=== PATIENT | female | born 1975 | race Two or more races ===

== ENCOUNTER → 2020-07-16 10:04 | Outpatient (BNVA) | payer OTHER, SELFPAY | PROVIDERS: PCP Internal Medicine Sports Medicine; Visit Provider Physician Assistant | DX: E66.01 Morbid (severe) obesity due to excess calories (principal); Z68.41 Body mass index [BMI] 40.0-44.9, adult; Z87.891 Personal history of nicotine dependence; Z88.8 Allergy status to other drugs, medicaments and biological substances; Z91.012 Allergy to eggs; Z79.899 Other long term (current) drug therapy | CPT/HCPCS: 99212 ==

== ENCOUNTER → 2020-08-06 10:18 | Outpatient (BNVA) | payer OTHER, SELFPAY | PROVIDERS: Visit Provider Physician Assistant | DX: E66.01 Morbid (severe) obesity due to excess calories (principal); Z68.41 Body mass index [BMI] 40.0-44.9, adult | CPT/HCPCS: 99212 ==

== ENCOUNTER → 2020-08-29 08:40 | Outpatient (BNVA) | payer OTHER, SELFPAY | PROVIDERS: PCP Internal Medicine Sports Medicine; Visit Provider Physician Assistant | DX: E66.01 Morbid (severe) obesity due to excess calories (principal); Z68.41 Body mass index [BMI] 40.0-44.9, adult | CPT/HCPCS: Q3014 ==

== ENCOUNTER → 2020-11-11 14:10 | Outpatient (BNVA) | payer OTHER, SELFPAY | PROVIDERS: PCP Internal Medicine Sports Medicine; Visit Provider Surgery | DX: E66.01 Morbid (severe) obesity due to excess calories (principal); Z68.41 Body mass index [BMI] 40.0-44.9, adult | CPT/HCPCS: 99212 ==

== ENCOUNTER → 2020-11-25 10:10 | Outpatient (BNVA) | payer OTHER, SELFPAY | PROVIDERS: PCP Internal Medicine Sports Medicine; Visit Provider Surgery | DX: Z01.818 Encounter for other preprocedural examination (principal); E66.01 Morbid (severe) obesity due to excess calories; R06.02 Shortness of breath; Z68.41 Body mass index [BMI] 40.0-44.9, adult | CPT/HCPCS: 99212 ==

== ENCOUNTER 2020-11-26 06:40 | Inpatient (IN) | payer OTHER, SELFPAY ==
[2020-11-24 16:23] VITALS: BMI 40.0
--- NOTE | 2020-11-25 11:38 | MHC.SHP ---
Pre-Procedural Eval Section B Chief Complaint: Morbid Severe Obesity Allergies: Allergies Allergy/AdvReac Type Severity Reaction Status Date / Time prednisone [PREDNISONE] Allergy Severe DIFFICULTY Verified 11/25/20 10:51 BREATHING, anaphylaxis eggs Allergy Intermediate Hives Uncoded 11/24/20 16:12 Plan I have reviewed the history and physical and performed a pertinent physical examination on my patient. No changes have occurred unless specified.
--- NOTE | 2020-11-25 12:18 | ECG_ITS ---
Test Reason : R06.02 SOB Blood Pressure : / mmHG Vent. Rate : 104 BPM Atrial Rate : 104 BPM P-R Int : 164 ms QRS Dur : 096 ms QT Int : 350 ms P-R-T Axes : 040 007 037 degrees QTc Int : 460 ms Sinus tachycardia Otherwise normal ECG When compared with ECG of 12-MAY-2020 10:31, No significant change was found Referred By: Peg Schmitz Electronically Signed By:AIMEE ORDONEZ MD
--- NOTE | 2020-11-25 12:41 | HO.ANESPROP2 ---
Documented by User: Charlene Taylor 11/25/20 12:45 HPI - Anesthesia Eval Consult details Narrative: 45yo F for Gastrectomy Sleeve PMFSH Active Problems Active Problems: All Active Problems (Updated 11/25/20 @ 09:45 by Amada Neff) Preoperative examination (Acute) Shortness of breath (Acute) Body mass index (BMI) of 40.1 to 44.9 in adult (Acute) Morbid obesity (Acute) Past Medical History Medical History Anxiety Arthritis Asthma Body mass index (BMI) of 40.1 to 44.9 in adult Constipation Depression HIV (human immunodeficiency virus infection) HTN (hypertension) Insomnia Low back pain Morbid obesity Sciatica Seasonal allergies Sleep apnea Vertigo Family History Family History Mother Hyperlipidemia Hypertension Arthritis Sciatica Diabetes Father No problems noted. Brother Hypertension Surgical History Surgical History History of appendectomy History of elbow surgery Social History Social History Are you a primary laboratory animal caretaker to a significant other at home: No Do you presently have visiting nurse or other home services: Yes ([employer] IN[employer] 5 hours on weekends) Alcohol intake: never Smoking Status: Former smoker Smoking Quit Date: 1994 Use of substances other than those prescribed or required for medical reasons: No Have you been hit, kicked, punched, or otherwise hurt by someone within the past year? If so, by whom?: No Advance Directives: No Advance Directives Information Provided: No Advance Directives on File: No Recently lost weight without trying: No Meds Allergies Allergy/AdvReac Type Severity Reaction Status Date / Time prednisone [PREDNISONE] Allergy Severe DIFFICULTY Verified 11/25/20 11:53 BREATHING, anaphylaxis eggs Allergy Intermediate Hives Uncoded 11/25/20 11:53 Home Medications Medication Instructions Recorded Confirmed Last Taken Type abacavir 600 mg-dolutegravir 50 1 tab PO DAILY 07/16/20 11/25/20 Unknown History mg-lamivudine 300 mg tablet bupropion HCl 300 mg 24 hr tablet, 300 mg PO DAILY 07/16/20 11/25/20 Unknown History extended release cetirizine 10 mg tablet 10 mg PO DAILY 07/16/20 11/25/20 Unknown History chlorthalidone 25 mg tablet 25 mg PO DAILY 07/16/20 11/25/20 Unknown History cholecalciferol (vitamin D3) 25 25 mcg PO DAILY 07/16/20 11/25/20 Unknown History mcg (1,000 unit) tablet doxepin 10 mg capsule 10 mg PO BEDTIME 07/16/20 11/25/20 Unknown History escitalopram oxalate 20 mg tablet 20 mg PO DAILY 07/16/20 11/25/20 Unknown History flunisolide 25 mcg (0.025 %) nasal INTRANASAL 07/16/20 11/25/20 Unknown History spray fluticasone propionate 220 2 puff INHALATION BID 07/16/20 11/25/20 Unknown History mcg/actuation HFA aerosol inhaler hydroxyzine HCl 25 mg tablet 25 mg PO BID 07/16/20 11/25/20 Unknown History ipratropium 0.5 mg-albuterol 3 mg 3 ml INHALATION Q4-6H PRN 07/16/20 11/25/20 Unknown History (2.5 mg base)/3 mL nebulization soln lisinopril 20 mg tablet 20 mg PO DAILY 07/16/20 11/25/20 Unknown History montelukast 10 mg tablet 10 mg PO DAILY 07/16/20 11/25/20 Unknown History tacrolimus 0.1 % topical ointment 1 applic TOPICAL BID 07/16/20 11/25/20 Unknown History valacyclovir 1 gram tablet 1,000 mg PO DAILY PRN 07/16/20 11/25/20 Unknown History albuterol sulfate 90 mcg/actuation 2 puff INHALATION Q4-6H PRN g 11/11/20 11/25/20 Unknown History aerosol inhaler meclizine 25 mg tablet 25 mg PO DAILY PRN tab 11/11/20 11/25/20 Unknown History sennosides 8.6 mg tablet 17.2 mg PO DAILY PRN 11/11/20 11/25/20 Unknown History cyproheptadine 4 mg PO TID 11/24/20 11/26/20 Unknown History epinephrine IM 11/24/20 11/25/20 Unknown History ketotifen fumarate 1 drp OPHTHALMIC (EYE) BID PRN 11/24/20 11/25/20 Unknown History levocetirizine [Xyzal] 5 mg PO QPM 11/24/20 11/25/20 Unknown History gabapentin 300 mg capsule 300 mg PO TID 11/25/20 11/26/20 Unknown History Exam Exam Date and Time: November 25, 2020 1241 Height,Weight and Vital Signs: Height 5 ft 6 in Weight 112.491 kg Narrative Narrative: EKG 11/25/2020 Vent. Rate : 104 BPM Atrial Rate : 104 BPM P-R Int : 164 ms QRS Dur : 096 ms QT Int : 350 ms P-R-T Axes : 040 007 037 degrees QTc Int : 460 ms Sinus tachycardia Otherwise normal ECG When compared with ECG of 12-MAY-2020 10:31, No significant change was found Assessment and Plan Assessment Anesthesia Assessment: Chart Reviewed Documented by User: Yaneth Bacon 11/26/20 08:44 PMFSH Past Medical History Medical History Anxiety Arthritis Asthma Body mass index (BMI) of 40.1 to 44.9 in adult Constipation Depression HIV (human immunodeficiency virus infection) HTN (hypertension) Insomnia Low back pain Morbid obesity Sciatica Seasonal allergies Sleep apnea Vertigo Family History Family History Mother Hyperlipidemia Hypertension Arthritis Sciatica Diabetes Father No problems noted. 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 If so, by whom?: No Advance Directives: No Advance Directives Information Provided: No Advance Directives on File: No Recently lost weight without trying: No Meds Allergies Allergy/AdvReac Type Severity Reaction Status Date / Time prednisone [PREDNISONE] Allergy Severe DIFFICULTY Verified 11/25/20 11:53 BREATHING, anaphylaxis eggs Allergy Intermediate Hives Uncoded 11/25/20 11:53 Home Medications Medication Instructions Recorded Confirmed Last Taken Type abacavir 600 mg-dolutegravir 50 1 tab PO DAILY 07/16/20 11/25/20 Unknown History mg-lamivudine 300 mg tablet bupropion HCl 300 mg 24 hr tablet, 300 mg PO DAILY 07/16/20 11/25/20 Unknown History extended release cetirizine 10 mg tablet 10 mg PO DAILY 07/16/20 11/25/20 Unknown History chlorthalidone 25 mg tablet 25 mg PO DAILY 07/16/20 11/25/20 Unknown History cholecalciferol (vitamin D3) 25 25 mcg PO DAILY 07/16/20 11/25/20 Unknown History mcg (1,000 unit) tablet doxepin 10 mg capsule 10 mg PO BEDTIME 07/16/20 11/25/20 Unknown History escitalopram oxalate 20 mg tablet 20 mg PO DAILY 07/16/20 11/25/20 Unknown History flunisolide 25 mcg (0.025 %) nasal INTRANASAL 07/16/20 11/25/20 Unknown History spray fluticasone propionate 220 2 puff INHALATION BID 07/16/20 11/25/20 Unknown History mcg/actuation HFA aerosol inhaler hydroxyzine HCl 25 mg tablet 25 mg PO BID 07/16/20 11/25/20 Unknown History ipratropium 0.5 mg-albuterol 3 mg 3 ml INHALATION Q4-6H PRN 07/16/20 11/25/20 Unknown History (2.5 mg base)/3 mL nebulization soln lisinopril 20 mg tablet 20 mg PO DAILY 07/16/20 11/25/20 Unknown History montelukast 10 mg tablet 10 mg PO DAILY 07/16/20 11/25/20 Unknown History tacrolimus 0.1 % topical ointment 1 applic TOPICAL BID 07/16/20 11/25/20 Unknown History valacyclovir 1 gram tablet 1,000 mg PO DAILY PRN 07/16/20 11/25/20 Unknown History albuterol sulfate 90 mcg/actuation 2 puff INHALATION Q4-6H PRN g 11/11/20 11/25/20 Unknown History aerosol inhaler meclizine 25 mg tablet 25 mg PO DAILY PRN tab 11/11/20 11/25/20 Unknown History sennosides 8.6 mg tablet 17.2 mg PO DAILY PRN 11/11/20 11/25/20 Unknown History cyproheptadine 4 mg PO TID 11/24/20 11/26/20 Unknown History epinephrine IM 11/24/20 11/25/20 Unknown History ketotifen fumarate 1 drp OPHTHALMIC (EYE) BID PRN 11/24/20 11/25/20 Unknown History levocetirizine [Xyzal] 5 mg PO QPM 11/24/20 11/25/20 Unknown History gabapentin 300 mg capsule 300 mg PO TID 11/25/20 11/26/20 Unknown History Exam Height,Weight and Vital Signs: Vital Signs Temp Pulse Resp BP Pulse Ox 11/26/20 07:20 98.3 F 102 H 16 115/71 96 Pertinent Lab Results Pertinent Lab Results: Laboratory Results WBC 14.2 X10*3/uL (4.8-10.8) H 11/25/20 12:32 RBC 4.91 X10*6/uL (4.20-5.50) 11/25/20 12:32 Hgb 15.2 g/dl (12.0-16.0) 11/25/20 12:32 Hct 45.9 % (37-47) 11/25/20 12:32 MCV 93.5 fL (80-98) 11/25/20 12:32 MCH 31.0 pg (27.0-33.0) 11/25/20 12:32 MCHC 33.1 g/dl (31.0-35.0) 11/25/20 12:32 RDW 12.9 % (11.0-16.0) 11/25/20 12:32 Plt Count 431 X10*3/uL (160-400) H 11/25/20 12:32 MPV 10.0 fL (9.4-12.3) 11/25/20 12:32 Immature Gran % (Auto) 0.6 % (0.0-0.4) H 11/25/20 12:32 Neut % (Auto) 69.0 % (45-73) 11/25/20 12:32 Lymph % (Auto) 20.7 % (20-40) 11/25/20 12:32 Clay % (Auto) 8.7 % (2-11) 11/25/20 12:32 Eos % (Auto) 0.6 % (0-4) 11/25/20 12:32 Baso % (Auto) 0.4 % (0-2) 11/25/20 12:32 Lymph # (Auto) 2.9 X10*3/uL (1.2-4.9) 11/25/20 12:32 Clay # (Auto) 1.2 X10*3/uL (0.1-1.2) 11/25/20 12:32 Eos # (Auto) 0.1 X10*3/uL (0.0-0.4) 11/25/20 12:32 Baso # (Auto) 0.1 X10*3/uL (0.0-0.2) 11/25/20 12:32 Abs Immat Gran (auto) 0.09 X10*3/uL (0.00-0.03) H 11/25/20 12:32 Absolute Neuts (auto) 9.8 X10*3/uL (2.0-8.3) H 11/25/20 12:32 Absolute Nucleated RBC 0.000 X10*3/uL (0.0-0.012) 11/25/20 12:32 Nucleated RBC % (auto) 0.0 /100WBC (0.0-0.2) 11/25/20 12:32 PT 11.6 SEC (10.8-13.0) 11/25/20 12:32 INR 1.0 (0.9-1.1) 11/25/20 12:32 APTT 30.9 SEC (24.1-38.0) 11/25/20 12:32 Sodium 139 mmol/L (135-145) 11/25/20 12:32 Potassium 3.9 mmol/L (3.3-5.1) 11/25/20 12:32 Chloride 99 mmol/L (96-108) 11/25/20 12:32 Carbon Dioxide 28 mmol/L (22-29) 11/25/20 12:32 Anion Gap 16 (12-20) 11/25/20 12:32 BUN 14 mg/dL (9-16) 11/25/20 12:32 Creatinine 0.82 mg/dL (0.5-1.4) 11/25/20 12:32 Estim Creat Clear Calc 111.4 11/25/20 12:32 Estimated GFR > 60 11/25/20 12:32 Random Glucose 99 mg/dL (60-115) 11/25/20 12:32 Calcium 9.9 mg/dL (8.4-10.2) 11/25/20 12:32 Albumin 4.4 g/dL (3.5-5.0) 11/25/20 12:32 Urine Color YELLOW 11/25/20 Unknown Urine Appearance HAZY 11/25/20 Unknown Urine pH 6.5 (5.0-8.0) 11/25/20 Unknown Ur Specific [place] 1.010 (1.005-1.025) 11/25/20 Unknown Urine Protein 2+ MG/DL (NEG-TRACE) H 11/25/20 Unknown Urine Glucose (UA) NEG MG/DL (NEG) 11/25/20 Unknown Urine Ketones NEG MG/DL (NEG) 11/25/20 Unknown Urine Blood 1+ (NEG) H 11/25/20 Unknown Urine Nitrite NEG (NEG) 11/25/20 Unknown Ur Leukocyte Esterase NEG (NEG) 11/25/20 Unknown Urine RBC 5-9 /HPF (0) H 11/25/20 Unknown Urine WBC 1-4 /HPF (0-4) 11/25/20 Unknown Ur Squamous Epith Cells 2+ /LPF 11/25/20 Unknown Urine Bacteria 1+ /LPF 11/25/20 Unknown Urine Mucus 1+ /LPF 11/25/20 Unknown Urine Test NEGATIVE (NEGATIVE) 11/25/20 Unknown COVID-19 (KRISTIN) Negative (Negative) 11/26/20 06:51 COVID-19 Clin Com See Note 11/26/20 06:51 Blood Type O Positive 11/25/20 12:34 Antibody Screen NEGATIVE 11/25/20 12:34 Airway Mallampati Class: II TM Dist: >3cm Neck ROM: Full Loose/Missing/Broken Teeth: Yes (Missing 1) Heart: RRR Lungs: CTAB Assessment and Plan Assessment Anesthesia Assessment: Anesthesia Plan Discussed and Chart Reviewed Final Anesthetic Review NPO: Yes ASA Class: III Final Preanesthetic Review: No Changes in Pt Med Stat, Meds/Allgs Chart Reviewed, Consent Obtained/Reviewed and Anes Risks/Benef Reviewed Patient Risk: Intermediate Procedure Risk: Intermediate Assessment/Block/Sedation in SS: Assess/Block/Sedation-SS Anesthetic Plan Anesthetic Plan: GA Disposition: Standard PACU
[2020-11-25 13:25] LABS: MANUAL DIFF FLAG NO
[2020-11-25 13:33] LABS: Basophils Absolute Auto 0.1 X10*3/uL (0.0-0.2); Basophils Percent Auto 0.4 % (0-2); Eosinophils Absolute Auto 0.1 X10*3/uL (0.0-0.4); Eosinophils Percent Auto 0.6 % (0-4); Hematocrit 45.9 % (37-47); Hemoglobin 15.2 g/dl (12.0-16.0); Imm Gran Abs Auto 0.09 X10*3/uL (0.00-0.03); Imm Gran Pct Auto 0.6 % (0.0-0.4); Lymphocytes Absolute Auto 2.9 X10*3/uL (1.2-4.9); Lymphocytes Percent Auto 20.7 % (20-40); Mean Corpuscular HGB Conc 33.1 g/dl (31.0-35.0); Mean Corpuscular Volume 93.5 fL (80-98); Monocytes Absolute Auto 1.2 X10*3/uL (0.1-1.2); Monocytes Percent Auto 8.7 % (2-11); Neutrophils Absolute Auto 9.8 X10*3/uL (2.0-8.3); Platelet Count 431 X10*3/uL (160-400); Red Blood Count 4.91 X10*6/uL (4.20-5.50); Red Cell Distribution Width 12.9 % (11.0-16.0); White Blood Count 14.2 X10*3/uL (4.8-10.8)
[2020-11-25 13:43] LABS: Prothrombin Time 11.6 SEC (10.8-13.0)
[2020-11-25 13:45] LABS: Partial Thromboplastin Time 30.9 SEC (24.1-38.0)
[2020-11-25 14:00] LABS: Albumin Level 4.4 g/dL (3.5-5.0); Anion Gap 16 (12-20); Blood Urea Nitrogen 14 mg/dL (9-16); Calcium 9.9 mg/dL (8.4-10.2); Carbon Dioxide 28 mmol/L (22-29); Chloride 99 mmol/L (96-108); Creatinine Clr Calc Pharmacy 111.4; Estimated Glomerular Filt Rate > 60; Glucose Random 99 mg/dL (60-115); Potassium 3.9 mmol/L (3.3-5.1); Sodium 139 mmol/L (135-145)
[2020-11-25 14:02] LABS: Glucose Urine UA NEG (NEG); Leukocyte Esterase Urine NEG (NEG); Nitrite Urine NEG (NEG); PH 6.5 (5.0-8.0); Urine Blood 1+ (NEG); Urine Ketones NEG (NEG); Urine Protein 2+ MG/DL (NEG-TRACE)
[2020-11-25 14:05] LABS: Appearance Urine HAZY; Color Urine YELLOW
[2020-11-25 14:06] LABS: UPreg QC Valid YES; Urine Pregnancy NEGATIVE (NEGATIVE)
[2020-11-25 14:23] LABS: Bacteria Urine 1+ /LPF; Mucus Urine 1+ /LPF; Squamous Epithelial Cell Urine 2+ /LPF
[2020-11-26] VITALS (14 sets, daily range): BP systolic 107–159; BP diastolic 65–93; PULSE 87–113; RESP 16–20; TEMP 35.9–37; O2SAT 90–98; BMI 40.0
[2020-11-26] MEDS: Lactated Ringers 1,000 ML 100 ML IVCONT (07:23)
[2020-11-26 07:36] LABS: COVID-19 Test Negative (Negative)
--- NOTE | 2020-11-26 11:52 | PM.OP ---
Brief Operative Note Date of Service: 11/26/20 Pre-op diagnosis: Morbid obesity, BMI 40.2 Post-op diagnosis: other (Same and hiatal hernia) Procedure: Laparoscopic sleeve gastrectomy, hiatal hernia repair, Lay block, and intraoperative endoscopy Implants: covidien katia and clips Surgeon: Peg Schmitz MD Anesthesia: GETA Doping Supervisor: Migdalia Pittman Estimated blood loss (mL): 10 Pathology: other (Partial gastrectomy) Condition: stable Disposition: PACU
--- NOTE | 2020-11-26 11:53 | P.OP_ITS ---
Operative Note Operative Note Date of Service: 11/26/20 Narrative: Patient was brought into the operating room and placed on the operating room table in the supine position. General anesthesia was induced. Normal DVT prophylaxis was instituted and the patient received 2 grams of cefotetan preoperatively. The abdomen was then prepped and draped in the normal sterile fashion. A safety time-out was performed. A mixture of 1% lidocaine with epinephrine and ??% Marcaine plain was used to a nesthetize the planned incision site in the left upper quadrant. A #11 scalpel was used to make a 5 mm left upper quadrant transverse incision through which a veress needle was placed. Three pops were heard going through the fascia. A saline drop test was used to confirm that the veress needle was intraabdominal. An optiview technique was then used to place a 5mm port in the left upper quadrant. A 5 mm 30 degree laproscope was then placed through this port and the abdominal cavity was surveyed and was normal. The patient was placed in reverse Trendelenburg positioning. A benny liver retractor was then placed in the subxyphoid position and it was used to hold up the left lobe of the liver to the abdominal wall. This was secured to the bed using the liver retractor watts. A TREVOR block was then performed for pain control on the right side of the abdomen. A 5 mm port was placed in the right upper quadrant near the falciform ligament. A 12 mm port was then placed in the mid epigastrium. One additional 5 mm port was placed in the left upper quadrant just to the left of the placement of the first port. I then performed a TREVOR block on the left side of the abdomen. I then removed the epigastric fat pad; there was a small anterior hiatal hernia noted. I reapproximated the left and right crura with a total of 2 stitches of 2-0 ethibond and a laparoscopic knot pusher. There was no residual hiatal hernia. I then opened up the angle of His. We then gained entry into the lesser sac about 4-5 cm from the pylorus. I had anesthesia place a 34 [place] orogastric tube into the distal antrum to use as a sizing tool for gastric pouch size. I divided the short gastric vessels up to the angle of His. We then started the creation of the gastric pouch by firing a 60 mm purple load endostapler up the stomach about 4-5 cm from the pylorus. We completed the creation of the gastric pouch using a total of 4 firings of a 60 mm and 1 firing of a 45 mm purple load stapler. We had anesthesia remove the orogastric tube, then we clamped across the distal antrum using a fired 60 mm endostapler. We flattened the patient and then instilled normal saline surrounding the newly created staple line. I then performed an on-table endoscopy. I passed the gastroscopy into the posterior oropharynx and down the esophagus evaluating the esophageal mucosa which was normal. There was no evidence of hiatal hernia. I passed the gastroscope into the gastric pouch and insufflated the gastric pouch. There was healthy pink mucosa and no evidence of active bleeding. There was no evidence of leak on laparosc opy. I desufflated the gastric pouch and removed the endoscope. I removed the endostapler from the abdomen and suctioned the fluid from the left upper quadrant. I then removed the partial gastrectomy specimen through the epigastric 12 mm port site. I reapproximated the 12 mm port using a 0 maxon suture with a laparoscopic suture passer. I instilled local anesthetic into the fascial closure site and tied the suture down at a pressure of 8-10 mm of Hg. There was no residual fascial defect. We removed the liver retractor and the left upper quadrant 5 mm ports under direct visualization. There was no evidence of any active bleeding. I desufflated the abdomen through the last remaining port and removed the laparoscope and 5 mm port. We reapproximated all incisions with a 4-0 monocryl subcuticular stitch. We cleaned and dried the abdominal skin and applied dermabond skin glue. All count were correct at the end of the case. The patient was awake and in stable condition prior to extubation and transfer to the recovery room.
--- NOTE | 2020-11-26 11:58 | PM.DS ---
DS: Providers Provider Date of Service: 11/27/20 Date of admission: 11/26/20 06:40 Primary care physician: Venkatesh Abel MD DS: Medications Discharge Medications Home Medications: Home Medications Medication Instructions Recorded Confirmed abacavir 600 mg-dolutegravir 50 1 tab PO DAILY 07/16/20 11/25/20 mg-lamivudine 300 mg tablet bupropion HCl 300 mg 24 hr tablet, 300 mg PO DAILY 07/16/20 11/25/20 extended release cetirizine 10 mg tablet 10 mg PO DAILY 07/16/20 11/25/20 chlorthalidone 25 mg tablet 25 mg PO DAILY 07/16/20 11/25/20 cholecalciferol (vitamin D3) 25 25 mcg PO DAILY 07/16/20 11/25/20 mcg (1,000 unit) tablet doxepin 10 mg capsule 10 mg PO BEDTIME 07/16/20 11/25/20 escitalopram oxalate 20 mg tablet 20 mg PO DAILY 07/16/20 11/25/20 flunisolide 25 mcg (0.025 %) nasal INTRANASAL 07/16/20 11/25/20 spray fluticasone propionate 220 2 puff INHALATION BID 07/16/20 11/25/20 mcg/actuation HFA aerosol inhaler hydroxyzine HCl 25 mg tablet 25 mg PO BID 07/16/20 11/25/20 ipratropium 0.5 mg-albuterol 3 mg 3 ml INHALATION Q4-6H PRN 07/16/20 11/25/20 (2.5 mg base)/3 mL nebulization soln lisinopril 20 mg tablet 20 mg PO DAILY 07/16/20 11/25/20 montelukast 10 mg tablet 10 mg PO DAILY 07/16/20 11/25/20 tacrolimus 0.1 % topical ointment 1 applic TOPICAL BID 07/16/20 11/25/20 valacyclovir 1 gram tablet 1,000 mg PO DAILY PRN 07/16/20 11/25/20 albuterol sulfate 90 mcg/actuation 2 puff INHALATION Q4-6H PRN g 11/11/20 11/25/20 aerosol inhaler meclizine 25 mg tablet 25 mg PO DAILY PRN tab 11/11/20 11/25/20 sennosides 8.6 mg tablet 17.2 mg PO DAILY PRN 11/11/20 11/25/20 cyproheptadine 4 mg PO TID 11/24/20 11/26/20 epinephrine IM 11/24/20 11/25/20 ketotifen fumarate 1 drp OPHTHALMIC (EYE) BID PRN 11/24/20 11/25/20 levocetirizine [Xyzal] 5 mg PO QPM 11/24/20 11/25/20 gabapentin 300 mg capsule 300 mg PO TID 11/25/20 11/26/20 Previous Rx's Medication Instructions Recorded acetaminophen 500 mg tablet 1,000 mg PO Q6H PRN #30 tab 11/25/20 docusate sodium 100 mg capsule 100 mg PO BID #30 cap 11/25/20 famotidine 20 mg tablet 20 mg PO DAILY #30 tab 11/25/20 ondansetron HCl 4 mg tablet 4 mg PO Q6H PRN #30 tab 11/25/20 simethicone 80 mg chewable tablet 80 mg PO TID-QID PRN #30 tab 11/25/20 DS: Summary Time Spent with Patient Time attestation: Total time spent providing and/or coordinating discharge services: 15 minutes DATE OF SERVICE: November 26, 2020 ADMITTING DIAGNOSES: morbid obesity and hiatal hernia DISCHARGE DIAGNOSES: same, see procedure PROCEDURE PERFORMED: laparoscopic sleeve gastrectomy and hiatal hernia repair DISCHARGE MEDICATIONS: 1. Simethicone 80mg q4h prn gas 2. Ondansetron 4mg po tid prn nausea 3. Famotidine 20mg po bid 4. Docusate sodium 100mg po bid DISCHARGE INSTRUCTIONS: The patient should continue on the stage III bariatric diet, which includes 3 protein shakes of at least 20- 30g of protein on a daily basis. The patient was encouraged to avoid drinking liquids with her protein shakes. She should wait 30-45 minutes in between her meals and drinking water. She should drink at least 40-60 ounces of water on a daily basis. She should ambulate while at home to avoid any blood clots in her lower extremities. She should call with any questions or concerns such as increase in abdominal pain, persistent nausea, vomiting, redness and drainage from her incisions, fever, chills, shortness of breast, or chest pain beyond what is normal for her. The patient should avoid all heavy lifting greater than 5 pounds for the next 4 weeks. The patient is already scheduled to follow up with me in 2 weeks' time, but should call the office with any questions prior to that follow up appointment. The patient should not advance her diet until she is seen in the office for the 2 week appointment. HOSPITAL COURSE: The patient was admitted after undergoing laparoscopic sleeve gastrectomy. She was started on stage II diet and was tolerating well without nausea or vomiting. Her pain was controlled on IV Dilaudid. All labs were within normal limits. On post-operative day #2 she was feeling better, nausea and epigastric pain improved and she was tolerating stage III bariatric diet well. She was discharged home. DISCHARGE DISPOSITION: Home. Discharge coordination time: Less than 30 minutes Physical Exam Vital Signs: Vital Signs: Last Vital Signs Temp 98.3 F 11/26/20 07:20 Pulse 102 H 11/26/20 07:20 Resp 16 11/26/20 07:20 BP 115/71 11/26/20 07:20 Pulse Ox 96 11/26/20 07:20 Body Mass Index 40.0 DS: Data Data Completed and Pending Pending studies at discharge: Pending at discharge 11/26/20 11:22 Surgical [PTH] Routine Labs on day of discharge: Laboratory Results - last 24 hr 11/25/20 11/25/20 11/25/20 12:32 12:32 12:32 WBC 14.2 H RBC 4.91 Hgb 15.2 Hct 45.9 MCV 93.5 MCH 31.0 MCHC 33.1 RDW 12.9 Plt Count 431 H MPV 10.0 Immature Gran % (Auto) 0.6 H Neut % (Auto) 69.0 Lymph % (Auto) 20.7 Lyon % (Auto) 8.7 Eos % (Auto) 0.6 Baso % (Auto) 0.4 Lymph # (Auto) 2.9 Lyon # (Auto) 1.2 Eos # (Auto) 0.1 Baso # (Auto) 0.1 Abs Immat Gran (auto) 0.09 H Absolute Neuts (auto) 9.8 H Absolute Nucleated RBC 0.000 Nucleated RBC % (auto) 0.0 PT 11.6 INR 1.0 APTT 30.9 Sodium 139 Potassium 3.9 Chloride 99 Carbon Dioxide 28 Anion Gap 16 BUN 14 Creatinine 0.82 Estim Creat Clear Calc 111.4 Estimated GFR > 60 Random Glucose 99 Calcium 9.9 Albumin 4.4 Urine Color Urine Appearance Urine pH Ur Specific [place] Urine Protein Urine Glucose (UA) Urine Ketones Urine Blood Urine Nitrite Ur Leukocyte Esterase Urine RBC Urine WBC Ur Squamous Epith Cells Urine Bacteria Urine Mucus Urine Test COVID-19 (KRISTIN) [email or web address] Blood Type Antibody Screen 11/25/20 11/25/20 11/25/20 12:34 Unknown Unknown WBC RBC Hgb Hct MCV MCH MCHC RDW Plt Count MPV Immature Gran % (Auto) Neut % (Auto) Lymph % (Auto) Lyon % (Auto) Eos % (Auto) Baso % (Auto) Lymph # (Auto) Lyon # (Auto) Eos # (Auto) Baso # (Auto) Abs Immat Gran (auto) Absolute Neuts (auto) Absolute Nucleated RBC Nucleated RBC % (auto) PT INR APTT Sodium Potassium Chloride Carbon Dioxide Anion Gap BUN Creatinine Estim Creat Clear Calc Estimated GFR Random Glucose Calcium Albumin Urine Color YELLOW Urine Appearance HAZY Urine pH 6.5 Ur Specific [place] 1.010 Urine Protein 2+ H Urine Glucose (UA) NEG Urine Ketones NEG Urine Blood 1+ H Urine Nitrite NEG Ur Leukocyte Esterase NEG Urine RBC 5-9 H Urine WBC 1-4 Ur Squamous Epith Cells 2+ Urine Bacteria 1+ Urine Mucus 1+ Urine Test NEGATIVE COVID-19 (KRISTIN) COVID-[employer] Blood Type O Positive Antibody Screen NEGATIVE 11/26/20 06:51 WBC RBC Hgb Hct MCV MCH MCHC RDW Plt Count MPV Immature Gran % (Auto) Neut % (Auto) Lymph % (Auto) Lyon % (Auto) Eos % (Auto) Baso % (Auto) Lymph # (Auto) Lyon # (Auto) Eos # (Auto) Baso # (Auto) Abs Immat Gran (auto) Absolute Neuts (auto) Absolute Nucleated RBC Nucleated RBC % (auto) PT INR APTT Sodium Potassium Chloride Carbon Dioxide Anion Gap BUN Creatinine Estim Creat Clear Calc Estimated GFR Random Glucose Calcium Albumin Urine Color Urine Appearance Urine pH Ur Specific [place] Urine Protein Urine Glucose (UA) Urine Ketones Urine Blood Urine Nitrite Ur Leukocyte Esterase Urine RBC Urine WBC Ur Squamous Epith Cells Urine Bacteria Urine Mucus Urine Test COVID-19 (KRISTIN) Negative [email or web address] See Note Blood Type Antibody Screen Discharge Plan Discharge Anticipated Discharge Date/Time: 11/27/20 11:53 Patient Disposition: Home, Self-Care Referrals: [facility] [Other] Venkatesh Abel MD [Primary Care Provider] - Discharge Medications: Continued acetaminophen [Tylenol Extra Strength] 500 mg tablet 1,000 mg PO Q6H PRN (Reason: pain) Qty: 30 RF: 1 famotidine [Pepcid AC] 20 mg tablet 20 mg PO DAILY Qty: 30 RF: 1 simethicone [Gas Relief (simethicone)] 80 mg tablet,chewable 80 mg PO TID-QID PRN (Reason: abdominal distention) Qty: 30 RF: 1 ondansetron HCl [Zofran] 4 mg tablet 4 mg PO Q6H PRN (Reason: nausea and vomiting) Qty: 30 RF: 1 docusate sodium [Colace] 100 mg capsule 100 mg PO BID Qty: 30 RF: 1 ketotifen fumarate 0.025 % (0.035 %) Drops 1 drp OPHTHALMIC (EYE) BID PRN (Reason: Eye Irritation) RF: 0 levocetirizine [Xyzal] 5 mg Tablet 5 mg PO QPM RF: 0 cyproheptadine 4 mg tablet 4 mg PO TID RF: 0 epinephrine 0.3 mg/0.3 mL auto-injector IM RF: 0 szwpevat-jawtdryefjgg-mxbrgbe 600-50-300 mg tablet 1 tab PO DAILY RF: 0 cholecalciferol (vitamin D3) 25 mcg (1,000 unit) tablet 25 mcg PO DAILY RF: 0 bupropion HCl 300 mg tablet extended release 24 hr 300 mg PO DAILY RF: 0 escitalopram oxalate 20 mg tablet 20 mg PO DAILY RF: 0 fluticasone propionate 220 mcg/actuation HFA aerosol inhaler 2 puff inhalation BID RF: 0 montelukast 10 mg tablet 10 mg PO DAILY RF: 0 flunisolide 25 mcg (0.025 %) spray,non-aerosol intranasal RF: 0 tacrolimus 0.1 % ointment 1 applic topical BID RF: 0 doxepin 10 mg capsule 10 mg PO BEDTIME RF: 0 chlorthalidone 25 mg tablet 25 mg PO DAILY RF: 0 lisinopril 20 mg tablet 20 mg PO DAILY RF: 0 cetirizine 10 mg tablet 10 mg PO DAILY RF: 0 ipratropium-albuterol 0.5 mg-3 mg(2.5 mg base)/3 mL solution for nebulization 3 ml inhalation Q4-6H PRN (Reason: Shortness Of Breath Or Wheezing) RF: 0 hydroxyzine HCl 25 mg tablet 25 mg PO BID RF: 0 valacyclovir 1 gram tablet 1,000 mg PO DAILY PRN (Reason: Cold Sores) RF: 0 albuterol sulfate 90 mcg/actuation HFA aerosol inhaler 2 puff inhalation Q4-6H PRN (Reason: shortness of breath or wheezing) RF: 0 meclizine 25 mg tablet 25 mg PO DAILY PRN (Reason: dizziness) RF: 0 sennosides 8.6 mg tablet 17.2 mg PO DAILY PRN (Reason: Constipation) RF: 0 gabapentin 300 mg capsule 300 mg PO TID RF: 0 Discharge Orders: Discharge Order (Routine); Ordered 11/27/20 Ordered By: Peg Schmitz Diet: other Activity on Discharge: No heavy lifting Stand Alone Forms: Patient Portal Discharge page Activity Restrictions/Additional Instructions: No tub baths, sex or returning to work until discussed at first post op appointment. No exercise, alcohol, tobacco or illegal drug use. Continue to use incentive spirometer hourly while awake. Walk in home for 5- 10 minutes every 2 hours during the first week. Continue phase 3 diet until first post op appointment. Follow all instructions in the bariatric handbook and call with any questions.Discharge Instructions 1. Please call your doctor or come back to the emergency room should any new symptoms arise. 2. You will receive a courtesy call from [facility] 24-48 hours after discharge. 3. Activity: abstain from alcohol, practice limited stair climbing, no bending, no driving, no exercise, no illicit substances, no lifting, no sex, no tub bath, no work. 4. Diet: continue stage 3 protein shakes until your [address] Schmitz. 5. Dressing Change/Wound Care: Your incision is covered by surgical glue. If the area is tender, you may apply an ice pack for short intervals (no more than 20 minutes on, followed by at least 20 minutes off). Do not apply heat. Do not use creams, lotions, or topical antibiotics unless instructed to do so by your surgeon. These can cause infection or allergic reaction. 6. Call your doctor if: - Your temperature exceeds 101.5 F - You experience excessive pain or swelling - You have an unexpected reaction to medication - You have excessive bleeding - You experience continued vomiting/nausea - Your incision begins to separate - Your incision shows signs of infection such as increased redness, swelling, excessive pain, heat, or drainage (light blood or clear fluid is normal) 7. General instructions: No lifting greater than 5 lbs for the next 4 weeks[address] driving within 24 hours of taking narcotic pain medications. If you do not move your bowels in the next 2 days, please take milk of magnesia over the counter. Please follow the post op diet and do not advance your diet until you are seen in the office in about 2 weeks. Please walk around your home every hour or two to prevent blood clots from forming in your legs. You do not need to wake from sleeping to walk. Please sleep in a bed or couch to prevent kinking at the hips and knees. Please take your incentive spirometer (your lung freight separator) home with you and use it for the next few days to prevent pneumonias. You may shower, no hot tubs, baths or swimming pools. Please call the office with any questions or concerns such as increasing abdominal pain, fever, chills, shortness of breath, chest pain, leg pain or swelling, or redness or drainage from your incisions. Please stay on stage 3 diet which includes sugar free clear liquids such as ice pops and jello and broth and crystal light. Avoid all carbonation. Please drink 3 protein shakes with at least 25-30 grams of protein daily or 3 of the Celebrate 4:1 shakes which can be purchased in our office. The Celebrate shakes have all of the bariatric vitamins you need if you consume these shakes. If you are drinking other protein shakes, you will need to purchase the Celebrate multivitamins and calcium that we provide in the office (they will provide all the vitamins you need). Please make sure you are consuming at least 40-60 ounces of water in addition to your 3 protein shakes daily. Do not hesitate to contact the office with any questions at . Care Plan Goals: weight loss Health Concerns: morbid obesity Plan of Treatment: see discharge instructions
[2020-11-26] MEDS: Famotidine/PF 20 MG/2 ML VIAL IVPUSH ×2 (12:58→21:19)
[2020-11-26] MEDS: Lactated Ringers 1,000 ML 125 ML IVCONT ×2 (14:31→22:38)
[2020-11-26] MEDS: Gabapentin 300 MG CAPSULE PO ×2 (15:57→20:05)
[2020-11-26] MEDS: Doxepin HCl 10 MG CAPSULE PO (20:05)
[2020-11-26] MEDS: hydrOXYzine HCL 25 MG TABLET PO (20:05)
[2020-11-26] MEDS: ondansetron HCL 4 MG/2 ML VIAL IVPUSH (21:19)
[2020-11-26] MEDS: 0.9 % Sodium Chloride Flush 3 ML SYRINGE IVFLUSH (21:20)
[2020-11-26] MEDS: cefoTEtan disodium 2 GM in 0.9 % Sodium Chloride 50 ML IV (22:36)
[2020-11-27 03:38] VITALS: BP 115/75; PULSE 79; RESP 20; TEMP 36.5; O2SAT 98
[2020-11-27] MEDS: HYDROmorphone HCl 0.5 MG/0.5 ML SYRINGE 0.25 MG IVPUSH (03:46)
[2020-11-27 04:56] LABS: MANUAL DIFF FLAG NO
[2020-11-27 05:13] LABS: Basophils Percent Auto 0.1 % (0-2); Eosinophils Percent Auto 0.2 % (0-4); Hematocrit 39.6 % (37-47); Hemoglobin 13.3 g/dl (12.0-16.0); Imm Gran Abs Auto 0.06 X10*3/uL (0.00-0.03); Imm Gran Pct Auto 0.5 % (0.0-0.4); Lymphocytes Absolute Auto 2.5 X10*3/uL (1.2-4.9); Lymphocytes Percent Auto 20.4 % (20-40); Mean Corpuscular HGB Conc 33.6 g/dl (31.0-35.0); Mean Corpuscular Hemoglobin 31.7 pg (27.0-33.0); Mean Corpuscular Volume 94.5 fL (80-98); Mean Platelet Volume 9.7 fL (9.4-12.3); Monocytes Absolute Auto 1.3 X10*3/uL (0.1-1.2); Monocytes Percent Auto 10.3 % (2-11); Neutrophils Absolute Auto 8.6 X10*3/uL (2.0-8.3); Neutrophils Percent Auto 68.5 % (45-73); Platelet Count 370 X10*3/uL (160-400); Red Blood Count 4.19 X10*6/uL (4.20-5.50); White Blood Count 12.5 X10*3/uL (4.8-10.8)
[2020-11-27 05:46] LABS: Anion Gap 11 (12-20); Blood Urea Nitrogen 9 mg/dL (9-16); Calcium 8.7 mg/dL (8.4-10.2); Carbon Dioxide 33 mmol/L (22-29); Chloride 100 mmol/L (96-108); Creatinine Clr Calc Pharmacy 108.6; Estimated Glomerular Filt Rate > 60; Glucose Random 107 mg/dL (60-115); Potassium 3.9 mmol/L (3.3-5.1); Sodium 140 mmol/L (135-145)
[2020-11-27] MEDS: ondansetron HCL 4 MG/2 ML VIAL IVPUSH (05:51)
[2020-11-27] MEDS: Lactated Ringers 1,000 ML 125 ML IVCONT (05:52)
[2020-11-27 07:28] VITALS: BP 147/79; PULSE 77; RESP 17; TEMP 36.4; O2SAT 97
--- NOTE | 2020-11-27 07:31 | PM.PNGS ---
Subjective Subjective Date of Service: 11/27/20 <Migdalia Pittman PA-C - Last Filed: 11/27/20 10:09> 11/27/20 <Peg Schmitz MD - Last Filed: 11/27/20 09:14> Interval history: Pt is POD #1, s/p LSG and HH repair. She is doing very well this am. No further pain, no nausea. Ambulating and voiding well. Tolerating phase 2 bariatric diet. No concerns. Using ICS > 2000 mls. <Migdalia Pittman PA-C - Last Filed: 11/27/20 10:09> Pod #1 s/p lap sleeve gastrectomy and hiatal hernia repair. Doing well. Tolerating stage 3 diet, ambulating in hallway. Pain well controlled. Denies nausea or vomiting. Vitals and labs reviewed and are within limit for post op day 1. On exam, patient is well appearing, abdomen is soft, nd, mild appropriate incisional tenderness. Incisions c/d/I with dermabond in place. Plan: d/c home today. Follow up with me in 2 weeks. <Peg Schmitz MD - Last Filed: 11/27/20 09:14> Physical Exam Vital Signs: Vital Signs: Last Vital Signs Temp 97.7 F 11/27/20 03:38 Pulse 79 11/27/20 03:38 Resp 20 11/27/20 03:38 BP 115/75 11/27/20 03:38 Pulse Ox 98 11/27/20 03:38 Body Mass Index 40.0 <Migdalia Pittman PA-C - Last Filed: 11/27/20 10:09> Const: General: cooperative, healthy appearing, comfortable and awake <Migdalia Pittman PA-C - Last Filed: 11/27/20 10:09> GI: Inspection: No abdominal wall ecchymosis, No distended and Yes incision (all clean, dry and intact) <Migdalia Pittman PA-C - Last Filed: 11/27/20 10:09> Palpation (GI): Soft to palpation, nontender, no guarding, not rigid, no hernias and no masses <Migdalia Pittman PA-C - Last Filed: 11/27/20 10:09> Extrem: General: No no pedal edema and No calf tenderness <Migdalia Pittman PA-C - Last Filed: 11/27/20 10:09> Progress Note: A&P Assessment and plan (1) History of repair of hiatal hernia: Problem details: POD #1, doing well. See LSG instructions <Migdalia Pittman PA-C - Last Filed: 11/27/20 10:09> Status: Acute <Migdalia Pittman PA-C - Last Filed: 11/27/20 10:09> (2) S/P laparoscopic sleeve gastrectomy: Problem details: POd # 1 doing very well. Will advance to phase 3 diet now and expect d/c home later this am. Labs reviewed all wnl. <Migdalia Pittman PA-C - Last Filed: 11/27/20 10:09> Status: Acute <Migdalia Pittman PA-C - Last Filed: 11/27/20 10:09> (3) Body mass index (BMI) of 40.1 to 44.9 in adult: Status: Acute <Migdalia Pittman PA-C - Last Filed: 11/27/20 10:09> (4) Morbid obesity: Status: Acute <Migdalia Pittman PA-C - Last Filed: 11/27/20 10:09> Fall Risk Details Current Medications: Current Medications Generic Name Dose Route Start Last Admin Trade Name Freq PRN Reason Stop Dose Admin Albuterol Sulfate 2 puff 11/26/20 13:51 Albuterol Sulfate 90 Mcg 8 Gm Inhaler INHALE Q4H PRN shortness of breath or wheezing Albuterol/Ipratropium 3 ml 11/26/20 13:51 Albuterol/Iprat 2.5/0.5mg 3 Ml Ampul.Neb INHALE Q4H PRN Shortness Of Breath Or Wheezing Doxepin HCl 10 mg 11/26/20 21:00 11/26/20 20:05 Doxepin Hcl 10 Mg Capsule PO 10 mg BEDTIME MAIKOL Administration Famotidine 20 mg 11/26/20 12:48 11/26/20 21:19 Famotidine/Pf 20 Mg/2 Ml Vial IVPUSH 20 mg BID MAIKOL Administration Gabapentin 300 mg 11/26/20 15:00 11/26/20 20:05 Gabapentin 300 Mg Capsule PO 300 mg TID MAIKOL Administration Hydromorphone HCl 0.25 mg 11/26/20 13:51 11/27/20 03:46 Hydromorphone Hcl 0.5 Mg/0.5 Ml Syringe IVPUSH 0.25 mg Q4H PRN Administration Pain, Moderate (Pain Scale 4-6 Hydroxyzine HCl 25 mg 11/26/20 13:51 11/26/20 20:05 Hydroxyzine Hcl 25 Mg Tablet PO 25 mg BID PRN Administration Itching Lactated Ringer's 1,000 mls @ 125 mls/hr 11/26/20 13:51 11/27/20 05:52 Lr IVCONT 125 mls/hr .Q8H MAIKOL Administration Acetaminophen 1,000 mg in 100 mls @ 16.7 mls/hr 11/26/20 16:00 11/27/20 03:46 Ofirmev IV 16.7 mls/hr .Q6H MAIKOL Administration Lisinopril 20 mg 11/27/20 09:00 Lisinopril 20 Mg Tablet PO DAILY [facility] Protocol Meclizine HCl 25 mg 11/26/20 13:51 Meclizine Hcl 25 Mg Tablet PO DAILY PRN dizziness Metoclopramide HCl 10 mg 11/26/20 13:51 Metoclopramide Hcl 10 Mg/2 Ml Vial IVPUSH Q6H PRN Nausea Montelukast Sodium 10 mg 11/27/20 09:00 Montelukast Sodium 10 Mg Tablet PO DAILY MAIKOL Ondansetron HCl 4 mg 11/26/20 13:51 11/27/20 05:51 Ondansetron Hcl 4 Mg/2 Ml Vial IVPUSH 4 mg Q8H MAIKOL Administration Sodium Chloride 3 ml 11/26/20 16:00 11/26/20 21:20 0.9 % Sodium Chloride Flush 3 Ml Syringe IVFLUSH 3 ml QSHIFT MAIKOL Administration <Migdalia Pittman PA-C - Last Filed: 11/27/20 10:09> Time Spent With Patient Time: Total time spent is greater than 50% in coordination of care (as documented) at patient's floor/unit and/or counseling patient: <Migdalia Pittman PA-C - Last Filed: 11/27/20 10:09> Time with patient: less than 15 minutes <Peg Schmitz MD - Last Filed: 11/27/20 09:14>
[2020-11-27] MEDS: Famotidine/PF 20 MG/2 ML VIAL IVPUSH (07:42)
[2020-11-27] MEDS: Gabapentin 300 MG CAPSULE PO (08:38)
--- NOTE | 2020-11-27 09:18 | MHC.CM.PN ---
Addendum entered by Heidi Brooks 11/27/20 09:41: AFTER FURTHER DISCUSSION, PT DECLINES TO COMPLETE A HCP TODAY. INFORMATION AND A BLANK DOCUMENT WERE PROVIDED IN THE EVENT SHE WOULD LIKE TO COMPLETE AFTER DC. 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 PT REPORTS SHE IS ACTIVE WITH [facility] (CONTACT IS [facility] [employer] [phone]). PT REPORTS SHE FEELS SHE NEEDS MORE CAMP DISHW[employer]ER SERVICES AND WAS ENCOURAGED TO BRING THIS UP DURING HER POST DC ASSESSMENT WITH [facility]. PT ALSO REPORTS SHE NEEDS A DIFFERENT CPAP MASK WHICH SHE WILL ALSO DISCUSS WITH HER [facility] CM. PT DOES NOT HAVE A HCP. SHE IS INTERESTED IN COMPLETING ONE TODAY BUT DOES NOT WANT HER FAMILY TO KNOW ABOUT HER HIV STATUS. CM INFORMED HER THE HCP WOULD NOT BE INVOKED UNLESS SHE WAS INCOMPETENT TO MAKE DECISIONS. PT WILL COMPLETE A HCP TODAY NAMING HER SISTER, BRANDON POPE ([phone]) HER AGENT. IMM DELIVERED PT WILL DC HOME TODAY WITH [facility]UMPTION OF [facility] FOR WEEKLY MEDICATION MANAGEMENT. PTS SISTER WILL PICK HER UP LATE THIS AFTERNOON.
--- NOTE | 2020-11-27 11:27 | MHC.CM.PN ---
Pt will DC home with resumption of her [facility] services. Pts sister will provide transportation after work this afternoon.
--- NOTE | 2020-11-27 14:27 | HO.POSTANES ---
Post Anesthesia Evaluation Post Anesthesia Evaluation Vital Signs: Vital Signs Temp Pulse Resp BP Pulse Ox 11/27/20 07:28 97.5 F 77 17 147/79 H 97 11/27/20 03:38 97.7 F 79 20 115/75 98 Anesthesia: General Endotracheal-GETA Mental Status: Awake Pain Control: Satisfactory Nausea/Vomiting: None Hydration: Adequate Anesthesia-Related Issues: No Anes. Related Issues
== END 2020-11-27 11:35 | disposition home or self-care (01) | DRG 621 ==
LOC: HO.SSSA 11:58 → HO.S3 12:48
PROVIDERS: Physician Assistant; Admitting Provider Surgery; PCP Internal Medicine Sports Medicine; Visit Provider Surgery
PROC: 0DB64Z3 Excision of Stomach, Percutaneous Endoscopic Approach, Vertical (ICD-10-PCS; CPT 43845; principal; 2020-11-26 09:00)
DX: E66.01 Morbid (severe) obesity due to excess calories (principal); K44.9 Diaphragmatic hernia without obstruction or gangrene; Z68.41 Body mass index [BMI] 40.0-44.9, adult; Z20.822 Contact with and (suspected) exposure to COVID-19; Z21 Asymptomatic human immunodeficiency virus [HIV] infection status; Z79.52 Long term (current) use of systemic steroids; Z79.899 Other long term (current) drug therapy
CPT/HCPCS: 36415; 80048; 81001; 81003; 81025; 82040; 85025; 85610; 85730; 86850; 86900; 87635; 88307; 88342; 93005; 99212; C1776; J0131; J1100; J1170; J2250; J2370; J2405; J3010

== ENCOUNTER → 2020-12-03 09:38 | Outpatient (BNVA) | payer OTHER, SELFPAY | PROVIDERS: PCP Internal Medicine Sports Medicine; Visit Provider Physician Assistant ==

== ENCOUNTER → 2020-12-11 14:16 | Outpatient (BNVA) | payer OTHER, SELFPAY | PROVIDERS: PCP Internal Medicine Sports Medicine; Visit Provider Surgery | DX: Z98.890 Other specified postprocedural states (principal); Z87.19 Personal history of other diseases of the digestive system; Z98.84 Bariatric surgery status | CPT/HCPCS: 99212 ==

== ENCOUNTER → 2021-01-29 08:13 | Outpatient (BNVA) | payer OTHER, SELFPAY | PROVIDERS: PCP Internal Medicine Sports Medicine; Visit Provider Dietitian, Registered | DX: E66.01 Morbid (severe) obesity due to excess calories (principal); Z68.35 Body mass index [BMI] 35.0-35.9, adult | CPT/HCPCS: 97803 ==

== ENCOUNTER → 2021-02-05 12:30 | Outpatient (BNVA) | payer OTHER, SELFPAY | PROVIDERS: PCP Internal Medicine Sports Medicine; Referring Provider Internal Medicine Sports Medicine; Visit Provider Physician Assistant | DX: E66.9 Obesity, unspecified (principal); Z98.84 Bariatric surgery status | CPT/HCPCS: 99212 ==

== ENCOUNTER → 2021-02-20 08:20 | Outpatient (BNVA) | payer OTHER, SELFPAY | PROVIDERS: PCP Internal Medicine Sports Medicine; Visit Provider Physician Assistant | DX: E66.9 Obesity, unspecified (principal); Z98.84 Bariatric surgery status; Z98.890 Other specified postprocedural states; Z87.19 Personal history of other diseases of the digestive system | CPT/HCPCS: 99212; Q3014 ==

== ENCOUNTER 2021-03-24 15:06 | Outpatient (REF) | payer OTHER, SELFPAY ==
[2021-03-24 16:32] LABS: MANUAL DIFF FLAG NO
[2021-03-24 16:45] LABS: Basophils Absolute Auto 0.1 X10*3/uL (0.0-0.2); Basophils Percent Auto 0.5 % (0-2); Eosinophils Absolute Auto 0.1 X10*3/uL (0.0-0.4); Eosinophils Percent Auto 1.1 % (0-4); Hematocrit 42.2 % (37-47); Hemoglobin 14.3 g/dl (12.0-16.0); Imm Gran Abs Auto 0.04 X10*3/uL (0.00-0.03); Imm Gran Pct Auto 0.4 % (0.0-0.4); Lymphocytes Absolute Auto 3.1 X10*3/uL (1.2-4.9); Lymphocytes Percent Auto 28.5 % (20-40); Mean Corpuscular HGB Conc 33.9 g/dl (31.0-35.0); Mean Corpuscular Hemoglobin 32.7 pg (27.0-33.0); Mean Corpuscular Volume 96.6 fL (80-98); Monocytes Absolute Auto 0.8 X10*3/uL (0.1-1.2); Monocytes Percent Auto 7.5 % (2-11); Neutrophils Absolute Auto 6.8 X10*3/uL (2.0-8.3); Platelet Count 380 X10*3/uL (160-400); Red Blood Count 4.37 X10*6/uL (4.20-5.50); Red Cell Distribution Width 12.5 % (11.0-16.0); White Blood Count 10.9 X10*3/uL (4.8-10.8)
[2021-03-24 16:48] LABS: Estimated Average Glucose 94 mg/dL; Hemoglobin A1c % 4.9 %
[2021-03-24 17:02] LABS: Alanine Aminotransferase 32 U/L (0-31); Albumin Level 4.1 g/dL (3.5-5.0); Alkaline Phosphatase 78 U/L (39-117); Anion Gap 14 (12-20); Aspartate Amino Transferase 23 U/L (5-31); Bilirubin Total 0.3 mg/dL (0.0-1.0); Blood Urea Nitrogen 9 mg/dL (9-16); C Reactive Protein 0.42 mg/dL (< or = 0.50); Calcium 9.7 mg/dL (8.4-10.2); Carbon Dioxide 29 mmol/L (22-29); Chloride 103 mmol/L (96-108); Cholesterol 200 mg/dL; Estimated Glomerular Filt Rate > 60; Glucose Fasting 75 mg/dL (60-99); HDL Cholesterol 39 mg/dL; Iron 73 mcg/dL (30-160); LDL Cholesterol Calculated 132 mg/dl; Percent Iron Saturation 31 % (15-50); Potassium 4.1 mmol/L (3.3-5.1); Sodium 142 mmol/L (135-145); Total Iron Binding Capacity 236 mcg/dL (228-428); Total Protein 7.9 g/dL (6.5-8.0); Triglycerides 149 mg/dL; Unsaturated Iron Binding 163 ug/dL
[2021-03-24 17:25] LABS: Ferritin 121 ng/mL (10-250); TSH reflex Free T4 0.57 uIU/mL (0.32-4.0); Vitamin D 25-OH Total 38.3 ng/mL (>30)
[2021-03-24 17:43] LABS: Folate > 20.0 ng/mL (> or = 4.0); Vitamin B12 551 pg/mL (200-900)
[2021-03-25 11:17] LABS: Insulin Level Total 25.3 uIU/mL
[2021-03-25 13:51] LABS: Calcium (PTHI) 9.5 mg/dL (8.6-10.2); PTHI 54 pg/mL (14-64)
[2021-03-27 15:47] LABS: Zinc 66 mcg/dL (60-130)
[2021-03-30 11:31] LABS: Vitamin B1 <6 nmol/L (8-30)
[2021-03-30 19:01] LABS: Vitamin A 62 mcg/dL (38-98)
== END 2021-03-24 15:07 | disposition home or self-care (01) ==
LOC: HO.LAB 15:06
PROVIDERS: PCP Internal Medicine Sports Medicine; Visit Provider Physician Assistant
DX: E66.01 Morbid (severe) obesity due to excess calories (principal); Z68.39 Body mass index [BMI] 39.0-39.9, adult; Z98.84 Bariatric surgery status; Z98.890 Other specified postprocedural states; Z87.19 Personal history of other diseases of the digestive system
CPT/HCPCS: 36415; 80053; 80061; 82306; 82607; 82728; 82746; 83036; 83525; 83540; 83970; 84425; 84443; 84590; 84630; 85025; 86140; 99212

== ENCOUNTER → 2021-05-19 14:55 | Outpatient (BNVA) | payer OTHER, SELFPAY | PROVIDERS: PCP Internal Medicine Sports Medicine; Referring Provider Internal Medicine Sports Medicine; Visit Provider Surgery | DX: E66.9 Obesity, unspecified (principal); K91.2 Postsurgical malabsorption, not elsewhere classified; Z90.3 Acquired absence of stomach [part of]; Z68.35 Body mass index [BMI] 35.0-35.9, adult; Z98.84 Bariatric surgery status | CPT/HCPCS: 99212 ==

== ENCOUNTER → 2021-06-16 08:10 | Outpatient (BNVA) | payer OTHER, SELFPAY | PROVIDERS: PCP Internal Medicine Sports Medicine; Visit Provider Dietitian, Registered ==

== ENCOUNTER → 2021-06-30 08:02 | Outpatient (BNVA) | payer OTHER, SELFPAY | PROVIDERS: PCP Internal Medicine Sports Medicine; Visit Provider Dietitian, Registered | DX: E66.01 Morbid (severe) obesity due to excess calories (principal); Z68.35 Body mass index [BMI] 35.0-35.9, adult | CPT/HCPCS: 97803 ==

== ENCOUNTER 2021-07-23 15:59 | Outpatient (REF) | payer OTHER, SELFPAY ==
[2021-07-23 16:51] LABS: MANUAL DIFF FLAG NO
[2021-07-23 17:04] LABS: Basophils Percent Auto 0.3 % (0-2); Eosinophils Absolute Auto 0.1 X10*3/uL (0.0-0.4); Hematocrit 42.3 % (37.0-47.0); Hemoglobin 14.8 g/dl (12.0-16.0); Imm Gran Abs Auto 0.07 X10*3/uL (0.00-0.03); Imm Gran Pct Auto 0.6 % (0.0-0.4); Lymphocytes Absolute Auto 3.8 X10*3/uL (1.2-4.9); Lymphocytes Percent Auto 29.9 % (20-40); Mean Corpuscular Hemoglobin 32.4 pg (27.0-33.0); Mean Corpuscular Volume 92.6 fL (80.0-98.0); Mean Platelet Volume 9.6 fL (9.4-12.3); Monocytes Absolute Auto 1.3 X10*3/uL (0.1-1.2); Neutrophils Absolute Auto 7.3 x10*3/uL (2.0-8.3); Neutrophils Percent Auto 58.2 % (45-73); Platelet Count 419 X10*3/uL (160-400); Red Blood Count 4.57 X10*6/uL (4.20-5.50); Red Cell Distribution Width 11.8 % (11.0-16.0); White Blood Count 12.6 X10*3/uL (4.8-10.8)
[2021-07-23 17:18] LABS: Estimated Average Glucose 100 mg/dL; Hemoglobin A1c % 5.1 %
[2021-07-23 17:27] LABS: Appearance Urine CLEAR; Color Urine YELLOW; Glucose Urine UA NEG (NEG); Leukocyte Esterase Urine NEG (NEG); Nitrite Urine NEG (NEG); Specific Gravity - Urine 1.025 (1.005-1.025); UACC Culture Trigger NO; Urine Blood 1+ (NEG); Urine Ketones 5 MG/DL (NEG); Urine Protein NEG (NEG-TRACE)
[2021-07-23 17:28] LABS: Alanine Aminotransferase 31 U/L (0-31); Albumin Level 4.1 g/dL (3.5-5.0); Alkaline Phosphatase 88 U/L (39-117); Anion Gap 13 (12-20); Aspartate Amino Transferase 23 U/L (5-31); Bilirubin Total 0.2 mg/dL (0.0-1.0); Blood Urea Nitrogen 10 mg/dL (9-16); C Reactive Protein 0.15 mg/dL (< or = 0.50); Calcium 9.6 mg/dL (8.4-10.2); Carbon Dioxide 27 mmol/L (22-29); Chloride 102 mmol/L (96-108); Cholesterol 212 mg/dL; Estimated Glomerular Filt Rate > 60; Glucose Fasting 65 mg/dL (60-99); HDL Cholesterol 38 mg/dL; Iron 69 mcg/dL (30-160); LDL Cholesterol Calculated 130 mg/dl; Percent Iron Saturation 24 % (15-50); Potassium 3.5 mmol/L (3.3-5.1); Sodium 138 mmol/L (135-145); Total Iron Binding Capacity 282 mcg/dL (228-428); Triglycerides 222 mg/dL; Unsaturated Iron Binding 213 ug/dL
[2021-07-23 17:42] LABS: Bacteria Urine TRACE /LPF; Mucus Urine TRACE /LPF; RBC Urine 0-2 /HPF (0); Squamous Epithelial Cell Urine 1+ /LPF; WBC Urine 0-2 /HPF (0-4)
[2021-07-23 17:49] LABS: Thyroid Stimulating Hormone 0.79 uIU/mL (0.32-4.0); Vitamin D 25-OH Total 33.3 ng/mL (>30)
[2021-07-23 17:52] LABS: Vitamin B12 354 pg/mL (200-900)
[2021-07-27 06:22] LABS: Vitamin B1 10 nmol/L (8-30)
[2021-07-28 02:22] LABS: Zinc 60 mcg/dL (60-130)
[2021-07-28 14:27] LABS: Vitamin A 74 mcg/dL (38-98)
== END 2021-07-23 16:00 | disposition home or self-care (01) ==
LOC: HO.LAB 15:59
PROVIDERS: Absent Provider Surgery; PCP Internal Medicine Sports Medicine; Visit Provider Physician Assistant Surgical
DX: Z01.818 Encounter for other preprocedural examination (principal); E66.9 Obesity, unspecified; E51.9 Thiamine deficiency, unspecified; K91.2 Postsurgical malabsorption, not elsewhere classified; Z68.35 Body mass index [BMI] 35.0-35.9, adult; Z71.3 Dietary counseling and surveillance; Z79.899 Other long term (current) drug therapy; Z90.3 Acquired absence of stomach [part of]
CPT/HCPCS: 36415; 80053; 80061; 81001; 81003; 82306; 82607; 83036; 83540; 84425; 84443; 84590; 84630; 85025; 86140; 99212

== ENCOUNTER → 2021-10-13 09:30 | Outpatient (BNVA) | payer OTHER, SELFPAY | PROVIDERS: PCP Internal Medicine Sports Medicine; Visit Provider Physician Assistant Surgical | DX: E66.9 Obesity, unspecified (principal); Z68.38 Body mass index [BMI] 38.0-38.9, adult; Z98.84 Bariatric surgery status | CPT/HCPCS: Q3014 ==

== ENCOUNTER 2021-10-15 01:08 | Inpatient (IN) | payer OTHER, SELFPAY ==
[2021-10-15] VITALS (14 sets, daily range): BP systolic 83–113; BP diastolic 31–61; PULSE 73–89; RESP 15–20; TEMP 36.9–37.4; O2SAT 94–100; BMI 38.6
--- NOTE | ~2021-10-15 | US_ITS ---
EXAMINATION: US PELVIS CLINICAL INFORMATION: Concern for ovarian torsion COMPARISON: CT abdomen/pelvis from earlier today TECHNIQUE: Ultrasound of the pelvis is performed using both transabdominal and transvaginal transducers along with Doppler. Transvaginal imaging is performed due to inadequate visualization transabdominally. FINDINGS: Uterus: The uterus is anteverted and measures 6.3 x 3.6 x 3.6 cm. The double wall endometrial thickness is 0.5 mm. The uterus is smooth in contour and has normal myometrial echogenicity. No visible fibroid. Adnexa: Both ovaries are visualized and have a normal appearance. Cystic structure measuring up to 1.8 cm in the left ovary may represent a dominant follicle. There is normal color flow to the adnexa. There is no pelvic ascites or fluid collection. Right ovary measures 3.2 x 1.4 x 2.0 cm. Left ovary measures 3.1 x 2.2 x 1.2 cm. US/US pelvic ovarian doppler IMPRESSION: No abnormality demonstrated. No findings to suggest ovarian torsion.
--- NOTE | ~2021-10-15 | US_ITS ---
EXAMINATION: US PELVIS CLINICAL INFORMATION: Concern for ovarian torsion COMPARISON: CT abdomen/pelvis from earlier today TECHNIQUE: Ultrasound of the pelvis is performed using both transabdominal and transvaginal transducers along with Doppler. Transvaginal imaging is performed due to inadequate visualization transabdominally. FINDINGS: Uterus: The uterus is anteverted and measures 6.3 x 3.6 x 3.6 cm. The double wall endometrial thickness is 0.5 mm. The uterus is smooth in contour and has normal myometrial echogenicity. No visible fibroid. Adnexa: Both ovaries are visualized and have a normal appearance. Cystic structure measuring up to 1.8 cm in the left ovary may represent a dominant follicle. There is normal color flow to the adnexa. There is no pelvic ascites or fluid collection. Right ovary measures 3.2 x 1.4 x 2.0 cm. Left ovary measures 3.1 x 2.2 x 1.2 cm. US/US pelvic and transvaginal IMPRESSION: No abnormality demonstrated. No findings to suggest ovarian torsion.
--- NOTE | ~2021-10-15 | CT_ITS ---
EXAMINATION: CT ABDOMEN AND PELVIS WITH CONTRAST CLINICAL INFORMATION: Right lower quadrant pain, syncope COMPARISON: None TECHNIQUE: Multidetector volumetric images were obtained from the superior aspect of the liver through the pubic symphysis following administration 85 mL of Omnipaque 350 intravenous contrast. Sagittal and coronal reformatted images were obtained on the technologist's workstation. Oral contrast: No This CT examination was performed using dose optimization techniques as appropriate, variously including the following: *Automated exposure control *Adjustment of mA and/or kV according to patient size (this includes techniques or standardized protocols for targeted exams where dose is matched to indication/reason for exam; i.e. extremities or head) *Use of iterative reconstruction technique DLP: 865 mGy-cm FINDINGS: LUNG BASES: The visualized lung bases are unremarkable. LIVER, GALLBLADDER, AND BILIARY TREE: The dome of the liver is not fully included in the [id number]. The liver is normal in size, shape, and attenuation. No focal hepatic lesion or biliary ductal dilatation is present. The gallbladder is unremarkable with no evidence of radiopaque gallstones, gallbladder wall thickening, or obvious pericholecystic inflammatory changes. PANCREAS: Unremarkable. SPLEEN: Unremarkable. ADRENAL GLANDS: There is a 2.6 cm left adrenal nodule measuring 34 Hounsfield units, nonspecific. Right adrenal gland appears unremarkable. KIDNEYS AND URETERS: Bilateral nephrograms are symmetric. No hydronephrosis or obstructing calculus identified. BLADDER: Unremarkable. GASTROINTESTINAL TRACT: Suture line is present along the stomach. No evidence of bowel obstruction. No significant bowel wall thickening is seen. The appendix is not discretely identified. No free fluid or free air is seen. ABDOMINAL WALL: No significant hernia is appreciated. LYMPH NODES: Normal. VASCULAR: There is mild scattered atherosclerotic calcification. PELVIC VISCERA: Mild fat stranding is noted adjacent to the right adnexa. Right ovary is mildly increased in prominence as compared to the left. OSSEOUS STRUCTURES: Degenerative changes are noted in the spine. CT/CT abdomen pelvis w con IMPRESSION: 1. Mild asymmetric prominence of the right ovary, with mild adjacent stranding which could be secondary to nonspecific acute ovarian pathology given the reported right lower quadrant pain. This would be better assessed with pelvic ultrasound. 2. Appendix is not discretely identified. 3. Left adrenal nodule measuring 2.6 cm, statistically suggestive of an adenoma in the absence of clinical risk factors. Further evaluation with nonemergent adrenal protocol CT is advised. Fleischner guidelines were followed.
--- NOTE | ~2021-10-15 | CT_ITS ---
EXAMINATION: CT HEAD WITHOUT CONTRAST CLINICAL INFORMATION: Syncope COMPARISON: None TECHNIQUE: Contiguous axial imaging was performed from the skull base to vertex without intravenous administration of contrast. This CT examination was performed using dose optimization techniques as appropriate, variously including the following: *Automated exposure control *Adjustment of mA and/or kV according to patient size (this includes techniques or standardized protocols for targeted exams where dose is matched to indication/reason for exam; i.e. extremities or head) *Use of iterative reconstruction technique DLP: 686 mGy-cm FINDINGS: There is no evidence of acute intracranial hemorrhage or territorial infarction. No abnormal mass effect or midline shift is seen. [place] to white matter differentiation is well preserved. No extra-axial fluid collections are identified. The ventricles are normal in size. There is no abnormal attenuation within the brain parenchyma. The osseous structures and soft tissues are normal. Mucous retention cysts in the bilateral maxillary sinuses. The mastoid air cells are well-aerated. CT/CT head/brain wo con IMPRESSION: No acute intracranial pathology.
--- NOTE | ~2021-10-15 | NM_ITS ---
BILIARY TRACT IMAGING STUDY CLINICAL INDICATION: Right-sided abdominal pain, positive Wan's. PROCEDURE: Scintillation camera images were obtained over the abdomen for an observation of 60 minutes following the intravenous administration of 5 millicuries technetium 99m Mebrofenin. COMPARISON: No previous biliary scan is available for comparison. The diagnostic CT scan of the abdomen and pelvis, dated 10/15/2021, the same date as this biliary scan, is available for comparison.. FINDINGS: There is good concentration of activity in the liver by 5 minutes post injection. Biliary activity is well visualized by 12 minutes, and there is good visualization of small bowel activity by 18 minutes. The gallbladder is well visualized by 30 minutes. NM/NM hepatobiliary wo pharm IMPRESSION: Normal biliary scan. Visualization of the gallbladder is evidence of a patent cystic duct and strong evidence against the diagnosis of acute cholecystitis. The common bile duct is patent. Liver function appears normal.
--- NOTE | 2021-10-15 01:17 | ECG_ITS ---
Test Reason : ABD PAIN Blood Pressure : / mmHG Vent. Rate : 088 BPM Atrial Rate : 088 BPM P-R Int : 154 ms QRS Dur : 086 ms QT Int : 390 ms P-R-T Axes : 000 -07 010 degrees QTc Int : 471 ms Normal sinus rhythm Minimal voltage criteria for LVH, may be normal variant ( R in aVL ) Borderline ECG When compared with ECG of 25-NOV-2020 11:28, No significant change was found Referred By: Mily Todd Electronically Signed By:LAINA EPSTEIN
[2021-10-15 01:24] LABS: Glucose, Whole Blood 103 mg/dL (60-115)
[2021-10-15 01:26] LABS: MANUAL DIFF FLAG NO
[2021-10-15 01:28] LABS: Basophils Absolute Auto 0.1 X10*3/uL (0.0-0.2); Basophils Percent Auto 0.3 % (0-2); Eosinophils Percent Auto 0.2 % (0-4); Hematocrit 40.9 % (37.0-47.0); Hemoglobin 13.8 g/dl (12.0-16.0); Imm Gran Abs Auto 0.09 X10*3/uL (0.00-0.03); Imm Gran Pct Auto 0.5 % (0.0-0.4); Lymphocytes Absolute Auto 2.1 X10*3/uL (1.2-4.9); Lymphocytes Percent Auto 11.2 % (20-40); Mean Corpuscular HGB Conc 33.7 g/dl (31.0-35.0); Mean Corpuscular Hemoglobin 32.4 pg (27.0-33.0); Mean Platelet Volume 9.8 fL (9.4-12.3); Monocytes Absolute Auto 1.1 X10*3/uL (0.1-1.2); Monocytes Percent Auto 5.9 % (2-11); Neutrophils Absolute Auto 15.5 x10*3/uL (2.0-8.3); Neutrophils Percent Auto 81.9 % (45-73); Platelet Count 340 X10*3/uL (160-400); Red Blood Count 4.26 X10*6/uL (4.20-5.50); Red Cell Distribution Width 12.1 % (11.0-16.0)
--- NOTE | 2021-10-15 01:28 | ED_ITS ---
HPI - Abdominal Pain General Chief Complaint: Abdominal Pain Stated Complaint: dizziness Time Seen by Provider: 10/15/21 01:16 Source: patient Mode of arrival: EMS History of Present Illness HPI narrative: 46-year-old female with multiple medical comorbidities and bariatric surgery she presents with 2 days of right lower quadrant discomfort associated with nausea without vomiting, she continues to pass flatus, and states that she had been having diarrhea ?because of the medication? that she was given for constipation. In addition, patient denies any fevers or chills and denies any urinary pain/burning/frequency. Patient states that she has had her appendix out. Patient states that she got up to get out of bed and felt severe pain in the right lower quadrant and that she ?passed out? and then woke up. Related Data Home Medications Medication Instructions Recorded Confirmed abacavir 600 mg-dolutegravir 50 1 tab PO DAILY 10/15/21 10/15/21 mg-lamivudine 300 mg tablet (Triumeq) bupropion HCl 150 mg 24 hr tablet, 1 tab PO BEDTIME 10/15/21 10/15/21 extended release chlorthalidone 25 mg tablet 1 tab PO DAILY 10/15/21 10/15/21 clonidine HCl 0.3 mg tablet 1 tab PO BEDTIME 10/15/21 10/15/21 docusate sodium 100 mg capsule 1 cap PO BID 10/15/21 10/15/21 escitalopram oxalate 10 mg tablet 1 tab PO DAILY 10/15/21 10/15/21 famotidine 20 mg tablet 1 tab PO DAILY 10/15/21 10/15/21 gabapentin 300 mg capsule 1 cap PO TID 10/15/21 10/15/21 hydroxyzine HCl 25 mg tablet 1 tab PO TID 10/15/21 10/15/21 levocetirizine 5 mg tablet 1 tab PO BEDTIME 10/15/21 10/15/21 linaclotide 145 mcg capsule 1 cap PO DAILY 10/15/21 10/15/21 (Linzess) lisinopril 20 mg tablet 1 tab PO DAILY 10/15/21 10/15/21 melatonin 10 mg tablet 1 tab PO BEDTIME 10/15/21 10/15/21 montelukast 10 mg tablet 1 tab PO DAILY 10/15/21 10/15/21 sennosides 8.6 mg tablet (senna) 2 tab PO DAILY 10/15/21 10/15/21 Allergies Allergy/AdvReac Type Severity Reaction Status Date / Time prednisone Allergy Severe DIFFICULTY Verified 10/15/21 01:12 [PREDNISONE] BREATHING, anaphylaxis eggs Allergy Intermediate Hives Uncoded 10/15/21 01:21 Review of Systems Review of Systems Pertinent positives and negatives as stated in the HPI 10 point review of sys tems is otherwise negative. Physical Exam Verdana 4l Vital Signs: Verdana 4d Verdana 4d Vital Signs: Verdana 4d Verdana 4Bd Last Vital Signs Verdana 4d Pmp Certified Project Manager New 4d Pmp Certified Project Manager New 4d Temp 99.3 F 10/15/21 03:44 Pmp Certified Project Manager New 4d Pulse 85 10/15/21 04:58 Pmp Certified Project Manager New 4d Resp 15 10/15/21 04:58 BP 83/46 L 10/15/21 04:58 Pulse Ox 97 10/15/21 04:58 BMI result Body Mass Index 38.6 VITAL SIGNS: Reviewed. GENERAL: Well developed, well nourished, in no acute distress. HEAD: Normocephalic/atraumatic and no tenderness on palpation EYES: PERRLA, EOMI OROPHARYNX: no oral lesions noted, posterior pharynx clear NECK: Supple, no adenopathy LUNGS: Normal breath sounds. No adventitious sounds or accessory muscle use. SpO2<100> CARDIOVASCULAR: Regular rate and rhythm without noted murmurs, no JVD or lower extremity edema. ABDOMEN: Soft, patient has tenderness in right lower quadrant without rebound, non-distended with bowel sounds MUSCULOSKELETAL: No tenderness, deformities, or effusions noted on gross inspection. EXTREMITIES: No cyanosis, clubbing or edema. SKIN: Inspection of the skin reveals no rashes NEUROLOGIC: Alert and oriented x 4. Strength and sensation to light touch were grossly intact x 4. Course Course Course Narrative: 46-year-old female with history and clinical presentation concerning for possible perforation, diverticulitis, colitis, SBO in patient's initial hyp otension with abdominal pain was treated with IV fluid bolus as she was afebrile and awaiting lab work. On review of investigations patient was provided with antibiotics and at that time patient had received both IV fluid boluses at ideal body weight given that her BMI is 38.6. On review of all investigations to include imaging there is no evidence to suggest SBO, clinical exam inconsistent with ischemic bowel, UA is without findings and CT scan although suggests questionable findings for the right ovary on follow-up ultrasound there is no evidence of torsion. Urine is negative. Patient continues to have discomfort on the right side and was provided with pain relief. She will be admitted for ongoing symptoms with serial abdominal exams. Blood pressure continues to be somewhat low and on review of patient's medication. Patient is otherwise asymptomatic for dizziness, chest pain, shortness of breath and she is mentating well. Additional IV fluids were ordered and this case was discussed with the inpatient hospitalist who accepts admission. MDM - Abdominal Pain Lab Data Result diagrams: 10/15/21 01:22 10/15/21 01:22 Labs: Lab Results 10/15/21 10/15/21 10/15/21 Range/Units 01:14 01:22 01:22 WBC 19.0 H (4.8-10.8) X10*3/uL RBC 4.26 (4.20-5.50) X10*6/uL Hgb 13.8 (12.0-16.0) g/dl Hct 40.9 (37.0-47.0) % MCV 96.0 (80.0-98.0) fL MCH 32.4 (27.0-33.0) pg MCHC 33.7 (31.0-35.0) g/dl RDW 12.1 (11.0-16.0) % Plt Count 340 (160-400) X10*3/uL MPV 9.8 (9.4-12.3) fL Immature Gran % (Auto) 0.5 H (0.0-0.4) % Neut % (Auto) 81.9 H (45-73) % Lymph % (Auto) 11.2 L (20-40) % [place] % (Auto) 5.9 (2-11) % Eos % (Auto) 0.2 (0-4) % Baso % (Auto) 0.3 (0-2) % Lymph # (Auto) 2.1 (1.2-4.9) X10*3/uL [place] # (Auto) 1.1 (0.1-1.2) X10*3/uL Eos # (Auto) 0.0 (0.0-0.4) X10*3/uL Baso # (Auto) 0.1 (0.0-0.2) X10*3/uL Abs Immat Gran (auto) 0.09 H (0.00-0.03) X10*3/uL Absolute Neuts (auto) 15.5 H (2.0-8.3) x10*3/uL Absolute Nucleated RBC 0.000 (0.0-0.012) X10*3/uL Nucleated RBC % (auto) 0.0 (0.0-0.2) /100WBC Sodium 136 (135-145) mmol/L Potassium 3.6 (3.3-5.1) mmol/L Chloride 99 (96-108) mmol/L Carbon Dioxide 28 (22-29) mmol/L Anion Gap 13 (12-20) BUN 12 (9-16) mg/dL Creatinine 1.11 (0.5-1.4) mg/dL Estim Creat Clear Calc 77.0 Estimated GFR 53 POC Glucose 103 (60-115) mg/dL Random Glucose 117 H (60-115) mg/dL Lactic Acid (0.5-2.0) mmol/L Lactic Acid F/U @ 2Hr (0.5-2.0) mmol/L Calcium 9.6 (8.4-10.2) mg/dL Total Bilirubin 0.8 (0.0-1.0) mg/dL AST 16 (5-31) U/L ALT 25 (0-31) U/L Alkaline Phosphatase 78 (39-117) U/L Total Protein 7.2 (6.5-8.0) g/dL Albumin 3.7 (3.5-5.0) g/dL Beta HCG, Quant < 2 mIU/mL Urine Color Urine Appearance Urine pH (5.0-8.0) Ur Specific [place] (1.005-1.025) Urine Protein (NEG-TRACE) MG/DL Urine Glucose (UA) (NEG) MG/DL Urine Ketones (NEG) MG/DL Urine Blood (NEG) Urine Nitrite (NEG) Ur Leukocyte Esterase (NEG) Urine RBC (0) /HPF Urine WBC (0-4) /HPF Ur Squamous Epith Cells /LPF Urine Bacteria /LPF Urine Mucus /LPF COVID-19 (KRISTIN) (Negative) COVID-19 Clin Com 0210/15/21 10/15/21 Range/Units 01:22 01:29 03:22 WBC (4.8-10.8) X10*3/uL RBC (4.20-5.50) X10*6/uL Hgb (12.0-16.0) g/dl Hct (37.0-47.0) % MCV (80.0-98.0) fL MCH (27.0-33.0) pg MCHC (31.0-35.0) g/dl RDW (11.0-16.0) % Plt Count (160-400) X10*3/uL MPV (9.4-12.3) fL Immature Gran % (Auto) (0.0-0.4) % Neut % (Auto) (45-73) % Lymph % (Auto) (20-40) % [place] % (Auto) (2-11) % Eos % (Auto) (0-4) % Baso % (Auto) (0-2) % Lymph # (Auto) (1.2-4.9) X10*3/uL [place] # (Auto) (0.1-1.2) X10*3/uL Eos # (Auto) (0.0-0.4) X10*3/uL Baso # (Auto) (0.0-0.2) X10*3/uL Abs Immat Gran (auto) (0.00-0.03) X10*3/uL Absolute Neuts (auto) (2.0-8.3) x10*3/uL Absolute Nucleated RBC (0.0-0.012) X10*3/uL Nucleated RBC % (auto) (0.0-0.2) /100WBC Sodium (135-145) mmol/L Potassium (3.3-5.1) mmol/L Chloride (96-108) mmol/L Carbon Dioxide (22-29) mmol/L Anion Gap (12-20) BUN (9-16) mg/dL Creatinine (0.5-1.4) mg/dL Estim Creat Clear Calc Estimated GFR POC Glucose (60-115) mg/dL Random Glucose (60-115) mg/dL Lactic Acid 3.4 H* (0.5-2.0) mmol/L Lactic Acid F/U @ 2Hr (0.5-2.0) mmol/L Calcium (8.4-10.2) mg/dL Total Bilirubin (0.0-1.0) mg/dL AST (5-31) U/L ALT (0-31) U/L Alkaline Phosphatase (39-117) U/L Total Protein (6.5-8.0) g/dL Albumin (3.5-5.0) g/dL Beta HCG, Quant mIU/mL Urine Color YELLOW Urine Appearance HAZY Urine pH 6.0 (5.0-8.0) Ur Specific [place] <= 1.005 (1.005-1.025) Urine Protein 1+ H (NEG-TRACE) MG/DL Urine Glucose (UA) NEG (NEG) MG/DL Urine Ketones NEG (NEG) MG/DL Urine Blood TRACE (NEG) Urine Nitrite NEG (NEG) Ur Leukocyte Esterase NEG (NEG) Urine RBC 0-2 (0) /HPF Urine WBC 0 (0-4) /HPF Ur Squamous Epith Cells 2+ /LPF Urine Bacteria TRACE /LPF Urine Mucus 1+ /LPF COVID-19 (KRISTIN) Negative (Negative) COVID-19 Clin Com See Note 10/15/21 Range/Units 03:44 WBC (4.8-10.8) X10*3/uL RBC (4.20-5.50) X10*6/uL Hgb (12.0-16.0) g/dl Hct (37.0-47.0) % MCV (80.0-98.0) fL MCH (27.0-33.0) pg MCHC (31.0-35.0) g/dl RDW (11.0-16.0) % Plt Count (160-400) X10*3/uL MPV (9.4-12.3) fL Immature Gran % (Auto) (0.0-0.4) % Neut % (Auto) (45-73) % Lymph % (Auto) (20-40) % [place] % (Auto) (2-11) % Eos % (Auto) (0-4) % Baso % (Auto) (0-2) % Lymph # (Auto) (1.2-4.9) X10*3/uL [place] # (Auto) (0.1-1.2) X10*3/uL Eos # (Auto) (0.0-0.4) X10*3/uL Baso # (Auto) (0.0-0.2) X10*3/uL Abs Immat Gran (auto) (0.00-0.03) X10*3/uL Absolute Neuts (auto) (2.0-8.3) x10*3/uL Absolute Nucleated RBC (0.0-0.012) X10*3/uL Nucleated RBC % (auto) (0.0-0.2) /100WBC Sodium (135-145) mmol/L Potassium (3.3-5.1) mmol/L Chloride (96-108) mmol/L Carbon Dioxide (22-29) mmol/L Anion Gap (12-20) BUN (9-16) mg/dL Creatinine (0.5-1.4) mg/dL Estim Creat Clear Calc Estimated GFR POC Glucose (60-115) mg/dL Random Glucose (60-115) mg/dL Lactic Acid (0.5-2.0) mmol/L Lactic Acid F/U @ 2Hr 2.6 H* (0.5-2.0) mmol/L Calcium (8.4-10.2) mg/dL Total Bilirubin (0.0-1.0) mg/dL AST (5-31) U/L ALT (0-31) U/L Alkaline Phosphatase (39-117) U/L Total Protein (6.5-8.0) g/dL Albumin (3.5-5.0) g/dL Beta HCG, Quant mIU/mL Urine Color Urine Appearance Urine pH (5.0-8.0) Ur Specific [place] (1.005-1.025) Urine Protein (NEG-TRACE) MG/DL Urine Glucose (UA) (NEG) MG/DL Urine Ketones (NEG) MG/DL Urine Blood (NEG) Urine Nitrite (NEG) Ur Leukocyte Esterase (NEG) Urine RBC (0) /HPF Urine WBC (0-4) /HPF Ur Squamous Epith Cells /LPF Urine Bacteria /LPF Urine Mucus /LPF COVID-19 (KRISTIN) (Negative) COVID-19 Clin Com ECG Data Attestation: I personally reviewed and interpreted this ECG as follows: Prior ECG tracings: available for review (11/25/2020) Interpretation: NSR, HR-88, no STEMI [place]/QRS/QTC are within normal limits. Discharge Plan Discharge Clinical Impression: Sepsis, Intractable abdominal pain Prescriptions: No Action sennosides [senna] 8.6 mg tablet 2 tab PO DAILY 0RF lisinopril 20 mg tablet 1 tab PO DAILY 0RF clonidine HCl 0.3 mg tablet 1 tab PO BEDTIME 0RF chlorthalidone 25 mg tablet 1 tab PO DAILY 0RF famotidine 20 mg tablet 1 tab PO DAILY 0RF docusate sodium 100 mg capsule 1 cap PO BID 0RF gabapentin 300 mg capsule 1 cap PO TID 0RF montelukast 10 mg tablet 1 tab PO DAILY 0RF hydroxyzine HCl 25 mg tablet 1 tab PO TID 0RF escitalopram oxalate 10 mg tablet 1 tab PO DAILY 0RF bupropion HCl 150 mg tablet extended release 24 hr 1 tab PO BEDTIME 0RF levocetirizine 5 mg tablet 1 tab PO BEDTIME 0RF melatonin 10 mg tablet 1 tab PO BEDTIME 0RF Linzess 145 mcg capsule 1 cap PO DAILY 0RF Triumeq 600-50-300 mg tablet 1 tab PO DAILY 0RF PMFSH Past Medical History Source: nursing notes reviewed Medical History Anxiety Arthritis Asthma BMI 39.0-39.9,adult Body mass index (BMI) of 40.1 to 44.9 in adult Constipation Depression HIV (human immunodeficiency virus infection) HTN (hypertension) Insomnia Low back pain Morbid obesity Preoperative examination Sciatica Seasonal allergies Shortness of breath Sleep apnea Vertigo Vitamin B1 deficiency Surgical History History of appendectomy History of elbow surgery History of sleeve gastrectomy Family History Family History Mother Hyperlipidemia Hypertension Arthritis Sciatica Diabetes Father No problems noted. 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
[2021-10-15] MEDS: 0.9 % Sodium Chloride 2,000 ML 999 ML IV (01:35)
[2021-10-15] MEDS: Piperacillin Sodium/Tazobactam 3.375 GM in 0.9 % Sodium Chloride 50 ML IV (01:42)
[2021-10-15 01:45] LABS: Alanine Aminotransferase 25 U/L (0-31); Albumin Level 3.7 g/dL (3.5-5.0); Alkaline Phosphatase 78 U/L (39-117); Anion Gap 13 (12-20); Aspartate Amino Transferase 16 U/L (5-31); Bilirubin Total 0.8 mg/dL (0.0-1.0); Blood Urea Nitrogen 12 mg/dL (9-16); Calcium 9.6 mg/dL (8.4-10.2); Carbon Dioxide 28 mmol/L (22-29); Chloride 99 mmol/L (96-108); Estimated Glomerular Filt Rate 53; Glucose Random 117 mg/dL (60-115); Lactic Acid 3.4 mmol/L (0.5-2.0); Potassium 3.6 mmol/L (3.3-5.1); Sodium 136 mmol/L (135-145); Total Protein 7.2 g/dL (6.5-8.0)
[2021-10-15 01:51] LABS: COVID-19 Test Negative (Negative); IDNOW Serial# 9DD0AD1C
[2021-10-15 01:51] LABS: HCG Quantitative < 2 mIU/mL
[2021-10-15] MEDS: iohexoL 350 MG/ML 100 ML INFUS..BTL 85 ML IV (02:05)
[2021-10-15] MEDS: HYDROmorphone HCl 0.5 MG/0.5 ML SYRINGE 0.25 MG IVPUSH (03:14)
[2021-10-15 03:25] LABS: Reflex Lactate? Lactic Acid Added
[2021-10-15 03:27] LABS: Appearance Urine HAZY; Color Urine YELLOW; Glucose Urine UA NEG (NEG); Leukocyte Esterase Urine NEG (NEG); Nitrite Urine NEG (NEG); Specific Gravity - Urine <= 1.005 (1.005-1.025); UACC Culture Trigger NO; Urine Blood TRACE (NEG); Urine Ketones NEG (NEG); Urine Protein 1+ MG/DL (NEG-TRACE)
[2021-10-15 03:35] LABS: Bacteria Urine TRACE /LPF; Mucus Urine 1+ /LPF; RBC Urine 0-2 /HPF (0); Squamous Epithelial Cell Urine 2+ /LPF; WBC Urine 0 /HPF (0-4)
[2021-10-15 04:01] LABS: ~Lactic Acid-LAB USE ONLY 2.6 mmol/L (0.5-2.0)
--- NOTE | 2021-10-15 05:02 | P.HPHOSP_ITS ---
History of Present Illness Date of Service: 10/15/21 Chief Complaint: Abd pain 46-year-old female with a past medical history of anxiety, depression, HIV, hypertension, history of gastric surgery, remote history of appendectomy; presented to the hospital today with a chief complaint of right-sided abdominal pain. Patient reports that over the past 2 days she has been having right-sided abdominal pain, nonradiating, no change with bowel movements, sharp in nature. Also reports he had subjective chills at home. Denies any cough or sputum production. Denies any shortness of breath. Denies any chest pain palpitations lightheadedness or dizziness. mentions she had nausea and vomiting, denies any blood in the vomitus. Had an episode of loose stool. Reports that this morning when she woke up she felt severe pain; later when she was sitting in the chair she had an episode of severe pain in the right side of the abdomen, followed by she felt dizzy and fainted. The next thing she remembers was waking up with urine accident. Denies any postictal confusion. Reports that she has been complaint with her home medications including HIV meds and clonidine. [facility] [place] Medical History Anxiety Arthritis Asthma BMI 39.0-39.9,adult Body mass index (BMI) of 40.1 to 44.9 in adult Constipation Depression HIV (human immunodeficiency virus infection) HTN (hypertension) Insomnia Low back pain Morbid obesity Preoperative examination Sciatica Seasonal allergies Shortness of breath Sleep apnea Vertigo Vitamin B1 deficiency Family History Mother Hyperlipidemia Hypertension Arthritis Sciatica Diabetes Father No problems noted. 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) Alcohol intake: never Patient Tobacco Use Status: Former Tobacco user Advance Directives: No Advance Directives Information Provided: No Meds Allergies Allergy/AdvReac Type Severity Reaction Status Date / Time prednisone Allergy Severe DIFFICULTY Verified 10/15/21 01:12 [PREDNISONE] BREATHING, anaphylaxis eggs Allergy Intermediate Hives Uncoded 10/15/21 01:21 Active Medications: Current Medications Acetaminophen (Acetaminophen 325 Mg Tablet) 650 mg PO Q6H PRN PRN Reason: Pain, Mild (Pain Scale 1-3) Bupropion HCl (Bupropion Hcl Xl 150 Mg Tab.Er.24h) 150 mg PO BEDTIME MAIKOL Clonidine HCl (Clonidine Hcl 0.1 Mg Tablet) 0.3 mg PO BEDTIME MAIKOL; Protocol Docusate Sodium (Docusate Sodium 100 Mg Capsule) 100 mg PO BID [facility] Enoxaparin Sodium (Enoxaparin Sodium 40 Mg/0.4 Ml Syringe) 40 mg SUBCUT Q24H [facility] Escitalopram Oxalate (Escitalopram Oxalate 10 Mg Tablet) 10 mg PO DAILY [facility] Famotidine (Famotidine 20 Mg Tablet) 20 mg PO DAILY [facility] Gabapentin (Gabapentin 300 Mg Capsule) 300 mg PO TID [facility] Hydromorphone HCl (Hydromorphone Hcl 1 Mg/Ml Syringe) 0.5 mg IVPUSH Q4H PRN; Protocol PRN Reason: Pain, Severe (Pain Scale 7-10) Hydroxyzine HCl (Hydroxyzine Hcl 25 Mg Tablet) 25 mg PO TID [facility] Dextrose/Sodium Chloride (D51/2ns) 1,000 mls @ 100 mls/hr IVCONT .Q10H [facility] Lisinopril (Lisinopril 20 Mg Tablet) 20 mg PO DAILY [facility]; Protocol Melatonin (Melatonin 3 Mg Tablet) 6 mg PO BEDTIME PRN PRN Reason: Insomnia Non-Formulary Medication (Mqukimhu-Bizusweyngdl-Upoexbb [Triumeq]) 1 tab PO DAILY [facility] Senna (Sennosides 8.6 Mg Tablet) 17.2 mg PO BEDTIME PRN PRN Reason: Constipation Sodium Chloride (0.9 % Sodium Chloride Flush 3 Ml Syringe) 3 ml IVFLUSH QSHIFT [facility] Home Medications Medication Instructions Recorded Confirmed Last Taken Type abacavir 600 1 tab PO DAILY 10/15/21 10/15/21 Unknown History mg-dolutegravir 50 mg-lamivudine 300 mg tablet (Triumeq) bupropion HCl 150 1 tab PO BEDTIME 10/15/21 10/15/21 Unknown History mg 24 hr tablet, extended release chlorthalidone 25 1 tab PO DAILY 10/15/21 10/15/21 Unknown History mg tablet clonidine HCl 0.3 1 tab PO BEDTIME 10/15/21 10/15/21 Unknown History mg tablet docusate sodium 1 cap PO BID 10/15/21 10/15/21 Unknown History 100 mg capsule escitalopram 1 tab PO DAILY 10/15/21 10/15/21 Unknown History oxalate 10 mg tablet famotidine 20 mg 1 tab PO DAILY 10/15/21 10/15/21 Unknown History tablet gabapentin 300 mg 1 cap PO TID 10/15/21 10/15/21 Unknown History capsule hydroxyzine HCl 1 tab PO TID 10/15/21 10/15/21 Unknown History 25 mg tablet levocetirizine 5 1 tab PO BEDTIME 10/15/21 10/15/21 Unknown History mg tablet linaclotide 145 1 cap PO DAILY 10/15/21 10/15/21 Unknown History mcg capsule (Linzess) lisinopril 20 mg 1 tab PO DAILY 10/15/21 10/15/21 Unknown History tablet melatonin 10 mg 1 tab PO BEDTIME 10/15/21 10/15/21 Unknown History tablet montelukast 10 mg 1 tab PO DAILY 10/15/21 10/15/21 Unknown History tablet sennosides 8.6 mg 2 tab PO DAILY 10/15/21 10/15/21 Unknown History tablet (senna) Physical Exam Verdana 4l Vital Signs and Narrative: Verdana 4d Verdana 4d Vital Signs: Verdana 4d Verdana 4Bd Last Vital Signs Verdana 4d [employer] 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 Pulmonary: Vesicular breath sounds, fair air entry CVS: Normal S1-S2 Abdomen: BS+, Soft, tender on the right side of the abdomen more so on the right upper quadrant, positive Wan sign. Extremities: Warm well perfused Neuro: Alert and awake. Grossly nonfocal Results Labs CBC and Chem 7: 10/15/21 01:22 10/15/21 01:22 Labs: Laboratory Results - last 24 hr 10/15/21 10/15/21 10/15/21 01:14 01:22 01:22 MCV 96.0 MCH 32.4 MCHC 33.7 RDW 12.1 Plt Count 340 MPV 9.8 Immature Gran % (Auto) 0.5 H Neut % (Auto) 81.9 H Lymph % (Auto) 11.2 L [place] % (Auto) 5.9 Eos % (Auto) 0.2 Baso % (Auto) 0.3 Lymph # (Auto) 2.1 [place] # (Auto) 1.1 Eos # (Auto) 0.0 Baso # (Auto) 0.1 Abs Immat Gran (auto) 0.09 H Absolute Neuts (auto) 15.5 H Absolute Nucleated RBC 0.000 Nucleated RBC % (auto) 0.0 Anion Gap 13 Estim Creat Clear Calc 77.0 Estimated GFR 53 POC Glucose 103 Random Glucose 117 H Lactic Acid Lactic Acid F/U @ 2Hr Calcium 9.6 Total Bilirubin 0.8 AST 16 ALT 25 Alkaline Phosphatase 78 Total Protein 7.2 Albumin 3.7 Beta HCG, Quant < 2 Urine Color Urine Appearance Urine pH Ur Specific [place] Urine Protein Urine Glucose (UA) Urine Ketones Urine Blood Urine Nitrite Ur Leukocyte Esterase Urine RBC Urine WBC Ur Squamous Epith Cells Urine Bacteria Urine Mucus COVID-19 (KRISTIN) COVID-19 Clin Com 10/15/21 10/15/21 10/15/21 01:22 01:29 03:22 MCV MCH MCHC RDW Plt Count MPV Immature Gran % (Auto) Neut % (Auto) Lymph % (Auto) [place] % (Auto) Eos % (Auto) Baso % (Auto) Lymph # (Auto) [place] # (Auto) Eos # (Auto) Baso # (Auto) Abs Immat Gran (auto) Absolute Neuts (auto) Absolute Nucleated RBC Nucleated RBC % (auto) Anion Gap Estim Creat Clear Calc Estimated GFR POC Glucose Random Glucose Lactic Acid 3.4 H* Lactic Acid F/U @ 2Hr Calcium Total Bilirubin AST ALT Alkaline Phosphatase Total Protein Albumin Beta HCG, Quant Urine Color YELLOW Urine Appearance HAZY Urine pH 6.0 Ur Specific [place] <= 1.005 Urine Protein 1+ H Urine Glucose (UA) NEG Urine Ketones NEG Urine Blood TRACE Urine Nitrite NEG Ur Leukocyte Esterase NEG Urine RBC 0-2 Urine WBC 0 Ur Squamous Epith Cells 2+ Urine Bacteria TRACE Urine Mucus 1+ COVID-19 (KRISTIN) Negative COVID-19 Clin Com See Note 10/15/21 03:44 MCV MCH MCHC RDW Plt Count MPV Immature Gran % (Auto) Neut % (Auto) Lymph % (Auto) [place] % (Auto) Eos % (Auto) Baso % (Auto) Lymph # (Auto) [place] # (Auto) Eos # (Auto) Baso # (Auto) Abs Immat Gran (auto) Absolute Neuts (auto) Absolute Nucleated RBC Nucleated RBC % (auto) Anion Gap Estim Creat Clear Calc Estimated GFR POC Glucose Random Glucose Lactic Acid Lactic Acid F/U @ 2Hr 2.6 H* Calcium Total Bilirubin AST ALT Alkaline Phosphatase Total Protein Albumin Beta HCG, Quant Urine Color Urine Appearance Urine pH Ur Specific [place] Urine Protein Urine Glucose (UA) Urine Ketones Urine Blood Urine Nitrite Ur Leukocyte Esterase Urine RBC Urine WBC Ur Squamous Epith Cells Urine Bacteria Urine Mucus COVID-19 (KRISTIN) COVID-19 Clin Com Imaging Radiologist's Impressions: Impressions Abdomen/Pelvis CT 10/15/21 02:10 IMPRESSION: 1. Mild asymmetric prominence of the right ovary, with mild adjacent stranding which could be secondary to nonspecific acute ovarian pathology given the reported right lower quadrant pain. This would be better assessed with pelvic ultrasound. 2. Appendix is not discretely identified. 3. Left adrenal nodule measuring 2.6 cm, statistically suggestive of an adenoma in the absence of clinical risk factors. Further evaluation with nonemergent adrenal protocol CT is advised. Fleischner guidelines were followed. Head CT 10/15/21 02:10 IMPRESSION: No acute intracranial pathology. Doppler Study Ultrasound 10/15/21 04:10 IMPRESSION: No abnormality demonstrated. No findings to suggest ovarian torsion. Pelvic/Transvag US 10/15/21 04:10 IMPRESSION: No abnormality demonstrated. No findings to suggest ovarian torsion. Assessment and Plan (1) Intractable abdominal pain: Status: Acute (2) Sepsis: Status: Acute Plan 46-year-old female with a past medical history of anxiety, depression, HIV, hypertension, history of gastric surgery, remote history of appendectomy; presented to the hospital today with a chief complaint of right-sided abdominal pain/ syncope Admitted for the following Syncope: Likely vasovagal Versus hypotension . EKG nonischemic. Troponin pending. Exam nonfocal. CT head negative. Fall precautions. Monitor on telemetry. Orthostatic vitals. Echocardiogram. Sepsis/Abd pain: Question GI source. Noted to have leukocytosis, lactic acidosis and episode of hypotension. Blood pressure is slightly improved with IV fluids. Hold home antihypertensives. CT abdomen showed no acute intra-abdominal pathology except for right ovarian prominence -ruled out ovarian torsion on the transvaginal ultrasound. Continue ceftriaxone and Flagyl empirically. Follow-up cultures Given positive Wan signs and right upper quadrant abdominal tenderness in on examination will obtain HIDA scan to rule out acute cholecystitis. if HIDA is positive will defer to the day hospitalist to touch base with General surgery. Id consult Lactic acidosis: Patient on IV fluids. Follow-up repeat levels. Hypotension: Likely in the setting of sepsis. Patient on IV fluid hydration. Blood pressure improving. patient denies any lightheadedness or dizziness. Peripheral pulses are palpable. Extremities are warm and good capillary refill. Monitor vitals closely hold home lisinopril, clonidine, Chlorthalidone Adrenal adenoma: Noted to have left-sided 2.6 cm nodule on the adrenals. Will obtain random cortisol level. Nonemergent adrenal protocol CT recommended. History of HIV: Continue home Triumeq; patient reports her viral load is undetectable and CD4 counts have been good. History of anxiety /depression: Continue home hydroxyzine, appropriate on. DVT prophylaxis: Lovenox Code status: Full code Quality Stroke Does the patient have a stroke diagnosis?: No VTE Prior VTE?: No VTE Risk Level:: Medical - moderate - high VTE Device Contraindication: Treatment Not Indicated VTE Drug Contraindication: N/A - Med Ordered
[2021-10-15] MEDS: Ketorolac Tromethamine 30 MG/ML VIAL 15 MG IVPUSH (05:08)
[2021-10-15] MEDS: 0.9 % Sodium Chloride 1,000 ML 999 ML IV (05:10)
[2021-10-15] MEDS: ondansetron HCL 4 MG/2 ML VIAL IVPUSH (05:18)
--- NOTE | 2021-10-15 05:19 | PC.NURSE ---
dr hylton at bedside for eval pt reports KIM and nausea, medicated wih zofran per v/o. pt's bp 85/40 hr 82, md aware.
[2021-10-15] MEDS: Dextrose 5 % and 0.9 % NaCl 1,000 ML 100 ML IVCONT (05:26)
[2021-10-15 05:30] LABS: Troponin-I High Sensitivity 30.4 ng/L (<3.5-17.0)
--- NOTE | 2021-10-15 05:32 | PC.NURSE ---
per warner, pt to receive d5ns, not d5 half normal. pt medicated per orders, requesting provider to cancel d5 half normal
--- NOTE | 2021-10-15 05:45 | PC.NURSE ---
Report given to Marina DUFFY in Overflow.
[2021-10-15 05:48] LABS: Reflex Lactate? 2 Y
[2021-10-15 06:08] LABS: MANUAL DIFF FLAG NO
[2021-10-15 06:11] LABS: Basophils Percent Auto 0.1 % (0-2); Hematocrit 35.3 % (37.0-47.0); Hemoglobin 11.9 g/dl (12.0-16.0); Imm Gran Abs Auto 0.12 X10*3/uL (0.00-0.03); Imm Gran Pct Auto 0.6 % (0.0-0.4); Lymphocytes Absolute Auto 1.1 X10*3/uL (1.2-4.9); Lymphocytes Percent Auto 5.5 % (20-40); Mean Corpuscular HGB Conc 33.7 g/dl (31.0-35.0); Mean Corpuscular Hemoglobin 32.3 pg (27.0-33.0); Mean Corpuscular Volume 95.9 fL (80.0-98.0); Mean Platelet Volume 9.5 fL (9.4-12.3); Monocytes Absolute Auto 1.1 X10*3/uL (0.1-1.2); Monocytes Percent Auto 5.8 % (2-11); Neutrophils Absolute Auto 16.9 x10*3/uL (2.0-8.3); Platelet Count 265 X10*3/uL (160-400); Red Blood Count 3.68 X10*6/uL (4.20-5.50); Red Cell Distribution Width 12.2 % (11.0-16.0); White Blood Count 19.2 X10*3/uL (4.8-10.8)
[2021-10-15 06:32] LABS: ~Lactic Acid-LAB USE ONLY 2.5 mmol/L (0.5-2.0)
[2021-10-15 06:41] LABS: Anion Gap 12 (12-20); Blood Urea Nitrogen 13 mg/dL (9-16); Calcium 8.3 mg/dL (8.4-10.2); Carbon Dioxide 25 mmol/L (22-29); Chloride 105 mmol/L (96-108); Estimated Glomerular Filt Rate > 60; Glucose Random 113 mg/dL (60-115); Potassium 3.6 mmol/L (3.3-5.1); Sodium 138 mmol/L (135-145)
[2021-10-15] MEDS: metroNIDAZOLE/NS 500 MG/100 ML PIGGYBACK 100 MG IV ×3 (06:47→21:10)
[2021-10-15] MEDS: Enoxaparin Sodium 40 MG/0.4 ML SYRINGE SUBCUT (06:47)
[2021-10-15 07:31] LABS: Cortisol Random 24.9 ug/dL
[2021-10-15] MEDS: 0.9 % Sodium Chloride 1,000 ML 150 ML IVCONT ×3 (07:51→22:30)
--- NOTE | 2021-10-15 08:20 | PC.NURSE ---
Pt received from shampoo person: Pt AOX4 and c/o RUQ pain. Pt abd round, soft and tender to RUQ. PRN pain medication ordered and admin. Heart sounds normal and lungs diminished. Pending HIDA scan around 12pm. Pt to remain NPO. MD Nelson made aware, and communication order received to hold all medications until after scan.
[2021-10-15] MEDS: HYDROmorphone HCl 1 MG/ML SYRINGE 0.5 MG IVPUSH ×3 (08:32→21:07)
--- NOTE | 2021-10-15 09:30 | CA_ITS ---
Transthoracic Echocardiogram Patient (Last, First, Middle): Jhoana De La Garza N Gender: Female Date of : 1975 Age: 46 Procedure Date: 10/15/2021 Procedure Type: Transthoracic Echocardiogram Location: ER Height: 165.1 cm Weight: 105.24 kg BSA: 2.11 m2 Heart Rate: bpm BP: 83 / 46 mmHg Print Shop Manager: BRYON Referring MD: Kian Nieves MD Symptoms: syncope Study Quality: Fair ECG Rhythm: Sinus Conclusions: - The left ventricular systolic function is low normal. The calculated ejection fraction is 52% by biplane method. - There is low normal right ventricular systolic function. - No obvious valvular pathology seen on this study. Findings Left Ventricle Normal left ventricular cavity size. There is normal left ventricular wall thickness. The left ventricular systolic function is low normal. The calculated ejection fraction is 52% by biplane method. There is no evidence of regional wall motion abnormalities. Diastolic function is normal for age. Right Ventricle Normal right ventricular cavity size. There is low normal right ventricular systolic function. Atria Both atria are normal in size. Aortic Valve There is a normal trileaflet aortic valve. There is no aortic valve stenosis. There is no aortic valve regurgitation. Mitral Valve The mitral valve appears normal. There is trace mitral valve regurgitation. There is no mitral valve stenosis. Pulmonic Valve The pulmonic valve was not well visualized. Tricuspid Valve Normal tricuspid valve structure. There is no tricuspid valve regurgitation. The pulmonary artery systolic pressure is normal. Great Vessels The aortic annulus, sinuses of valsalva, and asc aorta are normal in size. Venous The inferior vena cava is normal in size and collapses greater than 50% with inspiration. Pericardium/Pleural There is no evidence of pericardial effusion. Prior Study Comparison No prior study available for comparison. Recommendations, Care & Conclusions No obvious valvular pathology seen on this study. Measurements 2D Linear Measurements IVSd: 0.92 0.6-0.9/0.6-1.0 cm LVIDd: 4.90 3.9-5.3/4.2-5.9 cm LVIDd Index: 2.32 2.4-3.2/2.2-3.1 cm/m2 LVIDs: 3.51 2.0-3.6 cm LVPWd: 0.97 0.7-1.1 cm Ao Root: 3.30 2.1-3.5 cm LA Diam: 3.90 2.7-3.8/3.0-4.0 cm LAIDs Index: 1.85 1.5-2.3 cm/m2 LV Mass: 203.65 67-162/88-224 g LV Mass Index: 96.51 43-95/49-115 g/m2 LVOT Diam: 2.20 3.0+(-)1.3 cm 2D Systolic Function EF 4C: 50.70 >55% EF 2C: 57.00 >55% EF BiP: 52.30 >55% Mitral Valve MV Pk E: 0.85 MV PK A: 0.64 MV Decel Time: 197.00 E/A: 1.30 E'Lateral: 14.00 E'Medial: 10.20 E/E' Med: 8.30 E/E' Lat: 6.10 PHT: 58.00 MVA PHT: 3.79 Decel [place]: 4.30 Aortic Valve AoV Pk Denis: 1.46 AoV Mn Denis: 1.07 AoV VTI: 0.32 AoV Pk Grad: 9.00 Aov Mn Grad: 5.00 OLAYINKA Cont.VTI: 2.50 LVOT LVOT Pk Denis: 0.98 LVOT Mn Denis: 0.75 LVOT VTI: 0.21 LVOT Pk Grad: 4.00 LVOT Mn Grad: 2.00 LVOT Diam: 2.20 LVOT Area: 3.80 Diastolic Function MV Pk E: 0.85 MV Pk A: 0.64 E/A: 1.30 E'Medial: 10.20 E/E' Med: 8.30 E' Laterial: 14.00 E/E' Lat: 6.10 Right Ventricle TAPSE (mm): 15.00 TVS' Denis: 13.00 Tricuspid Valve TR Pk Denis: 2.05 TR Pk Grad: 17.00 RA Press: 3.00 RVSP: 20.00 Great Vessels Aorta Ao Root-2D: 3.30 2.0-3.7 cm Ao Asc: 3.20 2.1-3.4 cm Ao Arch: 3.40 Updated in Other Vendor System with Status of Final Juan Matson MD electronically signed on 10/15/2021 11:34:07 AM with status of Final
[2021-10-15] MEDS: cefTRIAXone sodium 1 GM in 0.9 % Sodium Chloride 50 ML IV (09:36)
--- NOTE | 2021-10-15 09:40 | PHA.MEDREC ---
Pharmacy Consult ? Medication Reconciliation Pharmacy has reviewed the medication reconciliation completed by Ruma. Patient use [facility] at home. Patient's nurse is Belkys [phone]. Medication list fax. Med list was updated. Dr. Nelson was informed of the discrepancies. Kathrin Avery,, PharmD
--- NOTE | 2021-10-15 09:50 | MHC.CM.PN ---
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 SHE REPORTS SHE HAS A CPAP AT HOME HOWEVER IS NOT USING IT SHE NEEDS A NEW MASK AND IS WAITING FOR [facility] TO PROVIDE IT. PT CONFIRMS HER PCP IS ANUP TOSCANO PT DOES NOT HAVE A HCP, SHE REPORTS SHE WOULD NAME HER SISTER HER AGENT HOWEVER SHE IS CONCERNED THAT SHE WOULD LEARN OF HER HIV POSITIVE STATUS. AFTER SOME DISCUSSION, PT ASKS THAT CM ASSIST HER IN COMPLETING ONE HOWEVER, SHE DOES NOT WANT TO PUT IT ON FILE. SHE REPORTS SHE WILL KEEP IT AT HOME WITH HER OTHER IMPORTANT DOCUMENTS SO THAT FAMILY WILL HAVE IT IF NEEDED. CM ENCOURAGED HER TO ENSURE IT WAS SOMEWHERE THEY WOULD FIND IT. OBSERVATION NOTICE WAS DELIVERED. A COPY WAS GIVEN TO PT AND ANOTHER SENT TO [facility] CURRENT DC PLAN IS HOME WITH RESUMPTION OF SERVICES SISTER TO TRANSPORT
--- NOTE | 2021-10-15 11:38 | PM.EVENT ---
Event Note Date of Service: 10/15/21 Event Note: admitted this a.m. due to right upper quadrant abdominal pain with radiation towards right lower abdomen associated with nausea vomiting feeling cold, T-max 99.3 degrees in the emergency room, patient denied any urinary symptoms of urgency frequency, status post appendectomy workup in the ER showed normal urinalysis, CT abdomen and pelvis concerning for mild asymmetric prominence of right ovary with mild adjacent stranding could be secondary to nonspecific acute ovarian pathology/ lung bases unremarkable/ normal gallbladder and liver CT head unremarkable transvaginal/pelvic ultrasound unremarkable WBC 16397/ normal LFTs no diarrhea on examination patient awake alert in no distress lungs clear to auscultation abdomen soft tenderness right upper quadrant, no rebound no rigidity bowel sounds audible extremities no edema assessment and plan leukocytosis/ hypotension no source of infection found, therefore no sepsis will follow CBC/ blood cultures, clinical course start full liquid diet and gradually advance as tolerated hypotension likely due to multiple home medications including chlorthalidone, clonidine and hydroxyzine on IV antibiotic ceftriaxone and Flagyl day 1 if blood cultures negative DC antibiotics lactic acidosis likely due to dehydration /hypotension improving with IV hydration History of HIV:? Continue home Triumeq; patient reports her viral load is undetectable and CD4 counts have been good. History of anxiety /depression:? Continue home hydroxyzine prn, Left adrenal nodule measuring 2.6 cm, statistically suggestive of an adenoma in the absence of clinical risk factors. Further evaluation with nonemergent adrenal protocol CT is advised recommend outpatient PCP follow-up. DVT prophylaxis:? Lovenox Code status:? Full code
--- NOTE | 2021-10-15 13:33 | PC.NURSE ---
Pt to HIDA scan at this time
--- NOTE | 2021-10-15 14:59 | PC.NURSE ---
Pt back from HIDA scan now
[2021-10-15] MEDS: Docusate Sodium 100 MG CAPSULE PO ×2 (15:25→21:05)
[2021-10-15] MEDS: Dolutegravir Sodium 50 MG TABLET PO (15:25)
[2021-10-15] MEDS: Sennosides 8.6 MG TABLET 17.2 MG PO (15:26)
[2021-10-15] MEDS: lamiVUDine 150 MG TABLET 300 MG PO (15:26)
[2021-10-15] MEDS: Escitalopram Oxalate 10 MG TABLET PO (15:26)
[2021-10-15] MEDS: Famotidine 20 MG TABLET PO (15:26)
--- NOTE | 2021-10-15 15:27 | PC.NURSE ---
Pt given scheduled medications noted with water, as pt completed HIDA scan. Pt made aware that pt's new diet is clear liquid.
[2021-10-15] MEDS: Acetaminophen 325 MG TABLET 650 MG PO (16:16)
[2021-10-15] MEDS: Fluticasone Propionate 250 MCG BLST.W.DEV 2 PUFF INHALE (20:11)
[2021-10-15] MEDS: Montelukast Sodium 10 MG TABLET PO (21:05)
[2021-10-15] MEDS: buPROPion HCl XL 150 MG TAB.ER.24H PO (21:05)
[2021-10-15] MEDS: Gabapentin 300 MG CAPSULE PO (21:05)
[2021-10-16] VITALS (12 sets, daily range): BP systolic 117–141; BP diastolic 65–88; PULSE 78–104; RESP 16–18; TEMP 36.4–37; O2SAT 95–100; BMI 41.3
--- NOTE | 2021-10-16 00:17 | PC.NURSE ---
This nurse took over patient's care at 1900. Patient is alert and oriented x3, patient reports 10/10 right upper quadrant pain, abdomen soft, tender; medicated with prn dilaudid per emar. Denies any nausea/vomiting at this time, tolerating full liquid diet, using bedside commode. vss, call walton within reach.
--- NOTE | 2021-10-16 00:22 | PC.NURSE ---
Report given to med surge nurse
[2021-10-16] MEDS: Acetaminophen 325 MG TABLET 650 MG PO ×2 (01:25→16:22)
[2021-10-16] MEDS: HYDROmorphone HCl 1 MG/ML SYRINGE 0.5 MG IVPUSH ×2 (02:52→10:04)
[2021-10-16] MEDS: metroNIDAZOLE/NS 500 MG/100 ML PIGGYBACK 100 MG IV (05:33)
[2021-10-16] MEDS: 0.9 % Sodium Chloride 1,000 ML 150 ML IVCONT (05:36)
[2021-10-16] MEDS: Enoxaparin Sodium 40 MG/0.4 ML SYRINGE SUBCUT (05:39)
[2021-10-16 05:44] LABS: MANUAL DIFF FLAG NO
[2021-10-16 05:49] LABS: Basophils Percent Auto 0.2 % (0-2); Eosinophils Absolute Auto 0.1 X10*3/uL (0.0-0.4); Eosinophils Percent Auto 0.5 % (0-4); Hematocrit 38.5 % (37.0-47.0); Hemoglobin 12.6 g/dl (12.0-16.0); Imm Gran Abs Auto 0.06 X10*3/uL (0.00-0.03); Imm Gran Pct Auto 0.5 % (0.0-0.4); Lymphocytes Percent Auto 15.8 % (20-40); Mean Corpuscular HGB Conc 32.7 g/dl (31.0-35.0); Mean Corpuscular Hemoglobin 31.7 pg (27.0-33.0); Mean Corpuscular Volume 96.7 fL (80.0-98.0); Mean Platelet Volume 9.9 fL (9.4-12.3); Monocytes Percent Auto 7.7 % (2-11); Neutrophils Absolute Auto 9.7 x10*3/uL (2.0-8.3); Neutrophils Percent Auto 75.3 % (45-73); Platelet Count 253 X10*3/uL (160-400); Red Blood Count 3.98 X10*6/uL (4.20-5.50); Red Cell Distribution Width 12.2 % (11.0-16.0); White Blood Count 12.9 X10*3/uL (4.8-10.8)
[2021-10-16 06:22] LABS: Anion Gap 12 (12-20); Blood Urea Nitrogen 7 mg/dL (9-16); Calcium 9.2 mg/dL (8.4-10.2); Carbon Dioxide 26 mmol/L (22-29); Chloride 106 mmol/L (96-108); Creatinine Clr Calc Pharmacy 123.4; Estimated Glomerular Filt Rate > 60; Glucose Random 93 mg/dL (60-115); Potassium 3.3 mmol/L (3.3-5.1); Sodium 141 mmol/L (135-145)
[2021-10-16] MEDS: cefTRIAXone sodium 1 GM in 0.9 % Sodium Chloride 50 ML IV (06:48)
[2021-10-16] MEDS: lamiVUDine 150 MG TABLET 300 MG PO (09:46)
[2021-10-16] MEDS: Gabapentin 300 MG CAPSULE PO ×2 (09:47→20:42)
[2021-10-16] MEDS: Sennosides 8.6 MG TABLET 17.2 MG PO (09:47)
[2021-10-16] MEDS: Dolutegravir Sodium 50 MG TABLET PO (09:47)
[2021-10-16] MEDS: Famotidine 20 MG TABLET PO (09:47)
[2021-10-16] MEDS: Lidocaine 4 % Patch ADH..PATCH 1 PATCH TRANSDERMA (09:48)
[2021-10-16] MEDS: Escitalopram Oxalate 10 MG TABLET PO (09:48)
[2021-10-16] MEDS: Docusate Sodium 100 MG CAPSULE PO ×2 (09:48→20:42)
--- NOTE | 2021-10-16 11:23 | MHC.CLN ---
NUTRITION PATIENT ON FULL LIQUID DIET DUE TO ABDOMINAL PAIN. HAD GASTRIC SLEEVE SURGERY 11/26/20. INTERVIEWED PATIENT ABOUT DIETARY NEEDS. TAKES PROTEIN SHAKE SOMETIMES AT HOME. PREFERS SOFT FOOD. WHEN DIET ADVANCES RECOMMEND NDD3 CONSISTENCY. ADDING ENSURE TID TO PROVIDE 1050 KCAL, 60 GRAMS PROTEIN. CURRENT APPEARS POOR.
[2021-10-16] MEDS: Fluticasone Propionate Nasal 16 GM SPRAY 2 SPRAY NOSTRIL-B (11:48)
--- NOTE | 2021-10-16 13:50 | P.PNIM_ITS ---
Subjective Subjective Date of Service: 10/16/21 Interval History: complaining of persistent diffuse abdominal pain, worse with coughing, and movement, denies nausea, vomiting, tolerating full liquid diet no fevers, no chills. no acute issues overnight blood pressure has improved Review of Systems Review of Systems: Yes all other systems are reviewed and are negative Physical Exam Verdana 4l Vital Signs: Verdana 4d Verdana 4d Vital Signs: Verdana 4d Verdana 4Bd Last Vital Signs Verdana 4d Insulation Cutter And Former New 4d Insulation Cutter And Former New 4d Temp 98.4 F 10/16/21 11:54 Insulation Cutter And Former New 4d Pulse 92 10/16/21 11:54 Insulation Cutter And Former New 4d Resp 18 10/16/21 11:54 BP 133/88 10/16/21 11:54 Pulse Ox 98 10/16/21 11:54 BMI result Body Mass Index 41.3 Const: Other: General awake alert, no acute distress. Neck supple no JVD. CVS regular rate rhythm, Respiratory lungs clear to auscultation, no respiratory distress Gastrointestinal abdomen soft, diffuse tenderness with superficial palpation, no Wan sign, bowel sounds audible, no guarding , no rigidity. Extremities no edema. Neuro nonfocal ,moving all 4 extremity speech clear. Skin no rash psych appropriate affect Objective Data Active Medications Abacavir Sulfate (Abacavir Sulfate 300 Mg Tablet) 600 mg PO DAILY [facility] Last Admin: 10/16/21 09:45 Dose: 600 mg Documented by: PIA Acetaminophen (Acetaminophen 325 Mg Tablet) 650 mg PO Q6H PRN PRN Reason: Pain, Mild (Pain Scale 1-3) Last Admin: 10/16/21 01:25 Dose: 650 mg Documented by: FAVIAN Albuterol Sulfate (Albuterol Sulfate (0.083%) 2.5 Mg/3 Ml Vial.Neb) 2.5 mg INHALE Q6H PRN PRN Reason: sob Bupropion HCl (Bupropion Hcl Xl 150 Mg Tab.Er.24h) 150 mg PO BEDTIME [facility] Last Admin: 10/15/21 21:05 Dose: 150 mg Documented by: HALEY Docusate Sodium (Docusate Sodium 100 Mg Capsule) 100 mg PO BID [facility] Last Admin: 10/16/21 09:48 Dose: 100 mg Documented by: PIA Dolutegravir Sodium (Dolutegravir Sodium 50 Mg Tablet) 50 mg PO DAILY [facility] Last Admin: 10/16/21 09:47 Dose: 50 mg Documented by: PIA Enoxaparin Sodium (Enoxaparin Sodium 40 Mg/0.4 Ml Syringe) 40 mg SUBCUT Q24H [facility] Last Admin: 10/16/21 05:39 Dose: 40 mg Documented by: FAVIAN Escitalopram Oxalate (Escitalopram Oxalate 10 Mg Tablet) 10 mg PO DAILY [facility] Last Admin: 10/16/21 09:48 Dose: 10 mg Documented by: PIA Famotidine (Famotidine 20 Mg Tablet) 20 mg PO DAILY [facility] Last Admin: 10/16/21 09:47 Dose: 20 mg Documented by: PIA Fluticasone Propionate (Fluticasone Propionate Nasal 16 Gm [place]) 2 spray NOSTRIL-B DAILY [facility] Last Admin: 10/16/21 11:48 Dose: 2 spray Documented by: PIA Fluticasone Propionate (Fluticasone Propionate 250 Mcg Blst.W.Dev) 2 puff INHALE RBID [facility] Last Admin: 10/16/21 07:58 Dose: Not Given Documented by: ROLANDO Non-Admin Reason: Med Not Available Gabapentin (Gabapentin 300 Mg Capsule) 300 mg PO BID [facility] Last Admin: 10/16/21 09:47 Dose: 300 mg Documented by: PIA Hydromorphone HCl (Hydromorphone Hcl 1 Mg/Ml Syringe) 0.5 mg IVPUSH Q4H PRN; Protocol PRN Reason: Pain, Severe (Pain Scale 7-10) Last Admin: 10/16/21 10:04 Dose: 0.5 mg Documented by: PIA Hydroxyzine HCl (Hydroxyzine Hcl 25 Mg Tablet) 25 mg PO TID PRN PRN Reason: anxiety Lamivudine (Lamivudine 150 Mg Tablet) 300 mg PO DAILY [facility] Last Admin: 10/16/21 09:46 Dose: 300 mg Documented by: PIA Melatonin (Melatonin 3 Mg Tablet) 6 mg PO BEDTIME PRN PRN Reason: Insomnia Montelukast Sodium (Montelukast Sodium 10 Mg Tablet) 10 mg PO BEDTIME [facility] Last Admin: 10/15/21 21:05 Dose: 10 mg Documented by: HAELY Senna (Sennosides 8.6 Mg Tablet) 17.2 mg PO DAILY [facility] Last Admin: 10/16/21 09:47 Dose: 17.2 mg Documented by: PIA Simethicone (Simethicone 80 Mg Tab.Chew) 80 mg PO Q4H PRN PRN Reason: gas Sodium Chloride (0.9 % Sodium Chloride Flush 3 Ml Syringe) 3 ml IVFLUSH QSHIFT [facility] Last Admin: 10/16/21 07:59 Dose: Not Given Documented by: PIA Non-Admin Reason: IV Running Labs CBC & Chem 7: 10/16/21 05:37 10/16/21 05:37 Labs: Laboratory Results - last 24 hr 10/16/21 10/16/21 05:37 05:37 MCV 96.7 MCH 31.7 MCHC 32.7 RDW 12.2 Plt Count 253 MPV 9.9 Immature Gran % (Auto) 0.5 H Neut % (Auto) 75.3 H Lymph % (Auto) 15.8 L [place] % (Auto) 7.7 Eos % (Auto) 0.5 Baso % (Auto) 0.2 Lymph # (Auto) 2.0 [place] # (Auto) 1.0 Eos # (Auto) 0.1 Baso # (Auto) 0.0 Abs Immat Gran (auto) 0.06 H Absolute Neuts (auto) 9.7 H Absolute Nucleated RBC 0.000 Nucleated RBC % (auto) 0.0 Anion Gap 12 Estim Creat Clear Calc 123.4 Estimated GFR > 60 Random Glucose 93 Calcium 9.2 D Microbiology Microbiology Results: Microbiology 10/15/21 01:29 Blood Culture - Preliminary Blood - Venous No growth after 24 hours. 10/15/21 01:29 Blood Culture - Preliminary Blood - Venous No growth after 24 hours. Assessment and Plan (1) Intractable abdominal pain: Status: Acute (2) S/P laparoscopic sleeve gastrectomy: Status: Acute (3) Morbid obesity: Status: Acute Plan 46-year-old female with a past medical history of anxiety, depression, HIV, hypertension, history of gastric surgery, remote history of? appendectomy; presented to the hospital today with a chief complaint of right-sided abdominal pain/ syncope Syncope:??Likely vasovagal?Versus hypotension CT head negative, no arrhythmia noted on tele monitor, EKG nonischemic.? Troponin 30.4, Echocardiogram showed low normal EF no wall motion abnormality. blood pressure improved after holding clonidine and hydroxyzine no recurrent episodes patient feeling significantly better no lightheadedness or dizziness abdominal pain with leukocytosis no source of infection found, therefore no sepsis leukocytosis improved was likely reactive/ blood cultures negative tolerating full liquid diet will advance to regular will DC IV fluids, abdominal pain most likely musculoskeletal recommend to take Tylenol hot pack and apply Lidoderm patch ? ?lactic acidosis likely due to dehydration /hypotension improved will DC IV fluid ?History of HIV:? Continue home Triumeq; patient reports her viral load is undetectable and CD4 counts have been good. ?History of anxiety /depression:? Continue home hydroxyzine prn, ?Left adrenal nodule measuring 2.6 cm, statistically suggestive of an adenoma in the absence of clinical risk factors. Further evaluation with nonemergent adrenal protocol CT is advised recommend outpatient PCP follow-up. DVT prophylaxis:? Lovenox Code status:? Full code disposition patient feels weak to be discharged home today/ will advance diet and encourage ambulation if able to tolerate regular diet will discharge home next 24 hrs. Quality Stroke Does the patient have a stroke diagnosis?: No VTE Prior VTE?: No VTE Risk Level:: Medical - moderate - high VTE Device Contraindication: Treatment Not Indicated VTE Drug Contraindication: N/A - Med Ordered
--- NOTE | 2021-10-16 15:08 | MHC.CM.PN ---
PATIENT IS ACTIVE WITH [facility] AT HOME THEY ARE AWARE THAT SHE MAY DC TOMORROW WITH RESUMPTION OF 3X/WEEK MEDICATION MANAGEMENT AGENCY ASKS THAT WE FAX THE DC PAPERWORK TO [phone] ATT: [facility]HER
[2021-10-16] MEDS: Potassium Chloride ER 20 MEQ TAB.ER.PRT PO (16:20)
[2021-10-16] MEDS: hydrOXYzine HCL 25 MG TABLET PO (16:24)
[2021-10-16] MEDS: 0.9 % Sodium Chloride Flush 3 ML SYRINGE IVFLUSH ×2 (16:26→23:57)
[2021-10-16] MEDS: Melatonin 3 MG TABLET 6 MG PO (20:41)
[2021-10-16] MEDS: buPROPion HCl XL 150 MG TAB.ER.24H PO (20:42)
[2021-10-16] MEDS: Montelukast Sodium 10 MG TABLET PO (20:42)
[2021-10-16] MEDS: Fluticasone Propionate 250 MCG BLST.W.DEV 2 PUFF INHALE (20:54)
--- NOTE | 2021-10-16 22:02 | P.CNID_ITS ---
History of Present Illness Data of Consult Service Date: 10/15/21 Requesting physician: Dariusz Nelson Primary Care Provider: Venkatesh Abel MD [facility] Reason for consult: abdominal pain She presents with 7/10 RLQ pain and fatigue She has symptoms for two days.,worse last day She has HIV controlled with Triumeq She has had gastric bypass. Review of Systems Review of Systems: Yes all other systems are reviewed and are negative PMFSH Past Medical History Medical History (Updated 01/06/22 @ 12:39 by LASHAWN Salvador) Allergic reaction caused by a drug Anxiety Arthritis Asthma BMI 39.0-39.9,adult Body mass index (BMI) of 40.1 to 44.9 in adult Constipation Depression HIV (human immunodeficiency virus infection) HTN (hypertension) Insomnia Low back pain Morbid obesity Preoperative examination Sciatica Seasonal allergies Shortness of breath Sleep apnea Vertigo Vitamin B1 deficiency Family History Family History Mother Hyperlipidemia Hypertension Arthritis Sciatica Diabetes Father No problems noted. Brother Hypertension Family history: reviewed and not pertinent Surgical History Surgical History History of appendectomy History of elbow surgery History of sleeve gastrectomy S/P laparoscopic sleeve gastrectomy Social History Social History Household Members: None Housing: Apartment Are you a primary sub acute care nurse to a significant other at home: No Do you presently have visiting nurse or other home services: Yes (HELP WITH HOUSEWORK ONCE A WEEK) Alcohol intake: never Patient Tobacco Use Status: Former Tobacco user Tobacco use type: Cigarette e-Cigarette/Vaping Use: Never Used Second Hand Smoke Exposure: No service: No Current occupational status: unemployed Meds Allergies Allergy/AdvReac Type Severity Reaction Status Date / Time prednisone [PREDNISONE] Allergy Severe DIFFICULTY Verified 01/06/22 11:12 BREATHING, anaphylaxis eggs Allergy Intermediate Hives Uncoded 01/06/22 11:12 Active Medications: Current Medications Abacavir Sulfate (Abacavir Sulfate 300 Mg Tablet) 600 mg PO DAILY MAIKOL Last Admin: 10/16/21 09:45 Dose: 600 mg Documented by: Acetaminophen (Acetaminophen 325 Mg Tablet) 650 mg PO Q6H PRN PRN Reason: Pain, Mild (Pain Scale 1-3) Last Admin: 10/16/21 16:22 Dose: 650 mg Documented by: Albuterol Sulfate (Albuterol Sulfate (0.083%) 2.5 Mg/3 Ml Vial.Neb) 2.5 mg INHALE Q6H PRN PRN Reason: sob Bupropion HCl (Bupropion Hcl Xl 150 Mg Tab.Er.24h) 150 mg PO BEDTIME [facility] Last Admin: 10/16/21 20:42 Dose: 150 mg Documented by: Docusate Sodium (Docusate Sodium 100 Mg Capsule) 100 mg PO BID [facility] Last Admin: 10/16/21 20:42 Dose: 100 mg Documented by: Dolutegravir Sodium (Dolutegravir Sodium 50 Mg Tablet) 50 mg PO DAILY [facility] Last Admin: 10/16/21 09:47 Dose: 50 mg Documented by: Enoxaparin Sodium (Enoxaparin Sodium 40 Mg/0.4 Ml Syringe) 40 mg SUBCUT Q24H [facility] Last Admin: 10/16/21 05:39 Dose: 40 mg Documented by: Escitalopram Oxalate (Escitalopram Oxalate 10 Mg Tablet) 10 mg PO DAILY [facility] Last Admin: 10/16/21 09:48 Dose: 10 mg Documented by: Famotidine (Famotidine 20 Mg Tablet) 20 mg PO DAILY [facility] Last Admin: 10/16/21 09:47 Dose: 20 mg Documented by: Fluticasone Propionate (Fluticasone Propionate Nasal 16 Gm [place]) 2 spray NOSTRIL-B DAILY [facility] Last Admin: 10/16/21 11:48 Dose: 2 spray Documented by: Fluticasone Propionate (Fluticasone Propionate 250 Mcg Blst.W.Dev) 2 puff INHALE RBID [facility] Last Admin: 10/16/21 20:54 Dose: 2 puff Documented by: Gabapentin (Gabapentin 300 Mg Capsule) 300 mg PO BID [facility] Last Admin: 10/16/21 20:42 Dose: 300 mg Documented by: Hydroxyzine HCl (Hydroxyzine Hcl 25 Mg Tablet) 25 mg PO TID PRN PRN Reason: anxiety Last Admin: 10/16/21 16:24 Dose: 25 mg Documented by: Lamivudine (Lamivudine 150 Mg Tablet) 300 mg PO DAILY [facility] Last Admin: 10/16/21 09:46 Dose: 300 mg Documented by: Melatonin (Melatonin 3 Mg Tablet) 6 mg PO BEDTIME PRN PRN Reason: Insomnia Last Admin: 10/16/21 20:41 Dose: 6 mg Documented by: Montelukast Sodium (Montelukast Sodium 10 Mg Tablet) 10 mg PO BEDTIME [facility] Last Admin: 10/16/21 20:42 Dose: 10 mg Documented by: Senna (Sennosides 8.6 Mg Tablet) 17.2 mg PO DAILY [facility] Last Admin: 10/16/21 09:47 Dose: 17.2 mg Documented by: Simethicone (Simethicone 80 Mg Tab.Chew) 80 mg PO Q4H PRN PRN Reason: gas Sodium Chloride (0.9 % Sodium Chloride Flush 3 Ml Syringe) 3 ml IVFLUSH QSHIFT [facility] Last Admin: 10/16/21 16:26 Dose: 3 ml Documented by: Home Medications Medication Instructions Recorded Confirmed Last Taken Type abacavir 600 mg-dolutegravir 50 1 tab PO DAILY 10/15/21 10/15/21 Unknown History mg-lamivudine 300 mg tablet (Triumeq) albuterol sulfate 2.5 mg INHALATION Q6H PRN 10/15/21 10/15/21 Unknown History azelastine 205.5 mcg (0.15 %) 1 spray INTRANASAL DAILY 10/15/21 10/15/21 Unknown History nasal spray bupropion HCl 150 mg 24 hr tablet, 1 tab PO BEDTIME 10/15/21 10/15/21 Unknown History extended release calcium carbonate 500 mg-vitamin 1 tab PO DAILY 10/15/21 10/15/21 Unknown History D3 3.125 mcg (125 unit) tablet cromolyn 4 % eye drops 1 drp OPHTHALMIC-LEFT QID PRN 10/15/21 10/15/21 Unknown History cyproheptadine 4 mg tablet 4 mg PO Q8H PRN 10/15/21 10/15/21 Unknown History docusate sodium 100 mg capsule 1 cap PO BID 10/15/21 10/15/21 Unknown History escitalopram oxalate 10 mg tablet 1 tab PO DAILY 10/15/21 10/15/21 Unknown History famotidine 20 mg tablet 1 tab PO DAILY 10/15/21 10/15/21 Unknown History fluticasone propionate 220 2 puff INHALATION BID 10/15/21 10/15/21 Unknown History mcg/actuation HFA aerosol inhaler (Flovent HFA) fluticasone propionate 50 2 spray INTRANASAL DAILY 10/15/21 10/15/21 Unknown History mcg/actuation nasal spray,suspension gabapentin 300 mg capsule 1 cap PO BID 10/15/21 10/15/21 Unknown History hydroxyzine HCl 25 mg tablet 1 tab PO TID PRN 10/15/21 10/15/21 Unknown History ketotifen fumarate 0.025 % (0.035 1 drp OPHTHALMIC (EYE) BID PRN 10/15/21 0 10/15/21 Unknown History %) eye drops levocetirizine 5 mg tablet 1 tab PO BEDTIME 10/15/21 10/15/21 Unknown History linaclotide 145 mcg capsule 1 cap PO DAILY 10/15/21 10/15/21 Unknown History (Linzess) meclizine 25 mg tablet 25 mg PO TID PRN 10/15/21 10/15/21 Unknown History melatonin 10 mg tablet 1 tab PO BEDTIME 10/15/21 10/15/21 Unknown History montelukast 10 mg tablet 1 tab PO DAILY 10/15/21 10/15/21 Unknown History multivitamin 1 tab PO DAILY 10/15/21 10/15/21 Unknown History polyethylene glycol 3350 17 gram 17 g PO DAILY PRN 10/15/21 10/15/21 Unknown History oral powder packet sennosides 8.6 mg tablet (senna) 2 tab PO DAILY 10/15/21 10/15/21 Unknown Hi story simethicone 80 mg chewable tablet 80 mg PO Q4H PRN 10/15/21 10/15/21 Unknown History Physical Exam Vital Signs: Vital Signs: Last Vital Signs Temp 97.5 F 10/16/21 19:30 Pulse 78 10/16/21 20:55 Resp 16 10/16/21 20:55 BP 133/70 10/16/21 19:30 Pulse Ox 96 10/16/21 19:30 BMI result Body Mass Index 41.3 Const: General: cooperative Eyes: General: appearance normal, both eyes and all related structures Resp: Effort & Inspection: normal respiratory effort Cardio: Rhythm: regular rhythm GI: Other: RLQ discomfort Extrem: General: Yes normal to inspection Results Labs CBC & Chem 7: 10/16/21 05:37 10/16/21 05:37 Labs: Short CBC 10/16/21 Range/Units 05:37 WBC 12.9 H (4.8-10.8) X10*3/uL Hgb 12.6 (12.0-16.0) g/dl Hct 38.5 (37.0-47.0) % Plt Count 253 (160-400) X10*3/uL BMP 10/16/21 05:37 Sodium 141 Potassium 3.3 Chloride 106 Carbon Dioxide 26 BUN 7 L Creatinine 0.72 Calcium 9.2 D Microbiology Microbiology Results: Microbiology 10/15/21 01:29 Blood - Venous Blood Culture - Preliminary No growth after 24 hours. 10/15/21 01:29 Blood - Venous Blood Culture - Preliminary No growth after 24 hours. Assessment and Plan (1) Intractable abdominal pain: Status: Resolved Abdominal pain is improved CT scan unremarkable. She has possible gastroenteritis Plan Can hold antibiotics and observe
[2021-10-17 04:00] VITALS: BP 140/80; PULSE 75; RESP 19; TEMP 36.3; O2SAT 99
[2021-10-17] MEDS: Acetaminophen 325 MG TABLET 650 MG PO (04:11)
[2021-10-17] MEDS: Enoxaparin Sodium 40 MG/0.4 ML SYRINGE SUBCUT (05:09)
[2021-10-17] MEDS: Docusate Sodium 100 MG CAPSULE PO (07:23)
[2021-10-17] MEDS: Dolutegravir Sodium 50 MG TABLET PO (07:23)
[2021-10-17] MEDS: lamiVUDine 150 MG TABLET 300 MG PO (07:24)
[2021-10-17] MEDS: Gabapentin 300 MG CAPSULE PO (07:24)
[2021-10-17] MEDS: Famotidine 20 MG TABLET PO (07:24)
[2021-10-17] MEDS: Sennosides 8.6 MG TABLET 17.2 MG PO (07:25)
[2021-10-17] MEDS: Escitalopram Oxalate 10 MG TABLET PO (07:25)
[2021-10-17] MEDS: 0.9 % Sodium Chloride Flush 3 ML SYRINGE IVFLUSH (07:25)
[2021-10-17] MEDS: Fluticasone Propionate Nasal 16 GM SPRAY 2 SPRAY NOSTRIL-B (07:29)
[2021-10-17 07:48] VITALS: BP 125/64; PULSE 62; RESP 18; TEMP 36.1; O2SAT 98
[2021-10-17 08:00] VITALS: BP 126/68; PULSE 71
[2021-10-17] MEDS: Fluticasone Propionate 250 MCG BLST.W.DEV 2 PUFF INHALE (08:44)
[2021-10-17 08:45] VITALS: PULSE 62; RESP 18; O2SAT 98
[2021-10-17 09:39] VITALS: BP 127/67; PULSE 85
--- NOTE | 2021-10-17 10:36 | MHC.CM.PN ---
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 SISTER TO TRANSPORT IMM 2/3 IN CHART RN AWARE OF PLAN.
--- NOTE | 2021-10-17 16:29 | PM.DS ---
DS: Providers Provider Date of Service: 10/17/21 Date of admission: 10/15/21 04:58 Primary care physician: Venkatesh Abel MD Consults: 10/15/21 05:02 Consult to Infectious Diseases Routine Consulting Provider: Fanta Sol Reason for consultation: sepsis; unclear source DS: Diagnosis Discharge Diagnosis (1) Intractable abdominal pain: Status: Resolved DS: Summary Hospital Course Hospital Course: Chief Complaint: Abd pain ? 46-year-old female with a past medical history of anxiety, depression, HIV, hypertension, history of gastric surgery, remote history of? appendectomy; presented to the hospital today with a chief complaint of right-sided abdominal pain.? Patient reports that over the past 2 days she has been having right-sided abdominal pain, nonradiating, no change with bowel movements, sharp in nature. Also reports he had subjective chills at home.? Denies any cough or sputum production.? Denies any shortness of breath.? Denies any chest pain palpitations lightheadedness or dizziness.? ?mentions she had nausea and vomiting, denies any blood in the vomitus.? Had an episode of loose stool. Reports that this morning when she woke up she felt severe pain; later when she was sitting in the chair she had an episode of severe pain in the right side of the abdomen, followed by she felt dizzy and fainted.? The next thing she remembers was waking up with urine accident.? Denies any postictal confusion. Reports that she has been complaint with her home medications including ? HIV meds and clonidine. hospital course 46-year-old female with a past medical history of anxiety, depression, HIV, hypertension, history of gastric surgery, remote history of? appendectomy; presented to the hospital today with a chief complaint of right-sided abdominal pain/ syncope. ?Syncope:??Likely vasovagal? and related to hypotension,?CT head negative, no arrhythmia noted on tele monitor, EKG nonischemic.? Troponin 30.4, Echocardiogram showed low normal EF no wall motion abnormality. ?blood pressure improved after holding clonidine and hydroxyzine, patient had no recurrent episodes of lightheadedness and dizziness therefore being discharged home and recommended to hold blood pressure medication. lactic acidosis was likely due to dehydration and hypotension improved with IV fluid there was no evidence of sepsis. patient also noted to have leukocytosis and had abdominal pain ,?no source of infection found,?leukocytosis improved was likely reactive/ blood cultures negative, CT abdomen showed no acute abnormality, showed left adrenal nodule, and showed prominence of right ovary with mild adjust sent stranding, underwent trans vaginal ultrasound and HIDA scan both studies were benign, patient tolerating regular diet abdominal pain likely muscular skeletal treated with Tylenol and Lidoderm patch ?History of HIV Recommend to continue home medication ?History of anxiety /depression: no acute decompensation recommend to continue home medications. ?Left adrenal nodule measuring 2.6 cm, statistically suggestive of an adenoma in the absence of clinical risk factors. Further evaluation with nonemergent adrenal protocol CT is advised recommend outpatient PCP follow-up. Time Spent with Patient Time attestation: Total time spent providing and/or coordinating discharge services: Discharge coordination time: Greater than 30 minutes Quality: Stroke Does the patient have a stroke diagnosis?: No Physical Exam Vital Signs: Vital Signs: Last Vital Signs Temp 96.9 F 10/17/21 07:48 Pulse 85 10/17/21 09:39 Resp 18 10/17/21 08:45 BP 127/67 10/17/21 09:39 Pulse Ox 98 10/17/21 07:48 BMI result Body Mass Index 41.3 Const: Other: General? awake alert, no acute distress.? Neck supple no JVD. CVS? regular rate rhythm, Respiratory lungs clear to auscultation, no respiratory distress Gastrointestinal abdomen soft, no Wan sign, bowel sounds audible, no guarding , no rigidity. Extremities no edema. Neuro nonfocal ,moving all 4 extremity speech clear. Skin no rash psych appropriate affect DS: Data Data Completed and Pending Completed studies during hospitalization [Text1]: Procedures Excision of Stomach, Percutaneous Endoscopic Approach, Vertical (11/26/20) Repair Diaphragm, Percutaneous Endoscopic Approach (11/26/20) Discharge Plan Discharge Patient Disposition: Home Health Service Discharge Diagnosis: syncope due to hypotension/ vasovagal abdominal pain leukocytosis lactic acidosis Referrals: [facility] [Outside] - 1 Week Venkatesh Abel MD [Primary Care Provider] - 1 Week Discharge Medications: New clonidine HCl 0.1 mg tablet 0.1 mg PO BEDTIME Qty: 30 0RF Continued sennosides [senna] 8.6 mg tablet 2 tab PO DAILY 0RF famotidine 20 mg tablet 1 tab PO DAILY 0RF docusate sodium 100 mg capsule 1 cap PO BID 0RF gabapentin 300 mg capsule 1 cap PO BID 0RF montelukast 10 mg tablet 1 tab PO DAILY 0RF hydroxyzine HCl 25 mg tablet 1 tab PO TID PRN (Reason: Anxiety) 0RF escitalopram oxalate 10 mg tablet 1 tab PO DAILY 0RF bupropion HCl 150 mg tablet extended release 24 hr 1 tab PO BEDTIME 0RF levocetirizine 5 mg tablet 1 tab PO BEDTIME 0RF melatonin 10 mg tablet 1 tab PO BEDTIME 0RF Linzess 145 mcg capsule 1 cap PO DAILY 0RF Triumeq 600-50-300 mg tablet 1 tab PO DAILY 0RF multivitamin Tablet 1 tab PO DAILY 0RF albuterol sulfate 2.5 mg /3 mL (0.083 %) Solution For Nebulization 2.5 mg INHALATION Q6H PRN (Reason: sob) 0RF polyethylene glycol 3350 17 gram Powder In Packet 17 g PO DAILY PRN (Reason: Constipation) 0RF ketotifen fumarate 0.025 % (0.035 %) Drops 1 drp OPHTHALMIC (EYE) BID PRN (Reason: itchy eyes) 0RF Rx Instructions: administer at least 8 hours apart cromolyn 4 % Drops 1 drp OPHTHALMIC-LEFT QID PRN (Reason: itchy eyes) 0RF cyproheptadine 4 mg Tablet 4 mg PO Q8H PRN (Reason: Allergy Symptoms) 0RF meclizine 25 mg Tablet 25 mg PO TID PRN (Reason: Vertigo) 0RF Flovent HFA 220 mcg/actuation HFA aerosol inhaler 2 puff inhalation BID 0RF fluticasone propionate 50 mcg/actuation [place],Suspension 2 spray INTRANASAL DAILY 0RF Rx Instructions: administer into each nostril simethicone 80 mg Tablet,Chewable 80 mg PO Q4H PRN (Reason: gas) 0RF calcium carbonate-vitamin D3 500 mg-3.125 mcg (125 unit) Tablet 1 tab PO DAILY 0RF azelastine 205.5 mcg (0.15 %) [place],Non-Aerosol 1 spray INTRANASAL DAILY 0RF Rx Instructions: administer into each nostril Discontinued lisinopril 20 mg tablet 1 tab PO DAILY 0RF clonidine HCl 0.3 mg tablet 1 tab PO BEDTIME 0RF chlorthalidone 25 mg tablet 1 tab PO DAILY 0RF Discharge Orders: Discharge Order (Routine); Ordered 10/17/21 Ordered By: Dariusz Nelson Diet: advance to usual diet Activity on Discharge: As tolerated Stand Alone Forms: Patient Portal Discharge page Care Plan Goals: syncope due to hypotension is stop using lisinopril chlorthalidone and dose of clonidine reduced to 0.1 mg at bedtime, abdominal pain all workup negative likely musculoskeletal pain take Tylenol hot pack ambulate as tolerated, leukocytosis likely reactive improved, no infection found Health Concerns: polypharmacy please review and minimize medications Plan of Treatment: follow-up with PCP in 1 week Assessment: per discharge summary Discharge Date/Time: 10/17/21 14:09
== END 2021-10-17 14:09 | disposition home health service (06) | DRG 312 ==
LOC: HO.ED 01:50 → HO.EDOVER 05:45 → HO.S3 23:14
PROVIDERS: Admitting Provider Hospitalist; Emergency Provider Student in an Organized Health Care Education/Training Program; PCP Internal Medicine Sports Medicine; Visit Provider Hospitalist
DX: I95.2 Hypotension due to drugs (principal); E87.2 Acidosis; Z68.41 Body mass index [BMI] 40.0-44.9, adult; F41.9 Anxiety disorder, unspecified; F32.A Depression, unspecified; E66.01 Morbid (severe) obesity due to excess calories; Z21 Asymptomatic human immunodeficiency virus [HIV] infection status; E86.0 Dehydration; R10.9 Unspecified abdominal pain; D72.829 Elevated white blood cell count, unspecified; D35.02 Benign neoplasm of left adrenal gland; Z20.822 Contact with and (suspected) exposure to COVID-19; Z98.84 Bariatric surgery status; Z87.891 Personal history of nicotine dependence; Z79.51 Long term (current) use of inhaled steroids; Z79.899 Other long term (current) drug therapy
CPT/HCPCS: 36415; 70450; 74177; 76830; 76856; 78226; 80048; 80053; 81001; 82533; 82947; 83605; 84484; 84702; 85025; 87040; 87635; 93005; 93306; 93975; 94640; 96361; 96374; 96375; 99285; A9537; J0696; J1170; J1650; J1885; J2405; J2543; Q9967

== ENCOUNTER → 2022-05-26 11:05 | Outpatient (BNVA) | payer OTHER, SELFPAY | PROVIDERS: PCP Internal Medicine Sports Medicine; Visit Provider Physician Assistant Surgical | DX: E66.9 Obesity, unspecified (principal); Z68.38 Body mass index [BMI] 38.0-38.9, adult; Z98.84 Bariatric surgery status | CPT/HCPCS: 99212 ==

== ENCOUNTER → 2022-07-05 13:35 | Outpatient (BNVA) | payer OTHER, SELFPAY | PROVIDERS: Visit Provider Physician Assistant Surgical | DX: E66.9 Obesity, unspecified (principal); R11.10 Vomiting, unspecified; Z68.39 Body mass index [BMI] 39.0-39.9, adult; Z90.3 Acquired absence of stomach [part of] | CPT/HCPCS: 99212 ==

== ENCOUNTER 2022-07-26 08:31 | Outpatient (REF) | payer OTHER, SELFPAY ==
--- NOTE | ~2022-07-26 | FL_ITS ---
EXAMINATION: XR FLUOROSCOPY UPPER GI WITH AIR CLINICAL INFORMATION: Status post gastric sleeve surgery. Complains of abdominal pain. COMPARISON: None. TECHNIQUE: Routine upper GI air-contrast study was performed in upright and lying position. FINDINGS: Following oral administration of thick barium and effervescent granules, there is normal propagation of bolus from the oral cavity through the pharynx and esophagus and into the stomach without any evidence of obstruction, narrowing or stricture. On placing patient supine and prone lying, a small caliber stomach is noted. There is distention of visualized stomach with gas and oral contrast without any intraluminal filling defect. The course, caliber and peristalsis of stomach, duodenal bulb and the sweep is normal. FLUOROSCOPY TIME: 1.6 minutes. DOSE AREA PRODUCT: 276.580 uGy-m2 (microgray-meter squared). FL/FL upper GI w air IMPRESSION: Previous gastric sleeve surgical changes with unremarkable upper GI air-contrast exam.
[2022-07-26 09:36] LABS: MANUAL DIFF FLAG NO
[2022-07-26 10:04] LABS: Basophils Percent Auto 0.4 % (0-2); Eosinophils Absolute Auto 0.1 X10*3/uL (0.0-0.4); Eosinophils Percent Auto 1.5 % (0-4); Hematocrit 43.5 % (37.0-47.0); Hemoglobin 14.5 g/dl (12.0-16.0); Imm Gran Abs Auto 0.04 X10*3/uL (0.00-0.03); Imm Gran Pct Auto 0.4 % (0.0-0.4); Lymphocytes Absolute Auto 3.1 X10*3/uL (1.2-4.9); Lymphocytes Percent Auto 32.4 % (20-40); Mean Corpuscular HGB Conc 33.3 g/dl (31.0-35.0); Mean Corpuscular Hemoglobin 30.6 pg (27.0-33.0); Mean Corpuscular Volume 91.8 fL (80.0-98.0); Mean Platelet Volume 9.5 fL (9.4-12.3); Monocytes Absolute Auto 0.8 X10*3/uL (0.1-1.2); Monocytes Percent Auto 8.8 % (2-11); Neutrophils Absolute Auto 5.4 x10*3/uL (2.0-8.3); Neutrophils Percent Auto 56.5 % (45-73); Platelet Count 386 X10*3/uL (160-400); Red Blood Count 4.74 X10*6/uL (4.20-5.50); Red Cell Distribution Width 12.3 % (11.0-16.0); White Blood Count 9.5 X10*3/uL (4.8-10.8)
[2022-07-26 10:09] LABS: Estimated Average Glucose 108 mg/dL; Hemoglobin A1c % 5.4 %
[2022-07-26 11:03] LABS: Chloride 104 mmol/L (96-108); Ferritin 22 ng/mL (10-250); Insulin 47 uU/mL (2-29); Potassium 4.5 mmol/L (3.3-5.1); Sodium 141 mmol/L (135-145); TSH reflex Free T4 1.85 uIU/mL (0.32-4.0); Vitamin D 25-OH Total 27.3 ng/mL (>30)
[2022-07-26 11:10] LABS: Folate 15.5 ng/mL (> or = 4.0); Vitamin B12 298 pg/mL (200-900)
[2022-07-26 11:24] LABS: Alanine Aminotransferase 27 U/L (0-31); Albumin Level 4.2 g/dL (3.5-5.0); Alkaline Phosphatase 99 U/L (39-117); Anion Gap 18 (12-20); Aspartate Amino Transferase 20 U/L (5-31); Bilirubin Total 0.4 mg/dL (0.0-1.0); Blood Urea Nitrogen 9 mg/dL (9-16); C Reactive Protein 0.23 mg/dL (< or = 0.50); Calcium 9.5 mg/dL (8.4-10.2); Carbon Dioxide 25 mmol/L (22-29); Cholesterol 231 mg/dL; Estimated Glomerular Filt Rate > 60; Glucose Random 92 mg/dL (60-115); HDL Cholesterol 49 mg/dL; Iron 110 mcg/dL (30-160); LDL Cholesterol Calculated 142 mg/dl; Percent Iron Saturation 34 % (15-50); Total Iron Binding Capacity 326 mcg/dL (228-428); Total Protein 8.3 g/dL (6.5-8.0); Triglycerides 200 mg/dL; Unsaturated Iron Binding 216 ug/dL
[2022-07-27 12:16] LABS: Calcium (PTHI) 9.7 mg/dL (8.6-10.2); PTHI 104 pg/mL (16-77)
[2022-07-29 06:37] LABS: Zinc 96 mcg/dL (60-130)
[2022-07-29 19:36] LABS: Vitamin A 73 mcg/dL (38-98)
[2022-07-30 13:36] LABS: Vitamin B1 9 nmol/L (8-30)
== END 2022-07-26 08:32 | disposition home or self-care (01) ==
LOC: HO.XRAY 08:31
PROVIDERS: Visit Provider Physician Assistant Surgical
DX: R11.10 Vomiting, unspecified (principal); E66.9 Obesity, unspecified; K91.2 Postsurgical malabsorption, not elsewhere classified; Z90.3 Acquired absence of stomach [part of]
CPT/HCPCS: 36415; 74246; 80053; 80061; 82306; 82607; 82728; 82746; 83036; 83525; 83540; 83970; 84425; 84443; 84590; 84630; 85025; 86140

== ENCOUNTER → 2022-08-31 14:32 | Outpatient (BNVA) | payer OTHER, SELFPAY | PROVIDERS: Visit Provider Physician Assistant Surgical | DX: E66.9 Obesity, unspecified (principal); Z68.39 Body mass index [BMI] 39.0-39.9, adult; Z98.84 Bariatric surgery status | CPT/HCPCS: 99212 ==

== ENCOUNTER 2022-09-14 23:26 | Emergency (ER) | payer OTHER, SELFPAY ==
[2022-09-14 23:31] VITALS: BP 121/86; BP 146/90; PULSE 100; PULSE 122; RESP 18; TEMP 36.5; O2SAT 98; O2SAT 99; BMI 39.6
[2022-09-14 23:37] VITALS: O2SAT 99
--- NOTE | 2022-09-15 00:25 | ED_ITS ---
HPI - Syncope General Chief Complaint: Syncope Stated Complaint: syncopal episode,KIM Time Seen by Provider: 09/14/22 23:57 Source: patient Mode of arrival: ambulatory Limitations: no limitations History of Present Illness HPI narrative: Patient no significant cardiac history does have history of palpitation the past today patient started feeling palpitation went to open the microwave felt dizzy and passed out found herself on the floor in a narrow space no history of seizures at this time patient denies any complaints heart rate in 100 no chest pain felt slight short of breath no vomiting abdominal pain patient had similar episode in the past without significant palpitation likely vasovagal episode Related Data Home Medications Medication Instructions Recorded Confirmed abacavir 600 mg-dolutegravir 50 1 tab PO DAILY 10/15/21 08/31/22 mg-lamivudine 300 mg tablet (Triumeq) albuterol sulfate 2.5 mg/3 mL 2.5 mg inhalation Q6H PRN sob 10/15/21 08/31/22 (0.083 %) solution for nebulization azelastine 205.5 mcg (0.15 %) 1 spray intranasal DAILY 10/15/21 08/31/22 nasal spray bupropion HCl 150 mg 24 hr tablet, 1 tab PO BEDTIME 10/15/21 08/31/22 extended release calcium carbonate 500 mg-vitamin 1 tab PO DAILY 10/15/21 08/31/22 D3 3.125 mcg (125 unit) tablet cromolyn 4 % eye drops 1 drp ophthalmic-Left QID PRN 10/15/21 08/31/22 itchy eyes cyproheptadine 4 mg tablet 4 mg PO Q8H PRN Allergy Symptoms 10/15/21 08/31/22 docusate sodium 100 mg capsule 1 cap PO BID 10/15/21 08/31/22 fluticasone propionate 220 2 puff inhalation BID 10/15/21 08/31/22 mcg/actuation HFA aerosol inhaler (Flovent HFA) fluticasone propionate 50 2 spray intranasal DAILY 10/15/21 08/31/22 mcg/actuation nasal spray,suspension gabapentin 300 mg capsule 1 cap PO BID 10/15/21 08/31/22 ketotifen fumarate 0.025 % (0.035 1 drp ophthalmic (eye) BID PRN 02/03/22 12/20/22 %) eye drops itchy eyes levocetirizine 5 mg tablet 1 tab PO BEDTIME 10/15/21 08/31/22 linaclotide 145 mcg capsule 1 cap PO DAILY 10/15/21 08/31/22 (Linzess) meclizine 25 mg tablet 25 mg PO TID PRN Vertigo 10/15/21 08/31/22 melatonin 10 mg tablet 1 tab PO BEDTIME 10/15/21 08/31/22 montelukast 10 mg tablet 1 tab PO DAILY 10/15/21 08/31/22 multivitamin 1 tab PO DAILY 10/15/21 08/31/22 sennosides 8.6 mg tablet (senna) 2 tab PO DAILY 10/15/21 08/31/22 simethicone 80 mg chewable tablet 80 mg PO Q4H PRN gas 10/15/21 08/31/22 duloxetine 60 mg capsule,delayed 60 mg PO QAM 07/05/22 08/31/22 release escitalopram oxalate 20 mg tablet 20 mg PO DAILY 07/05/22 08/31/22 hydroxyzine HCl 50 mg tablet 50 mg PO BEDTIME 07/05/22 08/31/22 quetiapine 100 mg tablet 100 mg PO BEDTIME 07/05/22 08/31/22 Previous Rx's Medication Instructions Recorded clonidine HCl 0.1 mg tablet 0.1 mg PO BEDTIME #30 tabs 10/17/21 betamethasone dipropionate 0.05 % 1 appl topical BID PRN skin 01/06/22 topical cream irritation #45 grams cholecalciferol (vitamin D3) 25 25 mcg PO DAILY #90 caps 08/09/22 mcg (1,000 unit) capsule pantoprazole 40 mg tablet,delayed 40 mg PO DAILY #90 tabs 08/31/22 release Allergies Allergy/AdvReac Type Severity Reaction Status Date / Time prednisone [PREDNISONE] Allergy Severe DIFFICULTY Verified 08/31/22 14:54 BREATHING, anaphylaxis eggs Allergy Intermediate Hives Uncoded 05/26/22 11:14 Review of Systems Review of Systems: Yes all other systems are reviewed and are negative [facility] Past Medical History Medical History Allergic reaction caused by a drug Anxiety Arthritis Asthma BMI 39.0-39.9,adult Body mass index (BMI) of 40.1 to 44.9 in adult Constipation Depression HIV (human immunodeficiency virus infection) HTN (hypertension) Insomnia Low back pain Morbid obesity Preoperative examination Sciatica Seasonal allergies Shortness of breath Sleep apnea Vertigo Vitamin B1 deficiency Surgical History History of appendectomy History of elbow surgery History of sleeve gastrectomy S/P laparoscopic sleeve gastrectomy Family History Family History Mother Hyperlipidemia Hypertension Arthritis Sciatica Diabetes Father No problems noted. Brother Hypertension Social History Social History Household Members: None Housing: Apartment Are you a primary health care analyst to a significant other at home: No Do you presently have visiting nurse or other home services: Yes (HELP WITH HOUSEWORK ONCE A WEEK) Alcohol intake: never Patient Tobacco Use Status: Former Tobacco user Tobacco use type: Cigarette Smoked in Last 30 Days: No e-Cigarette/Vaping Use: Never Used Second Hand Smoke Exposure: No Use of substances other than those prescribed or required for medical reasons: No Advance Directives: No Advance Directives Information Provided: No Patient : No service: No Current occupational status: unemployed Physical Exam Vital Signs: Vital Signs: Last Vital Signs Temp 97.1 F 09/15/22 01:36 Pulse 88 09/15/22 01:36 Resp 16 09/15/22 01:36 BP 121/86 09/15/22 01:36 Pulse Ox 97 09/15/22 01:36 O2 Del Method 09/15/22 01:36 BMI result Body Mass Index 39.6 Appearance: Alert. Oriented X3. No acute distress. Eyes: PERRLA, No Nystagmus ENT: Pharynx normal. Oral Mucosa moist Neck: Normal inspection. Neck supple. CVS: Normal heart rate and rhythm. Pulses normal. Respiratory: No respiratory distress. Equal air entry bilateral, no wheezing/rales/rhonchi Abdomen: Soft and nontender. Bowel sounds are present, no mass palpable, no CVA tenderness Skin: Skin warm and dry. Normal skin color. Normal skin turgor. Extremities: No lower extremity edema. No calf tenderness Neuro: Oriented X 3. No motor deficit. No sensory deficit.No cerebellar signs , cranial nerves II-XII intact Medical Decision Making Medical Decision Making [facility] Narrative: Patient with sudden onset of palpitation with syncope episode likely had svt /vasovagal episode during stay in the ER patient shelter monitor showed normal sinus rhythm labs were normal discharge patient home advised to follow up with PCP/production tool engineer for further management including Holter monitoring Differential Diagnosis SVT/atrial fibrillation/atrial flutter/PVCs Lab Data [facility] Lab Attestation statement: I reviewed the patient's lab results. Result Diagrams: 09/15/22 01:07 09/15/22 01:07 Labs: Lab Results 09/15/22 09/15/22 09/15/22 Range/Units 01:07 01:07 01:07 WBC 9.2 (4.8-10.8) X10*3/uL RBC 4.46 (4.20-5.50) X10*6/uL Hgb 13.3 (12.0-16.0) g/dl Hct 40.6 (37.0-47.0) % MCV 91.0 (80.0-98.0) fL MCH 29.8 (27.0-33.0) pg MCHC 32.8 (31.0-35.0) g/dl RDW 12.3 (11.0-16.0) % Plt Count 345 (160-400) X10*3/uL MPV 9.8 (9.4-12.3) fL Immature Gran % (Auto) 0.4 (0.0-0.4) % Neut % (Auto) 65.0 (45-73) % Lymph % (Auto) 22.9 (20-40) % [place] % (Auto) 10.1 (2-11) % Eos % (Auto) 1.2 (0-4) % Baso % (Auto) 0.4 (0-2) % Lymph # (Auto) 2.1 (1.2-4.9) X10*3/uL [place] # (Auto) 0.9 (0.1-1.2) X10*3/uL Eos # (Auto) 0.1 (0.0-0.4) X10*3/uL Baso # (Auto) 0.0 (0.0-0.2) X10*3/uL Abs Immat Gran (auto) 0.04 H (0.00-0.03) X10*3/uL Absolute Neuts (auto) 6.0 (2.0-8.3) x10*3/uL Absolute Nucleated RBC 0.000 (0.0-0.012) X10*3/uL Nucleated RBC % (auto) 0.0 (0.0-0.2) /100WBC D-Dimer High Sensitivty < 150 NG/ML Sodium 139 (135-145) mmol/L Potassium 4.0 (3.3-5.1) mmol/L Chloride 107 (96-108) mmol/L Carbon Dioxide 23 (22-29) mmol/L Anion Gap 13 (12-20) BUN 14 (9-16) mg/dL Creatinine 0.79 (0.5-1.4) mg/dL Estim Creat Clear Calc 108.6 Estimated GFR > 60 Random Glucose 130 H (60-115) mg/dL Calcium 9.2 (8.4-10.2) mg/dL Total Bilirubin 0.2 (0.0-1.0) mg/dL AST 19 (5-31) U/L ALT 31 (0-31) U/L Alkaline Phosphatase 105 (39-117) U/L Troponin I High Sens (<3.5-17.0) ng/L Total Protein 7.7 (6.5-8.0) g/dL Albumin 4.1 (3.5-5.0) g/dL Beta HCG, Quant < 2 mIU/mL COVID-19 (KRISTIN) (Negative) COVID-19 Clin Com 09/15/22 09/15/22 Range/Units 01:07 01:07 WBC (4.8-10.8) X10*3/uL RBC (4.20-5.50) X10*6/uL Hgb (12.0-16.0) g/dl Hct (37.0-47.0) % MCV (80.0-98.0) fL MCH (27.0-33.0) pg MCHC (31.0-35.0) g/dl RDW (11.0-16.0) % Plt Count (160-400) X10*3/uL MPV (9.4-12.3) fL Immature Gran % (Auto) (0.0-0.4) % Neut % (Auto) (45-73) % Lymph % (Auto) (20-40) % [place] % (Auto) (2-11) % Eos % (Auto) (0-4) % Baso % (Auto) (0-2) % Lymph # (Auto) (1.2-4.9) X10*3/uL [place] # (Auto) (0.1-1.2) X10*3/uL Eos # (Auto) (0.0-0.4) X10*3/uL Baso # (Auto) (0.0-0.2) X10*3/uL Abs Immat Gran (auto) (0.00-0.03) X10*3/uL Absolute Neuts (auto) (2.0-8.3) x10*3/uL Absolute Nucleated RBC (0.0-0.012) X10*3/uL Nucleated RBC % (auto) (0.0-0.2) /100WBC D-Dimer High Sensitivty NG/ML Sodium (135-145) mmol/L Potassium (3.3-5.1) mmol/L Chloride (96-108) mmol/L Carbon Dioxide (22-29) mmol/L Anion Gap (12-20) BUN (9-16) mg/dL Creatinine (0.5-1.4) mg/dL Estim Creat Clear Calc Estimated GFR Random Glucose (60-115) mg/dL Calcium (8.4-10.2) mg/dL Total Bilirubin (0.0-1.0) mg/dL AST (5-31) U/L ALT (0-31) U/L Alkaline Phosphatase (39-117) U/L Troponin I High Sens 32.2 H (<3.5-17.0) ng/L Total Protein (6.5-8.0) g/dL Albumin (3.5-5.0) g/dL Beta HCG, Quant mIU/mL COVID-19 (KRISTIN) Negative (Negative) COVID-19 Clin Com See Note Independent Interpretation I performed an independent interpretation of an: EKG Interpretation: Normal sinus rhythm heart rate 82 beats per minute QTcinterval for 497 milliseconds which is prolonged but no change from the previous EKG Discharge Plan Discharge Clinical Impression: Vasovagal syncope, Heart palpitations Patient Disposition: Home, Self-Care Instructions: Heart Palpitations (ED), Syncope (ED) Additional Instructions: Drink plenty of fluids Follow-up with PCP/production tool engineer for further evaluation including Holter monitoring Your passing out episode is likely from vasovagal episode. Care as advised Prescriptions: No Action cholecalciferol (vitamin D3) 25 mcg (1,000 unit) capsule 25 mcg PO DAILY Qty: 90 3RF sennosides [senna] 8.6 mg tablet 2 tab PO DAILY docusate sodium 100 mg capsule 1 cap PO BID gabapentin 300 mg capsule 1 cap PO BID montelukast 10 mg tablet 1 tab PO DAILY bupropion HCl 150 mg tablet extended release 24 hr 1 tab PO BEDTIME levocetirizine 5 mg tablet 1 tab PO BEDTIME melatonin 10 mg tablet 1 tab PO BEDTIME Linzess 145 mcg capsule 1 cap PO DAILY Triumeq 600-50-300 mg tablet 1 tab PO DAILY multivitamin Tablet 1 tab PO DAILY albuterol sulfate 2.5 mg /3 mL (0.083 %) Solution For Nebulization 2.5 mg INHALATION Q6H PRN (Reason: sob) ketotifen fumarate 0.025 % (0.035 %) Drops 1 drp OPHTHALMIC (EYE) BID PRN (Reason: itchy eyes) Rx Instructions: administer at least 8 hours apart cromolyn 4 % Drops 1 drp OPHTHALMIC-LEFT QID PRN (Reason: itchy eyes) cyproheptadine 4 mg Tablet 4 mg PO Q8H PRN (Reason: Allergy Symptoms) meclizine 25 mg Tablet 25 mg PO TID PRN (Reason: Vertigo) Flovent HFA 220 mcg/actuation HFA aerosol inhaler 2 puff inhalation BID fluticasone propionate 50 mcg/actuation [place],Suspension 2 spray INTRANASAL DAILY Rx Instructions: administer into each nostril simethicone 80 mg Tablet,Chewable 80 mg PO Q4H PRN (Reason: gas) calcium carbonate-vitamin D3 500 mg-3.125 mcg (125 unit) Tablet 1 tab PO DAILY azelastine 205.5 mcg (0.15 %) [place],Non-Aerosol 1 spray INTRANASAL DAILY Rx Instructions: administer into each nostril clonidine HCl 0.1 mg tablet 0.1 mg PO BEDTIME Qty: 30 0RF betamethasone dipropionate 0.05 % cream 1 appl topical BID PRN (Reason: skin irritation) Qty: 45 2RF Rx Instructions: [place], try on a small area of your skin first to see if you develop an allergic reaction. If not, apply to rash. escitalopram oxalate 20 mg tablet 20 mg PO DAILY duloxetine 60 mg capsule,delayed release(DR/EC) 60 mg PO QAM quetiapine 100 mg tablet 100 mg PO BEDTIME hydroxyzine HCl 50 mg tablet 50 mg PO BEDTIME pantoprazole 40 mg tablet,delayed release (DR/EC) 40 mg PO DAILY Qty: 90 3RF
--- NOTE | 2022-09-15 00:30 | ECG_ITS ---
Test Reason : DYSPENEA Blood Pressure : / mmHG Vent. Rate : 082 BPM Atrial Rate : 082 BPM P-R Int : 178 ms QRS Dur : 088 ms QT Int : 426 ms P-R-T Axes : 036 -06 018 degrees QTc Int : 497 ms Normal sinus rhythm Moderate voltage criteria for LVH, may be normal variant ( R in aVL , [place] product ) Prolonged QT Abnormal ECG When compared with ECG of 15-OCT-2021 01:21, No significant change was found Referred By: Zach Mc Electronically Signed By:ALINA EPSTEIN
[2022-09-15 01:14] LABS: MANUAL DIFF FLAG NO
[2022-09-15 01:15] LABS: Basophils Percent Auto 0.4 % (0-2); Eosinophils Absolute Auto 0.1 X10*3/uL (0.0-0.4); Eosinophils Percent Auto 1.2 % (0-4); Hematocrit 40.6 % (37.0-47.0); Hemoglobin 13.3 g/dl (12.0-16.0); Imm Gran Abs Auto 0.04 X10*3/uL (0.00-0.03); Imm Gran Pct Auto 0.4 % (0.0-0.4); Lymphocytes Absolute Auto 2.1 X10*3/uL (1.2-4.9); Lymphocytes Percent Auto 22.9 % (20-40); Mean Corpuscular HGB Conc 32.8 g/dl (31.0-35.0); Mean Corpuscular Hemoglobin 29.8 pg (27.0-33.0); Mean Platelet Volume 9.8 fL (9.4-12.3); Monocytes Absolute Auto 0.9 X10*3/uL (0.1-1.2); Monocytes Percent Auto 10.1 % (2-11); Platelet Count 345 X10*3/uL (160-400); Red Blood Count 4.46 X10*6/uL (4.20-5.50); Red Cell Distribution Width 12.3 % (11.0-16.0); White Blood Count 9.2 X10*3/uL (4.8-10.8)
[2022-09-15 01:33] LABS: COVID-19 Test Negative (Negative); D Dimer High Sensitivity < 150 NG/ML; IDNOW Serial# 16C4AD1C
[2022-09-15 01:36] VITALS: BP 121/86; PULSE 88; RESP 16; TEMP 36.2; O2SAT 97
[2022-09-15 01:38] LABS: Alanine Aminotransferase 31 U/L (0-31); Albumin Level 4.1 g/dL (3.5-5.0); Alkaline Phosphatase 105 U/L (39-117); Anion Gap 13 (12-20); Aspartate Amino Transferase 19 U/L (5-31); Bilirubin Total 0.2 mg/dL (0.0-1.0); Blood Urea Nitrogen 14 mg/dL (9-16); Calcium 9.2 mg/dL (8.4-10.2); Carbon Dioxide 23 mmol/L (22-29); Chloride 107 mmol/L (96-108); Creatinine Clr Calc Pharmacy 108.6; Estimated Glomerular Filt Rate > 60; Glucose Random 130 mg/dL (60-115); Sodium 139 mmol/L (135-145); Total Protein 7.7 g/dL (6.5-8.0)
[2022-09-15 01:41] LABS: HCG Quantitative < 2 mIU/mL; Troponin-I High Sensitivity 32.2 ng/L (<3.5-17.0)
[2022-09-15 02:46] VITALS: BP 139/87; PULSE 88; RESP 18; TEMP 36.3; O2SAT 97
--- NOTE | 2022-09-15 02:57 | PC.NURSE ---
pt has received tylenol in the past with no complications, dr juarez aware and verbal order given.
[2022-09-15] MEDS: Acetaminophen 325 MG TABLET 650 MG PO (03:02)
--- NOTE | 2022-09-15 03:03 | PC.NURSE ---
Patient is alert and oriented x3. Tylenol given for headache with positive effect. Patient does not have signs of resp distress. Skin moist and dry. Stable gate.
== END 2022-09-15 03:10 | disposition home or self-care (01) ==
PROVIDERS: Emergency Provider Internal Medicine
DX: R55 Syncope and collapse (principal); R00.2 Palpitations; R51.9 Headache, unspecified; Z20.822 Contact with and (suspected) exposure to COVID-19; B20 Human immunodeficiency virus [HIV] disease; I10 Essential (primary) hypertension; E66.9 Obesity, unspecified; Z68.39 Body mass index [BMI] 39.0-39.9, adult; Z71.3 Dietary counseling and surveillance; Z87.891 Personal history of nicotine dependence; Z79.899 Other long term (current) drug therapy
CPT/HCPCS: 80053; 84484; 84702; 85025; 85379; 87635; 93005; 99284; 99285

== ENCOUNTER → 2022-11-29 10:18 | Outpatient (BNVA) | payer OTHER, SELFPAY | PROVIDERS: Visit Provider Physician Assistant Surgical | DX: E66.9 Obesity, unspecified (principal); Z90.3 Acquired absence of stomach [part of]; Z68.41 Body mass index [BMI] 40.0-44.9, adult | CPT/HCPCS: 99212 ==

== ENCOUNTER 2022-12-13 10:16 | Outpatient (REF) | payer OTHER, SELFPAY ==
[2022-12-13 10:48] LABS: MANUAL DIFF FLAG NO
[2022-12-13 11:54] LABS: Estimated Average Glucose 114 mg/dL; Hemoglobin A1c % 5.6 %
[2022-12-13 12:01] LABS: Basophils Percent Auto 0.4 % (0-2); Eosinophils Absolute Auto 0.2 X10*3/uL (0.0-0.4); Eosinophils Percent Auto 1.8 % (0-4); Hematocrit 44.1 % (37.0-47.0); Hemoglobin 14.5 g/dl (12.0-16.0); Imm Gran Abs Auto 0.04 X10*3/uL (0.00-0.03); Imm Gran Pct Auto 0.5 % (0.0-0.4); Lymphocytes Absolute Auto 2.3 X10*3/uL (1.2-4.9); Lymphocytes Percent Auto 27.3 % (20-40); Mean Corpuscular HGB Conc 32.9 g/dl (31.0-35.0); Mean Corpuscular Hemoglobin 30.5 pg (27.0-33.0); Mean Corpuscular Volume 92.6 fL (80.0-98.0); Monocytes Absolute Auto 0.8 X10*3/uL (0.1-1.2); Monocytes Percent Auto 8.9 % (2-11); Neutrophils Absolute Auto 5.3 x10*3/uL (2.0-8.3); Neutrophils Percent Auto 61.1 % (45-73); Platelet Count 375 X10*3/uL (160-400); Red Blood Count 4.76 X10*6/uL (4.20-5.50); Red Cell Distribution Width 12.6 % (11.0-16.0); White Blood Count 8.6 X10*3/uL (4.8-10.8)
[2022-12-13 12:14] LABS: Alanine Aminotransferase 31 U/L (0-31); Albumin Level 4.2 g/dL (3.5-5.0); Alkaline Phosphatase 101 U/L (39-117); Anion Gap 12 (12-20); Aspartate Amino Transferase 20 U/L (5-31); Bilirubin Total 0.4 mg/dL (0.0-1.0); Blood Urea Nitrogen 9 mg/dL (9-16); Calcium 9.6 mg/dL (8.4-10.2); Carbon Dioxide 30 mmol/L (22-29); Chloride 103 mmol/L (96-108); Cholesterol 226 mg/dL; Estimated Glomerular Filt Rate > 60; Glucose Random 89 mg/dL (60-115); HDL Cholesterol 46 mg/dL; Iron 75 mcg/dL (30-160); LDL Cholesterol Calculated 150 mg/dl; Percent Iron Saturation 27 % (15-50); Potassium 4.2 mmol/L (3.3-5.1); Sodium 141 mmol/L (135-145); Total Iron Binding Capacity 280 mcg/dL (228-428); Total Protein 7.7 g/dL (6.5-8.0); Triglycerides 154 mg/dL; Unsaturated Iron Binding 205 ug/dL
[2022-12-13 13:04] LABS: Ferritin 17 ng/mL (10-250); Folate 15.3 ng/mL (> or = 4.0); Vitamin B12 326 pg/mL (200-900); Vitamin D 25-OH Total 31.5 ng/mL (>30)
[2022-12-13 14:51] LABS: Insulin 33 uU/mL (2-29)
[2022-12-15 13:23] LABS: Calcium (PTHI) 9.8 mg/dL (8.6-10.2); PTHI 47 pg/mL (16-77)
[2022-12-16 06:13] LABS: Zinc 81 mcg/dL (60-130)
[2022-12-17 23:04] LABS: Vitamin A 91 mcg/dL (38-98)
[2022-12-21 16:54] LABS: Vitamin B1 8 nmol/L (8-30)
== END 2022-12-13 10:17 | disposition home or self-care (01) ==
LOC: HO.LAB 10:16
PROVIDERS: Visit Provider Physician Assistant Surgical
DX: K91.2 Postsurgical malabsorption, not elsewhere classified (principal); Z90.3 Acquired absence of stomach [part of]
CPT/HCPCS: 36415; 80053; 80061; 82306; 82607; 82728; 82746; 83036; 83525; 83540; 83970; 84425; 84443; 84590; 84630; 85025; 86140

== ENCOUNTER 2022-12-14 06:44 | Day surgery (SDC) | payer OTHER, SELFPAY ==
--- NOTE | 2022-12-10 17:29 | P.HPSUR_ITS ---
Pre-Procedural Eval Section A Date of Service: 12/10/22 The patient is an INPATIENT: No The History & Physical has been completed within 30 days and I have reviewed it.: Yes Section B Chief Complaint: Bariatric surgery status Relevant Family History (Specify if Yes): No Relevant Social History: None Present Medications: None Medical History: No relevant PMH History of Previous Operations: Relevant previous surgery/procedure and date(s) (laparoscopic sleeve gastrectomy) Allergies: Allergies Allergy/AdvReac Type Severity Reaction Status Date / Time prednisone [PREDNISONE] Allergy Severe DIFFICULTY Verified 11/29/22 10:38 BREATHING, anaphylaxis eggs Allergy Intermediate Hives Uncoded 05/26/22 11:14 Review of Systems Sugical H&P ROS: Negative: Constitution, Cardiovascular, Respiratory, Neurol ogical, Psychiatric, Hem-Onc, Allergic/Immunologic, Gastrointestinal, Genitourinary, Musculoskeletal, Integumentary, Endocrine and Eyes/Ears/Nose/Throat Exam Surgical H&P Exam: Normal: HEENT, Normal: Heart, Normal: Lungs, Normal: Extremities, Normal: Abdomen, Normal: Skin and Normal: Neurological Plan Diagnosis/Plan: Unchanged (Assess anatomy of sleeve gastrectomy) I have reviewed the history and physical and performed a pertinent physical examination on my patient. No changes have occurred unless specified. Time Spent With Patient Time: Total time managing care of this patient today ____ minutes.
[2022-12-13 11:42] LABS: COVID-19 Test Negative (Negative); IDNOW Serial# BCCEAD1C
[2022-12-14 06:49] VITALS: BMI 39.3
[2022-12-14 07:21] LABS: UPreg QC Valid YES; Urine Pregnancy NEGATIVE (NEGATIVE)
[2022-12-14 07:31] VITALS: BP 140/93; PULSE 88; RESP 16; TEMP 36.3; O2SAT 97
[2022-12-14] MEDS: Lactated Ringers 1,000 ML 80 ML IVCONT (07:34)
--- NOTE | 2022-12-14 08:01 | PM.OP ---
Brief Operative Note Date of Service: 12/14/22 Pre-op diagnosis: Inadequate weight loss, s/p sleeve gastrectomy Post-op diagnosis: same (Redundant proximal sleeve) Procedure: PROCEDURE DATE: 12/14/2022 PREOPERATIVE DIAGNOSIS: Inadequate weight loss, s/p sleeve gastrectomy POSTOPERATIVE DIAGNOSIS: ?Same as above. 1) mild to moderate proximal sleeve redundancy PROCEDURE: [id number] with biopsies Surgeon: ?Leroy Esteban M.D.. Ph.D. Paperback Machine Operator: None ? Anesthesia: IV sedation Estimated blood loss: ?Minimal FINDINGS AND PROCEDURE: ? OPERATIVE INDICATIONS: ?The patient is a 47 year old female known to me who underwent a laparoscopic sleeve gastrectomy by Dr. Schmitz. The patient had inadequate weight loss so far for which the patient is not satisfied. She wishes a revision. Based on this information I recommended an upper endoscopy to evaluate the patient's symptoms. Risks and complications of the surgery were discussed with the patient in advance particularly the possibility of perforation or bleeding that may require surgical intervention. The patient understood the risks and was in agreement with the plan. ? PROCEDURE: After informed consent was obtained by the patient, the patient was ?transferred to the Operating Room and was placed in the supine position.? After successful induction of IV sedation, a mouth block was inserted and the patient was placed in the left lateral decubitus position. An upper endoscopy was performed next, the oropharynx and esophagus appeared within the normal limits. There was no hiatal hernia. The z-line was smooth. Two biopsies were obtained from the distal esohagus 2-3 cm proximal to the GE junction and two additional biopsies from the GE junction. The sleeve was entered. There was mild to moderate fundal redundancy near the GE junction. The remaining sleeve had an even caliber and it was not significantly dilated. The resection was extended adequately into the antrum. There was no stricture or ulcer. Biopsies were obtained from the proximal sleeve as well as the distal antrum. No significant bleeding was noted from any of the biopsy sites. The scope was then advanced into the duodenum which appeared to be normal as well. At that point the duodenum ?and the sleeve were decompressed and the scope was withdrawn from the patient's mouth. The patient extubated and was transferred in stable condition to the Recovery Room for further care. I was present and performed all steps of the procedure. There were no residents to assist with this case. Leroy Esteban M.D., Ph.D. Surgeon: Roberto Esteban MD Anesthesia: MAC Was an Paperback Machine Operator used for this Procedure?: No Estimated blood loss (mL): 0 IV fluids (mL): 400 Urine output (mL): 0 (No Sims to record output) Pathology: other (1) antrum x1, 2) proximal sleeve/gastric fundus x1, 3) EGJ x2, 4) distal esophagus x2) Condition: stable Disposition: PACU
--- NOTE | 2022-12-14 08:02 | HO.ANESPROP2 ---
[facility] Active Problems Active Problems: All Active Problems (Updated 09/16/22 @ 00:01 by Jaziel Del Rosario) Hiatal hernia (Acute) History of repair of hiatal hernia (Acute) Obesity (Acute) BMI 35.0-35.9,adult (Acute) Intestinal malabsorption following gastrectomy (Acute) Status post sleeve gastrectomy (Acute) Vomiting (Acute) Allergic reaction caused by a drug (Acute) Vitamin B1 deficiency (Acute) BMI 39.0-39.9,adult (Acute) Body mass index (BMI) of 40.1 to 44.9 in adult (Acute) Past Medical History Medical History Allergic reaction caused by a drug Anxiety Arthritis Asthma BMI 39.0-39.9,adult Body mass index (BMI) of 40.1 to 44.9 in adult Constipation Depression HIV (human immunodeficiency virus infection) HTN (hypertension) Insomnia Low back pain Morbid obesity Preoperative examination Sciatica Seasonal allergies Shortness of breath Sleep apnea Vertigo Vitamin B1 deficiency Family History Family History Mother Hyperlipidemia Hypertension Arthritis Sciatica Diabetes Father No problems noted. Brother Hypertension Family history of problems with anesthesia: No Surgical History Surgical History History of appendectomy History of elbow surgery History of sleeve gastrectomy History of Problems with Anesthesia: No Social History Social History Household Members: None Housing: Apartment Are you a primary career center director to a significant other at home: No Do you presently have visiting nurse or other home services: Yes (HELP WITH HOUSEWORK ONCE A WEEK) Alcohol intake: never Patient Tobacco Use Status: Former Tobacco user Tobacco use type: Cigarette Smoked in Last 30 Days: No e-Cigarette/Vaping Use: Never Used Second Hand Smoke Exposure: No Use of substances other than those prescribed or required for medical reasons: No Are you DNR?: No Advance Directives: No Advance Directives Information Provided: Yes service: No Current occupational status: unemployed Meds Allergies Allergy/AdvReac Type Severity Reaction Status Date / Time prednisone [PREDNISONE] Allergy Severe DIFFICULTY Verified 12/14/22 06:54 BREATHING, anaphylaxis eggs Allergy Intermediate Hives Uncoded 12/14/22 06:54 Active Medications: Current Medications Lactated Ringer's (Lr) 1,000 mls @ 80 mls/hr IVCONT .[id number] [id number] Last Admin: 12/14/22 07:34 Dose: 80 mls/hr Home Medications Medication Instructions Recorded Confirmed Last Taken Type abacavir 600 mg-dolutegravir 50 1 tab PO DAILY 10/15/21 12/14/22 Unknown History mg-lamivudine 300 mg tablet (Triumeq) albuterol sulfate 2.5 mg/3 mL 2.5 mg inhalation Q6H PRN sob 10/15/21 12/14/22 Unknown History (0.083 %) solution for nebulization azelastine 205.5 mcg (0.15 %) 1 spray intranasal DAILY 10/15/21 12/14/22 Unknown History nasal spray bupropion HCl 150 mg 24 hr tablet, 1 tab PO BEDTIME 10/15/21 12/14/22 Unknown History extended release calcium carbonate 500 mg-vitamin 1 tab PO DAILY 10/15/21 12/14/22 Unknown History D3 3.125 mcg (125 unit) tablet cromolyn 4 % eye drops 1 drp ophthalmic-Left QID PRN 10/15/21 12/14/22 Unknown History itchy eyes cyproheptadine 4 mg tablet 4 mg PO Q8H PRN Allergy Symptoms 10/15/21 12/14/22 Unknown History docusate sodium 100 mg capsule 1 cap PO BID 10/15/21 12/14/22 Unknown History fluticasone propionate 220 2 puff inhalation BID 10/15/21 12/14/22 Unknown History mcg/actuation HFA aerosol inhaler (Flovent HFA) fluticasone propionate 50 2 spray intranasal DAILY 10/15/21 12/14/22 Unknown History mcg/actuation nasal spray,suspension ketotifen fumarate 0.025 % (0.035 1 drp ophthalmic (eye) BID PRN 10/15/21 12/14/22 Unknown History %) eye drops itchy eyes levocetirizine 5 mg tablet 1 tab PO BEDTIME 10/15/21 12/14/22 Unknown History linaclotide 145 mcg capsule 1 cap PO DAILY 10/15/21 12/14/22 Unknown History (Linzess) meclizine 25 mg tablet 25 mg PO TID PRN Vertigo 10/15/21 12/14/22 Unknown History melatonin 10 mg tablet 1 tab PO BEDTIME 10/15/21 12/14/22 Unknown History montelukast 10 mg tablet 1 tab PO DAILY 10/15/21 12/14/22 Unknown History multivitamin 1 tab PO DAILY 10/15/21 12/14/22 Unknown History duloxetine 60 mg capsule,delayed 60 mg PO QAM 07/05/22 12/14/22 Unknown History release escitalopram oxalate 20 mg tablet 20 mg PO DAILY 07/05/22 12/14/22 Unknown History hydroxyzine HCl 50 mg tablet 50 mg PO BEDTIME 07/05/22 12/14/22 Unknown History quetiapine 100 mg tablet 100 mg PO BEDTIME 07/05/22 12/14/22 Unknown History evening primrose oil 500 mg capsule 500 mg PO DAILY 11/29/22 12/14/22 Unknown History glucomannan 500 mg capsule 1,800 mg PO DAILY 11/29/22 12/14/22 Unknown History cyclobenzaprine 5 mg tablet 25 mg PO NEEDED PRN Agitation 12/14/22 12/14/22 Unknown History Exam Exam Date and Time: December 14, 2022 0802 Height,Weight and Vital Signs: Height 5 ft 5.5 in Weight 108.862 kg Last Vital Signs Temp 97.4 F 12/14/22 07:31 Pulse 88 12/14/22 07:31 Resp 16 12/14/22 07:31 BP 140/93 H 12/14/22 07:31 Pulse Ox 97 12/14/22 07:31 O2 Del Method Room Air 12/14/22 07:31 Pertinent Lab Results Pertinent Lab Results: Laboratory Tests 12/13/22 12/14/22 11:00 06:45 Urine Test NEGATIVE COVID-19 (KRISTIN) Negative COVID-19 Clin Com See Note Airway Mallampati Class: III (missing central top incisor) TM Dist: >3cm Neck ROM: Full Loose/Missing/Broken Teeth: Yes and Upper Heart: RRR Lungs: CTA Assessment and Plan Assessment Anesthesia Assessment: Anesthesia Plan Discussed and Chart Reviewed Final Anesthetic Review Family History of Problems with Anesthesia: No History of Problems with Anesthesia: No NPO: Yes ASA Class: III Final Preanesthetic Review: Meds/Allgs Chart Reviewed, Consent Obtained/Reviewed and Anes Risks/Benef Reviewed Patient Risk: Intermediate Procedure Risk: Intermediate Anesthetic Plan Anesthetic Plan: MAC: Disposition: Standard PACU
[2022-12-14 08:37] VITALS: BP 117/73; PULSE 89; RESP 18; TEMP 36.2; O2SAT 95
[2022-12-14 08:52] VITALS: BP 134/80; PULSE 86; RESP 18; TEMP 36.2; O2SAT 96
== END 2022-12-14 09:37 | disposition home or self-care (01) ==
PROVIDERS: Anesthesiology; Physician Assistant Surgical; Visit Provider Surgery
PROC: 0DJ08ZZ Inspection of Upper Intestinal Tract, Via Natural or Artificial Opening Endoscopic (ICD-10-PCS; CPT 43235; principal; 2022-12-14 08:20)
DX: K95.89 Other complications of other bariatric procedure (principal); K29.50 Unspecified chronic gastritis without bleeding; Z98.84 Bariatric surgery status; Z90.3 Acquired absence of stomach [part of]; E66.01 Morbid (severe) obesity due to excess calories; Z68.41 Body mass index [BMI] 40.0-44.9, adult; E51.9 Thiamine deficiency, unspecified; F41.1 Generalized anxiety disorder; I10 Essential (primary) hypertension; J45.909 Unspecified asthma, uncomplicated; G47.30 Sleep apnea, unspecified; Z79.899 Other long term (current) drug therapy; Z88.8 Allergy status to other drugs, medicaments and biological substances; Z20.822 Contact with and (suspected) exposure to COVID-19
CPT/HCPCS: 43239; 81025; 87635; 88305; 88342

== ENCOUNTER → 2022-12-17 10:32 | Outpatient (BNVA) | payer OTHER, SELFPAY | PROVIDERS: Visit Provider Physician Assistant Surgical | DX: E66.01 Morbid (severe) obesity due to excess calories (principal); Z90.3 Acquired absence of stomach [part of]; Z68.39 Body mass index [BMI] 39.0-39.9, adult | CPT/HCPCS: 99212 ==

== ENCOUNTER 2023-03-02 18:09 | Emergency (ER) | payer OTHER, SELFPAY ==
--- NOTE | ~2023-03-02 | CT_ITS ---
EXAMINATION: CT HEAD WITHOUT CONTRAST CLINICAL INFORMATION: Headache, hypertension. COMPARISON: CT head 10/15/2021. TECHNIQUE: Contiguous axial imaging was performed from the skull base to vertex without intravenous administration of contrast. This CT examination was performed using dose optimization techniques as appropriate, variously including the following: *Automated exposure control *Adjustment of mA and/or kV according to patient size (this includes techniques or standardized protocols for targeted exams where dose is matched to indication/reason for exam; i.e. extremities or head) *Use of iterative reconstruction technique DLP: 600 mGy-cm FINDINGS: There is no evidence of acute intracranial hemorrhage or edematous territorial infarction. A few foci of hypoattenuation in the periventricular and deep white matter are consistent with mild microangiopathy. [place]-white matter differentiation is preserved. Proportional prominence of the ventricles and sulcal spaces. No evidence for obstructive hydrocephalus. No abnormal mass effect or midline shift. No extra-axial fluid collections. No acute soft tissue or osseous abnormalities. Mucus retention cysts in the maxillary sinuses. No air-fluid levels. The mastoids and middle ear cavities are clear. CT/CT head/brain wo IV con IMPRESSION: No evidence of acute intracranial hemorrhage or edematous territorial infarction.
--- NOTE | ~2023-03-02 | XR_ITS ---
EXAMINATION: XR CHEST CLINICAL INFORMATION: Shortness of breath. COMPARISON: Chest radiograph 05/12/2020. TECHNIQUE: 2 views of the chest were obtained. FINDINGS: No significant abnormality is noted involving the heart, lungs, mediastinum, bony thorax or soft tissues. XR/XR chest 2V IMPRESSION: Unremarkable examination.
[2023-03-02 18:12] VITALS: BP 166/106; PULSE 108; RESP 18; TEMP 36.6; O2SAT 97; BMI 41.3
--- NOTE | 2023-03-02 18:15 | ECG_ITS ---
Test Reason : HYPERTENTION Blood Pressure : / mmHG Vent. Rate : 095 BPM Atrial Rate : 095 BPM P-R Int : 150 ms QRS Dur : 092 ms QT Int : 386 ms P-R-T Axes : -02 -10 015 degrees QTc Int : 485 ms Normal sinus rhythm Moderate voltage criteria for LVH, may be normal variant ( R in aVL , [place] product ) Prolonged QT Abnormal ECG When compared with ECG of 15-SEP-2022 00:48, No significant change was found Referred By: Generic ED Physician Electronically Signed By:ALINA EPSTEIN
[2023-03-02 18:32] LABS: MANUAL DIFF FLAG NO
[2023-03-02 18:35] LABS: Basophils Percent Auto 0.4 % (0-2); Eosinophils Absolute Auto 0.1 X10*3/uL (0.0-0.4); Eosinophils Percent Auto 0.8 % (0-4); Hematocrit 41.6 % (37.0-47.0); Hemoglobin 13.8 g/dl (12.0-16.0); Imm Gran Abs Auto 0.05 X10*3/uL (0.00-0.03); Imm Gran Pct Auto 0.4 % (0.0-0.4); Lymphocytes Absolute Auto 3.6 X10*3/uL (1.2-4.9); Lymphocytes Percent Auto 31.4 % (20-40); Mean Corpuscular HGB Conc 33.2 g/dl (31.0-35.0); Mean Corpuscular Hemoglobin 30.1 pg (27.0-33.0); Mean Corpuscular Volume 90.6 fL (80.0-98.0); Mean Platelet Volume 9.8 fL (9.4-12.3); Monocytes Absolute Auto 0.9 X10*3/uL (0.1-1.2); Monocytes Percent Auto 8.2 % (2-11); Neutrophils Absolute Auto 6.7 x10*3/uL (2.0-8.3); Neutrophils Percent Auto 58.8 % (45-73); Platelet Count 416 X10*3/uL (160-400); Red Blood Count 4.59 X10*6/uL (4.20-5.50); Red Cell Distribution Width 12.4 % (11.0-16.0); White Blood Count 11.4 X10*3/uL (4.8-10.8)
[2023-03-02 18:58] LABS: Alanine Aminotransferase 28 U/L (0-31); Alkaline Phosphatase 97 U/L (39-117); Anion Gap 15 (12-20); Aspartate Amino Transferase 23 U/L (5-31); Bilirubin Direct < 0.2 mg/dL (0.0-0.5); Bilirubin Total 0.2 mg/dL (0.0-1.0); Blood Urea Nitrogen 12 mg/dL (9-16); Calcium 9.5 mg/dL (8.4-10.2); Carbon Dioxide 24 mmol/L (22-29); Chloride 105 mmol/L (96-108); Creatinine Clr Calc Pharmacy 102.2; Estimated Glomerular Filt Rate > 60; Glucose Random 93 mg/dL (60-115); Lipase 33 U/L (8-78); Potassium 4.1 mmol/L (3.3-5.1); Sodium 140 mmol/L (135-145); Total Protein 8.2 g/dL (6.5-8.0)
[2023-03-02 19:04] LABS: B Type Natriuretic Peptide 34 pg/mL (<100)
[2023-03-02 19:53] LABS: Appearance Urine Clear; Color Urine Yellow; Glucose Urine UA Negative (Negative); Leukocyte Esterase Urine Trace (Negative); Nitrite Urine Negative (Negative); PH 7.5 (5.0-9.0); UMIC TRIGGER UACC YES; Urine Blood Moderate (2+) (Negative); Urine Ketones Negative (Negative); Urine Protein Trace mg/dL (Neg-Trace)
[2023-03-02 20:01] LABS: Bacteria Urine 1+ (None Seen); Hyaline Casts Urine 0-2 /LPF (0-2); WBC Urine 0-5 /HPF (0-5)
--- NOTE | 2023-03-02 20:15 | ED.GENADULT ---
HPI - General Adult General Chief complaint: General Medical Stated complaint: High BP for 2 days, headache, nausea, Chest Tight Time Seen by Provider: 03/02/23 19:59 Source: patient Mode of arrival: ambulatory Limitations: no limitations History of Present Illness HPI narrative: 47-year-old female came in for evaluation of hypertension and headache. Patient is with known history of hypertension, patient used to take lisinopril and clonidine for hypertension control which has been discontinued since her last admission in October due to syncope and hypotension. Patient is complaining of mild headache bilaterally, feeling nauseous and vomiting. Patient also been complaining mid chest pain with no radiation. no shortness of breath. Related Data Home Medications Medication Instructions Recorded Confirmed abacavir 600 mg-dolutegravir 50 1 tab PO DAILY 10/15/21 12/17/22 mg-lamivudine 300 mg tablet (Triumeq) albuterol sulfate 2.5 mg/3 mL 2.5 mg inhalation Q6H PRN sob 10/15/21 12/17/22 (0.083 %) solution for nebulization azelastine 205.5 mcg (0.15 %) 1 spray intranasal DAILY 10/15/21 12/17/22 nasal spray bupropion HCl 150 mg 24 hr tablet, 1 tab PO BEDTIME 10/15/21 12/17/22 extended release calcium carbonate 500 mg-vitamin 1 tab PO DAILY 10/15/21 12/17/22 D3 3.125 mcg (125 unit) tablet cromolyn 4 % eye drops 1 drp ophthalmic-Left QID PRN 10/15/21 12/17/22 itchy eyes cyproheptadine 4 mg tablet 4 mg PO Q8H PRN Allergy Symptoms 10/15/21 12/17/22 docusate sodium 100 mg capsule 1 cap PO BID 10/15/21 12/17/22 fluticasone propionate 220 2 puff inhalation BID 10/15/21 12/17/22 mcg/actuation HFA aerosol inhaler (Flovent HFA) fluticasone propionate 50 2 spray intranasal DAILY 10/15/21 12/17/22 mcg/actuation nasal spray,suspension ketotifen fumarate 0.025 % (0.035 1 drp ophthalmic (eye) BID PRN 10/15/21 12/17/22 %) eye drops itchy eyes levocetirizine 5 mg tablet 1 tab PO BEDTIME 10/15/21 12/17/22 linaclotide 145 mcg capsule 1 cap PO DAILY 10/15/21 12/17/22 (Linzess) meclizine 25 mg tablet 25 mg PO TID PRN Vertigo 10/15/21 12/17/22 melatonin 10 mg tablet 1 tab PO BEDTIME 10/15/21 12/17/22 montelukast 10 mg tablet 1 tab PO DAILY 10/15/21 12/17/22 multivitamin 1 tab PO DAILY 10/15/21 12/17/22 duloxetine 60 mg capsule,delayed 60 mg PO QAM 07/05/22 12/17/22 release escitalopram oxalate 20 mg tablet 20 mg PO DAILY 07/05/22 12/17/22 hydroxyzine HCl 50 mg tablet 50 mg PO BEDTIME 07/05/22 12/17/22 quetiapine 100 mg tablet 100 mg PO BEDTIME 07/05/22 12/17/22 evening primrose oil 500 mg capsule 500 mg PO DAILY 11/29/22 12/17/22 glucomannan 500 mg capsule 1,800 mg PO DAILY 11/29/22 12/17/22 cyclobenzaprine 5 mg tablet 25 mg PO NEEDED PRN Agitation 12/14/22 12/17/22 Previous Rx's Medication Instructions Recorded clonidine HCl 0.1 mg tablet 0.1 mg PO BEDTIME #30 tabs 10/17/21 betamethasone dipropionate 0.05 % 1 appl topical BID PRN skin 01/06/22 topical cream irritation #45 grams cholecalciferol (vitamin D3) 25 25 mcg PO DAILY #90 caps 08/09/22 mcg (1,000 unit) capsule pantoprazole 40 mg tablet,delayed 40 mg PO BID #60 tabs 12/08/22 release sucralfate 100 mg/mL oral 10 ml PO BID #414 mL 12/17/22 suspension lisinopril 20 mg tablet 20 mg PO DAILY #30 tabs 03/02/23 Allergies Allergy/AdvReac Type Severity Reaction Status Date / Time prednisone [PREDNISONE] Allergy Severe DIFFICULTY Verified 12/17/22 10:53 BREATHING, anaphylaxis eggs Allergy Intermediate Hives Uncoded 12/14/22 06:54 Review of Systems Review of Systems: All other systems are reviewed and are negative Constitutional: Reports as per HPI and Reports no additional constitutional complaints Eyes: Reports as per HPI and Reports no additional eye complaints Reports system reviewed and no additional complaints, except as documented Cardiovascular: Reports as per HPI and Reports no additional cardiovascular complaints Respiratory: Reports as per HPI and Reports no additional respiratory complaints Gastrointestinal: Reports as per HPI and Reports no additional gastrointestinal complaints Genitourinary: Reports no additional female genitourinary complaints Musculoskeletal: Reports no additional musculoskeletal complaints Skin/Breast: Reports system reviewed and no additional complaints, except as docu Psychiatric: Reports no additional psychiatric complaints Endocrine: Reports no additional endocrine complaints Hematologic/Lymphatic: Reports no additional hematologic/lymphatic complaints Allergic/Immunologic: Reports no additional allergic/immunologic complaints Reports system reviewed and no additional complaints, except as documented and Reports Abnormal speech present [facility] Past Medical History Medical History Allergic reaction caused by a drug Anxiety Arthritis Asthma BMI 39.0-39.9,adult Body mass index (BMI) of 40.1 to 44.9 in adult Constipation Depression HIV (human immunodeficiency virus infection) HTN (hypertension) Insomnia Low back pain Morbid obesity Preoperative examination Sciatica Seasonal allergies Shortness of breath Sleep apnea Vertigo Vitamin B1 deficiency Surgical History History of appendectomy History of elbow surgery History of sleeve gastrectomy Family History Family History Mother Hyperlipidemia Hypertension Arthritis Sciatica Diabetes Father No problems noted. Brother Hypertension Social History Social History Household Members: None Housing: Apartment Are you a primary resident care manager to a significant other at home: No Do you presently have visiting nurse or other home services: Yes (HELP WITH HOUSEWORK ONCE A WEEK) Alcohol intake: never Patient Tobacco Use Status: Former Tobacco user Tobacco use type: Cigarette Smoked in Last 30 Days: No e-Cigarette/Vaping Use: Never Used Second Hand Smoke Exposure: No Use of substances other than those prescribed or required for medical reasons: No Advance Directives: No Advance Directives Information Provided: Yes service: No Current occupational status: unemployed Physical Exam ED Vital Signs: Vital Signs - 24 hr 03/02/23 18:12 03/02/23 20:33 03/02/23 22:07 Temperature 97.8 F 97.8 F 98.1 F Pulse Rate 108 H 94 90 Respiratory Rate 18 18 20 Blood Pressure 166/106 H 148/103 H 151/92 H Pulse Oximetry 97 98 94 Oxygen Delivery Method Room Air Room Air Room Air 03/02/23 23:06 Temperature 98.6 F Pulse Rate 93 Respiratory Rate 12 Blood Pressure 134/93 H Pulse Oximetry 97 Oxygen Delivery Method Room Air BMI result Body Mass Index 41.3 vital signs have been reviewed as appeared to be correct. Blood pressure normal. Heart rate normal. Respiration rate normal. Temperature normal. Oxygen saturation normal. Appearance: Alert. Oriented X3. No acute distress. Head: Normal external exam. Normocephalic. Atraumatic. No [place] signs noted. No raccoon eyes noted Eyes: PERRLA. EOMI. Conjunctiva and sclera normal. Eyelids normal. ENT: TM's Normal. Pharynx normal. Uvula midline. Moist mucous membranes. No trismus noted. No drooling noted. No muffled voice noted. Neck: Normal inspection. Neck supple. FROM. No adenopathy. Thyroid Normal. No meningeal signs. No neck mass noted. CVS: Normal heart rate and rhythm. Heart sound normal. No murmurs noted. Pulses normal throughout. Respiratory: No respiratory distress. Painless inspiration. Breath sounds normal. No wheezes/rales/rhonchi noted. Chest nontender. No accessory muscle usage noted or decreased air movement noted. Abdomen: Soft and nontender. Bowel sounds normal in all 4 quadrants. No distention noted. No organomegaly noted. No visible injury noted. Back: No CVA tenderness. Full range of motion noted. Skin: Skin warm and dry. Normal skin color. Normal skin turgor. No rashes/lesions/lacerations noted. Extremities: No lower extremity edema. Extremities exhibit normal range of motion. Extremities nontender. Neuro: Oriented X 3. Cranial nerve exam: II-XII are grossly intact No motor deficit. No sensory deficit. Reflexes normal. Course Course Course Narrative: 47-year-old female with history of hypertension, blood pressure medication was discontinued 4 month ago. presented today with 2 days of headache, found to have high blood pressure home, patient used to take lisinopril / clonidine for blood pressure that was discontinued 4 months ago due to hypotension side effect. Patient had slightly elevation of troponin x2 with no delta changes, normal neuro exam and head CT. Patient feels better after was given 1 dose of lisinopril will prescribe lisinopril and follow-up with PCP. Medications Administered Discontinued Medications Generic Name Dose Route Start Last Admin Trade Name Abranq PRN Reason Stop Dose Admin Acetaminophen 650 mg 03/02/23 20:16 03/02/23 20:34 Acetaminophen 325 Mg Tablet PO 03/02/23 20:17 650 mg ONCE ONE Administration Lisinopril 20 mg 03/02/23 20:14 03/02/23 20:35 Lisinopril 20 Mg Tablet PO 03/02/23 20:15 20 mg ONCE ONE Administration Protocol Medical Decision Making Differential Diagnosis Differential Diagnoses: The differential diagnosis associated with the presentation includes ( Hypertensive urgency, hypertensive emergency, intracranial bleed, ACS, severe electrolyte abnormalities, severe anemia.) Admission/Observation Consideration of admission/observation: Escalation of care including admission/observation considered Lab Data MDM Lab Attestation statement: I reviewed the patient's lab results. 03/02/23 18:28 03/02/23 18:28 Labs: Lab Results 03/02/23 03/02/23 03/02/23 Range/Units 18:28 18:28 18:28 WBC 11.4 H (4.8-10.8) X10*3/uL RBC 4.59 (4.20-5.50) X10*6/uL Hgb 13.8 (12.0-16.0) g/dl Hct 41.6 (37.0-47.0) % MCV 90.6 (80.0-98.0) fL MCH 30.1 (27.0-33.0) pg MCHC 33.2 (31.0-35.0) g/dl RDW 12.4 (11.0-16.0) % Plt Count 416 H (160-400) X10*3/uL MPV 9.8 (9.4-12.3) fL Immature Gran % (Auto) 0.4 (0.0-0.4) % Neut % (Auto) 58.8 (45-73) % Lymph % (Auto) 31.4 (20-40) % [place] % (Auto) 8.2 (2-11) % Eos % (Auto) 0.8 (0-4) % Baso % (Auto) 0.4 (0-2) % Lymph # (Auto) 3.6 (1.2-4.9) X10*3/uL [place] # (Auto) 0.9 (0.1-1.2) X10*3/uL Eos # (Auto) 0.1 (0.0-0.4) X10*3/uL Baso # (Auto) 0.0 (0.0-0.2) X10*3/uL Abs Immat Gran (auto) 0.05 H (0.00-0.03) X10*3/uL Absolute Neuts (auto) 6.7 (2.0-8.3) x10*3/uL Absolute Nucleated RBC 0.000 (0.0-0.012) X10*3/uL Nucleated RBC % (auto) 0.0 (0.0-0.2) /100WBC Sodium 140 (135-145) mmol/L Potassium 4.1 (3.3-5.1) mmol/L Chloride 105 (96-108) mmol/L Carbon Dioxide 24 (22-29) mmol/L Anion Gap 15 (12-20) BUN 12 (9-16) mg/dL Creatinine 0.86 (0.5-1.4) mg/dL Estim Creat Clear Calc 102.2 Estimated GFR > 60 Random Glucose 93 (60-115) mg/dL Calcium 9.5 (8.4-10.2) mg/dL Total Bilirubin 0.2 (0.0-1.0) mg/dL Direct Bilirubin < 0.2 (0.0-0.5) mg/dL AST 23 (5-31) U/L ALT 28 (0-31) U/L Alkaline Phosphatase 97 (39-117) U/L Troponin I High Sens (<3.5-17.0) ng/L B-Natriuretic Peptide 34 (<100) pg/mL Total Protein 8.2 H (6.5-8.0) g/dL Albumin 4.0 (3.5-5.0) g/dL Lipase 33 (8-78) U/L Urine Color Urine Appearance Urine pH (5.0-9.0) Ur Specific [place] (1.005-1.025) Urine Protein (Neg-Trace) mg/dL Urine Glucose (UA) (Negative) mg/dL Urine Ketones (Negative) mg/dL Urine Blood (Negative) Urine Nitrite (Negative) Ur Leukocyte Esterase (Negative) Urine RBC (0-2) /HPF Urine WBC (0-5) /HPF Ur Squamous Epith Cells (0-2) /HPF Urine Bacteria (None Seen) Hyaline Casts (0-2) /LPF 03/02/23 03/02/23 03/03/23 Range/Units 19:41 22:06 00:11 WBC (4.8-10.8) X10*3/uL RBC (4.20-5.50) X10*6/uL Hgb (12.0-16.0) g/dl Hct (37.0-47.0) % MCV (80.0-98.0) fL MCH (27.0-33.0) pg MCHC (31.0-35.0) g/dl RDW (11.0-16.0) % Plt Count (160-400) X10*3/uL MPV (9.4-12.3) fL Immature Gran % (Auto) (0.0-0.4) % Neut % (Auto) (45-73) % Lymph % (Auto) (20-40) % [place] % (Auto) (2-11) % Eos % (Auto) (0-4) % Baso % (Auto) (0-2) % Lymph # (Auto) (1.2-4.9) X10*3/uL [place] # (Auto) (0.1-1.2) X10*3/uL Eos # (Auto) (0.0-0.4) X10*3/uL Baso # (Auto) (0.0-0.2) X10*3/uL Abs Immat Gran (auto) (0.00-0.03) X10*3/uL Absolute Neuts (auto) (2.0-8.3) x10*3/uL Absolute Nucleated RBC (0.0-0.012) X10*3/uL Nucleated RBC % (auto) (0.0-0.2) /100WBC Sodium (135-145) mmol/L Potassium (3.3-5.1) mmol/L Chloride (96-108) mmol/L Carbon Dioxide (22-29) mmol/L Anion Gap (12-20) BUN (9-16) mg/dL Creatinine (0.5-1.4) mg/dL Estim Creat Clear Calc Estimated GFR Random Glucose (60-115) mg/dL Calcium (8.4-10.2) mg/dL Total Bilirubin (0.0-1.0) mg/dL Direct Bilirubin (0.0-0.5) mg/dL AST (5-31) U/L ALT (0-31) U/L Alkaline Phosphatase (39-117) U/L Troponin I High Sens 37.2 H 33.0 H (<3.5-17.0) ng/L B-Natriuretic Peptide (<100) pg/mL Total Protein (6.5-8.0) g/dL Albumin (3.5-5.0) g/dL Lipase (8-78) U/L Urine Color Yellow Urine Appearance Clear Urine pH 7.5 (5.0-9.0) Ur Specific [place] 1.020 (1.005-1.025) Urine Protein Trace (Neg-Trace) mg/dL Urine Glucose (UA) Negative (Negative) mg/dL Urine Ketones Negative (Negative) mg/dL Urine Blood Moderate (2+) H (Negative) Urine Nitrite Negative (Negative) Ur Leukocyte Esterase Trace H (Negative) Urine RBC 3-5 H (0-2) /HPF Urine WBC 0-5 (0-5) /HPF Ur Squamous Epith Cells 3-5 (0-2) /HPF Urine Bacteria 1+ (None Seen) Hyaline Casts 0-2 (0-2) /LPF Independent Interpretation I performed an independent interpretation of an: Plain X-Ray ( Chest chest: No acute intrathoracic pathology.) and CT Scan ( Head: No acute intracranial pathology.) Discharge Plan Discharge Clinical Impression: Essential hypertension, Headache Patient Disposition: Home, Self-Care Instructions: Hypertension (ED) Prescriptions: New lisinopril 20 mg tablet 20 mg PO DAILY Qty: 30 0RF No Action cholecalciferol (vitamin D3) 25 mcg (1,000 unit) capsule 25 mcg PO DAILY Qty: 90 3RF pantoprazole 40 mg tablet,delayed release (DR/EC) 40 mg PO BID Qty: 60 5RF docusate sodium 100 mg capsule 1 cap PO BID montelukast 10 mg tablet 1 tab PO DAILY bupropion HCl 150 mg tablet extended release 24 hr 1 tab PO BEDTIME levocetirizine 5 mg tablet 1 tab PO BEDTIME melatonin 10 mg tablet 1 tab PO BEDTIME Linzess 145 mcg capsule 1 cap PO DAILY Triumeq 600-50-300 mg tablet 1 tab PO DAILY multivitamin Tablet 1 tab PO DAILY albuterol sulfate 2.5 mg /3 mL (0.083 %) Solution For Nebulization 2.5 mg INHALATION Q6H PRN (Reason: sob) ketotifen fumarate 0.025 % (0.035 %) Drops 1 drp OPHTHALMIC (EYE) BID PRN (Reason: itchy eyes) Rx Instructions: administer at least 8 hours apart cromolyn 4 % Drops 1 drp OPHTHALMIC-LEFT QID PRN (Reason: itchy eyes) cyproheptadine 4 mg Tablet 4 mg PO Q8H PRN (Reason: Allergy Symptoms) meclizine 25 mg Tablet 25 mg PO TID PRN (Reason: Vertigo) fluticasone propionate [Flovent HFA] 220 mcg/actuation HFA aerosol inhaler 2 puff inhalation BID fluticasone propionate 50 mcg/actuation [place],Suspension 2 spray INTRANASAL DAILY Rx Instructions: administer into each nostril calcium carbonate-vitamin D3 500 mg-3.125 mcg (125 unit) Tablet 1 tab PO DAILY azelastine 205.5 mcg (0.15 %) [place],Non-Aerosol 1 spray INTRANASAL DAILY Rx Instructions: administer into each nostril clonidine HCl 0.1 mg tablet 0.1 mg PO BEDTIME Qty: 30 0RF cyclobenzaprine 5 mg tablet 25 mg PO NEEDED PRN (Reason: Agitation) betamethasone dipropionate 0.05 % cream 1 appl topical BID PRN (Reason: skin irritation) Qty: 45 2RF Rx Instructions: [place], try on a small area of your skin first to see if you develop an allergic reaction. If not, apply to rash. escitalopram oxalate 20 mg tablet 20 mg PO DAILY duloxetine 60 mg capsule,delayed release(DR/EC) 60 mg PO QAM quetiapine 100 mg tablet 100 mg PO BEDTIME hydroxyzine HCl 50 mg tablet 50 mg PO BEDTIME glucomannan 500 mg capsule 1,800 mg PO DAILY evening primrose oil 500 mg capsule 500 mg PO DAILY Rx Instructions: give with meal/snack sucralfate 100 mg/mL suspension 10 ml PO BID Qty: 414 3RF Referrals: Baron Patrick MD [Primary Care Provider] -
[2023-03-02 20:33] VITALS: BP 148/103; PULSE 94; RESP 18; TEMP 36.6; O2SAT 98
[2023-03-02] MEDS: Acetaminophen 325 MG TABLET 650 MG PO (20:34)
[2023-03-02] MEDS: lisinopriL 20 MG TABLET PO (20:35)
[2023-03-02 22:07] VITALS: BP 151/92; PULSE 90; RESP 20; TEMP 36.7; O2SAT 94
[2023-03-02 22:37] LABS: Troponin-I High Sensitivity 37.2 ng/L (<3.5-17.0)
[2023-03-02 23:06] VITALS: BP 134/93; PULSE 93; RESP 12; TEMP 37; O2SAT 97
--- NOTE | 2023-03-02 23:10 | MHC.EDTECH ---
This tech assumed care of pt at 2300, vitals taken, patient is resting comfortable at this time. Call [facility] within reach
[2023-03-03 01:01] VITALS: BP 143/91; PULSE 86; RESP 11; TEMP 36.3; O2SAT 96
--- NOTE | 2023-03-03 01:08 | PC.NURSE ---
pt calm and cooperative. vss. pt reports decreased pain at time of discharge. pt provided with discharge packet. pt verbalized understanding of discharge plan
== END 2023-03-03 01:09 | disposition home or self-care (01) ==
PROVIDERS: Emergency Provider Emergency Medicine; PCP Internal Medicine
DX: I10 Essential (primary) hypertension (principal); R51.9 Headache, unspecified; R06.02 Shortness of breath; B20 Human immunodeficiency virus [HIV] disease; Z90.3 Acquired absence of stomach [part of]
CPT/HCPCS: 36415; 70450; 71046; 80048; 80076; 81001; 83690; 83880; 84484; 85025; 93005; 99284; 99285

== ENCOUNTER 2023-07-14 10:59 | Outpatient (AMB) | payer OTHER, SELFPAY ==
--- NOTE | 2023-07-14 11:26 | MHC.OFFVISWM ---
Intake VS Expanded 07/14/23 11:33 BP 162/95 H Blood Pressure Location Rt brachial Blood Pressure Position Sitting Pulse 92 Pulse Source Pulse Oximeter Temp 97.4 F Temperature Source Tympanic Pulse Oximetry 94 Oxygen Delivery Method Room Air Height 5 ft 5 in Weight 240 lb 12.8 oz BMI 40.1 Body Fat % 45.1 Body Fat Mass 132.0 Fat Free Mass 132.0 Visceral Fat Rating 13.0 Body Water % 39.2 Body Water Mass 94.4 Muscle Mass/Score 125.4 Basal Metabolic Rate/Score 1,855 Intake Visit Reasons: (OV) PO LSG 11/26/20 Allergies prednisone [PREDNISONE] Allergy (Severe, Verified 07/14/23 11:36) DIFFICULTY BREATHING, anaphylaxis eggs Allergy (Intermediate, Uncoded 07/14/23 11:36) Hives Medication List - Last Reconciled 07/14/23 by KEIRA Wing [id number] 600-50-300 mg (Triumeq) 1 tab PO DAILY albuterol sulfate 2.5 mg inhalation Q6H PRN azelastine 1 spray intranasal DAILY betamethasone dipropionate 0.05% 1 appl topical BID PRN bupropion HCl 1 tab PO BEDTIME calcium carbonate-vitamin D3 500 mg-3.125 mcg (125 unit) 1 tab PO DAILY cholecalciferol (vitamin D3) 25 mcg PO DAILY clonidine HCl 0.1 mg PO BEDTIME cromolyn 4% 1 drp ophthalmic-Left QID PRN cyclobenzaprine 25 mg PO NEEDED PRN cyproheptadine 4 mg PO Q8H PRN docusate sodium 1 cap PO BID duloxetine 60 mg PO QAM escitalopram oxalate 20 mg PO DAILY evening primrose oil 500 mg PO DAILY fluticasone propionate 50 mcg/actuation 2 sprays intranasal DAILY fluticasone propionate 220 mcg/actuation (Flovent HFA) 2 puffs inhalation BID glucomannan 1,800 mg PO DAILY hydroxyzine HCl 50 mg PO BEDTIME ketotifen fumarate 0.025%(0.035%) 1 drp ophthalmic (eye) BID PRN levocetirizine 1 tab PO BEDTIME linaclotide (Linzess) 1 cap PO DAILY lisinopril 20 mg PO DAILY meclizine 25 mg PO TID PRN melatonin 1 tab PO BEDTIME montelukast 1 tab PO DAILY multivitamin 1 tab PO DAILY pantoprazole 40 mg PO BID quetiapine 100 mg PO BEDTIME sucralfate 10 mL PO BID HPI HPI Comments History of Present Illness Details This?is a?48?yo female who is s/p LSG 11/26/2020. Presents for 2 year 8 month post op visit. Weight at last visit on 12/17/2022 was 243.8 pounds with a BMI of 39.9, weight today is 240.8 pounds, representing a 3 pound weight loss with a BMI today of 40.1.? 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 No stricture or ulcer. Sustained a fall about 3 weeks ago, having a lot of back pain. Present meal plan includes: Goal weight 219-220lbs to be a candidate for revision surgery. 10am-12pm Premier protein shake, premade or Pure protein shake, 1 scoop powder in 8oz 1% milk 2-4pm same shake 6pm dinner- 3oz protein, 3oz veg 9pm Stateless yogurt with berries sometimes skips meals, shakes vomiting is better when she follows plan, had some rice/meat yesterday and did vomit Exercise routine includes: none since back pain PFSH Medical History Allergic reaction caused by a drug Anxiety Arthritis Asthma BMI 39.0-39.9,adult Body mass index (BMI) of 40.1 to 44.9 in adult Constipation Depression HIV (human immunodeficiency virus infection) HTN (hypertension) Insomnia Low back pain Morbid obesity Preoperative examination Sciatica Seasonal allergies Shortness of breath Sleep apnea Vertigo Vitamin B1 deficiency Surgical History History of appendectomy History of elbow surgery History of sleeve gastrectomy Family History Mother Hyperlipidemia Hypertension Arthritis Sciatica Diabetes Father No problems noted. Brother Hypertension Social History Household Members: None Housing: Apartment Are you a primary continuum of care manager to a significant other at home: No Do you presently have visiting nurse or other home services: Yes (HELP WITH HOUSEWORK ONCE A WEEK) Alcohol intake: never Patient Tobacco Use Status: Former Tobacco user Tobacco use type: Cigarette e-Cigarette/Vaping Use: Never Used Second Hand Smoke Exposure: No service: No Current occupational status: unemployed Physical Exam Vital Signs: Last Vital Signs Temp 97.4 F 07/14/23 11:33 Pulse 92 07/14/23 11:33 BP 162/95 H 07/14/23 11:33 Pulse Ox 94 07/14/23 11:33 Oxygen Delivery Method Room Air 07/14/23 11:33 BMI result Body Mass Index 40.1 Assessment & Plan Assessment & Plan (1) Hiatal hernia: Code(s): K44.9 - Diaphragmatic hernia without obstruction or gangrene (2) Obesity: Code(s): E66.9 - Obesity, unspecified (3) Status post sleeve gastrectomy: Code(s): Z90.3 - Acquired absence of stomach [part of] (4) Vomiting: Code(s): R11.10 - Vomiting, unspecified Coding Level of Care Code Est Pt Level 4 (14231) Diagnoses Hiatal hernia K44.9 Obesity E66.9 Status post sleeve gastrectomy Z90.3 Vomiting R11.10
[2023-07-14 11:33] VITALS: BP 162/95; PULSE 92; TEMP 36.3; O2SAT 94; BMI 40.1
== END 2023-07-14 12:05 | disposition home or self-care (01) ==
PROVIDERS: PCP Internal Medicine; Visit Provider Physician Assistant Surgical
DX: K44.9 Diaphragmatic hernia without obstruction or gangrene (principal); E66.9 Obesity, unspecified; Z90.3 Acquired absence of stomach [part of]; R11.10 Vomiting, unspecified
CPT/HCPCS: 99214

== ENCOUNTER → 2023-07-14 10:59 | Outpatient (BNVA) | payer OTHER, SELFPAY | PROVIDERS: PCP Internal Medicine; Visit Provider Physician Assistant Surgical | DX: E66.9 Obesity, unspecified (principal); Z68.41 Body mass index [BMI] 40.0-44.9, adult; K44.9 Diaphragmatic hernia without obstruction or gangrene; R11.10 Vomiting, unspecified; Z98.84 Bariatric surgery status | CPT/HCPCS: 99212 ==

== ENCOUNTER → 2023-10-18 10:10 | Outpatient (BNVA) | payer OTHER, SELFPAY | PROVIDERS: PCP Internal Medicine; Visit Provider Physician Assistant Surgical ==

== ENCOUNTER 2024-01-12 11:16 | Outpatient (AMB) | payer OTHER, SELFPAY ==
--- NOTE | 2024-01-12 11:09 | A.OFFVIS_ITS ---
VS Expanded 01/12/24 11:11 Height 5 ft 5 in Weight 242 lb BMI 40.3 Intake Visit Reasons: (TV) PO LSG 11/26/20 Allergies prednisone [PREDNISONE] Allergy (Severe, Verified 07/14/23 11:36) DIFFICULTY BREATHING, anaphylaxis eggs Allergy (Intermediate, Uncoded 07/14/23 11:36) Hives Medication List - Last Reconciled 01/12/24 by KEIRA Wing [id number]-evbelnklrdap-[id number] 600-50-300 mg (Triumeq) 1 tab PO DAILY albuterol sulfate 2.5 mg inhalation Q6H PRN azelastine 1 spray intranasal DAILY betamethasone dipropionate 0.05% 1 appl topical BID PRN bupropion HCl XL 1 tab PO BEDTIME calcium carbonate-vitamin D3 500 mg-3.125 mcg (125 unit) 1 tab PO DAILY cholecalciferol (vitamin D3) 25 mcg PO DAILY clonidine HCl 0.1 mg PO BEDTIME cromolyn 4% 1 drp ophthalmic-Left QID PRN cyclobenzaprine 25 mg PO NEEDED PRN cyproheptadine 4 mg PO Q8H PRN docusate sodium 1 cap PO BID duloxetine 60 mg PO QAM escitalopram oxalate 20 mg PO DAILY evening primrose oil 500 mg PO DAILY fluticasone propionate 50 mcg/actuation 2 sprays intranasal DAILY fluticasone propionate 220 mcg/actuation (Flovent HFA) 2 puffs inhalation BID glucomannan 1,800 mg PO DAILY hydroxyzine HCl 50 mg PO BEDTIME ketotifen fumarate 0.025%(0.035%) 1 drp ophthalmic (eye) BID PRN levocetirizine 1 tab PO BEDTIME linaclotide (Linzess) 1 cap PO DAILY lisinopril 20 mg PO DAILY meclizine 25 mg PO TID PRN melatonin 1 tab PO BEDTIME metformin 500 mg PO DAILY montelukast 1 tab PO DAILY multivitamin 1 tab PO DAILY pantoprazole 40 mg PO BID quetiapine 100 mg PO BEDTIME sucralfate 10 mL PO BID HPI Comments Details: This?is a?48?yo female who is s/p LSG 11/26/2021. Weight at last visit on 10/18/2023 was 240.6 pounds with a BMI of 40, weight today is 242 pounds, representing a 1.4 pound weight gain with a BMI today of 40.3.? No complaints of nausea, emesis, abdominal pain or reflux, or constipation. Present meal plan includes: Goal weight 219-220lbs to be a candidate for revision surgery. 10am-12pm Premier protein shake, premade or Pure protein shake, 1 scoop powder in 8oz 1% milk 2-4pm same shake 5:30pm dinner- 3oz protein, 3oz veg 9pm Serbian yogurt with berries or oranges sometimes skips meals, shakes Exercise routine includes: none- sciatica, back pain wants to start walking PFSH Medical History Allergic reaction caused by a drug Anxiety Arthritis Asthma BMI 39.0-39.9,adult Body mass index (BMI) of 40.1 to 44.9 in adult Constipation Depression HIV (human immunodeficiency virus infection) HTN (hypertension) Insomnia Low back pain Morbid obesity Preoperative examination Sciatica Seasonal allergies Shortness of breath Sleep apnea Vertigo Vitamin B1 deficiency Surgical History History of appendectomy History of elbow surgery History of sleeve gastrectomy Family History Mother Hyperlipidemia Hypertension Arthritis Sciatica Diabetes Father No problems noted. Brother Hypertension Social History Household Members: None Housing: Apartment Are you a primary critical care unit manager to a significant other at home: No Do you presently have visiting nurse or other home services: Yes (HELP WITH HOUSEWORK ONCE A WEEK) Alcohol intake: never Patient Tobacco Use Status: Former Tobacco user Tobacco use type: Cigarette e-Cigarette/Vaping Use: Never Used Second Hand Smoke Exposure: No service: No Current occupational status: unemployed Telehealth Telehealth Telehealth Platform: Telephone Location of provider rendering services: practice address Location of patient: address on file Patient Identification confirmed using: Name, : Yes Telehealth method: voice only Patient verbally consented to treatment: Yes Patient verbally consented to billing insurance company: Yes Patient informed of any privacy concerns related to visit: Yes Minutes spent on Phone/Video with Pt.: 15 Assessment & Plan Assessment & Plan (1) Status post sleeve gastrectomy: Code(s): Z90.3 - Acquired absence of stomach [part of] Category: Surgical (2) Body mass index (BMI) of 40.1 to 44.9 in adult: Code(s): Z68.41 - Body mass index [BMI] 40.0-44.9, adult Category: Medical Plan Pt was visiting her mom in [place], was not consistent with meal plan, was also hospitalized for sciatica. We discussed the importance of adhering to meal plan strictly without deviation and not skipping any items. She is going to try some other shakes and let me know which brand. Also encouraged exercise/walking in whatever fashion does not cause pain. Labs ordered. RTC 3 months. Patient is morbidly obese and is not considered stable at this time. I spent a t otal of 30 minutes reviewing/updating records, examining the patient and counseling the patient on weight management as detailed above. Orders: Orders IRON PROFILE Today Z90.3 - Acquired absence of stomach [part of] Comprehensive Met. Panel Today Z90.3 - Acquired absence of stomach [part of] Vitamin B1 Today Z90.3 - Acquired absence of stomach [part of] Vitamin A Today Z90.3 - Acquired absence of stomach [part of] TSH reflex Free T4 Today Z90.3 - Acquired absence of stomach [part of] Vitamin D 25-OH Total Today Z90.3 - Acquired absence of stomach [part of] Insulin Today Z90.3 - Acquired absence of stomach [part of] Hemoglobin A1c Today Z90.3 - Acquired absence of stomach [part of] Complete Blood Count Auto Diff Today Z90.3 - Acquired absence of stomach [part of] Lipid Panel Today Z90.3 - Acquired absence of stomach [part of] Vitamin B12 and Folate Today Z90.3 - Acquired absence of stomach [part of] Zinc Today Z90.3 - Acquired absence of stomach [part of] C Reactive Protein Today Z90.3 - Acquired absence of stomach [part of] Ferritin Today Z90.3 - Acquired absence of stomach [part of]
[2024-01-12 11:11] VITALS: BMI 40.3
== END 2024-01-12 11:25 | disposition home or self-care (01) ==
LOC: HO.HBS 11:16
PROVIDERS: PCP Internal Medicine; Visit Provider Physician Assistant Surgical
DX: E66.01 Morbid (severe) obesity due to excess calories (principal); Z68.41 Body mass index [BMI] 40.0-44.9, adult; Z90.3 Acquired absence of stomach [part of]; Z98.84 Bariatric surgery status
CPT/HCPCS: 99442

== ENCOUNTER → 2024-01-12 11:16 | Outpatient (BNVA) | payer OTHER, SELFPAY | PROVIDERS: PCP Internal Medicine; Visit Provider Physician Assistant Surgical ==

== ENCOUNTER 2024-04-25 13:21 | Outpatient (AMB) | payer OTHER, SELFPAY ==
--- NOTE | 2024-04-25 13:38 | MHC.OFFVISWM ---
VS Expanded 04/25/24 13:44 BP 133/77 Blood Pressure Location Rt brachial Blood Pressure Position Sitting Pulse 70 Pulse Source Pulse Oximeter Temp 96.7 F L Temperature Source Temporal Artery Scan Pulse Oximetry 95 Oxygen Delivery Method Room Air Height 5 ft 5 in Weight 239 lb 6.4 oz BMI 39.8 Body Fat % 43.9 Body Fat Mass 105.0 Fat Free Mass 134.2 Visceral Fat Rating 13.0 Body Water % 40.0 Body Water Mass 95.6 Muscle Mass/Score 127.4 Basal Metabolic Rate/Score 1,876 Intake Visit Reasons: (OV) PO LSG 11/26/20 Allergies prednisone [PREDNISONE] Allergy (Severe, Verified 07/14/23 11:36) DIFFICULTY BREATHING, anaphylaxis eggs Allergy (Intermediate, Uncoded 07/14/23 11:36) Hives Medication List - Last Reconciled 04/25/24 by KEIRA Wing ohkzbrrv-ibjlonggzbnp-oithriv 600-50-300 mg (Triumeq) 1 tab PO DAILY albuterol sulfate 2.5 mg inhalation Q6H PRN azelastine 1 spray intranasal DAILY betamethasone dipropionate 0.05% 1 appl topical BID PRN bupropion HCl XL 1 tab PO BEDTIME calcium carbonate-vitamin D3 500 mg-3.125 mcg (125 unit) 1 tab PO DAILY cholecalciferol (vitamin D3) 25 mcg PO DAILY clonidine HCl 0.1 mg PO BEDTIME cromolyn 4% 1 drp ophthalmic-Left QID PRN cyclobenzaprine 25 mg PO NEEDED PRN cyproheptadine 4 mg PO Q8H PRN docusate sodium 1 cap PO BID duloxetine 60 mg PO QAM escitalopram oxalate 20 mg PO DAILY evening primrose oil 500 mg PO DAILY fluticasone propionate 50 mcg/actuation 2 sprays intranasal DAILY fluticasone propionate 220 mcg/actuation (Flovent HFA) 2 puffs inhalation BID glucomannan 1,800 mg PO DAILY hydroxyzine HCl 50 mg PO BEDTIME ketotifen fumarate 0.025%(0.035%) 1 drp ophthalmic (eye) BID PRN levocetirizine 1 tab PO BEDTIME linaclotide (Linzess) 1 cap PO DAILY lisinopril 20 mg PO DAILY meclizine 25 mg PO TID PRN melatonin 1 tab PO BEDTIME metformin 500 mg PO DAILY montelukast 1 tab PO DAILY multivitamin 1 tab PO DAILY pantoprazole 40 mg PO BID quetiapine 100 mg PO BEDTIME sucralfate 10 mL PO BID HPI Comments Details: This?is a?49?yo female who is s/p LSG 11/26/2020. Weight loss of 2.6lbs since last OV 3mo ago. Was in [place], not completely adherent to meal plan there. Did eat a lot of fruit there, but also fried foods. Present meal plan includes: Goal weight 219-220lbs to be a candidate for revision surgery 10am-12pm Premier protein shake, premade or Pure protein shake, 1 scoop powder in 8oz 1% milk 2-4pm same shake 5:30pm dinner- 3oz protein, 3oz veg 9pm [place] yogurt with berries or oranges sometimes skips meals, shakes does not take MVI Exercise routine includes: none- sciatica, back pain, got several injections in [place]; going for MRI this month with spine specialists wants to start walking- wants to get under desk treadmill [facility] Medical History Allergic reaction caused by a drug Anxiety Arthritis Asthma BMI 39.0-39.9,adult Body mass index (BMI) of 40.1 to 44.9 in adult Constipation Depression HIV (human immunodeficiency virus infection) HTN (hypertension) Insomnia Low back pain Morbid obesity Preoperative examination Sciatica Seasonal allergies Shortness of breath Sleep apnea Vertigo Vitamin B1 deficiency Surgical History History of appendectomy History of elbow surgery History of sleeve gastrectomy Family History Mother Hyperlipidemia Hypertension Arthritis Sciatica Diabetes Father No problems noted. Brother Hypertension Social History Household Members: None Housing: Apartment Are you a primary rn acute care to a significant other at home: No Do you presently have visiting nurse or other home services: Yes (HELP WITH HOUSEWORK ONCE A WEEK) Alcohol intake: never Patient Tobacco Use Status: Former Tobacco user Tobacco use type: Cigarette e-Cigarette/Vaping Use: Never Used Second Hand Smoke Exposure: No service: No Current occupational status: unemployed Assessment & Plan Assessment & Plan (1) Obesity: Code(s): E66.9 - Obesity, unspecified Category: Medical (2) Status post sleeve gastrectomy: Code(s): Z90.3 - Acquired absence of stomach [part of] Category: Surgical Plan Again discussed the importance of meal plan adherence especially with her difficulty with exercise. Pt reminded to get labs done. RTC 3 months. I spent a total of 30 minutes reviewing/updating records, examining the patient and counseling the patient on weight management as detailed above.
[2024-04-25 13:44] VITALS: BP 133/77; PULSE 70; TEMP 35.9; O2SAT 95; BMI 39.8
== END 2024-04-25 13:59 | disposition home or self-care (01) ==
PROVIDERS: PCP Internal Medicine; Visit Provider Physician Assistant Surgical
DX: E66.9 Obesity, unspecified (principal); Z90.3 Acquired absence of stomach [part of]
CPT/HCPCS: 99214

== ENCOUNTER → 2024-04-25 13:21 | Outpatient (BNVA) | payer OTHER, SELFPAY | PROVIDERS: PCP Internal Medicine; Visit Provider Physician Assistant Surgical | DX: E66.9 Obesity, unspecified (principal); Z68.39 Body mass index [BMI] 39.0-39.9, adult; Z90.3 Acquired absence of stomach [part of] | CPT/HCPCS: 99212 ==

== ENCOUNTER 2024-05-08 16:55 | Emergency (ER) | payer OTHER, SELFPAY ==
[2024-05-08 17:10] VITALS: BP 135/89; PULSE 103; RESP 18; TEMP 36.4; O2SAT 98; BMI 40.0
--- NOTE | 2024-05-08 17:13 | ED.GENADULT ---
HPI - General Adult General Chief complaint: General Medical Stated complaint: Headache Time Seen by Provider: 05/08/24 18:01 Source: patient, RN notes reviewed and old records reviewed Mode of arrival: ambulatory Limitations: no limitations History of Present Illness ED Provider: Lamin Moctezuma PA-C HPI narrative: 49 yo female presents to the ER for evaluation of a 6/10 frontal bandlike headache that started this morning. she states she was unable to get her meds today including her lisinopril because her usual visiting nurse is away and her replacement didnt come. she reports some nasal congestion as well. she had covid 2 weeks ago. her symptoms are overall improving. she denies chest pain, vision changes, SOB, abdominal pain, nausea or vomiting. no history of migraines. hx headaches when her BP is high. MD complaint: headache Onset (ago): hour(s) Location: head Radiation: non-radiation Severity: moderate Quality: aching Pain Consistency: constant Relieving factors: none Exacerbating factors: none Associated symptoms: denies other symptoms Treatments prior to arrival: none Related Data Home Medications ?Medication ?Instructions ?Recorded ?Confirmed abacavir 600 mg-dolutegravir 50 1 tab PO DAILY 10/15/21 04/25/24 mg-lamivudine 300 mg tablet (Triumeq) albuterol sulfate 2.5 mg/3 mL 2.5 mg inhalation Q6H PRN sob 10/15/21 04/25/24 (0.083 %) solution for nebulization azelastine 205.5 mcg (0.15 %) 1 spray intranasal DAILY 10/15/21 04/25/24 nasal spray bupropion HCl 150 mg 24 hr tablet, 1 tab PO BEDTIME 10/15/21 04/25/24 extended release calcium carbonate 500 mg-vitamin 1 tab PO DAILY 10/15/21 04/25/24 D3 3.125 mcg (125 unit) tablet cromolyn 4 % eye drops 1 drp ophthalmic-Left QID PRN 10/15/21 04/25/24 itchy eyes cyproheptadine 4 mg tablet 4 mg PO Q8H PRN Allergy Symptoms 10/15/21 04/25/24 docusate sodium 100 mg capsule 1 cap PO BID 10/15/21 04/25/24 fluticasone propionate 220 2 puff inhalation BID 10/15/21 04/25/24 mcg/actuation HFA aerosol inhaler (Flovent HFA) fluticasone propionate 50 2 spray intranasal DAILY 10/15/21 04/25/24 mcg/actuation nasal spray,suspension ketotifen fumarate 0.025 % (0.035 1 drp ophthalmic (eye) BID PRN 10/15/21 04/25/24 %) eye drops itchy eyes levocetirizine 5 mg tablet 1 tab PO BEDTIME 10/15/21 04/25/24 linaclotide 145 mcg capsule 1 cap PO DAILY 10/15/21 04/25/24 (Linzess) meclizine 25 mg tablet 25 mg PO TID PRN Vertigo 10/15/21 04/25/24 melatonin 10 mg tablet 1 tab PO BEDTIME 10/15/21 04/25/24 montelukast 10 mg tablet 1 tab PO DAILY 10/15/21 04/25/24 multivitamin 1 tab PO DAILY 10/15/21 04/25/24 duloxetine 60 mg capsule,delayed 60 mg PO QAM 07/05/22 04/25/24 release escitalopram oxalate 20 mg tablet 20 mg PO DAILY 07/05/22 04/25/24 hydroxyzine HCl 50 mg tablet 50 mg PO BEDTIME 07/05/22 04/25/24 quetiapine 100 mg tablet 100 mg PO BEDTIME 07/05/22 04/25/24 evening primrose oil 500 mg capsule 500 mg PO DAILY 11/29/22 04/25/24 glucomannan 500 mg capsule 1,800 mg PO DAILY 11/29/22 04/25/24 cyclobenzaprine 5 mg tablet 25 mg PO NEEDED PRN Agitation 12/14/22 04/25/24 metformin 500 mg tablet 500 mg PO DAILY 01/12/24 04/25/24 Previous Rx's ?Medication ?Instructions ?Recorded clonidine HCl 0.1 mg tablet 0.1 mg PO BEDTIME #30 tabs 10/17/21 betamethasone dipropionate 0.05 % 1 appl topical BID PRN skin 01/06/22 topical cream irritation #45 grams cholecalciferol (vitamin D3) 25 25 mcg PO DAILY #90 caps 08/09/22 mcg (1,000 unit) capsule lisinopril 20 mg tablet 20 mg PO DAILY #30 tabs 03/02/23 pantoprazole 40 mg tablet,delayed 40 mg PO BID #180 tabs 10/18/23 release sucralfate 100 mg/mL oral 10 ml PO BID #414 mL 10/18/23 suspension Allergies Allergy/AdvReac Type Severity Reaction Status Date / Time prednisone [PREDNISONE] Allergy Severe DIFFICULTY Verified 05/08/24 17:12 BREATHING, anaphylaxis eggs Allergy Intermediate Hives Uncoded 07/14/23 11:36 Review of Systems Review of Systems: Yes all other systems are reviewed and are negative [facility] Past Medical History Medical History Allergic reaction caused by a drug Anxiety Arthritis Asthma BMI 39.0-39.9,adult Body mass index (BMI) of 40.1 to 44.9 in adult Constipation Depression HIV (human immunodeficiency virus infection) HTN (hypertension) Insomnia Low back pain Morbid obesity Preoperative examination Sciatica Seasonal allergies Shortness of breath Sleep apnea Vertigo Vitamin B1 deficiency Surgical History History of appendectomy History of elbow surgery History of sleeve gastrectomy Family History Family History Mother Hyperlipidemia Hypertension Arthritis Sciatica Diabetes Father No problems noted. Brother Hypertension Social History Social History Household Members: None Housing: Apartment Are you a primary pharmacist critical care to a significant other at home: No Do you presently have visiting nurse or other home services: Yes (HELP WITH HOUSEWORK ONCE A WEEK) Alcohol intake: never Patient Tobacco Use Status: Former Tobacco user Tobacco use type: Cigarette e-Cigarette/Vaping Use: Never Used Second Hand Smoke Exposure: No Advance Directives: No Advance Directives Information Provided: No Do you have a plan to hurt others: No Plan service: No Current occupational status: unemployed Physical Exam ED Vital Signs: Vital Signs - 24 hr 05/08/24 17:10 05/08/24 18:59 Temperature 97.5 F 97.5 F Pulse Rate 103 H 103 H Respiratory Rate 18 18 Blood Pressure 135/89 135/89 Pulse Oximetry 98 98 Oxygen Delivery Method Room Air Room Air BMI result Body Mass Index 40.0 Appearance: Alert. Oriented X3. No acute distress. Head: normocephalic, atraumatic. Eyes: Pupils equal, round and reactive to light. ENT: Pharynx normal. No tonsillar swelling or exudate. Neck: Normal inspection. Neck supple. CVS: Normal heart rate and rhythm. Pulses normal. Respiratory: No respiratory distress. Breath sounds normal. Abdomen: Soft and nontender. +BS x4 Skin: Skin warm and dry. Normal skin color. Normal skin turgor. No rashes. Extremities: No lower extremity edema. No joint swelling. Neuro/psych: Oriented X 3. No motor deficit. No sensory deficit. CN II-XII intact. Normal speech and cognition. Course Course Course Narrative: This is an RME done by KEIRA Torres: Additional HPI, ROS, PE not included below will be deferred to primary provider. 49 year old female with concerns of headache that started today. She states she has not been taking her medications because her nurse did not come today. Appearance: Alert.? Oriented X3.? No acute cardiopulmonary distress distress.? Head: Normocephalic, atraumatic, no step-offs or deformities Neck: Normal inspection.? Neck supple.? CVS: Pulses normal.? Respiratory: No respiratory distress.? Abdomen: Soft and nontender.? Skin: ? Normal skin color. Extremities: 5/5 strength to bilateral upper and lower extremities Neuro: Oriented X 3.? No motor deficit.? No sensory deficit. Medications Administered Discontinued Medications Generic Name Dose Route Start Last Admin Trade Name Freq PRN Reason Stop Dose Admin Acetaminophen 975 mg 05/08/24 18:15 05/08/24 18:37 Acetaminophen 325 Mg Tablet PO 05/08/24 18:16 975 mg ONCE ONE Administration Lisinopril 20 mg 05/08/24 18:22 05/08/24 18:37 Lisinopril 20 Mg Tablet PO 05/08/24 18:23 20 mg ONCE ONE Administration Protocol Medical Decision Making Medical Decision Making MDM Narrative: 49 yo female presenting to the ER for a headache. neurologically intact and appears comfortable on examination. bp is controlled. she had CT head a year ago with similar presentation that was normal. tylenol given for headache and her lisinopril administered as well. she admits to anxiety about missing her BP meds which is likely contributing to her symptoms. at this time she is stable for d/c home with resumption of all meds tomorrow. pt agrees with plan. no need for imaging or further testing today Differential Diagnosis Differential Diagnoses: The differential diagnosis associated with the presentation includes general headache, hypertensive headache, viral syndrome, migraine, anxiety External Record Review External record reviewed: Outpatient record, Prior outpatient labs and Prior outpatient radiology Prescription Management I considered prescription management with: Pain Medication and Other (antihypertensive) Chronic Conditions Patient?s care impacted by: Hypertension Social Determinants Patient?s care significantly limited by Social Determinants of Health including: Other Social Determinant of Health (lack of access to her medications) Critical Care Time Critical Care Time Critical Care Time: No Discharge Plan Discharge Clinical Impression: Headache Qualifiers: Headache type: unspecified Headache chronicity pattern: unspecified pattern Intractability: not intractable Qualified Code(s): R51.9 - Headache, unspecified Patient Disposition: Home, Self-Care Instructions: General Headache (ED) Additional Instructions: Resume all of your home medications tomorrow as directed. Recommend Tylenol or ibuprofen as needed for headaches. Rest and drink plenty of fluids. Follow-up with your doctor as needed. If you develop new or worsening symptoms call 911 or come back to the ER for further evaluation. Prescriptions: No Action cholecalciferol (vitamin D3) 25 mcg (1,000 unit) capsule 25 mcg PO DAILY Qty: 90 3RF sucralfate 100 mg/mL suspension 10 ml PO BID Qty: 414 3RF docusate sodium 100 mg capsule 1 cap PO BID montelukast 10 mg tablet 1 tab PO DAILY bupropion HCl 150 mg tablet extended release 24 hr 1 tab PO BEDTIME levocetirizine 5 mg tablet 1 tab PO BEDTIME melatonin 10 mg tablet 1 tab PO BEDTIME Linzess 145 mcg capsule 1 cap PO DAILY Triumeq 600-50-300 mg tablet 1 tab PO DAILY multivitamin Tablet 1 tab PO DAILY albuterol sulfate 2.5 mg /3 mL (0.083 %) Solution For Nebulization 2.5 mg INHALATION Q6H PRN (Reason: sob) ketotifen fumarate 0.025 % (0.035 %) Drops 1 drp OPHTHALMIC (EYE) BID PRN (Reason: itchy eyes) Rx Instructions: administer at least 8 hours apart cromolyn 4 % Drops 1 drp OPHTHALMIC-LEFT QID PRN (Reason: itchy eyes) cyproheptadine 4 mg Tablet 4 mg PO Q8H PRN (Reason: Allergy Symptoms) meclizine 25 mg Tablet 25 mg PO TID PRN (Reason: Vertigo) fluticasone propionate [Flovent HFA] 220 mcg/actuation HFA aerosol inhaler 2 puff inhalation BID fluticasone propionate 50 mcg/actuation [place],Suspension 2 spray INTRANASAL DAILY Rx Instructions: administer into each nostril calcium carbonate-vitamin D3 500 mg-3.125 mcg (125 unit) Tablet 1 tab PO DAILY azelastine 205.5 mcg (0.15 %) [place],Non-Aerosol 1 spray INTRANASAL DAILY Rx Instructions: administer into each nostril clonidine HCl 0.1 mg tablet 0.1 mg PO BEDTIME Qty: 30 0RF lisinopril 20 mg tablet 20 mg PO DAILY Qty: 30 0RF cyclobenzaprine 5 mg tablet 25 mg PO NEEDED PRN (Reason: Agitation) betamethasone dipropionate 0.05 % cream 1 appl topical BID PRN (Reason: skin irritation) Qty: 45 2RF Rx Instructions: Alba, try on a small area of your skin first to see if you develop an allergic reaction. If not, apply to rash. escitalopram oxalate 20 mg tablet 20 mg PO DAILY duloxetine 60 mg capsule,delayed release(DR/EC) 60 mg PO QAM quetiapine 100 mg tablet 100 mg PO BEDTIME hydroxyzine HCl 50 mg tablet 50 mg PO BEDTIME glucomannan 500 mg capsule 1,800 mg PO DAILY evening primrose oil 500 mg capsule 500 mg PO DAILY Rx Instructions: give with meal/snack pantoprazole 40 mg tablet,delayed release (DR/EC) 40 mg PO BID Qty: 180 3RF metformin 500 mg tablet 500 mg PO DAILY Interventions: ED Discharge Assessment Last Done: 05/08/24 18:59 Discharge Date/Time: 05/08/24 18:59 Print Language: Georgian
[2024-05-08] MEDS: Acetaminophen 325 MG TABLET 975 MG PO (18:37)
[2024-05-08] MEDS: lisinopriL 20 MG TABLET PO (18:37)
[2024-05-08 18:59] VITALS: BP 135/89; PULSE 103; RESP 18; TEMP 36.4; O2SAT 98
== END 2024-05-08 18:59 | disposition home or self-care (01) ==
PROVIDERS: Emergency Provider Emergency Medicine; PCP Internal Medicine
DX: R51.9 Headache, unspecified (principal); Z79.899 Other long term (current) drug therapy
CPT/HCPCS: 99283

== ENCOUNTER 2024-07-15 12:13 | Emergency (ER) | payer OTHER, SELFPAY ==
--- NOTE | ~2024-07-15 | US_ITS ---
EXAMINATION: US TRIPLEX LOWER EXTREMITY, RIGHT CLINICAL INFORMATION: Calf pain COMPARISON: None available. TECHNIQUE: Color-flow triplex imaging with spectral analysis and compression Doppler were performed on the right lower extremity. FINDINGS: Respiratory variation, normal compression and augmented flow are noted throughout the right lower extremity. The visualized common femoral vein, superficial femoral vein, profunda femoral vein, popliteal vein and midcalf peroneal and posterior tibial venous segments show no evidence of deep venous thrombosis. There is no Castillo's cyst. US/US venous duplex LE RT IMPRESSION: No evidence of deep venous thrombosis involving the right lower extremity. Electronically signed by: John Sebastian MD 07/15/2024 01:54 PM EST
--- NOTE | ~2024-07-15 | XR_ITS ---
EXAMINATION: Right foot and lumbar spine. CLINICAL INDICATION: Toe pain. COMPARISON: None. TECHNIQUE: A views right foot and 3 views lumbar spine. FINDINGS: Right foot: Visualized bones and joints are normal. No bony erosive changes. Fracture, dislocation or soft tissue swelling. A moderate size calcaneal heel and a small retrocalcaneal spurs are seen. Ankle mortise and subtalar joints are normal. Lumbar spine: There is normal lumbar lordosis. The vertebral heights and alignment is normal. There is loss of all disc heights with moderate ventral spondylosis at L3-4, L4-5 and L5-S1 disc levels. No visible acute fracture, dislocation or subluxation seen. XR/XR lumbar spine 2-3V IMPRESSION: 1. Moderate size calcaneal heel and small retrocalcaneal spurs. No visible acute fracture or dislocation seen. 2. Degenerative disc changes L4-5 and L5-S1 disc levels with moderate ventral spondylosis L3-4, L4-5 and L5-S1 disc levels. No visible acute fracture, dislocation or subluxation seen. Electronically signed by: Phillip Mendez MD 07/15/2024 01:08 PM [facility]
--- NOTE | ~2024-07-15 | MR_ITS ---
EXAMINATION: MR LUMBAR SPINE WITHOUT AND WITH CONTRAST CLINICAL INFORMATION: Elevated ESR, evaluate for abscess COMPARISON: None available. TECHNIQUE: MRI of the lumbar spine was obtained using routine sequences with and without contrast. Intravenous contrast: Gadavist 10 mL mL FINDINGS: Alignment is maintained. Vertebral body heights are preserved. Bone marrow is unremarkable in signal aside from a Schmorl's node along the inferior endplate of L1.. The conus medullaris is normal in signal and terminates at the L1 level. Prevertebral and paraspinal soft tissues are unremarkable. SIGNIFICANT FINDINGS BY LEVEL: T12-L1: No disc bulge or herniation. No significant spinal canal or foraminal stenosis. L1-L2: Mild disc bulge. No significant spinal canal or foraminal stenosis. L2-L3: No disc bulge or herniation. No significant spinal canal or foraminal stenosis. L3-L4: Broad-based disc bulge resulting in mild spinal canal stenosis and mild bilateral foraminal stenosis. L4-L5: Broad-based disc bulge and ligamentum hypertrophy resulting in mild-moderate canal stenosis, moderate right foraminal stenosis and severe left foraminal stenosis. L5-S1: Broad-based disc bulge and mild right facet arthropathy resulting in severe bilateral foraminal stenosis. MR/MR lumbar spine wo/w con IMPRESSION: Unremarkable MRI of the lumbar spine. IMPRESSION: 1. No evidence of abscess or infection. 2. Multilevel degenerative disease of the lumbar spine, most prominent at L4-L5 and L5-S1 where there is severe left foraminal stenosis at L4-L5 and severe bilateral foraminal stenosis at L5-S1. Electronically signed by: Sabine Gandhi MD 07/15/2024 05:16 PM [facility] [place]
--- NOTE | ~2024-07-15 | XR_ITS ---
EXAMINATION: Right foot and lumbar spine. CLINICAL INDICATION: Toe pain. COMPARISON: None. TECHNIQUE: A views right foot and 3 views lumbar spine. FINDINGS: Right foot: Visualized bones and joints are normal. No bony erosive changes. Fracture, dislocation or soft tissue swelling. A moderate size calcaneal heel and a small retrocalcaneal spurs are seen. Ankle mortise and subtalar joints are normal. Lumbar spine: There is normal lumbar lordosis. The vertebral heights and alignment is normal. There is loss of all disc heights with moderate ventral spondylosis at L3-4, L4-5 and L5-S1 disc levels. No visible acute fracture, dislocation or subluxation seen. XR/XR foot RT min 3V IMPRESSION: 1. Moderate size calcaneal heel and small retrocalcaneal spurs. No visible acute fracture or dislocation seen. 2. Degenerative disc changes L4-5 and L5-S1 disc levels with moderate ventral spondylosis L3-4, L4-5 and L5-S1 disc levels. No visible acute fracture, dislocation or subluxation seen. Electronically signed by: Phillip Mendez MD 07/15/2024 01:08 PM [facility]
[2024-07-15 12:18] VITALS: BP 151/102; PULSE 111; RESP 18; TEMP 36.7; O2SAT 98; BMI 40.0
--- NOTE | 2024-07-15 12:18 | ED.GENADULT ---
HPI - General Adult General Chief complaint: Back Pain/Injury Stated complaint: back pain, toe pain Time Seen by Provider: 07/15/24 13:46 Source: patient Mode of arrival: ambulatory Limitations: no limitations History of Present Illness ED Provider: Meliton Monae HPI narrative: 49-year-old female history of HIV, lumbar radiculopathy, vitamin B1 deficiency presents to the ED for back pain radiating down right leg with right foot numbness for about 1 week. Patient states secondary complaint also 2nd toe pain without any trauma thinks she is having another gout exacerbation. Patient denies any fever, chills, or night sweats. Related Data Home Medications ?Medication ?Instructions ?Recorded ?Confirmed abacavir 600 mg-dolutegravir 50 1 tab PO DAILY 10/15/21 04/25/24 mg-lamivudine 300 mg tablet (Triumeq) albuterol sulfate 2.5 mg/3 mL 2.5 mg inhalation Q6H PRN sob 10/15/21 04/25/24 (0.083 %) solution for nebulization azelastine 205.5 mcg (0.15 %) 1 spray intranasal DAILY 10/15/21 04/25/24 nasal spray bupropion HCl 150 mg 24 hr tablet, 1 tab PO BEDTIME 10/15/21 04/25/24 extended release calcium carbonate 500 mg-vitamin 1 tab PO DAILY 10/15/21 04/25/24 D3 3.125 mcg (125 unit) tablet cromolyn 4 % eye drops 1 drp ophthalmic-Left QID PRN 10/15/21 04/25/24 itchy eyes cyproheptadine 4 mg tablet 4 mg PO Q8H PRN Allergy Symptoms 10/15/21 04/25/24 docusate sodium 100 mg capsule 1 cap PO BID 10/15/21 04/25/24 fluticasone propionate 220 2 puff inhalation BID 10/15/21 04/25/24 mcg/actuation HFA aerosol inhaler (Flovent HFA) fluticasone propionate 50 2 spray intranasal DAILY 10/15/21 04/25/24 mcg/actuation nasal spray,suspension ketotifen fumarate 0.025 % (0.035 1 drp ophthalmic (eye) BID PRN 10/15/21 04/25/24 %) eye drops itchy eyes levocetirizine 5 mg tablet 1 tab PO BEDTIME 10/15/21 04/25/24 linaclotide 145 mcg capsule 1 cap PO DAILY 10/15/21 04/25/24 (Linzess) meclizine 25 mg tablet 25 mg PO TID PRN Vertigo 10/15/21 04/25/24 melatonin 10 mg tablet 1 tab PO BEDTIME 10/15/21 04/25/24 montelukast 10 mg tablet 1 tab PO DAILY 10/15/21 04/25/24 multivitamin 1 tab PO DAILY 10/15/21 04/25/24 duloxetine 60 mg capsule,delayed 60 mg PO QAM 07/05/22 04/25/24 release escitalopram oxalate 20 mg tablet 20 mg PO DAILY 07/05/22 04/25/24 hydroxyzine HCl 50 mg tablet 50 mg PO BEDTIME 07/05/22 04/25/24 quetiapine 100 mg tablet 100 mg PO BEDTIME 07/05/22 04/25/24 evening primrose oil 500 mg capsule 500 mg PO DAILY 11/29/22 04/25/24 glucomannan 500 mg capsule 1,800 mg PO DAILY 11/29/22 04/25/24 cyclobenzaprine 5 mg tablet 25 mg PO NEEDED PRN Agitation 12/14/22 04/25/24 metformin 500 mg tablet 500 mg PO DAILY 01/12/24 04/25/24 Previous Rx's ?Medication ?Instructions ?Recorded clonidine HCl 0.1 mg tablet 0.1 mg PO BEDTIME #30 tabs 10/17/21 betamethasone dipropionate 0.05 % 1 appl topical BID PRN skin 01/06/22 topical cream irritation #45 grams cholecalciferol (vitamin D3) 25 25 mcg PO DAILY #90 caps 08/09/22 mcg (1,000 unit) capsule lisinopril 20 mg tablet 20 mg PO DAILY #30 tabs 03/02/23 pantoprazole 40 mg tablet,delayed 40 mg PO BID #180 tabs 10/18/23 release sucralfate 100 mg/mL oral 10 ml PO BID #414 mL 10/18/23 suspension cephalexin 500 mg capsule 500 mg PO QID 7 days #28 caps 07/15/24 dexamethasone 6 mg tablet 6 mg PO DAILY 5 days #5 tabs 07/15/24 ketorolac 10 mg tablet 10 mg PO Q6H PRN pain 5 days #20 07/15/24 tabs colchicine 0.6 mg capsule 0.6 mg PO BID 3 days #6 caps 07/16/24 Allergies Allergy/AdvReac Type Severity Reaction Status Date / Time prednisone [PREDNISONE] Allergy Severe DIFFICULTY Verified 07/15/24 12:21 BREATHING, anaphylaxis eggs Allergy Intermediate Hives Uncoded 07/14/23 11:36 Review of Systems Review of Systems: back pain radating down right leg with right foot nubmness. right big toe pain Yes all other systems are reviewed and are negative [facility] Past Medical History Medical History Allergic reaction caused by a drug Anxiety Arthritis Asthma BMI 39.0-39.9,adult Body mass index (BMI) of 40.1 to 44.9 in adult Constipation Depression HIV (human immunodeficiency virus infection) HTN (hypertension) Insomnia Low back pain Morbid obesity Preoperative examination Sciatica Seasonal allergies Shortness of breath Sleep apnea Vertigo Vitamin B1 deficiency Surgical History History of appendectomy History of elbow surgery History of sleeve gastrectomy Family History Family History Mother Hyperlipidemia Hypertension Arthritis Sciatica Diabetes Father No problems noted. Brother Hypertension Social History Social History Household Members: None Housing: Apartment Are you a primary rn intensive care unit to a significant other at home: No Do you presently have visiting nurse or other home services: Yes (HELP WITH HOUSEWORK ONCE A WEEK) Alcohol intake: never Patient Tobacco Use Status: Former Tobacco user Tobacco use type: Cigarette Smoked in Last 30 Days: Yes e-Cigarette/Vaping Use: Never Used Second Hand Smoke Exposure: No Use of substances other than those prescribed or required for medical reasons: No Advance Directives: No Advance Directives Information Provided: Yes Do you have a plan to hurt others: No Plan service: No Current occupational status: unemployed Physical Exam ED Vital Signs: Vital Signs - 24 hr 07/15/24 12:18 07/15/24 14:15 07/15/24 16:00 Temperature 98.1 F 98.1 F Pulse Rate 111 H 95 78 Respiratory Rate 18 16 19 Blood Pressure 151/102 H 133/94 H 164/83 H Pulse Oximetry 98 99 98 Oxygen Delivery Method Room Air Room Air 07/15/24 18:44 07/15/24 18:59 Temperature 98.6 F 98.6 F Pulse Rate 95 95 Respiratory Rate 16 16 Blood Pressure 119/69 119/69 Pulse Oximetry 97 97 Oxygen Delivery Method Room Air Room Air BMI result Body Mass Index 40.0 Const General: cooperative, healthy appearing, comfortable, no acute distress, well developed, alert and awake Orientation/consciousness: patient oriented x3 HENMT Head: Yes normal to inspection, Yes No palpable skull fracture present, Yes normocephalic and Yes atraumatic Throat: Yes posterior oropharynx normal, Yes tonsils normal and Yes uvula midline Eyes General: appearance normal, both eyes and all related structures Neck Neck: Yes normal visual inspection, Yes full ROM, Yes no lymphadenopathy, Yes no meningeal signs, Yes trachea midline, Yes supple, No anterior neck swelling and No tender Chest Chest palpation & inspection: normal inspection of the chest and normal palpation of entire chest wall Resp Effort & Inspection: normal respiratory effort and able to speak in complete sentences Auscultation: clear to auscultation bilaterally Cardio Jugular venous distension: no JVD Heart sounds: S1 normal heart sound present and S2 normal heart sound present GI Inspection: Yes normal to inspection Palpation (GI): Soft to palpation, not firm, nontender, no guarding and not rigid General: No no CVA tenderness Back/Spine/Pelvis Back: No no CVA tenderness and back tenderness (Positive for lumbar spine tenderness on palpation) Skin General skin exam: no rashes or lesions noted, elasticity normal and turgor normal Neuro General: patient oriented x3, gait normal, tone normal, moves all extremities, Normal light touch and pain sensation, no meningeal signs, no focal motor deficits, CN's II-XI intact bilaterally and normal sensation to monofilament Extrem General: Yes normal to inspection, Yes full ROM and Yes capillary refill normal Ankle/foot/toe images: 1. Mild redness with tenderness. Negative for bluish black discoloration. Negative for ulcers or pus discharge. Negative for deformity. Rest of extremity normal. Motor/ neuro/ vascular exam intact Psych Appearance: grossly normal, well kempt and not disheveled Course Course Course Narrative: This is an RME: Additional HPI, ROS, PE not included below will be deferred to primary provider. RME assessment and note performed by: Hermila Regalado PA-C This is a [id number], with a hx of HIV, HTN, and asthma, who presents to the ER with complaints of low back pain x 1 week. Pt states that the back pain radiates down into her right leg. Also reporting right second toe pain. She is also reporting some right calf pain. Plan: Labs, ultrasound, x-ray, further ER evaluation needed. Medications Administered Discontinued Medications Generic Name Dose Route Start Last Admin Trade Name Ritchie PRN Reason Stop Dose Admin Dexamethasone Sodium Phosphate 10 mg 07/15/24 17:45 07/15/24 17:51 Dexamethasone Sod Phosphate 10 Mg/Ml Vial IVPUSH 07/15/24 17:46 10 mg ONCE ONE Administration Gadobutrol 10 ml 07/15/24 16:35 07/15/24 16:36 Gadobutrol 10 Ml Vial IVPUSH 07/15/24 16:36 10 ml ONCE ONE Administration Ketorolac Tromethamine 30 mg 07/15/24 15:38 07/15/24 15:58 Ketorolac Tromethamine 30 Mg/Ml Vial IVPUSH 07/15/24 15:39 30 mg ONCE ONE Administration Lorazepam 2 mg 07/15/24 15:52 07/15/24 15:59 Lorazepam 2 Mg/Ml Vial IVPUSH 07/15/24 15:53 2 mg ONCE ONE Administration Medical Decision Making Medical Decision Making MDM Narrative: 49-year-old female presents to ED for back pain radiating down right foot with right foot numbness for past week. Patient denies any urinary/bowel incontinence. Secondary complaint right 2nd toe pain. Patient has history of gout. X-ray negative osteomyelitis, but does show significant calcaneal spur and arthritis. Lumbar spine x-ray shows significant lumbar radiculopathy. Ultrasound negative blood clot. Due to patient's past medical history of HIV and positive ESR was sent for MRI lumbar spine to rule out epidural abscess cauda equinus. Patient has normal gait. Mild exacerbation most likely gout instead of osteomyelitis. No elevated white blood cell count. CRP normal. 5:42pm: patient is MRI came back negative for epidural abscess or cauda equinus syndrome. Does show severe disc bulging with lumbar radiculopathy and foraminal stenosis. Pending UA. Patient showed me a list of medication she received in [place] for pain that helped with her pain Toradol and Decadron. Patient just can't take prednisone. Be given information to follow-up with spine surgeon of only . we will give gout medication 6:35pm: UA negative for UTI. Patient will be discharged with pain medication. not suspecting osteomyelitis of the spine or foot/toes. Differential Diagnosis Differential Diagnoses: The differential diagnosis associated with the presentation includes ( gout, kidney stone, UTI, epidural abscess, cauda equinus syndrome,) Admission/Observation Consideration of admission/observation: Escalation of care including admission/observation considered Lab Data MDM Lab Attestation statement: I reviewed the patient's lab results. 07/15/24 12:29 07/15/24 12:29 Labs: Lab Results 07/15/24 07/15/24 Range/Units 12:29 17:53 WBC 9.4 (4.8-10.8) X10*3/uL RBC 4.36 (4.20-5.50) X10*6/uL Hgb 13.3 (12.0-16.0) g/dl Hct 39.4 (37.0-47.0) % MCV 90.4 (80.0-98.0) fL MCH 30.5 (27.0-33.0) pg MCHC 33.8 (31.0-35.0) g/dl RDW 12.7 (11.0-16.0) % Plt Count 355 (160-400) X10*3/uL MPV 9.6 (9.4-12.3) fL Immature Gran % (Auto) 0.2 (0.0-0.4) % Neut % (Auto) 62.9 (45-73) % Lymph % (Auto) 28.7 (20-40) % [place] % (Auto) 6.8 (2-11) % Eos % (Auto) 1.1 (0-4) % Baso % (Auto) 0.3 (0-2) % Lymph # (Auto) 2.7 (1.2-4.9) X10*3/uL [place] # (Auto) 0.6 (0.1-1.2) X10*3/uL Eos # (Auto) 0.1 (0.0-0.4) X10*3/uL Baso # (Auto) 0.0 (0.0-0.2) X10*3/uL Abs Immat Gran (auto) 0.02 (0.00-0.03) X10*3/uL Absolute Neuts (auto) 5.9 (2.0-8.3) x10*3/uL Absolute Nucleated RBC 0.000 (0.0-0.012) X10*3/uL Nucleated RBC % (auto) 0.0 (0.0-0.2) /100WBC ESR 29 H (0-20) MM/HR Sodium 141 (135-145) mmol/L Potassium 3.5 (3.3-5.1) mmol/L Chloride 107 (96-108) mmol/L Carbon Dioxide 23 (22-29) mmol/L Anion Gap 15 (12-20) BUN 8 L (9-16) mg/dL Creatinine 0.94 (0.5-1.4) mg/dL Estim Creat Clear Calc 89.9 Estimated GFR > 60 Random Glucose 161 H (60-115) mg/dL Uric Acid 8.1 H (2.4-5.7) mg/dL Calcium 9.4 (8.4-10.2) mg/dL Total Bilirubin 0.4 (0.0-1.0) mg/dL Direct Bilirubin 0.1 (0.0-0.5) mg/dL AST 47 H (5-31) U/L ALT 53 H (0-31) U/L Alkaline Phosphatase 76 (39-117) U/L C-Reactive Protein 0.32 (< or = 0.50) mg/dL Total Protein 7.8 (6.5-8.0) g/dL Albumin 3.9 (3.5-5.0) g/dL Beta HCG, Quant < 2 mIU/mL Urine Color Yellow Urine Appearance Cloudy Urine pH 5.5 (5.0-9.0) Ur Specific [place] >= 1.030 H (1.005-1.025) Urine Protein 30 (1+) H (Neg-Trace) mg/dL Urine Glucose (UA) Negative (Negative) mg/dL Urine Ketones Trace (Negative) mg/dL Urine Blood Negative (Negative) Urine Nitrite Negative (Negative) Ur Leukocyte Esterase Negative (Negative) Urine RBC 0-2 (0-2) /HPF Urine WBC 0-5 (0-5) /HPF Ur Squamous Epith Cells 11-20 (0-2) /HPF Urine Bacteria 4+ (None Seen) Hyaline Casts 0-2 (0-2) /LPF Independent Interpretation I performed an independent interpretation of an: Ultrasound and CT Scan Interpretation: MRI Radiology Impression Discussion of test interpretation with radiology: I have reviewed the radiologist's reading. Independent Historian Clinical information obtained from an independent historian. History obtained from or confirmed by: Other (patient) External Record Review External record reviewed: Other (prior visits) Prescription Management I considered prescription management with: Pain Medication Discharge Plan Discharge Clinical Impression: Gout, Lumbar radiculopathy, Heel spur Patient Disposition: Home, Self-Care Instructions: Low Purine Diet (ED), Gout (ED), Lumbar Radiculopathy (ED) Additional Instructions: Recommend follow-up with spinal surgeon and primary care provider. Return to the ED for any lower extremity swelling, redness, red streaks, fever, chills, chest pain, shortness of breath, urinary/ bowel incontinence, severe back pain, fever, chills, chest pain, shortness of breath, coughing up blood, or any other concerning symptoms. Toe exacerbation most likely due to gout, but will discharge antibiotics For possible mild skin infection. IMPRESSION: 1. No evidence of abscess or infection. 2. Multilevel degenerative disease of the lumbar spine, most prominent at L4-L5 and L5-S1 where there is severe left foraminal stenosis at L4-L5 and severe bilateral foraminal stenosis at L5-S1. Electronically signed by: Sabine Gandhi MD 07/15/2024 05:16 PM EST RP US/US venous duplex LE RT IMPRESSION: No evidence of deep venous thrombosis involving the right lower extremity. Electronically signed by: John Sebastian MD 07/15/2024 01:54 PM EST RP XR/XR foot RT min 3V IMPRESSION: 1. Moderate size calcaneal heel and small retrocalcaneal spurs. No visible acute fracture or dislocation seen. 2. Degenerative disc changes L4-5 and L5-S1 disc levels with moderate ventral spondylosis L3-4, L4-5 and L5-S1 disc levels. No visible acute fracture, dislocation or subluxation seen. Electronically signed by: Phillip Mendez MD 07/15/2024 01:08 PM [facility] [place] Prescriptions: New ketorolac 10 mg tablet 10 mg PO Q6H PRN (Reason: pain) 5 Days Qty: 20 0RF Rx Instructions: Patient received 30 mg IM Toradol in the ED dexamethasone 6 mg tablet 6 mg PO DAILY 5 Days Qty: 5 0RF cephalexin 500 mg capsule 500 mg PO QID 7 Days Qty: 28 0RF colchicine 0.6 mg capsule 0.6 mg PO BID 3 Days Qty: 6 0RF No Action cholecalciferol (vitamin D3) 25 mcg (1,000 unit) capsule 25 mcg PO DAILY Qty: 90 3RF sucralfate 100 mg/mL suspension 10 ml PO BID Qty: 414 3RF docusate sodium 100 mg capsule 1 cap PO BID montelukast 10 mg tablet 1 tab PO DAILY bupropion HCl 150 mg tablet extended release 24 hr 1 tab PO BEDTIME levocetirizine 5 mg tablet 1 tab PO BEDTIME melatonin 10 mg tablet 1 tab PO BEDTIME Linzess 145 mcg capsule 1 cap PO DAILY Triumeq 600-50-300 mg tablet 1 tab PO DAILY multivitamin Tablet 1 tab PO DAILY albuterol sulfate 2.5 mg /3 mL (0.083 %) Solution For Nebulization 2.5 mg INHALATION Q6H PRN (Reason: sob) ketotifen fumarate 0.025 % (0.035 %) Drops 1 drp OPHTHALMIC (EYE) BID PRN (Reason: itchy eyes) Rx Instructions: administer at least 8 hours apart cromolyn 4 % Drops 1 drp OPHTHALMIC-LEFT QID PRN (Reason: itchy eyes) cyproheptadine 4 mg Tablet 4 mg PO Q8H PRN (Reason: Allergy Symptoms) meclizine 25 mg Tablet 25 mg PO TID PRN (Reason: Vertigo) fluticasone propionate [Flovent HFA] 220 mcg/actuation HFA aerosol inhaler 2 puff inhalation BID fluticasone propionate 50 mcg/actuation [place],Suspension 2 spray INTRANASAL DAILY Rx Instructions: administer into each nostril calcium carbonate-vitamin D3 500 mg-3.125 mcg (125 unit) Tablet 1 tab PO DAILY azelastine 205.5 mcg (0.15 %) [place],Non-Aerosol 1 spray INTRANASAL DAILY Rx Instructions: administer into each nostril clonidine HCl 0.1 mg tablet 0.1 mg PO BEDTIME Qty: 30 0RF lisinopril 20 mg tablet 20 mg PO DAILY Qty: 30 0RF cyclobenzaprine 5 mg tablet 25 mg PO NEEDED PRN (Reason: Agitation) betamethasone dipropionate 0.05 % cream 1 appl topical BID PRN (Reason: skin irritation) Qty: 45 2RF Rx Instructions: [place], try on a small area of your skin first to see if you develop an allergic reaction. If not, apply to rash. escitalopram oxalate 20 mg tablet 20 mg PO DAILY duloxetine 60 mg capsule,delayed release(DR/EC) 60 mg PO QAM quetiapine 100 mg tablet 100 mg PO BEDTIME hydroxyzine HCl 50 mg tablet 50 mg PO BEDTIME glucomannan 500 mg capsule 1,800 mg PO DAILY evening primrose oil 500 mg capsule 500 mg PO DAILY Rx Instructions: give with meal/snack pantoprazole 40 mg tablet,delayed release (DR/EC) 40 mg PO BID Qty: 180 3RF metformin 500 mg tablet 500 mg PO DAILY Referrals: Boo Levy MD, PhD [Physician] - ( severe lumbar radiculopathy.) Interventions: ED Discharge Assessment Last Done: 07/15/24 18:59 Discharge Date/Time: 07/15/24 18:59 Print Language: Algerian
[2024-07-15 12:33] LABS: MANUAL DIFF FLAG NO
[2024-07-15 12:35] LABS: Basophils Percent Auto 0.3 % (0-2); Eosinophils Absolute Auto 0.1 X10*3/uL (0.0-0.4); Eosinophils Percent Auto 1.1 % (0-4); Hematocrit 39.4 % (37.0-47.0); Hemoglobin 13.3 g/dl (12.0-16.0); Imm Gran Abs Auto 0.02 X10*3/uL (0.00-0.03); Imm Gran Pct Auto 0.2 % (0.0-0.4); Lymphocytes Absolute Auto 2.7 X10*3/uL (1.2-4.9); Lymphocytes Percent Auto 28.7 % (20-40); Mean Corpuscular HGB Conc 33.8 g/dl (31.0-35.0); Mean Corpuscular Hemoglobin 30.5 pg (27.0-33.0); Mean Corpuscular Volume 90.4 fL (80.0-98.0); Mean Platelet Volume 9.6 fL (9.4-12.3); Monocytes Absolute Auto 0.6 X10*3/uL (0.1-1.2); Monocytes Percent Auto 6.8 % (2-11); Neutrophils Absolute Auto 5.9 x10*3/uL (2.0-8.3); Neutrophils Percent Auto 62.9 % (45-73); Platelet Count 355 X10*3/uL (160-400); Red Blood Count 4.36 X10*6/uL (4.20-5.50); Red Cell Distribution Width 12.7 % (11.0-16.0); White Blood Count 9.4 X10*3/uL (4.8-10.8)
[2024-07-15 12:48] LABS: Alanine Aminotransferase 53 U/L (0-31); Albumin Level 3.9 g/dL (3.5-5.0); Alkaline Phosphatase 76 U/L (39-117); Anion Gap 15 (12-20); Aspartate Amino Transferase 47 U/L (5-31); Bilirubin Direct 0.1 mg/dL (0.0-0.5); Bilirubin Total 0.4 mg/dL (0.0-1.0); Blood Urea Nitrogen 8 mg/dL (9-16); C Reactive Protein 0.32 mg/dL (< or = 0.50); Calcium 9.4 mg/dL (8.4-10.2); Carbon Dioxide 23 mmol/L (22-29); Chloride 107 mmol/L (96-108); Creatinine Clr Calc Pharmacy 89.9; Estimated Glomerular Filt Rate > 60; Glucose Random 161 mg/dL (60-115); Potassium 3.5 mmol/L (3.3-5.1); Sodium 141 mmol/L (135-145); Total Protein 7.8 g/dL (6.5-8.0); Uric Acid 8.1 mg/dL (2.4-5.7)
[2024-07-15 13:21] LABS: Erythrocyte Sedimentation Rate 29 MM/HR (0-20)
[2024-07-15 14:15] VITALS: BP 133/94; PULSE 95; RESP 16; TEMP 36.7; O2SAT 99
[2024-07-15] MEDS: Ketorolac Tromethamine 30 MG/ML VIAL IVPUSH (15:58)
[2024-07-15] MEDS: LORazepam 2 MG/ML VIAL IVPUSH (15:59)
[2024-07-15 16:00] VITALS: BP 164/83; PULSE 78; RESP 19; O2SAT 98
[2024-07-15 16:12] LABS: HCG Quantitative < 2 mIU/mL
[2024-07-15] MEDS: gadobutroL 10 ML VIAL IVPUSH (16:36)
[2024-07-15] MEDS: dexAMETHasone sod phosphate 10 MG/ML VIAL IVPUSH (17:51)
[2024-07-15 18:00] LABS: Appearance Urine Cloudy; Color Urine Yellow; Glucose Urine UA Negative (Negative); Leukocyte Esterase Urine Negative (Negative); Nitrite Urine Negative (Negative); PH 5.5 (5.0-9.0); Specific Gravity - Urine >= 1.030 (1.005-1.025); UMIC TRIGGER UACC YES; Urine Blood Negative (Negative); Urine Ketones Trace mg/dL (Negative); Urine Protein 30 (1+) mg/dL (Neg-Trace)
[2024-07-15 18:27] LABS: Bacteria Urine 4+ (None Seen); Hyaline Casts Urine 0-2 /LPF (0-2); WBC Urine 0-5 /HPF (0-5)
[2024-07-15 18:44] VITALS: BP 119/69; PULSE 95; RESP 16; TEMP 37; O2SAT 97
[2024-07-15 18:49] LABS: RBC Urine 0-2 /HPF (0-2)
[2024-07-15 18:59] VITALS: BP 119/69; PULSE 95; RESP 16; TEMP 37; O2SAT 97
== END 2024-07-15 18:59 | disposition home or self-care (01) ==
PROVIDERS: Physician Assistant; Physician Assistant Medical; Emergency Provider Emergency Medicine Emergency Medical Services
DX: M54.50 Low back pain, unspecified (principal); M79.604 Pain in right leg; R20.0 Anesthesia of skin; R10.2 Pelvic and perineal pain; R60.0 Localized edema; Z79.899 Other long term (current) drug therapy
CPT/HCPCS: 36415; 72100; 72158; 73630; 80048; 80076; 81001; 84550; 84702; 85025; 85652; 86140; 93971; 96374; 96375; 99284; A9585; J1100; J1885; J2060

== ENCOUNTER 2024-08-14 13:04 | Emergency (ER) | payer OTHER, SELFPAY ==
--- NOTE | ~2024-08-14 | XR_ITS ---
EXAMINATION: Bilateral foot series CLINICAL INFORMATION: Pain infection COMPARISON: X-ray of the right foot 07/15/2024 TECHNIQUE: Views of the right foot and 3 views of the left foot FINDINGS: Right foot: There is a moderate-sized plantar calcaneal spur unchanged. The bones joints and soft tissues otherwise normal. Left foot: Small plantar calcaneal spur. The bones joints and soft tissues otherwise normal. XR/XR foot LT min 3V IMPRESSION: RIGHT FOOT: Calcaneal spur. LEFT FOOT: calcaneal spur. Electronically signed by: Mark Trejo MD 08/14/2024 03:17 PM [facility]
--- NOTE | ~2024-08-14 | XR_ITS ---
EXAMINATION: Bilateral foot series CLINICAL INFORMATION: Pain infection COMPARISON: X-ray of the right foot 07/15/2024 TECHNIQUE: Views of the right foot and 3 views of the left foot FINDINGS: Right foot: There is a moderate-sized plantar calcaneal spur unchanged. The bones joints and soft tissues otherwise normal. Left foot: Small plantar calcaneal spur. The bones joints and soft tissues otherwise normal. XR/XR foot RT min 3V IMPRESSION: RIGHT FOOT: Calcaneal spur. LEFT FOOT: calcaneal spur. Electronically signed by: Mark Trejo MD 08/14/2024 03:17 PM [facility]
[2024-08-14 13:48] VITALS: BP 152/108; PULSE 100; RESP 18; O2SAT 100; BMI 39.9
--- NOTE | 2024-08-14 14:32 | ED_ITS ---
HPI - Extremity Injury (Lower) General Chief Complaint: Extremity Injury, Lower Stated Complaint: PT STS GOUT ATTACK,MILLY FOOT SWELLING PER EMS Time Seen by Provider: 08/14/24 14:49 Source: patient Mode of arrival: ambulatory Limitations: no limitations History of Present Illness ED Provider: Nichole HPI Narrative: Patient is a 49-year-old female with history of obesity, status post gastrectomy presenting to the emergency department with complaint of bilateral foot pain and swelling for the past week. Reports pain is worst to right great toe with associated erythema. She denies fevers, chills, body aches. Denies recent injury or trauma. Symptoms not improving with Tylenol. Onset (ago): week(s) Injury: Right: toes (great toe) and Bilateral: foot Relieving factors: nothing Related Data Home Medications ?Medication ?Instructions ?Recorded ?Confirmed abacavir 600 mg-dolutegravir 50 1 tab PO DAILY 10/15/21 04/25/24 mg-lamivudine 300 mg tablet (Triumeq) albuterol sulfate 2.5 mg/3 mL 2.5 mg inhalation Q6H PRN sob 10/15/21 04/25/24 (0.083 %) solution for nebulization azelastine 205.5 mcg (0.15 %) 1 spray intranasal DAILY 10/15/21 04/25/24 nasal spray bupropion HCl 150 mg 24 hr tablet, 1 tab PO BEDTIME 10/15/21 04/25/24 extended release calcium 500 mg (as 1 tab PO DAILY 10/15/21 04/25/24 carbonate)-vitamin D3 3.125 mcg (125 unit) tablet cromolyn 4 % eye drops 1 drp ophthalmic-Left QID PRN 10/15/21 04/25/24 itchy eyes cyproheptadine 4 mg tablet 4 mg PO Q8H PRN Allergy Symptoms 10/15/21 04/25/24 docusate sodium 100 mg capsule 1 cap PO BID 10/15/21 04/25/24 fluticasone propionate 220 2 puff inhalation BID 10/15/21 04/25/24 mcg/actuation HFA aerosol inhaler (Flovent HFA) fluticasone propionate 50 2 spray intranasal DAILY 10/15/21 04/25/24 mcg/actuation nasal spray,suspension ketotifen fumarate 0.025 % (0.035 1 drp ophthalmic (eye) BID PRN 10/15/21 04/25/24 %) eye drops itchy eyes levocetirizine 5 mg tablet 1 tab PO BEDTIME 10/15/21 04/25/24 linaclotide 145 mcg capsule 1 cap PO DAILY 10/15/21 04/25/24 (Linzess) meclizine 25 mg tablet 25 mg PO TID PRN Vertigo 10/15/21 04/25/24 melatonin 10 mg tablet 1 tab PO BEDTIME 10/15/21 04/25/24 montelukast 10 mg tablet 1 tab PO DAILY 10/15/21 04/25/24 multivitamin 1 tab PO DAILY 10/15/21 04/25/24 duloxetine 60 mg capsule,delayed 60 mg PO QAM 07/05/22 04/25/24 release escitalopram oxalate 20 mg tablet 20 mg PO DAILY 07/05/22 04/25/24 hydroxyzine HCl 50 mg tablet 50 mg PO BEDTIME 07/05/22 04/25/24 quetiapine 100 mg tablet 100 mg PO BEDTIME 07/05/22 04/25/24 evening primrose oil 500 mg capsule 500 mg PO DAILY 11/29/22 04/25/24 glucomannan 500 mg capsule 1,800 mg PO DAILY 11/29/22 04/25/24 cyclobenzaprine 5 mg tablet 25 mg PO NEEDED PRN Agitation 12/14/22 04/25/24 metformin 500 mg tablet 500 mg PO DAILY 01/12/24 04/25/24 Previous Rx's ?Medication ?Instructions ?Recorded clonidine HCl 0.1 mg tablet 0.1 mg PO BEDTIME #30 tabs 10/17/21 betamethasone dipropionate 0.05 % 1 appl topical BID PRN skin 01/06/22 topical cream irritation #45 grams cholecalciferol (vitamin D3) 25 25 mcg PO DAILY #90 caps 08/09/22 mcg (1,000 unit) capsule lisinopril 20 mg tablet 20 mg PO DAILY #30 tabs 03/02/23 pantoprazole 40 mg tablet,delayed 40 mg PO BID #180 tabs 10/18/23 release sucralfate 100 mg/mL oral 10 ml PO BID #414 mL 10/18/23 suspension cephalexin 500 mg capsule 500 mg PO QID 7 days #28 caps 07/15/24 dexamethasone 6 mg tablet 6 mg PO DAILY 5 days #5 tabs 07/15/24 ketorolac 10 mg tablet 10 mg PO Q6H PRN pain 5 days #20 07/15/24 tabs colchicine 0.6 mg capsule 0.6 mg PO BID 3 days #6 caps 07/16/24 morphine 15 mg immediate release 15 mg PO Q8H PRN severe pain 08/14/24 tablet (scale score 7-10) #20 tabs Allergies Allergy/AdvReac Type Severity Reaction Status Date / Time prednisone [PREDNISONE] Allergy Severe DIFFICULTY Verified 08/14/24 13:50 BREATHING, anaphylaxis eggs Allergy Intermediate Hives Uncoded 07/14/23 11:36 Review of Systems 2 Review of Systems: As per HPI Yes all other systems are reviewed and are negative Constitutional: Constitutional: Reports as per HPI PMFSH Past Medical History Medical History Allergic reaction caused by a drug Anxiety Arthritis Asthma BMI 39.0-39.9,adult Body mass index (BMI) of 40.1 to 44.9 in adult Constipation Depression HIV (human immunodeficiency virus infection) HTN (hypertension) Insomnia Low back pain Morbid obesity Preoperative examination Sciatica Seasonal allergies Shortness of breath Sleep apnea Vertigo Vitamin B1 deficiency Surgical History History of appendectomy History of elbow surgery History of sleeve gastrectomy Family History Family History Mother Hyperlipidemia Hypertension Arthritis Sciatica Diabetes Father No problems noted. Brother Hypertension Social History Social History Household Members: None Housing: Apartment Are you a primary care transition manager to a significant other at home: No Do you presently have visiting nurse or other home services: Yes (HELP WITH HOUSEWORK ONCE A WEEK) Alcohol intake: never Patient Tobacco Use Status: Former Tobacco user Tobacco use type: Cigarette e-Cigarette/Vaping Use: Never Used Second Hand Smoke Exposure: No Advance Directives: No Advance Directives Information Provided: Yes service: No Current occupational status: unemployed Physical Exam 2 Vital Signs: Vital Signs: Last Vital Signs Temp 98.1 F 08/14/24 15:12 Pulse 88 12/03/24 15:12 Resp 20 08/14/24 15:12 BP 128/88 08/14/24 15:12 Pulse Ox 99 08/14/24 15:12 O2 Del Method Room Air 08/14/24 15:12 BMI result Body Mass Index 39.9 Vital signs have been reviewed and appear to be correct. Blood pressure normal. Heart rate normal. Respiratory rate normal. Temperature normal. Oxygen saturation normal. Const: General: cooperative, healthy appearing and no acute distress O rientation/consciousness: oriented to person, oriented to place, oriented to time and patient oriented x3 Limitations: no limitations HEENT: Head: Yes normocephalic and Yes atraumatic Ears: external ears normal General nose exam: Normal external nose present Face and sinus: Yes face symmetric Mouth: oropharynx normal and moist mucous membranes T hroat: Yes uvula midline Eyes: Pupils: Equal, round and reactive pupils present Neck: Neck: Yes normal visual inspection and Yes supple Resp: Effort & Inspection: normal respiratory effort and able to speak in complete sentences Auscultation: clear to auscultation bilaterally Cardio: Rate: regular rate Rhythm: regular rhythm Heart sounds: S1 normal heart sound present and S2 normal heart sound present GI: Palpation (GI): Soft to palpation and nontender Auscultation: n ormoactive bowel sounds : General: Yes no CVA tenderness Back/Spine/Pelvis: Back: no CVA tenderness Skin: General skin exam: elasticity normal and turgor normal Neuro: General: oriented to person, oriented to place, oriented to time, patient oriented x3, moves all extremities, no focal motor deficits and CN's II- XI intact bilaterally Cranial nerves: Yes Equal, round and reactive pupils present Cognition (Neuro): normal cognition Extrem: General: Yes full ROM and Yes no calf tenderness Right lower extremity: foot Details: normal capillary refill, tenderness Location: of the great toe Location: along the entire digit, toes with normal ROM, warmth Location: of the great toe (and erythema) Location: along the entire digit and vascular exam Details: dorsalis pedis pulse present, posterior tibial pulse present and normal capillary refill Left lower extremity: foot (mild swelling, no pitting edema) Details: normal capillary refill, tenderness Location: of the dorsal foot, toes with normal ROM and vascular exam Details: dorsalis pedis pulse present, posterior tibial pulse present and normal capillary refill; no unusual warmth and no ecchymosis Psych: Mental Status: mental status grossly normal Affect: normal affect Thought process: Normal thought process present Course Course Course Narrative: This is a rapid medical exam performed by Vianey Brooks PA-C. The patient is a 49-year-old female with a history of gout, morbid obesity, who presents with bilateral foot pain since last week. Patient able to flex and extend from both ankles, the right great toe is erythematous and exquisitely painful to touch, unremarkable exam of the left foot. We will be screening basic labs, inflammatory markers and uric acid. Obtaining x-rays. The patient is hemodynamically stable and able to return to the waiting room pending her full medical assessment. Medical Decision Making Medical Decision Making [facility] Narrative: Patient is a 49-year-old female with history of obesity, status post gastrectomy presenting to the emergency department with complaint of bilateral foot pain and swelling for the past week. On exam patient is awake, A+Ox3, VS WNL, afebrile, normal neurological exam without focal deficits, physical exam findings as above. Given reported symptoms and physical exam findings, initial differential includes gout, dependent edema, fracture. Unlikely cellulitis. Labs notable for elevated ESR, CRP, uric acid, mild hypokalemia. Replacement potassium ordered. X-rays notable for bilateral calcaneal spurs. My interpretation is in agreement with the radiologist's interpretation. Discussed treatment options with patient, as she cannot have prednisone due to allergy, NSAIDs or colchicine due to gastric sleeve. Case discussed with Dr. Malave who recommends pain control with PO morphine for home. Will medicate with IM toradol in the ED, discharge home on PO morphine. Instructed patient to follow up with PCP to start on allopurinol once flare has resolved. Return precautions discussed. Patient verbalized understanding of and agreement with plan. Differential Diagnosis Differential Diagnoses: The differential diagnosis associated with the presentation includes As per [facility] Lab Data [facility] Lab Attestation statement: I reviewed the patient's lab results. As per [facility] 08/14/24 14:41 08/14/24 14:41 Labs: Lab Results 08/14/24 Range/Units 14:41 WBC 11.4 H (4.8-10.8) X10*3/uL RBC 4.62 (4.20-5.50) X10*6/uL Hgb 13.8 (12.0-16.0) g/dl Hct 41.7 (37.0-47.0) % MCV 90.3 (80.0-98.0) fL MCH 29.9 (27.0-33.0) pg MCHC 33.1 (31.0-35.0) g/dl RDW 12.9 (11.0-16.0) % Plt Count 415 H (160-400) X10*3/uL MPV 9.6 (9.4-12.3) fL Immature Gran % (Auto) 0.4 (0.0-0.4) % Neut % (Auto) 66.0 (45-73) % Lymph % (Auto) 21.3 (20-40) % Dickens % (Auto) 10.9 (2-11) % Eos % (Auto) 1.0 (0-4) % Baso % (Auto) 0.4 (0-2) % Lymph # (Auto) 2.4 (1.2-4.9) X10*3/uL Dickens # (Auto) 1.2 (0.1-1.2) X10*3/uL Eos # (Auto) 0.1 (0.0-0.4) X10*3/uL Baso # (Auto) 0.0 (0.0-0.2) X10*3/uL Abs Immat Gran (auto) 0.04 H (0.00-0.03) X10*3/uL Absolute Neuts (auto) 7.5 (2.0-8.3) x10*3/uL Absolute Nucleated RBC 0.000 (0.0-0.012) X10*3/uL Nucleated RBC % (auto) 0.0 (0.0-0.2) /100WBC ESR 42 H (0-20) MM/HR Sodium 142 (135-145) mmol/L Potassium 3.2 L (3.3-5.1) mmol/L Chloride 104 (96-108) mmol/L Carbon Dioxide 30 H (22-29) mmol/L Anion Gap 11 L (12-20) BUN 6 L (9-16) mg/dL Creatinine 0.89 (0.5-1.4) mg/dL Estim Creat Clear Calc 94.9 Estimated GFR > 60 Random Glucose 128 H (60-115) mg/dL Uric Acid 8.0 H (2.4-5.7) mg/dL Calcium 9.3 (8.4-10.2) mg/dL Magnesium 2.1 (1.6-2.6) mg/dL Total Bilirubin 0.3 (0.0-1.0) mg/dL AST 34 H (5-31) U/L ALT 32 H (0-31) U/L Alkaline Phosphatase 83 (39-117) U/L C-Reactive Protein 1.24 H (< or = 0.50) mg/dL Total Protein 7.9 (6.5-8.0) g/dL Albumin 3.9 (3.5-5.0) g/dL Independent Interpretation I performed an independent interpretation of an: Plain X-Ray Interpretation: Bilateral calcaneal spurs. Radiology Impression Discussion of test interpretation with radiology: I have reviewed the radiologist's reading. Radiologist Impression: XR/XR foot LT min 3V IMPRESSION: RIGHT FOOT: Calcaneal spur. LEFT FOOT: calcaneal spur. External Record Review External record reviewed: Inpatient record, Office record and Outpatient record Prescription Management I considered prescription management with: Pain Medication Discharge Plan Discharge Clinical Impression: Gout involving toe of right foot, Acute hypokalemia Patient Disposition: Home, Self-Care Instructions: Morphine, Rapid Release (By mouth), Low Purine Diet (ED), Potassium Content of Foods List (ED), Gout (ED), Hypokalemia (ED) Additional Instructions: You were evaluated in the emergency department today for foot pain and swelling. You are being treated for gout with a pain medication called morphine. DO not take this medication with alcohol or other pain medication as it can increase drowsiness. Follow-up with your primary care provider this week. They may want to start you on a medication called allopurinol once this acute flare has resolved to prevent future flare-ups. Return to the emergency department if you develop increasing redness, swelling, fever, or any other concerning symptoms. Prescriptions: New morphine 15 mg tablet 15 mg PO Q8H PRN (Reason: severe pain (scale score 7-10)) Qty: 20 0RF Rx Instructions: Partial Fill upon patient request. No Action cholecalciferol (vitamin D3) 25 mcg (1,000 unit) capsule 25 mcg PO DAILY Qty: 90 3RF sucralfate 100 mg/mL suspension 10 ml PO BID Qty: 414 3RF docusate sodium 100 mg capsule 1 cap PO BID montelukast 10 mg tablet 1 tab PO DAILY bupropion HCl 150 mg tablet extended release 24 hr 1 tab PO BEDTIME levocetirizine 5 mg tablet 1 tab PO BEDTIME melatonin 10 mg tablet 1 tab PO BEDTIME Linzess 145 mcg capsule 1 cap PO DAILY Triumeq 600-50-300 mg tablet 1 tab PO DAILY multivitamin Tablet 1 tab PO DAILY albuterol sulfate 2.5 mg /3 mL (0.083 %) Solution For Nebulization 2.5 mg INHALATION Q6H PRN (Reason: sob) ketotifen fumarate 0.025 % (0.035 %) Drops 1 drp OPHTHALMIC (EYE) BID PRN (Reason: itchy eyes) Rx Instructions: administer at least 8 hours apart cromolyn 4 % Drops 1 drp OPHTHALMIC-LEFT QID PRN (Reason: itchy eyes) cyproheptadine 4 mg Tablet 4 mg PO Q8H PRN (Reason: Allergy Symptoms) meclizine 25 mg Tablet 25 mg PO TID PRN (Reason: Vertigo) fluticasone propionate [Flovent HFA] 220 mcg/actuation HFA aerosol inhaler 2 puff inhalation BID fluticasone propionate 50 mcg/actuation [place],Suspension 2 spray INTRANASAL DAILY Rx Instructions: administer into each nostril calcium carbonate-vitamin D3 500 mg-3.125 mcg (125 unit) Tablet 1 tab PO DAILY azelastine 205.5 mcg (0.15 %) [place],Non-Aerosol 1 spray INTRANASAL DAILY Rx Instructions: administer into each nostril clonidine HCl 0.1 mg tablet 0.1 mg PO BEDTIME Qty: 30 0RF lisinopril 20 mg tablet 20 mg PO DAILY Qty: 30 0RF ketorolac 10 mg tablet 10 mg PO Q6H PRN (Reason: pain) 5 Days Qty: 20 0RF Rx Instructions: Patient received 30 mg IM Toradol in the ED dexamethasone 6 mg tablet 6 mg PO DAILY 5 Days Qty: 5 0RF cephalexin 500 mg capsule 500 mg PO QID 7 Days Qty: 28 0RF colchicine 0.6 mg capsule 0.6 mg PO BID 3 Days Qty: 6 0RF cyclobenzaprine 5 mg tablet 25 mg PO NEEDED PRN (Reason: Agitation) betamethasone dipropionate 0.05 % cream 1 appl topical BID PRN (Reason: skin irritation) Qty: 45 2RF Rx Instructions: Alba, try on a small area of your skin first to see if you develop an allergic reaction. If not, apply to rash. escitalopram oxalate 20 mg tablet 20 mg PO DAILY duloxetine 60 mg capsule,delayed release(DR/EC) 60 mg PO QAM quetiapine 100 mg tablet 100 mg PO BEDTIME hydroxyzine HCl 50 mg tablet 50 mg PO BEDTIME glucomannan 500 mg capsule 1,800 mg PO DAILY evening primrose oil 500 mg capsule 500 mg PO DAILY Rx Instructions: give with meal/snack pantoprazole 40 mg tablet,delayed release (DR/EC) 40 mg PO BID Qty: 180 3RF metformin 500 mg tablet 500 mg PO DAILY Print Language: Malaysian
[2024-08-14 14:46] LABS: MANUAL DIFF FLAG NO
[2024-08-14 14:48] LABS: Basophils Percent Auto 0.4 % (0-2); Eosinophils Absolute Auto 0.1 X10*3/uL (0.0-0.4); Hematocrit 41.7 % (37.0-47.0); Hemoglobin 13.8 g/dl (12.0-16.0); Imm Gran Abs Auto 0.04 X10*3/uL (0.00-0.03); Imm Gran Pct Auto 0.4 % (0.0-0.4); Lymphocytes Absolute Auto 2.4 X10*3/uL (1.2-4.9); Lymphocytes Percent Auto 21.3 % (20-40); Mean Corpuscular HGB Conc 33.1 g/dl (31.0-35.0); Mean Corpuscular Hemoglobin 29.9 pg (27.0-33.0); Mean Corpuscular Volume 90.3 fL (80.0-98.0); Mean Platelet Volume 9.6 fL (9.4-12.3); Monocytes Absolute Auto 1.2 X10*3/uL (0.1-1.2); Monocytes Percent Auto 10.9 % (2-11); Neutrophils Absolute Auto 7.5 x10*3/uL (2.0-8.3); Platelet Count 415 X10*3/uL (160-400); Red Blood Count 4.62 X10*6/uL (4.20-5.50); Red Cell Distribution Width 12.9 % (11.0-16.0); White Blood Count 11.4 X10*3/uL (4.8-10.8)
[2024-08-14 15:12] VITALS: BP 128/88; PULSE 88; RESP 20; TEMP 36.7; O2SAT 99
[2024-08-14 15:12] LABS: Alanine Aminotransferase 32 U/L (0-31); Albumin Level 3.9 g/dL (3.5-5.0); Alkaline Phosphatase 83 U/L (39-117); Anion Gap 11 (12-20); Aspartate Amino Transferase 34 U/L (5-31); Bilirubin Total 0.3 mg/dL (0.0-1.0); Blood Urea Nitrogen 6 mg/dL (9-16); C Reactive Protein 1.24 mg/dL (< or = 0.50); Calcium 9.3 mg/dL (8.4-10.2); Carbon Dioxide 30 mmol/L (22-29); Chloride 104 mmol/L (96-108); Creatinine Clr Calc Pharmacy 94.9; Estimated Glomerular Filt Rate > 60; Glucose Random 128 mg/dL (60-115); Magnesium 2.1 mg/dL (1.6-2.6); Potassium 3.2 mmol/L (3.3-5.1); Sodium 142 mmol/L (135-145); Total Protein 7.9 g/dL (6.5-8.0)
[2024-08-14 15:26] LABS: Erythrocyte Sedimentation Rate 42 MM/HR (0-20)
[2024-08-14] MEDS: Ketorolac Tromethamine 30 MG/ML VIAL IM (16:58)
[2024-08-14] MEDS: Potassium Chloride Packet 20 MEQ PACKET PO (17:06)
--- NOTE | 2024-08-14 17:06 | PC.NURSE ---
medication administered per provider order. effectiveness pending. plan of care ongoing.
[2024-08-14 17:09] VITALS: BP 160/92; PULSE 94; RESP 16; TEMP 36.8; O2SAT 98
--- OUTSIDE RECORDS SUMMARY | 2024-08-21 15:02 | XMS_ITS | Continuity of Care Document ---
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 Her systemic reaction was to po prednisone only Immunizations Given and Recorded Vaccine Date Status Refusal Reason hepatitis B adult vaccine 1 07/15/23 Given hepatitis B adult vaccine 2 04/10/21 Given Meningococcal Conjugate Vaccine 3 07/15/23 Given Meningococcal Conjugate Vaccine 08/30/17 Given Meningococcal Conjugate Vaccine 4 12/02/16 Given pneumococcal 20-valent conjugate vaccine 5 07/15/23 Given tetanus/diphtheria/pertussis, acel(Tdap) 6 07/15/23 Given tetanus/diphtheria/pertussis, acel(Tdap) 12/02/16 Given influenza virus vaccine, inactivated 07/04/23 Brian rded influenza virus vaccine, inactivated 07/13/22 Brian rded influenza virus vaccine, inactivated 07/17/21 Brian rded influenza virus vaccine, inactivated 08/30/17 Give n influenza virus vaccine, inactivated 07/11/15 Give n influenza virus vaccine, inactivated 07/22/14 Give n influenza virus vaccine, inactivated 07/04/13 Give n influenza virus vaccine, inactivated 08/18/06 Give n [id number] bivalent booster vax 07/15/22 Recorded SARS-CoV-2 (COVID-19) mRNA-1273 vaccine 07/17/21 R ecorded SARS-CoV-2 (COVID-19) Ad26 vaccine 12/08/20 Record ed pneumococcal 13-valent vaccine 07/11/15 Given Fluzone (oldterm) 7 06/26/12 Given Fluzone (oldterm) 05/27/10 Given Influenza Vaccine (oldterm) 8 06/09/11 Given Hepatitis B Vaccine (old term) 08/29/09 Given Hepatitis B Vaccine (old term) 08/29/09 Given Influenza Inactive (IM) (oldterm) 9 05/28/09 Given Influenza Inactive (IM) (oldterm) 08/14/07 Given Pneumovax 23 (oldterm) 10 05/01/09 Given Tetanus-Diphth Toxoids, Adult (oldterm) 11 05/01/09 Given 1Result Comment: DOSE #2 UPPER SITE 2Result Comment: Heplisav-b first dose 3Result Comment: 5 YEAR BOOSTER DOSE LOWER SITE 4Result Comment: [12/02/2016] Dilutent [id number] 5Result Comment: UPPER SITE 6Result Comment: LOWER SITE 7Admin Note: recieved the flu shot [facility] 06/23/2012 8Admin Note: VIS GIVEN [id number] 9Admin Note: VIS given 2008-. 10Admin Note: VIS GIVEN 11Admin Note: vis given 07/30/08 Medications acetaminophen 650 mg oral tablet, extended release 60 each, 0 Refill(s), 0 Refills, 07/15/23 11:36:00 AM EDT, Partial fill upon patient request if the prescription is for a schedule II opioid drug. Start Date: 07/15/23 Status: Ordered Repeat number: 1 Aerochamber See Instructions, # 1 application, Maintenance, Use with MDI, 04/15/17 12:48:15 PM EDT, Compound Start Date: 04/15/17 Status: Ordered Quantity: 1.0 Unit: application Repeat number: 1 albuterol 0.083% inhalation solution 3 mL = 2.5 mg, Inhalation, Every 6 hours, PRN Wheezing/Shortness of Breath, dx asthma J45.909, # 25each, 11 Refills, Maintenance, 01/21/20 11:39:00 PM EDT, Solution, [facility], 170.18, cm, 07/03/19 12:11:00 EDT, Height Start Date: 01/21/20 Stop Date: 07/07/20 Status: Ordered Quantity: 25.0 Unit: each Repeat number: 12 albuterol-ipratropium 3 mg-0.5 mg/3 ml inhalation solution 3 mL, Inhalation, 4 times a day, PRN Wheezing/Shortness of Breath, # 180 mL, 11 Refills, Maintenance, 01/21/20 11:38:00 PM EDT, Solution, [facility], 3 mL Inhalation 4 times a day,PRN:Wheezing/Shortness of Breath, 170.18, cm, 07/03/19 12:11:00 EDT, Height Start Date: 01/21/20 Status: Ordered Quantity: 180.0 Unit: mL Repeat number: 12 buPROPion 300 mg/24 hours (XL) oral tablet, extended release 1 tablet = 300 mg, By Mouth, Daily, # 30 tablet, 11 Refills, Maintenance, 07/18/20 1:39:00 PM EST, ER Tablet, [facility], 170.18, cm, 07/03/19 12:11:00 EDT, Height Start Date: 07/18/20 Stop Date: 07/13/21 Status: Ordered Quantity: 30.0 Unit: tablet Repeat number: 12 chlorthalidone 25 mg oral tablet 25 mg, 1, tablet, By Mouth, Daily, # 30 tablet, Refills 11, Tot. Refills 11, Maintenance, 09/23/20 12:53:00 PM EST, Route to Pharmacy Electronically, [facility], 170.18, cm, 07/03/19 12:11:00 EDT, Height Start Date: 09/23/20 Stop Date: 09/18/21 Status: Ordered Quantity: 30.0 Unit: tablet Repeat number: 12 colchicine 0.6 mg oral tablet 1.2 mg, 2, tablet, By Mouth, Once, at first sign of gout flare followed by 1 tab in 1 hour, then 1 tab once or twice daily until flare resolves, # 20 tablet, Refills 0, Tot. Refills 0, Soft Stop, 02/09/22 6:35:00 PM EDT, Route to Pharmacy Electronically, [id number], Partial fill upon patient request if the prescription is for a schedule II opioid drug., 170.18, cm, 02/09/22 18:24:00 EDT, Height Start Date: 02/09/22 Status: Ordered Quantity: 20.0 Unit: tablet Repeat number: 1 Indication: Gout, unspecified CPAP CPAP, See Instructions, # 1 units, Refills 0, Tot. Refills 0, Maintenance, CPAP Machine and all related supplies (nasal mask, nasal pillows, tubing, headgear, straps, filters, water chamber, humidifier) Dx: obstructive sleep apnea, severe (G47.33). Setting: AutoCPAP 8-20 cm H2O Length of need: 99 Fax to [facility], 05/25/19 5:46:05 PM EDT, Compound Start Date: 05/25/19 Status: Ordered Quantity: 1.0 Unit: Units Repeat number: 1 cromolyn 4% ophthalmic solution See Instructions, 1 drops both eyes qid prn itching allergy symptoms, # 10 mL, 11 Refills, Maintenance, 12/29/18 1:48:58 PM EDT, Solution, [facility], 1 drops both eyes qid prn itching allergy symptoms Start Date: 12/29/18 Status: Ordered Quantity: 10.0 Unit: mL Repeat number: 12 cyclobenzaprine 5 mg oral tablet 40 each, 0 Refill(s), 0 Refills, 07/15/23 11:37:00 AM EDT, Partial fill upon patient request if the prescription is for a schedule II opioid drug. Start Date: 07/15/23 Status: Ordered Repeat number: 1 docusate sodium 100 mg oral capsule 1 capsule, By Mouth, 2 times a day, PRN NEEDED FOR CONSTIPATION, # 60 capsule, 10 Refills, Maintenance, 10/17/23 2:14:00 PM EST, [facility], 170.18, cm, 07/15/23 11:40:00 EDT, Height Start Date: 10/17/23 Status: Ordered Quantity: 60.0 Unit: capsule Repeat number: 1 doxepin 10 mg oral capsule 1 capsule, By Mouth, Daily at bedtime, CAN CAUSE DROWSINESS, # 30 capsule, 10 Refills, Maintenance,01/13/21 12:21:00 PM EDT, [facility], 170.18, cm, 07/03/19 12:11:00 EDT, Height Start Date: 01/13/21 Status: Ordered Quantity: 30.0 Unit: capsule Repeat number: 1 EPINEPHrine 0.3 mg injectable solution 2 each, 0 Refill(s), 0 Refills, 07/15/23 11:37:00 AM EDT, Partial fill upon patient request if the prescription is for a schedule II opioid drug. Start Date: 07/15/23 Status: Ordered Repeat number: 1 EPINEPHrine 1 mg/mL injectable solution 0.3 mL = 0.3 mg, Intramuscular, Once, Epinephrine auto-injector kit for anaphylaxis. See instructions. Call 911 if used., # 2 each, 11 Refills, Soft Stop, 08/12/20 2:05:00 PM EST, Solution, [facility], 170.18, cm, 07/03/19 12:11:00 EDT, Height Start Date: 08/12/20 Status: Ordered Quantity: 2.0 Unit: each Repeat number: 12 escitalopram 20 mg oral tablet 1 tablet = 20 mg, By Mouth, Daily, # 30 tablet, 11 Refills, Maintenance, 09/24/20 3:41:00 PM EST, Tablet, [facility], Partial fill upon patient request if the prescription is for a schedule II opioid drug., 170.18, cm, 07/03/19 12:11:00 EDT, Height Start Date: 09/24/20 Status: Ordered Quantity: 30.0 Unit: tablet Repeat number: 12 Flovent HFA 220 mcg/inh inhalation aerosol 2 puffs, Inhalation, 2 times a day, # 1 each, 11 Refills, Maintenance, 09/23/20 12:52:00 PM EST, Aerosol, [facility], 170.18, cm, 07/03/19 12:11:00 EDT, Height Start Date: 09/23/20 Stop Date: 09/18/21 Status: Ordered Quantity: 1.0 Unit: each Repeat number: 12 flunisolide 25 mcg/inh nasal spray 1 puff, Nares, Both, 2 times a day, PRN allergic rhinitis w/ sneezing, each nostril, # 1 each, 11 Refills, Maintenance, 05/26/20 2:58:00 PM EDT, [place], [facility], 1 puff Nares, Both 2 times a day,x30 days,PRN:allergic rhinitis w/ sneezing,Instr:each nostril, 170.18, cm, 07/03/19 12:11:00 EDT, Height Start Date: 05/26/20 Stop Date: 05/21/21 Status: Ordered Quantity: 1.0 Unit: each Repeat number: 12 flunisolide 25 mcg/inh nasal spray See Instructions, INHALE 1 PUFF IN EACH NOSTRIL TWO TIMES A DAY NEEDED FOR ALLERGY SYMPTOMS WITHSNEEZING, # 25 mL, 11 Refills, Maintenance, 01/31/23 3:14:00 PM EDT, [facility], 50, INHALE 1 PUFF IN EACH NOSTRIL TWO TIMES A DAY NEEDED FOR ALLERGY SYMPTOMS WITH SNEEZING, 170.18, cm, 02/09/22 18:24:00 EDT, Height Start Date: 01/31/23 Status: Ordered Quantity: 25.0 Unit: mL Repeat number: 1 gabapentin 300 mg oral capsule 1, capsule, By Mouth, 3 times a day, # 90 capsule, Refills 2, Route to Pharmacy Electronically, [facility], 170.18, cm, 05/20/21 10:59:00 EDT, Height Start Date: 11/18/21 Status: Ordered Quantity: 90.0 Unit: capsule Repeat number: 1 hydrOXYzine pamoate 25 mg oral capsule 1 capsule = 25 mg, By Mouth, Daily, PRN for anxiety, # 30 capsule, 11 Refills, Maintenance, 191:50:41 PM EDT, Capsule, [facility], Note dose decrease to qD Start Date: 12/29/18 Status: Ordered Quantity: 30.0 Unit: capsule Repeat number: 12 ketotifen 0.025% ophthalmic solution See Instructions, INSTILL 1 DROP INTO BOTH EYES TWO TIMES A DAY FOR ALLERGY SYMPTOMS, # 5 mL, 11 Refills, Maintenance, 02/01/23 4:48:00 PM EDT, [facility], 25, INSTILL 1 DROP INTO BOTH EYES TWO TIMES A DAY FOR ALLERGY SYMPTOMS, 170.18, cm, 02/09/22 18:24:00 EDT, Height Start Date: 02/01/23 Status: Ordered Quantity: 5.0 Unit: mL Repeat number: 1 Lace up ankle brace, right Lace up ankle brace, right, See Instructions, # 1 units, Refills 0, Tot. Refills 0, Maintenance, Dx: S93.401A Fax to [facility], 07/03/19 2:56:01 PM EDT, Compound Start Date: 07/03/19 Status: Ordered Quantity: 1.0 Unit: Units Repeat number: 1 lidocaine 5% topical film 1 patch, Topically, Daily, PRN Pain , Mild, as needed; remove after 12 hours, # 13 each, 0 Refills,Maintenance, 03/21/20 2:26:00 PM EDT, Film, [facility], 1 patch Topically Daily,[id number],PRN:Pain , Mild,Instr:as needed; remove after 12 hours, 170.18, cm, 07/03/19 12:11:00 EDT, Height Start Date: 03/21/20 Stop Date: 04/04/20 Status: Ordered Quantity: 13.0 Unit: each Repeat number: 1 Indication: Dorsalgia, unspecified Linzess 145 mcg oral capsule 1 capsule, By Mouth, Daily, # 30 capsule, 2 Refills, [facility], 170.18, cm, 05/20/21 10:59:00 EDT, Height Start Date: 11/18/21 Status: Ordered Quantity: 30.0 Unit: capsule Repeat number: 1 lisinopril 20 mg oral tablet 20 mg, 1, tablet, By Mouth, Daily, Blood pressure. Take at night/evening., # 30 tablet, Refills 11,Tot. Refills 11, Maintenance, 09/23/20 12:53:00 PM EST, Route to Pharmacy Electronically, [facility], 170.18, cm, 07/03/19 12:11:00 EDT, Height Start Date: 09/23/20 Status: Ordered Quantity: 30.0 Unit: tablet Repeat number: 12 loratadine 10 mg oral tablet 10 mg, 1, tablet, By Mouth, Daily, PRN, # 30 tablet, Refills 11, Tot. Refills 11, Maintenance, Congestion, 07/18/20 1:41:00 PM EST, Route to Pharmacy Electronically, [facility], 170.18, cm, 07/03/19 12:11:00 EDT, Height Start Date: 07/18/20 Status: Ordered Quantity: 30.0 Unit: tablet Repeat number: 12 massage massage, See Instructions, # 1 each, Refills 0, Tot. Refills 0, Maintenance, massage dx chronic pain massage for one hour, one day a week for four weeks fax to [phone] attention of Jenelle Cleaning, 04/23/19 9:05:11 AM EDT, Compound Start Date: 04/23/19 Status: Ordered Quantity: 1.0 Unit: each Repeat number: 1 Miscellaneous Rx 0 Refills, 90 each, 0 Refill(s), TAKE 1 TABLET BY MOUTH ONCE A DAY WITH MEALS, 07/15/23 11:38:00 AM EDT Start Date: 07/15/23 Status: Ordered Repeat number: 1 Nebulizer/Compressor See Instructions, # 1 each, Refills 0, Tot. Refills 0, Maintenance, Use every 4 hours as needed., 04/01/22 9:27:00 PM EDT, portable with battery, Supply Start Date: 04/01/22 Status: Ordered Quantity: 1.0 Unit: each Repeat number: 1 Indication: Unspecified asthma, uncomplicated Nebulizer/Compressor See Instructions, # 1 each, Maintenance, J45.4 use for albuterol administration as directed pls [facility] home infusion and respiratory, 02/03/17 5:30:06 PM EDT, Compound Start Date: 02/03/17 Status: Ordered Quantity: 1.0 Unit: each Repeat number: 1 Nebulizer/Compressor See Instructions, # 1 each, Maintenance, Use as directed., 04/02/22 9:17:00 AM EDT, portable nebulizer with battery, Supply Start Date: 04/02/22 Status: Ordered Quantity: 1.0 Unit: each Repeat number: 1 Indication: Unspecified asthma, uncomplicated pantoprazole 40 mg oral delayed release tablet 120 each, 0 Refill(s), TAKE 1 TABLET BY MOUTH TWICE DAILY, 0 Refills, 07/15/23 11:38:00 AM EDT Start Date: 07/15/23 Status: Ordered Repeat number: 1 QUEtiapine 50 mg oral tablet 90 each, 0 Refill(s), TAKE 1 TABLET BY MOUTH AT BEDTIME, 0 Refills, 07/15/23 11:39:00 AM EDT, Partial fill upon patient request if the prescription is for a schedule II opioid drug. Start Date: 07/15/23 Status: Ordered Repeat number: 1 Senna-Time 8.6 mg oral tablet 2 tablet = 17.2 mg, By Mouth, Daily at bedtime, as needed for constipation (stool softener), # 60 tablet, 11 Refills, Maintenance, 07/18/20 1:41:00 PM EST, [facility], 170.18, cm, 07/03/19 12:11:00 EDT, Height Start Date: 07/18/20 Status: Ordered Quantity: 60.0 Unit: tablet Repeat number: 12 Singulair 10 mg oral tablet 10 mg, 1, tablet, By Mouth, Daily in PM, asthma, # 30 tablet, Refills 11, Tot. Refills 11, Maintenance, 10/27/20 2:14:00 PM EST, Route to Pharmacy Electronically, [facility], 170.18, cm, 07/03/19 12:11:00 EDT, Height Start Date: 10/27/20 Stop Date: 10/22/21 Status: Ordered Quantity: 30.0 Unit: tablet Repeat number: 12 Thumb spica splint RIGHT Thumb spica splint RIGHT, See Instructions, # 1 units, Refills 0, Tot. Refills 0, Maintenance, Dx: M65.4 Fax to [facility], 07/03/19 2:57:34 PM EDT, Compound Start Date: 07/03/19 Status: Ordered Quantity: 1.0 Unit: Units Repeat number: 1 traZODone 100 mg oral tablet 60 each, 0 Refill(s), TAKE 2 TABLETS BY MOUTH AT BEDTIME. MAY TAKE 1 1/2 - 2 TABLET, Refills 0, 07/15/23 11:39:00 AM EDT, Partial fill upon patient request if the prescription is for a schedule II opioid drug. Start Date: 07/15/23 Status: Ordered Repeat number: 1 Triumeq oral tablet 1 tablet, By Mouth, Daily, # 30 tablet, 1 Refills, Maintenance, 07/02/24 11:01:00 AM EDT, Tablet, [id number], Pt needs to call office to schedule an appointment, 1 tablet By Mouth Daily,x30 days, 170.18, cm, 07/15/23 11:40:00 EDT, Height Start Date: 07/02/24 Stop Date: 08/31/24 Status: Ordered Quantity: 30.0 Unit: tablet Repeat number: 2 valacyclovir 1 gm oral tablet 10 each, 0 Refill(s), 0 Refills, 07/15/23 11:39:00 AM EDT, Partial fill upon patient request if the prescription is for a schedule II opioid drug. Start Date: 07/15/23 Status: Ordered Repeat number: 1 Valtrex 1 gm oral tablet 1 tablet = 1 Gm, By Mouth, 2 times a day, PRN as needed for outbreak, # 10 tablet, 11 Refills, Maintenance, 01/31/23 3:14:00 PM EDT, [facility], Please dispense 10 pills; disregard prior script, 170.18, cm, 02/09/22 18:24:00 EDT, Height Start Date: 01/31/23 Stop Date: 04/01/23 Status: Ordered Quantity: 10.0 Unit: tablet Repeat number: 12 Ventolin HFA 108 mcg/inh inhalation aerosol with adapter 2 puffs, Inhalation, 4 times a day, PRN Wheezing/Shortness of Breath, # 1 each, 11 Refills, Maintenance, 09/23/20 12:52:00 PM EST, Aerosol, [facility], 170.18, cm, 07/03/19 12:11:00 EDT, Height Start Date: 09/23/20 Stop Date: 09/18/21 Status: Ordered Quantity: 1.0 Unit: each Repeat number: 12 Vitamin D3 1000 intl units oral capsule 90 each, 0 Refill(s), 0 Refills, 07/15/23 11:37:00 AM EDT, Partial fill upon patient request if the prescription is for a schedule II opioid drug. Start Date: 07/15/23 Status: Ordered Repeat number: 1 Vitamin D3 1000 intl units oral tablet 1 tablet = 1,000 International_Units, By Mouth, Daily, with food, # 30 tablet, 11 Refills, Maintenance, 10/27/20 2:15:00 PM EST, Tablet, [facility], 170.18, cm, 07/03/19 12:11:00 EDT,Height Start Date: 10/27/20 Stop Date: 10/22/21 Status: Ordered Quantity: 30.0 Unit: tablet Repeat number: 12 Problem List Condition Confirmation Course Effective Dates Status H ealth Status Informant LGSIL on Pap smear Confirmed Active Incidental adrenal cortical adenoma 2cm left on non contrast [facility] 05/12/17 Confirmed Active Appendectomy, s/p Confirmed Active Asthma Confirmed Active Cholelithiasis Confirmed Active Binge eating disorder, mild, in partial remission Confirmed Active Morbid obesity with BMI of 40.0-44.9, adult Confirmed Active Cervical dysplasia 1, 2, 3, 4, 5 Confirmed 2005 Active MONICA I (cervical intraepithelial neoplasia I) Confirmed Active [facility] Colpo Patient Confirmed Active HSV - Anogenital herpes simplex virus infection Confirmed 10/2006 Active Hypertension Confirmed Active Hyperthyroidism 6 Confirmed Active Internal hemorrhoids 7 Confirmed Active Depression with anxiety Confirmed Active PCOS - Polycystic ovarian syndrome Confirmed Active Sciatica of right side Confirmed Active Severe obesity (BMI 35.0-39.9) with comorbidity Confirmed Active Hepatic steatosis Confirmed Active 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 Pap LGSIL/HPV +. 2colpo, ECC; referred to [facility] to sample adequately 3DNKA colpo 4Pap LGSIL negative HPV 2013 and 2015. Colpo indicated. DNKA 06/24/16 5Paps in 2005, 2006, 2008, 2008, 2010, 2011, 2012 - All LGSIL/HPV+. Colpo 2005 = MONICA I, mild dysplasia, HPV effect. Colpo 2011 = no dysplasia 6likely Graves disease 7Dr. Ambrose 04/12/06: normal colonoscopy to terminal ileum other than some internal hemorrhoids. 8repaired 2012 Social History Social History Type Response Smoking Status Former smoker, quit more than 30 days ago; Other: quit 01/2018; entered on: 09/15/18 Sex Sex Representation Female (finding) Patient Care team information Care Team Personnel Name: Lianne Gomes Position: [facility] Outreach Member Role: Lifetime Consulting Physician Name: Not on Staff, PCP Position: [facility] Physician (General Medicine) Member Role: PCP Care Team Related Persons Name: CLARICE WALLACE Name: JENNIFER EMMANUEL Name: BRANDON POPE Insurance Providers Guarantor name: JOAO WALLACE Health Plan Information #: 1 Payer: [facility] [employer] Member Number: NA Policy Number: NA Group Number: NA
--- OUTSIDE RECORDS SUMMARY | 2024-08-21 15:02 | XMS_ITS | Data Portability ---
Author Organization [facility] [place] [facility] [employer] Address [address] [place] [id number] Care Team Providers Care Vice Provost Name Role Phone HIM CCA OTHER Assessment Encounter Date Assessment Date Assessment LastModified by Organization Details LastModified Time 09/13/2023 09/13/2023 I provided real -time medical direction via phone for this encounter, and was available for additional phone based assistance as needed. I have reviewed and agree with the Assessment and Plan as documented by the Commercial Green Retrofit Architect. Patient given the opportunity to ask questions. Advised if develops CP/severe SOB/turning blue/uncontrolle d n/v/d / AMS/ syncope/ hi fever / any focal neuro c/o: visual changes/speech changes/severe dizziness/focal weakness or new numbness to call 911- verbalized understanding of instructions [email or web address] Not available 09/13/2023 22:35:01 04/16/2024 04/16/2024 49 yo with HIV (adherent to triumeq, reportedly undetec VL) with 1d of URI sxs and COVID positive. No SOB or CP. Vaccinated for COVID19. Never had COVID before now. VS wnl. Lungs CTAB. Sent rx for paxlovid x 5 days Checked interactions and instructed to stop taking seroquel 50mg at night for 8 days (3 days after completing paxlovid) due to interaction. Pt reports that she can take trazodone instead for sleep. Reviewed red flags s/sxs. [email or web address] Not available 04/16/2024 21:02:08 Plan of Treatment Reminders Order Date Submit Date Provider Last Modified By Organization Details Last Modified Time Details Appointments None recorded. Lab None recorded. Referral None recorded. Procedures None recorded. Surgeries None recorded. Imaging None recorded. Medication Orders Paxlovid 300 mg (150 mg x 2)-100 mg tablets in a dose pack 2023 024 [id number], [address], [place], [phone], 4 21:04:47 Patient TargetsNo targets recorded. Patient InstructionsNo instructions recorded. Reason for Referral None Reported. Medical Equipment None Reported. Allergies Allergen ID Allergen Name Allergen Category Reaction Reaction Severity Criticality Documentation Date Start Date Code Code System Note Provider Name and Address Organization Details Recorded Time 7911 egg extract food,medi cation Not available Not available Not available 07/10/2024 09380 15 RxNorm Not Available [facility] - production 4 03:40:36 7912 prednison e medicatio n Not available Not available Not available 07/10/2024 8640 RxNorm Not Available [facility] - production 4 03:40:36 Medications Name Sig Start Date Stop Date Status Note LastModified by Organization Details LastModified Time vitamin d3 1,000 unit softg active Not Available Not Available Not Available metformin 500 mg tablet TAKE 1 TABLET BY MOUTH DAILY WITH BREAKFAST active Not Available Not Available No t Available doxepin 50 mg capsule TAKE 1 CAPSULE BY MOUTH AT BEDTIME active Not Available Not Available No t Available albuterol sulfate 2.5 mg/3 mL (0.083 %) solution for nebulization USE 1 VIAL VIA NEBULIZER EVERY 6 HOURS NEEDED FOR WHEEZING OR SHORTNESS OF BREATH active Not Available Not Available No t Available lisinopril 20 mg-hydrochlo rothiazide 12.5 mg tablet TAKE 1 TABLET BY MOUTH DAILY active Not Available Not Available Not Available tizanidine 4 mg tablet TAKE 1 TABLET BY MOUTH TWICE DAILY NEEDED FOR MUSCLE SPASMS active Not Available Not Available No t Available valacyclovir 1 gram tablet TAKE 1 TABLET BY MOUTH TWICE DAILY FOR 5 DAYS NEEDED FOR OUTBREAK active Not Available Not Available No t Available senna 8.6 mg tablet TAKE 1 TABLET BY MOUTH DAILY FOR 30 DAYS active Not Available Not Available Not Available sucralfate 100 mg/mL oral suspension SHAKE LIQUID AND TAKE 10 ML BY MOUTH TWICE DAILY active Not Available Not Available Not Available lisinopril 20 mg tablet TAKE 1 TABLET BY MOUTH DAILY active Not Available Not Available Not Available medroxyproge sterone 5 mg tablet TAKE 2 TABLETS BY MOUTH DAILY FOR 10 DAYS active Not Available Not Available Not Available cyanocobalam in (vit B-12) 1,000 mcg tablet TAKE 1 TABLET BY MOUTH EVERY DAY active Not Available Not Available No t Available hydroxyzine HCl 50 mg tablet TAKE 1 TABLET BY MOUTH AT BEDTIME active Not Available Not Available No t Available doxepin 10 mg capsule TAKE 1 CAPSULE BY MOUTH AT BEDTIME active Not Available Not Available No t Available quetiapine 100 mg tablet TAKE 2 TABLETS BY MOUTH AT BEDTIME. MAY TAKE 1 1/2 - 2 TABLET active Not Available Not Available No t Available acetaminophe n ER 650 mg tablet,exten ded release TAKE 1 TABLET BY MOUTH THREE TIMES DAILY NEEDED FOR PAIN active Not Available Not Available No t Available famotidine 20 mg tablet TAKE 1 TABLET BY MOUTH DAILY NEEDED FOR HEARTBURN active Not Available Not Available No t Available trazodone 100 mg tablet TAKE 2 TABLETS BY MOUTH AT BEDTIME. MAY TAKE 1 1/2 TO 2 TABLET active Not Available Not Available No t Available ropinirole 0.25 mg tablet TAKE 1 TABLET BY MOUTH AT BEDTIME active Not Available Not Available No t Available hydrocortiso ne 1 % topical cream active Not Available Not Available Not Available flunisolide 25 mcg (0.025 %) nasal spray active Not Available Not Available Not Available pantoprazole 40 mg tablet,delay ed release TAKE 1 TABLET BY MOUTH TWICE DAILY active Not Available Not Available No t Available docusate sodium 100 mg capsule TAKE 1 CAPSULE BY MOUTH TWICE DAILY NEEDED FOR CONSTIPATIO N active Not Available Not Available No t Available montelukast 10 mg tablet active Not Available Not Available Not Available ammonium lactate 12 % topical cream APPLY TOPICALLY TO THE AFFECTED AREA TWICE DAILY NEEDED FOR DRY SKIN active Not Available Not Available No t Available lisinopril 5 mg tablet active Not Available Not Available No t Available epinephrine 0.3 mg/0.3 mL injection, auto-injecto r INJECT INTRAMUSCUL KEVIN FOR ALLERGIC REACTIONS. CALL 911 SEEK ATTENTION active Not Available Not Available No t Available lisinopril 10 mg-hydrochlo rothiazide 12.5 mg tablet active Not Available Not Available Not Available albuterol sulfate HFA 90 mcg/actuatio n aerosol inhaler INHALE 2 PUFFS INTO THE LUNGS EVERY 4 HOURS NEEDED FOR COUGH OR WHEEZING OR SHORTNESS OF BREATH active Not Available Not Available No t Available oxycodone 5 mg tablet TAKE 1 TABLET BY MOUTH TWICE DAILY NEEDED FOR PAIN active Not Available Not Available No t Available cholecalcife rol (vitamin D3) 25 mcg (1,000 unit) capsule active Not Available Not Available Not Available escitalopram 10 mg tablet TAKE 1 TABLET BY MOUTH EVERY MORNING active Not Available Not Available No t Available escitalopram 20 mg tablet TAKE 1 TABLET BY MOUTH EVERY MORNING active Not Available Not Available No t Available cyclobenzapr ine 5 mg tablet active Not Available Not Available Not Available duloxetine 20 mg capsule,berhane yed release TAKE 1 CAPSULE BY MOUTH DAILY IN THE AFTERNOON. NO LATER THAN 2 PM active Not Available Not Available No t Available duloxetine 60 mg capsule,berhane yed release TAKE 1 CAPSULE BY MOUTH EVERY MORNING active Not Available Not Available No t Available Flovent HFA 220 mcg/actuatio n aerosol inhaler active Not Available Not Available Not Available quetiapine 50 mg tablet TAKE 1 TABLET BY MOUTH AT BEDTIME active Not Available Not Available No t Available cholecalcife rol (vitamin D3) 25 mcg (1,000 unit) tablet TAKE 1 TABLET BY MOUTH DAILY active Not Available Not Available Not Available levocetirizi ne 5 mg tablet TAKE 1 TABLET BY MOUTH EVERY EVENING active Not Available Not Available No t Available trospium ER 60 mg capsule,exte nded release 24 hr TAKE 1 CAPSULE BY MOUTH DAILY active Not Available Not Available Not Available diclofenac 1 % topical gel APPLY 1 APPLICATOR TOPICALLY TWICE DAILY NEEDED FOR NECK PAIN FOR 28 DAYS active Not Available Not Available No t Available Eye Itch Relief 0.025 % (0.035 %) drops active Not Available Not Available Not Available Linzess 145 mcg capsule TAKE 1 CAPSULE BY MOUTH DAILY active Not Available Not Available Not Available melatonin 10 mg capsule TAKE ONE CAPSULE BY MOUTH EVERY DAY WITH MEAL active Not Available Not Available No t Available Triumeq 600 mg-50 mg-300 mg tablet TAKE 1 TABLET BY MOUTH ONCE DAILY active Not Available Not Available No t Available melatonin 10 mg-lemon balm leaf extract 1 mg tablet TAKE 1 TABLET BY MOUTH ONCE A DAY WITH MEALS active Not Available Not Available No t Available Paxlovid 300 mg (150 mg x 2)-100 mg tablets in a dose pack TK 2 NIRMATRELVI R TS AND 1 RITONAVIR T TOGETHER PO TWICE DAILY active Not Available Not Available Not Available Vitals Date Recorded Heart rate Oxygen saturation Oxygen saturation in Arterial blood by Pulse oximetry Body weight Respiratory rate Body height Body temperature Systolic blood pressure Diastolic blood pressure Provider Name and Address Organization Details Last Updated DateTime 4 80 /min 98 % 98 % 91472.4 g 14 /min 167.64 cm 98.1 [degF] 147 mm[Hg] 84 mm[Hg] Not Available [facility] 4 14:26:35 Date Recorded Oxygen saturation Oxygen saturation in Arterial blood by Pulse oximetry Heart rate Respiratory rate Body temperature Systolic blood pressure Diastolic blood pressure Provider Name and Address Organization Details Last Updated DateTime 4 97 % 97 % 108 /min 20 /min 98.9 [degF] 150 mm[Hg] 92 mm[Hg] Not Available [facility] 4 20:20:05 Social History None recorded. Functional Status None recorded. Mental Status None recorded. Family History Nothing Reported. Medical History No medical history recorded. Gynecological HistoryNo gynecological history recorded. Obstetrics History GPAL:G 0 P 0 0 0 0 Past Encounters Encounter ID Performer Location Encounter Start Date Encounter Closed Date Diagnosis/Indication Diagnosis SNOMED-CT Code Diagnosis ICD10 Code [id number] Rula Garcia MD [facility] [address] [place] [phone] 09/13/2023 14:26:27 09/14/2023 14:23:58 Essential hypertension 38121830 I10 [id number] DACIA TORIBIO MD [facility] [address] [place] [phone] 04/16/2024 20:20:02 04/17/2024 11:04:07 COVID-19 667583923 U07.1 Health Concerns Section Related Observation LastModified by Organization Detai ls LastModified Time None Recorded Concern Status LastModified by Organization Details LastModified Time None Recorded Advance Directives Directive None Recorded Payers Encounter Date Sequence Insurance Name Policy Number Policy Coley Covered Member ID Coley Member ID Guarantor Name 09/13/2023 1 [facility] - DOS ON OR AFTER 2022 - DUAL ELIGIBLE - PRISON OPTIONS AND ONE CARE (MEDICARE REPLACEMENT/ADV ANTAGE - HMO) Jhoana De La Garza [id number] Jhoana De La Garza 04/16/2024 1 [facility] - DOS ON OR AFTER 2022 - DUAL ELIGIBLE - PRISON OPTIONS AND ONE CARE (MEDICARE REPLACEMENT/ADV ANTAGE - HMO) Jhoana De La Garza [id number] Jhoana De La Garza Notes Date Note Type Note Provider Name and Address Organization Details Recorded Time 4 text/html CRC Nurse Triage Notes (Marianne Sandra): Reason For Request: HTN Chief Complaints: Hypertension PMH: Hypertension, HIV, Other Allergies: Unknown Comments: Verified identity/ address VNA calling in for BP 152/100/ HR 88 , trace edema to lower ext. Member had a KIM yesterday but none today. Baseline BP 130's-140's , BP has been high for about a week. 09/04. [facility]NA called PCP and left a message . Member takes lisinopril and hydrochlorothiazide 12.5 PMH Anxiety/ pre diabetes Nurse is aware that we cant change daily meds but she would like another set of vitals and EKG ........................ ........................ ........................ ........................ ........................ ..................... Commercial Green Retrofit Architect Note From Iain Moore: PT caox3 answers door with a steady gait. Pt reports her BP was high earlier for the VNA, 160/80. Pt denies complaints. Pt reports [facility]NA was able to help her make an appointment with her PCP two days from now. Pt VS checked. Pt refused ECG, states she feels fine. [facility] advises pt to attend PCP appointment. Red flags and pt education discussed. ........................ ........................ ........................ ........................ ........................ ..................... Disposition: Fulfilled Rula Garcia MD [address] [facility],[address], [place], [address], [facility] 09/13/2023 22:35:49 4 text/html HPI: 1:44pm ? GAGE contacts [facility] directly to request an in-home visit today for ? bad cold? symptoms. GAGE is a 49 y/o female with a PMH of, but not limited to: AIDS, asthma, depression, HTN, morbid obesity, PCOS, lumbago with sciatica, anxiety, depression, RAVIN, and diaphragmatic hernia. GAGE states that she developed a dry cough, sore throat, headaches, R earache, nasal congestion, and body aches yesterday. She reports that her symptoms are worsening today. GAGE denies CP, SOB, fevers, or any other symptoms. GAGE is ill-sounding to this investment underwriter. She has nasal congestion and can be heard coughing. No wheezing or stridor could be appreciated during this call. GAGE lives alone and cannot identify any recent confirmed sick contacts. GAGE is feeling too ill to triage to UC or ED on her own and requests an in-home visit today. This [facility] RN assures GAGE that a referral will be placed on her behalf. After confirming GAGE? s address and phone number on file, GAGE is strongly advised to call 911 for any new or worsening symptoms. GAGE agrees with this recommendation and will do so. GAGE can be reached at [phone]. ........................ ........................ ........................ ........................ ........................ ..................... CRC Nurse Triage Notes (Fabiana Gimenez): Chief Complaints: Cough, ENT, Headache, URI PMH: Hypertension, HIV Allergies: Egg, Prednisone Other Allergies: Prednisone, eggs Comments: CRC RN did not require any additional information to process this visit. Commercial Green Retrofit Architect Organization Information for Nikolay Garibay Business Legal Name: [employer]? ? Address: [address] [place] [address] Radar Repairer: Ej Ayala MD CLIA No.: [id number] Commercial Green Retrofit Architect POC Test Results from Nikolay Garibay Rapid COVID antigen (20:17:49) COVID: + Rapid influenza antigen (20:18:06) Flu: - DACIA TORIBIO MD [address] [place] [address],[address], [place], [phone], [facility] [employer] 04/16/2024 21:02:16 OBGyn Episode No OBEpisode recorded.
== END 2024-08-14 17:21 | disposition home or self-care (01) ==
PROVIDERS: Physician Assistant Medical; Emergency Provider Emergency Medicine; PCP Internal Medicine
DX: M10.071 Idiopathic gout, right ankle and foot (principal); M10.072 Idiopathic gout, left ankle and foot; E87.6 Hypokalemia; Z79.899 Other long term (current) drug therapy; Z87.891 Personal history of nicotine dependence
CPT/HCPCS: 36415; 73630; 80053; 83735; 84550; 85025; 85652; 86140; 96372; 99283; 99284; J1885

== ENCOUNTER 2024-10-18 10:40 | Outpatient (AMB) | payer OTHER, SELFPAY ==
--- NOTE | 2024-10-18 10:39 | MHC.OFFVISWM ---
VS Expanded 10/18/24 10:41 Height 5 ft 5 in Weight 231 lb BMI 38.4 Intake Visit Reasons: (TV) PO LSG 11/26/20 Allergies prednisone [PREDNISONE] Allergy (Severe, Verified 08/14/24 13:50) DIFFICULTY BREATHING, anaphylaxis eggs Allergy (Intermediate, Uncoded 07/14/23 11:36) Hives Medication List - Last Reconciled 10/18/24 by KEIRA Wing zblvqjpc-ogktclnfbtne-rgjsssv 600-50-300 mg (Triumeq) 1 tab PO DAILY albuterol sulfate 2.5 mg inhalation Q6H PRN azelastine 1 spray intranasal DAILY betamethasone dipropionate 0.05% 1 appl topical BID PRN bupropion HCl XL 1 tab PO BEDTIME calcium carbonate-vitamin D3 500 mg-3.125 mcg (125 unit) 1 tab PO DAILY cephalexin 500 mg PO QID 7 days cholecalciferol (vitamin D3) 25 mcg PO DAILY clonidine HCl 0.1 mg PO BEDTIME colchicine 0.6 mg PO BID 3 days cromolyn 4% 1 drp ophthalmic-Left QID PRN cyclobenzaprine 25 mg PO NEEDED PRN cyproheptadine 4 mg PO Q8H PRN dexamethasone 6 mg PO DAILY 5 days docusate sodium 1 cap PO BID duloxetine 60 mg PO QAM escitalopram oxalate 20 mg PO DAILY evening primrose oil 500 mg PO DAILY fluticasone propionate 50 mcg/actuation 2 sprays intranasal DAILY fluticasone propionate 220 mcg/actuation (Flovent HFA) 2 puffs inhalation BID glucomannan 1,800 mg PO DAILY hydroxyzine HCl 50 mg PO BEDTIME ketorolac 10 mg PO Q6H PRN 5 days ketotifen fumarate 0.025%(0.035%) 1 drp ophthalmic (eye) BID PRN levocetirizine 1 tab PO BEDTIME linaclotide (Linzess) 1 cap PO DAILY lisinopril 20 mg PO DAILY meclizine 25 mg PO TID PRN melatonin 1 tab PO BEDTIME metformin 500 mg PO DAILY montelukast 1 tab PO DAILY morphine 15 mg PO Q8H PRN multivitamin 1 tab PO DAILY pantoprazole 40 mg PO BID quetiapine 100 mg PO BEDTIME sucralfate 10 mL PO BID HPI Comments Details: This is a 49 yo female who is s/p LSG 11/26/2020. Since last visit has had gout- now is hesitant to eat certain things. Weight loss of about 8lbs since last OV in April 2024. Present meal plan includes: Goal weight 219-220lbs to be a candidate for revision surgery 10am-12pm Premier protein shake, premade or Pure protein shake, 1 scoop powder in 8oz 1% milk 2-4pm same shake 5:30pm dinner- 3oz protein, 3oz veg 9pm Burmese yogurt with berries or oranges sometimes skips meals, shakes Exercise routine includes: wants to start walking- wants to get under desk treadmill PFS Medical History Allergic reaction caused by a drug Anxiety Arthritis Asthma BMI 39.0-39.9,adult Body mass index (BMI) of 40.1 to 44.9 in adult Constipation Depression HIV (human immunodeficiency virus infection) HTN (hypertension) Insomnia Low back pain Morbid obesity Preoperative examination Sciatica Seasonal allergies Shortness of breath Sleep apnea Vertigo Vitamin B1 deficiency Surgical History History of appendectomy History of elbow surgery History of sleeve gastrectomy Family History Mother Hyperlipidemia Hypertension Arthritis Sciatica Diabetes Father No problems noted. Brother Hypertension Social History Household Members: None Housing: Apartment Are you a primary assurance services manager health care to a significant other at home: No Do you presently have visiting nurse or other home services: Yes (HELP WITH HOUSEWORK ONCE A WEEK) Alcohol intake: never Patient Tobacco Use Status: Former Tobacco user Tobacco use type: Cigarette e-Cigarette/Vaping Use: Never Used Second Hand Smoke Exposure: No service: No Current occupational status: unemployed Telehealth Telehealth Telehealth Platform: Telephone Location of provider rendering services: other Location of patient: address on file Patient Identification confirmed using: Name, : Yes Telehealth method: voice only Patient verbally consented to treatment: Yes Patient verbally consented to billing insurance company: Yes Patient informed of any privacy concerns related to visit: Yes Minutes spent on Phone/Video with Pt.: 16 Assessment & Plan Assessment & Plan (1) Obesity: Code(s): E66.9 - Obesity, unspecified Category: Medical (2) Status post sleeve gastrectomy: Code(s): Z90.3 - Acquired absence of stomach [part of] Category: Medical Plan Pt is interested in GLP1 agonists. Will submit Rx for Zepbound. Discussed need for adequate protein intake while on GLP1s as well as frequent communication with our office. Pt will check in with me weekly and is aware that subsequent Rx will be dependent on frequent communication. RTC 3 months. I spent a total of 30 minutes reviewing/updating records, examining the patient and counseling the patient on weight management as detailed above.
[2024-10-18 10:41] VITALS: BMI 38.4
--- OUTSIDE RECORDS SUMMARY | 2024-10-18 10:43 | XMS_ITS | Encounter Summary ---
Author Organization [employer] [facility] Address [address] [place] [address] Care Team Providers Care Marine Pipe Welder Name Role Phone Baron Patrick Primary Care Provider [phone] Encounter Details Date Type Department Care Team Description 02/23/2024 Refill Gastroenterology - [address] [place] [phone] Charly Pedro PA-C Social History Tobacco Use Types Packs/Day Years Used Date Smoking Tobacco: Former Smokeless Tobacco: Never Alcohol Use Standard Drinks/Week Comments Yes 0 (1 standard drink = 0.6 oz pur e alcohol) occasionally Sex Assigned at Date Recorded Not on file Job Start Date Occupation Industry Not on file Not on file Not on file documented as of this encounter Miscellaneous Notes * Telephone Encounter - Gia Butts M.A. - 02/23/2024 2:53 PM EDT ANTONI 05/13/22 [facility] f/up 03/08/24 Lili documented in this encounter Plan of Treatment Not on file documented as of this encounter Visit Diagnoses Not on filedocumented in this encounter Care Teams Marine Pipe Welder Relationship Specialty Start Date End Date Baron Patrick [address] [place] [address] PCP - General Internal Medicine 12/24/21 documented as of this encounter
--- OUTSIDE RECORDS SUMMARY | 2024-10-18 10:43 | XMS_ITS | Encounter Summary ---
Author Organization [facility] Address [address] [facility] [place] [address] Care Team Providers Care Line Decorator Name Role Phone John Crawford DO Primary Care Provider Simon Adame MD Primary Care Provider Baron Minor Primary Care Provider [phone] Encounter Details Date Type Department Care Team Description 07/10/2021 Home Health Certification Medical Records [address] [place] [address] Social History Tobacco Use Types Packs/Day Years Used Date Smoking Tobacco: Former Smokeless Tobacco: Never Alcohol Use Standard Drinks/Week Comments Yes 0 (1 standard drink = 0.6 oz pur e alcohol) occasionally Sex Assigned at Date Recorded Not on file Job Start Date Occupation Industry Not on file Not on file Not on file COVID-19 Exposure Response Date Recorded In the last month, have you been in contact with someone who was confirmed or suspected to have Coronavirus / COVID-19? No / Unsure 07/01/2021 12:48 PM EDT documented as of this encounter Plan of Treatment Not on file documented as of this encounter Visit Diagnoses Not on filedocumented in this encounter Care Teams Line Decorator Relationship Specialty Start Date End Date John Crawford DO PCP - General Internal Medicine 02/18/21 1 Simon Nolen MD PCP - General Internal Medicine 08/19/21 12/23/21 Baron Patrick [address] [place], [place] [phone] PCP - General Internal Medicine 12/24/21 documented as of this encounter
--- OUTSIDE RECORDS SUMMARY | 2024-10-18 10:43 | XMS_ITS | Encounter Summary ---
Author Organization [employer] [facility] Address [address] [place] [address] Care Team Providers Care News Internship Name Role Phone Baron Patrick Primary Care Provider [phone] Encounter Details Date Type Department Care Team Description 02/23/2024 Refill OBGYN - [place] [address] [place] [address] Taylor Moore, [facility] [address] [place], [place] [id number] Social History Tobacco Use Types Packs/Day Years Used Date Smoking Tobacco: Former Smokeless Tobacco: Never Alcohol Use Standard Drinks/Week Comments Yes 0 (1 standard drink = 0.6 oz pur e alcohol) occasionally Sex Assigned at Date Recorded Not on file Job Start Date Occupation Industry Not on file Not on file Not on file documented as of this encounter Plan of Treatment Not on file documented as of this encounter Visit Diagnoses Diagnosis Amenorrhea Absence of menstruation documented in this encounter Care Teams News Internship Relationship Specialty Start Date End Date Baron Patrick [address] [place] [address] PCP - General Internal Medicine 12/24/21 documented as of this encounter
--- OUTSIDE RECORDS SUMMARY | 2024-10-18 10:43 | XMS_ITS | Encounter Summary ---
Author Organization [facility] Address [address] [facility] [place] [address] Care Team Providers Care Account Executive Agribusiness Name Role Phone Baron Patrick Primary Care Provider [phone] Encounter Details Date Type Department Care Team Description 12/05/2022 Home Health Certification Medical Records [address] [place] [address] Baron Patrick [address] [place] [id number] Social History Tobacco Use Types Packs/Day Years [...] on filedocumented in this encounter Care Teams Account Executive Agribusiness Relationship Specialty Start Date End Date Baron Patrick [address] [place] [id number] PCP - General Internal Medicine 12/24/21 documented as of this encounter
--- OUTSIDE RECORDS SUMMARY | 2024-10-18 10:43 | XMS_ITS | Encounter Summary ---
Author Organization [facility] Address [address] [facility] [place] [address] Care Team Providers Care Auto Parts Handler Name Role Phone Venkatesh Abel MD Primary Care Provider Rocky Ramirez MD Primary Care Provider John Younger DO Primary Care Provider Simon Adame MD Primary Care Provider Baron Minor Primary Care Provider [phone] Reason for Visit * Reason Comments E-prescribe Rx Request Encounter Details Date Type Department Care Team Description 07/18/2020 Refill Allergy [place] [address] [place] [address] Ana Luisa Canales PA-C E-prescribe Rx Request Social History Tobacco Use Types Packs/Day Years Used Date Smoking Tobacco: Former Smokeless Tobacco: Never Alcohol Use Standard Drinks/Week Comments No 0 (1 standard drink = 0.6 oz pur e alcohol) occasionally Sex Assigned at Date Recorded Not on file Job Start Date Occupation Industry Not on file Not on file Not on file COVID-19 Exposure Response Date Recorded In the last month, have you been in contact with someone who was confirmed or suspected to have Coronavirus / COVID-19? No / Unsure 07/15/2020 8:08 AM EST documented as of this encounter Miscellaneous Notes * Telephone Encounter - Jennie Santoyo LPN - 07/18/2020 3:01 PM EST ANTONI: 05/27/20 F/U: 07/23/20 documented in this encounter Plan of Treatment Not on file documented as of this encounter Visit Diagnoses Not on filedocumented in this encounter Care Teams Auto Parts Handler Relationship Specialty Start Date End Date Venkatesh Abel MD PCP - General Internal Medicine 10/23/19 01/12/21 Rocky Whitlock MD PCP - General Internal Medicine 01/13/21 02/17/21 John Crawford DO PCP - General Internal Medicine 02/18/21 1 Simon Nolen MD PCP - General Internal Medicine 08/19/21 12/23/21 Baron Patrick [address] [place] [address] PCP - General Internal Medicine 12/24/21 documented as of this encounter
--- OUTSIDE RECORDS SUMMARY | 2024-10-18 10:44 | XMS_ITS | Clinical Summary ---
Author Organization [facility] Address [address] [facility] [place] [address] Care Team Providers Care Motor Assembler Name Role Phone Baron Patrick Primary Care Provider [phone] Allergies Active Allergy Reactions Severity Noted Date Comments Eggs 04/25/2020 Eczema flares Prednisone SOB, Wheezing,Chest tightness 2019 Shrimp Hives/Urticaria 03/11/2023 Raw shrimp Medications Medication Sig Dispensed Refills Start Date End Date Status buPROPion (WELLBUTRIN XL) 300 MG 24 hr tablet Take 300 mg by mouth every morning. 0 Active ketotifen 0.025 % ophthalmic solution 1 Drop 2 times daily as needed. 0 Active Meclizine HCl 25 MG Tab Take 25 mg by mouth 3 times daily. 0 Active cyproheptadine (PERIACTIN) 4 MG tablet TAKE 1 TABLET BY MOUTH 3 TIMES DAILY NEEDED FOR ITCH 90 tablet 5 1 Active Crisaborole 2 % Ointment Apply 1 Each topically 2 times daily. 30 g 1 1 Active azelastine (ASTELIN) 0.1 % nasal spray 2 Sprays by Each Nare route 2 times daily. 30 mL 5 1 Active escitalopram (Lexapro) 20 MG tablet Take 0.5 Tablets by mouth every morning. 30 tablet 3 2 Active Melatonin 10 MG Cap Take by mouth. 0 Active mesalamine (CANASA) [address] 1 Suppository rectally 2 times daily. 60 Suppository 1 2 Active doxepin (SINEQUAN) 10 MG capsule Take 1 Capsule by mouth. 0 1 Active duloxetine (CYMBALTA) 20 MG capsule Take 40 mg by mouth daily. 0 Active Triumeq 600-50-300 MG Tab TAKE ONE TABLET BY MOUTH ONCE DAILY 30 Tablet 11 2 Active Incontinence Supply Disposable Strip 1 Units by Does not apply route 6 times daily. 180 Strip 11 3 Active ALBUTEROL SULFATE 108 (90 Base) MCG/ACT Aero SolnIndications:M ild persistent asthma without complication Inhale 2 Puffs into the lungs every 4 hours as needed for Cough, Wheezing or Shortness of Breath. 8.5 g 1 3 Active EPINEPHrine 0.3 MG/0.3ML Solution Auto-injector INJECT INTRAMUSCULARLY FOR ALLERGIC REACTIONS. CALL 911 SEEK MEDICAL ATTENTION 2 Each 5 3 Active Flovent HFA 220 MCG/ACT inhaler INHALE 2 PUFFS BY MOUTH TWO TIMES A DAY 36 g 0 3 Active Capsaicin-Menthol (Salonpas Gel-Patch Hot) 0.025-1.25 % PATCH Apply 1 Patch topically 3 times daily (before meals). 90 Patch 0 3 Active montelukast (SINGULAIR) 10 MG tablet TAKE 1 TABLET BY MOUTH AT BEDTIME. 90 Tablet 1 4 Active albuterol (PROVENTIL) (2.5 MG/3ML) 0.083% nebulizer solutionIndicatio ns:Mild persistent asthma without complication TAKE 1 VIAL BY NEBULIZATION EVERY 6 HOURS NEEDED FOR WHEEZING OR SHORTNESS OF BREATH. 75 mL 0 4 Active medroxyPROGESTERo ne (Provera) 5 MG tabletIndications :Amenorrhea Take 2 Tablets by mouth daily for 40 days. 20 Tablet 3 4 Active tizanidine (ZANAFLEX) 4 MG tablet Take 1 Tablet by mouth 2 times daily as needed for Muscle spasms. 45 Tablet 1 4 Active oxycodone (ROXICODONE) 5 MG immediate release tablet Take 1 Tablet by mouth 2 times daily as needed for Pain. 20 Tablet 0 4 Active famotidine (PEPCID) 20 MG tablet Take 1 Tablet by mouth daily as needed for Heartburn. 30 Tablet 4 4 Active levocetirizine (XYZAL) 5 MG tablet Take 1 Tablet by mouth every evening. 30 Tablet 4 4 Active lisinopril-hydroc hlorothiazide (PRINZIDE,ZESTORE TIC) 20-12.5 MG per tablet Take 1 Tablet by mouth daily. 90 Tablet 1 4 Active senna (Senna-Time) 8.6 MG tablet Take 1 Tablet by mouth daily for 30 days. 30 Tablet 0 4 Active Trospium Chloride 60 MG CAPSULE SR 24 HR Take 1 Capsule by mouth daily. 30 Capsule 0 4 Active Cholecalciferol (Vitamin D) 25 MCG (1000 UT) Tab Take 1,000 Units by mouth daily. 90 Tablet 1 4 Active metformin (GLUCOPHAGE) 500 MG tablet TAKE ONE TABLET BY MOUTH ONCE DAILY WITH BREAKFAST 90 Tablet 1 4 Active acetaminophen (Tylenol 8 Hour) 650 MG CR tablet Take 1 Tablet by mouth 3 times daily as needed for Pain. 90 Tablet 3 4 Active hydrocortisone 1 % cream Apply small amount to affect area (s) twice daily for up to 2 weeks. 30 g 3 4 Active cromolyn (OPTICROM) 4 % ophthalmic solution Place 1 Drop into both eyes 4 times daily. 6 mL 3 4 Active ropinirole (REQUIP) 0.25 MG tablet Take 1 Tablet by mouth at bedtime. 30 Tablet 3 4 Active ammonium lactate (AMLACTIN) 12 % cream Apply 1 Applicator topically 2 times daily as needed for Dry Skin. 385 g 3 4 Active Diclofenac Sodium 1 % Gel Apply 1 Applicator topically 2 times daily as needed (neck pain) for up to 28 days. 50 g 2 4 Active Linzess 145 MCG Cap TAKE 1 CAPSULE(145 MCG) BY MOUTH DAILY 30 Capsule 2 4 Active vitamin B-12 (CYANOCOBALAMIN) 1000 MCG tablet TAKE 1 TABLET BY MOUTH EVERY DAY 90 Tablet 0 4 Active Active Problems Problem Noted Date Prediabetes 03/08/2023 Mixed stress and urge urinary incontinen ce 10/08/2022 S/P gastric sleeve procedure 10/29/2021 Adrenal nodule 10/29/2021 Low grade squamous intraepith lesion on cytologic smear cervix (lgsil) 07/23/2020 Overview: 05/2007 LSIL 05/2008 LSIL 06/2009 LSIL 03/2011 LSIL HPV pos 03/2012 LISIL HPV neg colpo neg 07/2013 LSIL HPV pos 08/2014 LSIL HPV neg 11/2015 LSIL HPV neg 08/2016 LSIL HPV pos colpo neg ecc scant 01/2017 colpo CIN1 scnat ECC 03/2018 LSIL HPV + 07/31/2020 LSIL 09/17/2020 Colpo wnl 04/28/23 pap smear - Allergic conjunctivitis, bilateral 05/27 Eczema 05/27/2020 Egg allergy 05/27/2020 Obstructive sleep apnea 05/21/2020 Overview: Does not use CPAP machine Elevated LFTs 05/21/2020 Hypertension 04/25/2020 Asthma 04/25/2020 HIV (human immunodeficiency virus infect ion) 04/25/2020 Osteoarthritis of lower back 04/25/2020 Overview: With sciatica Fatty liver 04/25/2020 Anxiety 04/25/2020 Anxiety and depression 04/25/2020 Perennial allergic rhinitis 04/25/2020 Constipation 04/25/2020 Morbid obesity with BMI of 40.0-44.9, ad ult 04/25/2020 Immunizations Name Administration Dates Next Due COVID-19 (DAVID Garcia) PT REPORTED 12/08/2020 COVID-19 (Moderna) 07/15/2022 COVID-19 (Moderna) PT Reported 07/17/2021 Flu (Generic) 07/04/2023,,07/17/2021,08/30,07/11/2015,07/22/2014,07/04/2013 ,08/18/2006 Hepatitis B (Generic) 07/15/2023,04/10/2021 Hepatitis B-3 Dose (<19yrs) 08/29/2009 Influenza (> 6 Months) 06/26/2012,2011,06/09/2011,05/27,05/28/2009,08/14/2007 Influenza Flu (PT Reported) 07/17/2021 Influenza Vaccine-preservati ve Free-quadrivalent 4 Years 07/04/2023,07/13/2022 Meningococcal (Menactra) 07/15/2023,08/30/2017,0 12/02/2016 Pneumoccoccal(Adult) Polysac charide PPSV23 05/01/2009,07/18/2002 Pneumococcal Conjugate PCV-13 07/11/2015 Pneumococcal Conjugate PCV-20 07/15/2023 TD (STATE SUPPLIED FOR ADULT S AND CHILDREN) 05/01/2009 Tdap 07/15/2023,12/02/2016 Family History Medical History Relation Name Comments No Known Problems Brother 1 Hypertension Brother 2 No Known Problems Brother 3 Diabetes Father CAD Maternal Grandmother s/p HI Diabetes Mother Hypertension Mother fatty liver Mother ?colon or uterine cancer Paternal Grandmother Cancer of the Colon Paternal Grandmother Hypertension Sister 1 No Known Problems Sister 2 Hypertension Sister 3 No Known Problems Sister 4 Hypertension Sister 5 No Known Problems Sister 6 Hypertension Sister 7 CA Breast Negative Hx Relation Name Status Comments Brother 1 Alive Brother 2 Alive Brother 3 Alive Father Maternal Grandmother Mother Alive Paternal Grandmother Sister 1 Alive Sister 2 Alive Sister 3 Alive Sister 4 Alive Sister 5 Alive Sister 6 Alive Sister 7 Alive Social History Tobacco Use Types Packs/Day Years Used Date Smoking Tobacco: Former Smokeless Tobacco: Never Alcohol Use Standard Drinks/Week Comments Yes 0 (1 standard drink = 0.6 oz pur e alcohol) occasionally Sex Assigned at Date Recorded Not on file Job Start Date Occupation Industry Not on file Not on file Not on file Last Filed Vital Signs Vital Sign Reading Time Taken Comments Blood Pressure 126/85 04/06/2024 11:29 AM EDT Pulse 89 04/06/2024 11:29 AM EDT Temperature 36.2 ??C (97.1 ??F) 04/06/2024 11:29 AM E DT Respiratory Rate 16 04/06/2024 11:29 AM EDT Oxygen Saturation 98% 03/08/2024 9:57 AM EDT Inhaled Oxygen Concentration - - Weight 109.3 kg (241 lb) 04/06/2024 11:29 AM EDT Height 165.1 cm (5' 5 ) 04/06/2024 11:29 AM EDT Body Mass Index 40.1 04/06/2024 11:29 AM EDT Plan of Treatment Health Maintenance Due Date Last Done Comments CERVICAL CANCER SCREENING 04/28/2024 04/28/2023, Covid-19 Vaccine (2 4 season) 2024 07/15/2022, 07/17/2021, 12/08/2020 INFLUENZA (#1) 2024 07/04/2023, 1109/2021, 07/17/2021, Additional history exists BMI CHECK/ADVISE 09/12/2024 04/06/2024, , 09/15/2023, Additional history exists MAMMOGRAM 10/08/2024 10/08/2023, 09/12, 09/19/2021, Additional history exists BASELINE HEALTH EXAM 40-64 04/06/202604/06, 07/04/2023, 10/10/2000, Additional history exists CHOLESTEROL SCREENING 03/08/2028 03/08/2023 , 10/22/2022, 05/03/2022 DTAP/TDAP/TD (3 - Td or Tdap) 07/15/2033, 12/02/2016, 05/01/2009 PNEUMOCOCCAL VACCINE FOR HIG H RISK PATIENTS Completed 07/15/2023, 07/11/2015, 05/01/2009, Additional history exists Care Teams Motor Assembler Relationship Specialty Start Date End Date Baron Patrick [address] [place] [address] PCP - General Internal Medicine 12/24/21
--- OUTSIDE RECORDS SUMMARY | 2024-10-18 10:44 | XMS_ITS | Encounter Summary ---
Author Organization [facility] Address [address] [place] [address] Care Team Providers Care Hop Worker Name Role Phone John Crawford DO Primary Care Provider Simon Adame MD Primary Care Provider Baron Minor Primary Care Provider [phone] Encounter Details Date Type Department Care Team Description 03/24/2021 Meteorology Faculty Member Report Medical Records [address] [place] [address] Abstract, Provider Social History Tobacco Use Types Packs/Day Years [...] have Coronavirus / COVID-19? No / Unsure 03/23/2021 1:28 PM EDT documented as of this encounter Plan of Treatment Not on file documented as of this encounter Visit Diagnoses Not on filedocumented in this encounter Care Teams Hop Worker Relationship Specialty Start Date End Date John Crawford DO PCP - General Internal Medicine 02/18/21 1 Simon Nolen MD PCP - General Internal Medicine 08/19/21 12/23/21 Baron Patrick [address] [place], [place] [id number] PCP - General Internal Medicine 12/24/21 documented as of this encounter
--- OUTSIDE RECORDS SUMMARY | 2024-10-18 10:44 | XMS_ITS | Encounter Summary ---
Author Organization [facility] Address [address] [facility] [place] [address] Care Team Providers Care Lead Generation Representative Name Role Phone Simon Nolen MD Primary Care Provider Baron Minor Primary Care Provider [phone] Reason for Visit * Reason Onset Date Comments Faxed Order 10/20/2021 [id number] Encounter Details Date Type Department Care Team Description 10/20/2021 Telephone Adult Medicine [address] [address] Simon Nolen MD Faxed Order ([id number]) Social History Tobacco Use Types Packs/Day Years [...] encounter Miscellaneous Notes * Telephone Encounter - Juliet Curry - 10/20/2021 12:20 PM EST [facility] at home faxing orders to be signed and faxed back to [phone] documented in this encounter Plan of Treatment Not on file documented as of this encounter Visit Diagnoses Not on filedocumented in this encounter Care Teams Lead Generation Representative Relationship Specialty Start Date End Date Simon Nolen MD PCP - General Internal Medicine 08/19/21 12/23/21 Baron Patrick [address] [place] [address] PCP - General Internal Medicine 12/24/21 documented as of this encounter
--- OUTSIDE RECORDS SUMMARY | 2024-10-18 10:44 | XMS_ITS | Encounter Summary ---
Author Organization [facility] Address [address] [facility] [place] [address] Care Team Providers Care Clinical Quality Assurance Specialist Name Role Phone John Crawford DO Primary Care Provider Simon Adame MD Primary Care Provider Baron Minor Primary Care Provider [phone] Reason for Visit * Reason Onset Date Comments Faxed Order 04/02/2021 Encounter Details Date Type Department Care Team Description 04/02/2021 Telephone Adult Medicine [address] [address] John Crawford DO Faxed Order Social History Tobacco Use Types Packs/Day Years [...] PM EDT documented as of this encounter Miscellaneous Notes * Telephone Encounter - Myra Bustillo - 04/02/2021 10:20 AM EDT Faxed order from [facility] at Home #[id number] documented in this encounter Plan of Treatment Not on file documented as of this encounter Visit Diagnoses Not on filedocumented in this encounter Care Teams Clinical Quality Assurance Specialist Relationship Specialty Start Date End Date John Crawford DO PCP - General Internal Medicine 02/18/21 1 Simon Nolen MD PCP - General Internal Medicine 08/19/21 12/23/21 Baron Patrick [address] [place] [address] PCP - General Internal Medicine 12/24/21 documented as of this encounter
--- OUTSIDE RECORDS SUMMARY | 2024-10-18 10:44 | XMS_ITS | Encounter Summary ---
Author Organization [facility] Address [address] [place] [address] Care Team Providers Care Roller Shop Utility Worker Name Role Phone Baron Patrick Primary Care Provider [phone] Reason for Visit * Reason Onset Date Comments Faxed Order 06/03/2023 [facility] Order # [id number] Encounter Details Date Type Department Care Team Description 06/03/2023 Telephone Adult Medicine [address] [address] Baron Patrick [address] [place] [phone] Faxed Order ([facility] Order # [id number]) Social History Tobacco Use Types Packs/Day Years [...] encounter Miscellaneous Notes * Telephone Encounter - Jill Mendoza - 06/03/2023 2:13 PM EDT [facility] Order # [id number] documented in this encounter Plan of Treatment Not on file documented as of this encounter Visit Diagnoses Not on filedocumented in this encounter Care Teams Roller Shop Utility Worker Relationship Specialty Start Date End Date Baron Patrick [address] [place] [phone] PCP - General Internal Medicine 12/24/21 documented as of this encounter
--- OUTSIDE RECORDS SUMMARY | 2024-10-18 10:44 | XMS_ITS | Encounter Summary ---
Author Organization [facility] Address [address] [place] [address] Care Team Providers Care Patternmaker Helper Name Role Phone Simon Nolen MD Primary Care Provider Baron Minor Primary Care Provider [phone] Reason for Visit * Reason Onset Date Comments Information Needed 10/01/2021 Encounter Details Date Type Department Care Team Description 10/01/2021 Telephone OBGYN - [place] [address] [place] [address] Lupillo Baeza MD [address] [place] [address] Information Needed Social History Tobacco Use Types Packs/Day Years [...] have Coronavirus / COVID-19? No / Unsure 09/19/2021 2:42 PM EST documented as of this encounter Miscellaneous Notes * Telephone Encounter - Solange Melton M.A. - 10/01/2021 2:06 PM EST Patient is aware of results. KM * Telephone Encounter - Renita Garcia - 10/01/2021 2:01 PM EST Pt returned call * Telephone Encounter - Solange Melton M.A. - 10/01/2021 2:00 PM EST Left message to call office-km * Telephone Encounter - Gia Riggins - 10/01/2021 1:21 PM EST Pt would like a call back - has questions about taking depo provera again - pt given the information about her referral to [facility] and the letter was reprinted and sent to pt at verified home address documented in this encounter Plan of Treatment Not on file documented as of this encounter Visit Diagnoses Not on filedocumented in this encounter Care Teams Patternmaker Helper Relationship Specialty Start Date End Date Simon Nolen MD PCP - General Internal Medicine 08/19/21 12/23/21 Baron Patrick [address] [place] [id number] PCP - General Internal Medicine 12/24/21 documented as of this encounter
--- OUTSIDE RECORDS SUMMARY | 2024-10-18 10:44 | XMS_ITS | Encounter Summary ---
Author Organization [facility] Address [address] [facility] [place] [address] Care Team Providers Care Varnish Supervisor Name Role Phone Community, Pcp Primary Care Provider Malissa Flowers Primary Care Provider [phone] Venkatesh Abel MD Primary Care Provider Unava ilmeeta [facility] Primary Care Pro vider Rocky Whitlock MD Primary Care Provider UnavailJohn Alvarez DO Primary Care Provider Palak Simon Alcazar MD Primary Care Provider Baron Minor Primary Care Provider [phone] Encounter Details Date Type Department Care Team Description 01/29/2002 Telephone OBGYN - [email or web address] [address] [place] [address] [phone] Social History Tobacco Use Types Packs/Day Years Used Date Smoking Tobacco: Never Assessed Sex Assigned at Date Recorded Not on file Job Start Date Occupation Industry Not on file Not on file Not on file documented as of this encounter Plan of Treatment Not on file documented as of this encounter Visit Diagnoses Not on filedocumented in this encounter Care Teams Varnish Supervisor Relationship Specialty Start Date End Date Community, Pcp PCP - General 11/02/06 5 Malissa Rodriguez [address] [place] [id number] PCP - General 11/20/99 11/01/06 Venkatesh Abel MD [address] [place] [address] PCP - General Internal Medicine 10/23/19 01/12/21 [facility] [address] [address] PCP - General 01/15/16 10/22/19 Rocky Whitlock MD [address] [address] PCP - General Internal Medicine 01/13/21 02/17/21 John Crawford DO [address] [address] PCP - General Internal Medicine 02/18/21 08/18/21 Simon Nolen MD [address] [address] PCP - General Internal Medicine 08/19/21 12/23/21 Baron Patrick [address] [place] [address] PCP - General Internal Medicine 12/24/21 documented as of this encounter
--- OUTSIDE RECORDS SUMMARY | 2024-10-18 10:44 | XMS_ITS | Encounter Summary ---
Author Organization [facility] Address [address] [facility] [place] [address] Care Team Providers Care Cooler Room Worker Name Role Phone Baron Patrick Primary Care Provider [phone] Encounter Details Date Type Department Care Team Description 06/05/2023 Home Health Certification Medical Records [address] [place] [address] Baron Patrick [address] [place] [address] Social History Tobacco Use Types Packs/Day Years [...] on filedocumented in this encounter Care Teams Cooler Room Worker Relationship Specialty Start Date End Date Baron Patrick [address] [place] [address] PCP - General Internal Medicine 12/24/21 documented as of this encounter
--- OUTSIDE RECORDS SUMMARY | 2024-10-18 10:44 | XMS_ITS | Encounter Summary ---
Author Organization [facility] Address [address] [place] [address] Care Team Providers Care Business Services Sales Agent Name Role Phone Simon Nolen MD Primary Care Provider Baron Minor Primary Care Provider [phone] Reason for Visit * Reason Onset Date Comments Faxed Order 10/21/2021 Encounter Details Date Type Department Care Team Description 10/21/2021 Telephone Adult Medicine [address] [address] Simon Nolen MD Faxed Order Social History Tobacco Use Types [...] * Telephone Encounter - Juliet Curry - 10/21/2021 3:46 PM EST [facility] at home faxing orders to be signed and faxed back to [phone] documented in this encounter Plan of Treatment Not on file documented as of this encounter Visit Diagnoses Not on filedocumented in this encounter Care Teams Business Services Sales Agent Relationship Specialty Start Date End Date Simon Nolen MD PCP - General Internal Medicine 08/19/21 12/23/21 Baron Patrick [address] [place] [address] PCP - General Internal Medicine 12/24/21 documented as of this encounter
--- OUTSIDE RECORDS SUMMARY | 2024-10-18 10:44 | XMS_ITS | Encounter Summary ---
Author Organization [facility] Address [address] [place] [address] Care Team Providers Care Report Specialist Name Role Phone Simon Nolen MD Primary Care Provider Baron Minor Primary Care Provider [phone] Reason for Visit * Reason Onset Date Comments Faxed Order 11/23/2021 order [id number] Encounter Details Date Type Department Care Team Description 11/23/2021 Telephone Adult Medicine [address] [address] Simon Nolen MD Faxed Order (order [id number], [id number]) Social History Tobacco Use Types Packs/Day Years [...] have Coronavirus / COVID-19? No / Unsure 10/29/2021 10:50 AM EST documented as of this encounter Miscellaneous Notes * Telephone Encounter - Elise Altamirano - 11/23/2021 3:20 PM EDT Fax orders from [facility], please sign and fax back. order [id number] documented in this encounter Plan of Treatment Not on file documented as of this encounter Visit Diagnoses Not on filedocumented in this encounter Care Teams Report Specialist Relationship Specialty Start Date End Date Simon Nolen MD PCP - General Internal Medicine 08/19/21 12/23/21 Baron Patrick [address] [place] [address] PCP - General Internal Medicine 12/24/21 documented as of this encounter
--- OUTSIDE RECORDS SUMMARY | 2024-10-18 10:44 | XMS_ITS | Encounter Summary ---
Author Organization [facility] Address [address] [facility] [place] [address] Care Team Providers Care Terra Cotta Mold Maker Name Role Phone Simon Nolen MD Primary Care Provider Barno Minor Primary Care Provider [phone] Encounter Details Date Type Department Care Team Description 10/15/2021 Hospital Medical Records [address] [place] [address] Dariusz Nelson Social History Tobacco Use Types Packs/Day Years [...] PM EST documented as of this encounter Plan of Treatment Not on file documented as of this encounter Visit Diagnoses Not on filedocumented in this encounter Care Teams Terra Cotta Mold Maker Relationship Specialty Start Date End Date Simon Nolen MD PCP - General Internal Medicine 08/19/21 12/23/21 Baron Patrick [address] [place] [address] PCP - General Internal Medicine 12/24/21 documented as of this encounter
--- OUTSIDE RECORDS SUMMARY | 2024-10-18 10:44 | XMS_ITS | Encounter Summary ---
Author Organization [facility] Address [address] [facility] [place] [address] Care Team Providers Care Traffic Engineering Technician Name Role Phone Baron Patrick Primary Care Provider [phone] Reason for Visit * Reason Comments E-prescribe Rx Request Encounter Details Date Type Department Care Team Description 06/11/2024 Refill Gastroenterology - [place] [address] [facility] [address] [place] [id number] Lili Noel, HYSTER MACHINE OPERATOR [address] [facility] [place] [address] E-prescribe Rx Request Social History Tobacco Use [...] Telephone Encounter - Gia Butts M.A. - 06/11/2024 11:33 AM EDT ANTONI 03/08/24 No GI f/up Tatiana documented in this encounter Plan of Treatment Not on file documented as of this encounter Visit Diagnoses Not on filedocumented in this encounter Care Teams Traffic Engineering Technician Relationship Specialty Start Date End Date Baron Patrick [address] [place] [address] PCP - General Internal Medicine 12/24/21 documented as of this encounter
--- OUTSIDE RECORDS SUMMARY | 2024-10-18 10:44 | XMS_ITS | Encounter Summary ---
Author Organization [facility] Address [address] [facility] [place] [address] Care Team Providers Care Parliamentary Archivist Name Role Phone John Crawford DO Primary Care Provider Simon Adame MD Primary Care Provider Baron Minor Primary Care Provider [phone] Reason for Visit * Reason Comments E-prescribe Rx Request Encounter Details Date Type Department Care Team Description 03/19/2021 Refill Allergy [place] [address] [place] [id number] Ana Luisa Canales PA-C E-prescribe Rx Request [...] have Coronavirus / COVID-19? No / Unsure 02/23/2021 9:39 AM EDT documented as of this encounter Miscellaneous Notes * Telephone Encounter - Jennie Santoyo LPN - 03/19/2021 3:13 PM EDT ANTONI: F/U: due 12/31- not scheduled. BSR- please schedule a follow up appointment. documented in this encounter Plan of Treatment Not on file documented as of this encounter Visit Diagnoses Not on filedocumented in this encounter Care Teams Parliamentary Archivist Relationship Specialty Start Date End Date John Crawford DO PCP - General Internal Medicine 02/18/21 1 Simon Nolen MD PCP - General Internal Medicine 08/19/21 12/23/21 Baron Patrick [address] [place] [phone] PCP - General Internal Medicine 12/24/21 documented as of this encounter
--- OUTSIDE RECORDS SUMMARY | 2024-10-18 10:44 | XMS_ITS | Encounter Summary ---
Author Organization [facility] Address [address] [place] [address] Care Team Providers Care Arts And Crafts Teacher Name Role Phone Baron Patrick Primary Care Provider [phone] Reason for Visit * Reason Onset Date Comments Faxed Order 03/04/2023 Order number [id number] Encounter Details Date Type Department Care Team Description 03/04/2023 Telephone Adult Medicine [address] [address] Baron Patrick [address] [place] [address] Faxed Order (Order number [id number]) Social History Tobacco Use Types Packs/Day Years Used Date Smoking Tobacco: Former Smokeless Tobacco: Never Alcohol Use Standard Drinks/Week Comments Yes 0 (1 standard drink = 0.6 oz pur e alcohol) occasionally Sex Assigned at Date Recorded Not on file Job Start Date Occupation Industry Not on file Not on file Not on file COVID-19 Exposure Response Date Recorded In the last 10 days, have yo u been in contact with someone who was confirmed or suspected to have Coronavirus/COVID-19? No / Unsure 02/18/2023 12:57 PM EDT documented as of this encounter Miscellaneous Notes * Telephone Encounter - Raudel Santana - 03/04/2023 10:23 AM EDT Faxed orders from [facility] Order number [id number], please sign, date and fax back to [phone] documented in this encounter Plan of Treatment Not on file documented as of this encounter Visit Diagnoses Not on filedocumented in this encounter Care Teams Arts And Crafts Teacher Relationship Specialty Start Date End Date Baron Patrick [address] [place] [address] PCP - General Internal Medicine 12/24/21 documented as of this encounter
--- OUTSIDE RECORDS SUMMARY | 2024-10-18 10:44 | XMS_ITS | Encounter Summary ---
Author Organization [facility] Address [address] [place] [address] Care Team Providers Care Engineer Design And Construction Name Role Phone Baron Patrick Primary Care Provider [phone] Reason for Visit * Reason Onset Date Comments Faxed Order 02/10/2023 Order number [id number] Encounter Details Date Type Department Care Team Description 02/10/2023 Telephone Adult Medicine [address] [address] Baron Patrick [address] [place] [address] Faxed Order (Order number [id number]) Social History Tobacco Use Types Packs/Day Years [...] suspected to have Coronavirus/COVID-19? No / Unsure 01/11/2023 10:15 AM EDT documented as of this encounter Miscellaneous Notes * Telephone Encounter - Raudel Santana - 02/10/2023 7:17 AM EDT Faxed orders from [facility] Order number [id number], please sign, date and fax back to [phone] documented in this encounter Plan of Treatment Not on file documented as of this encounter Visit Diagnoses Not on filedocumented in this encounter Care Teams Engineer Design And Construction Relationship Specialty Start Date End Date Baron Patrick [address] [place] [address] PCP - General Internal Medicine 12/24/21 documented as of this encounter
--- OUTSIDE RECORDS SUMMARY | 2024-10-18 10:44 | XMS_ITS | Encounter Summary ---
Author Organization [facility] Address [address] [facility] [place] [address] Care Team Providers Care Duralumin Metalworker Name Role Phone Simon Nolen MD Primary Care Provider Baron Minor Primary Care Provider [phone] Encounter Details Date Type Department Care Team Description 10/17/2021 Hospital Medical Records [address] [place] [address] Dariusz Nelson Social History Tobacco Use Types [...] on filedocumented in this encounter Care Teams Duralumin Metalworker Relationship Specialty Start Date End Date Simon Nolen MD PCP - General Internal Medicine 08/19/21 12/23/21 Baron Patrick [address] [place] [address] PCP - General Internal Medicine 12/24/21 documented as of this encounter
--- OUTSIDE RECORDS SUMMARY | 2024-10-18 10:44 | XMS_ITS | Encounter Summary ---
Author Organization [facility] Address [address] [facility] [place] [address] Care Team Providers Care Licensed Master Social Worker Name Role Phone Baron PatrickTerrence Primary Care Provider [phone] Reason for Visit * Reason Comments E-prescribe Rx Request Encounter Details Date Type Department Care Team Description 03/18/2022 Refill Adult Medicine [address] [address] Allie Morrow APRN E-prescribe Rx Request Social History Tobacco Use [...] suspected to have Coronavirus/COVID-19? No / Unsure 02/25/2022 12:58 PM EDT documented as of this encounter Miscellaneous Notes * Telephone Encounter - Gay Kahn M.A. - 03/19/2022 9:35 AM EDT Lab Results Component Value Date NA 140 10/29/2021 K 4.0 10/29/2021 CO2 28 10/29/2021 CL 106 10/29/2021 BUN 9 10/29/2021 CREAT 0.83 10/29/2021 GLU 73 10/29/2021 CA 9.5 10/29/2021 GFR > 60 10/29/2021 Pending first visit with Dr. Patrick 04/26/22 Last rx 02/25/22 #14 documented in this encounter Plan of Treatment Not on file documented as of this encounter Visit Diagnoses Not on filedocumented in this encounter Care Teams Licensed Master Social Worker Relationship Specialty Start Date End Date Baron Patrick [address] [place] [phone] PCP - General Internal Medicine 12/24/21 documented as of this encounter
--- OUTSIDE RECORDS SUMMARY | 2024-10-18 10:44 | XMS_ITS | Encounter Summary ---
Author Organization [facility] Address [address] [place] [address] Care Team Providers Care Metal Precision Machine Assembler Name Role Phone Baron Patrick Primary Care Provider [phone] Reason for Visit * Reason Onset Date Comments Faxed Order 02/17/2022 Order #[id number] Encounter Details Date Type Department Care Team Description 02/17/2022 Telephone Adult Medicine [address] [address] Baron Patrick [address] [place] [phone] Faxed Order (Order #[id number]) Social History Tobacco Use Types Packs/Day Years [...] suspected to have Coronavirus/COVID-19? No / Unsure 02/16/2022 2:15 PM EDT documented as of this encounter Miscellaneous Notes * Telephone Encounter - Amanda Sophia - 02/17/2022 2:17 PM EDT Faxed order from [facility]. Order #[id number]. Please sign, date, and fax back. documented in this encounter Plan of Treatment Not on file documented as of this encounter Visit Diagnoses Not on filedocumented in this encounter Care Teams Metal Precision Machine Assembler Relationship Specialty Start Date End Date Baron Patrick [address] [place] [address] PCP - General Internal Medicine 12/24/21 documented as of this encounter
--- OUTSIDE RECORDS SUMMARY | 2024-10-18 10:44 | XMS_ITS | Encounter Summary ---
Author Organization [facility] Address [address] [facility] [place] [address] Care Team Providers Care Factory Expert Name Role Phone Baron Patrick Primary Care Provider [phone] Encounter Details Date Type Department Care Team Description 04/01/2023 Network Systems Administrator Report Medical Records [address] [place] [address] Abstract, Provider Social History Tobacco Use Types [...] suspected to have Coronavirus/COVID-19? No / Unsure 03/22/2023 9:47 AM EDT documented as of this encounter Plan of Treatment Not on file documented as of this encounter Visit Diagnoses Not on filedocumented in this encounter Care Teams Factory Expert Relationship Specialty Start Date End Date Baron Patrick [address] [place] [address] PCP - General Internal Medicine 12/24/21 documented as of this encounter
--- OUTSIDE RECORDS SUMMARY | 2024-10-18 10:44 | XMS_ITS | Encounter Summary ---
Author Organization [facility] Address [address] [facility] [place] [address] Care Team Providers Care Custom Feed Mill Operator Helper Name Role Phone Baron Patrick Primary Care Provider [phone] Encounter Details Date Type Department Care Team Description 02/03/2023 Home Health Certification Medical Records [address] [place] [address] Baron Patrick [address] [place] [address] Social History Tobacco Use Types Packs/Day Years [...] on filedocumented in this encounter Care Teams Custom Feed Mill Operator Helper Relationship Specialty Start Date End Date Baron Patrick [address] [place] [address] PCP - General Internal Medicine 12/24/21 documented as of this encounter
--- OUTSIDE RECORDS SUMMARY | 2024-10-18 10:44 | XMS_ITS | Encounter Summary ---
Author Organization [facility] Address [address] [place] [address] Care Team Providers Care Toddler Nanny Name Role Phone Simon Nolen MD Primary Care Provider Baron Minor Primary Care Provider [phone] Encounter Details Date Type Department Care Team Description 12/10/2021 Home Health Certification Medical Records [address] [place] [address] Social History Tobacco Use Types Packs/Day Years [...] suspected to have Coronavirus/COVID-19? No / Unsure 12/01/2021 10:15 AM EDT documented as of this encounter Plan of Treatment Not on file documented as of this encounter Visit Diagnoses Not on filedocumented in this encounter Care Teams Toddler Nanny Relationship Specialty Start Date End Date Simon Nolen MD PCP - General Internal Medicine 08/19/21 12/23/21 Baron Patrick [address] [place] [phone] PCP - General Internal Medicine 12/24/21 documented as of this encounter
--- OUTSIDE RECORDS SUMMARY | 2024-10-18 10:44 | XMS_ITS | Encounter Summary ---
Author Organization [facility] Address [address] [place] [address] Care Team Providers Care Transport Operations Inspector Name Role Phone Baron Patrick Primary Care Provider [phone] Reason for Visit * Reason Onset Date Comments [id number] Encounter Details Date Type Department Care Team Description 04/23/2024 Telephone Adult Medicine [address] [address] Baron Patrick [address] [place] [phone] Faxed Order ([facility]/Order #[id number]) Social History Tobacco Use Types Packs/Day Years [...] encounter Miscellaneous Notes * Telephone Encounter - Gavi Beltran - 04/23/2024 3:02 PM EDT Faxed order #[id number] from [facility] received and placed in provider bin. Please review, sign, and fax to [phone] documented in this encounter Plan of Treatment Not on file documented as of this encounter Visit Diagnoses Not on filedocumented in this encounter Care Teams Transport Operations Inspector Relationship Specialty Start Date End Date Baron Patrick [address] [place] [id number] PCP - General Internal Medicine 12/24/21 documented as of this encounter
--- OUTSIDE RECORDS SUMMARY | 2024-10-18 10:44 | XMS_ITS | Encounter Summary ---
Author Organization [facility] Address [address] [facility] [place] [address] Care Team Providers Care Immigration Case Worker Name Role Phone Baron PatrickTerrence Primary Care Provider [phone] Encounter Details Date Type Department Care Team Description 04/25/2023 Orders Only Medical Records [address] [facility] [place] [address] Abstract, Provider Social History Tobacco Use Types [...] suspected to have Coronavirus/COVID-19? No / Unsure 04/28/2023 1:20 PM EDT documented as of this encounter Plan of Treatment Not on file documented as of this encounter Procedures Procedure Name Priority Date/Time Associated Diagnosis Comments OUTSIDE EKG Routine 03/02/[address] Routine 03/02/2023 OUTSIDE PLAIN FILM Routine 03/02/2023 documented in this encounter Results * OUTSIDE CT (03/02/2023) Provider Abstract RADIOLOGY * OUTSIDE PLAIN FILM (03/02/2023) Provider Abstract RADIOLOGY * OUTSIDE EKG (03/02/2023) Provider Abstract CARDIOLOGY documented in this encounter Visit Diagnoses Not on filedocumented in this encounter Care Teams Immigration Case Worker Relationship Specialty Start Date End Date Baron Patrick [address] [place] [address] PCP - General Internal Medicine 12/24/21 documented as of this encounter
--- OUTSIDE RECORDS SUMMARY | 2024-10-18 10:44 | XMS_ITS | Clinical Summary ---
Author Organization [facility] [address] [place] [address] [place] [address] BETTY Riddle [address] Phone Care Team Providers Care Brick Tender Name Role Phone Baron Patrick MD Primary Care Provider [phone] Allergies Active Allergy Reactions Criticality Noted Date Comments Egg 04/25/2020 Eczema flares Prednisone Other,Wheezing 04/25/2020 Shrimp Hives 03/11/2023 Raw shrimp Medications Medication Sig Dispensed Refills Start Date End Date Status metFORMIN (GLUCOPHAGE) 500 mg tablet TAKE 1 TABLET BY MOUTH DAILY WITH BREAKFAST 90 tablet 1 4 Active abacavir-dolut egravir-lamiVU Dine (Triumeq) 600-50-300 mg per tablet Take 1 tablet by mouth 1 (one) time each day. 2 Active acetaminophen (TYLENOL 8 HOUR) 650 mg 8 hr tablet Take 1 tablet (650 mg total) by mouth 3 (three) times a day if needed. 4 Active albuterol 2.5 mg /3 mL (0.083 %) nebulizer solution TAKE 1 VIAL BY NEBULIZATION EVERY 6 HOURS NEEDED FOR WHEEZING OR SHORTNESS OF BREATH. 4 Active albuterol HFA (PROAIR HFA ; PROVENTIL HFA ; VENTOLIN HFA) 90 mcg/actuation inhaler Inhale 2 Puffs into the lungs every 4 hours as needed for Cough, Wheezing or Shortness of Breath. 3 Active ammonium lactate (AMLACTIN) 12 % cream Apply 1 Applicator topically 2 times daily as needed for Dry Skin. 4 Active azelastine (ASTELIN) 137 mcg (0.1 %) nasal spray 2 Sprays by Each Nare route 2 times daily. 1 Active buPROPion XL (WELLBUTRIN XL) 300 mg 24 hr tablet Take 300 mg by mouth every morning. Active crisaborole (Eucrisa) 2 % ointment Apply 1 Each topically 2 times daily. 1 Active cromolyn (OPTICROM) 4 % ophthalmic solution Place 1 Drop into both eyes 4 times daily. 4 Active cyanocobalamin (VITAMIN B-12) 1,000 mcg tablet Take 1 tablet (1,000 mcg total) by mouth 1 (one) time each day. 4 Active cyproheptadine (PERIACTIN) 4 mg tablet TAKE 1 TABLET BY MOUTH 3 TIMES DAILY NEEDED FOR ITCH 1 Active diclofenac (VOLTAREN) 1 % topical gel Apply 1 Applicator topically 2 times daily as needed (neck pain) for up to 28 days. 4 Active doxepin (SINEquan) 10 mg capsule Take 1 Capsule by mouth. 1 Active DULoxetine (CYMBALTA) [address] capsule Take 40 mg by mouth daily. Active EPINEPHrine (EpiPen 2-[place]ino) 0.3 mg/0.3 mL injection INJECT INTRAMUSCULARLY FOR ALLERGIC REACTIONS. CALL 911 SEEK MEDICAL ATTENTION 3 Active escitalopram (LEXAPRO) 20 mg tablet Take 0.5 Tablets by mouth every morning. 2 Active famotidine (PEPCID) 20 mg tablet Take 1 Tablet by mouth daily as needed for Heartburn. 4 Active fluticasone HFA (Flovent HFA) 220 mcg/actuation inhaler Inhale 2 puffs by mouth 2 (two) times a day. 3 Active hydrocortisone 1 % topical cream Apply small amount to affect area (s) twice daily for up to 2 weeks. 4 Active ketotifen fumarate (ZADITOR) 0.035 % ophthalmic solution 1 Drop 2 times daily as needed. Active lisinopril-hyd roCHLOROthiazi de (PRINZIDE,ZEST ORETIC) 20-12.5 mg per tablet Take 1 tablet by mouth 1 (one) time each day. 4 Active medroxyPROGEST ERone (PROVERA) 5 mg tablet Take 2 Tablets by mouth daily for 40 days. 4 Active melatonin 10 mg capsule Take by mouth. Active montelukast (SINGULAIR) 10 mg tablet TAKE 1 TABLET BY MOUTH AT BEDTIME. 4 Active senna (SENOKOT) 8.6 mg tablet Take 1 tablet (8.6 mg total) by mouth 1 (one) time each day. 4 Active tiZANidine (ZANAFLEX) 4 mg tablet Take 1 Tablet by mouth 2 times daily as needed for Muscle spasms. 4 Active trospium 60 mg capsule,extend ed release 24hr Take 1 capsule (60 mg total) by mouth 1 (one) time each day. 4 Active cholecalcifero l (VITAMIN D-3) 25 mcg (1,000 unit) tablet TAKE 1 TABLET BY MOUTH DAILY 90 tablet 1 4 Active allopurinoL (ZYLOPRIM) 100 mg tablet Take 1 tablet (100 mg total) by mouth 2 (two) times a day. 180 tablet 4 Active levocetirizine (XYZAL) 5 mg tablet TAKE 1 TABLET BY MOUTH EVERY EVENING 90 tablet 1 4 Active linaCLOtide (Linzess) 145 mcg capsule Take 1 capsule (145 mcg total) by mouth 1 (one) time each day before breakfast. 30 capsule 5 5 Active rOPINIRole (REQUIP) 0.25 mg tablet Take 1 tablet (0.25 mg total) by mouth at bedtime. at bedtime. 30 tablet 1 5 Active rOPINIRole (REQUIP) 0.25 mg tablet Take 1 Tablet by mouth at bedtime. 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 (lgsil) 07/23/2020 Overview (08/20/2024): 05/2007 LSIL 05/2008 LSIL 06/2009 LSIL 03/2011 LSIL HPV pos 03/2012 LISIL HPV neg colpo neg 07/2013 LSIL HPV pos 08/2014 LSIL HPV neg 11/2015 LSIL HPV neg 08/2016 LSIL HPV pos colpo neg ecc scant 01/2017 colpo CIN1 scnat ECC 03/2018 LSIL HPV + 07/31/2020 LSIL 09/17/2020 Colpo wnl 04/28/23 pap smear - Allergic conjunctivitis, bilateral 05/27/2020 Eczema 05/27/2020 Elevated LFTs 05/21/2020 Obstructive sleep apnea 05/21/2020 Overview (08/20/2024): Does not use CPAP machine Anxiety and depression 04/25/2020 Anxiety 04/25/2020 Asthma 04/25/2020 Constipation 04/25/2020 Fatty liver 04/25/2020 HIV (human immunodeficiency virus infection) Hypertension 04/25/2020 Osteoarthritis of lower back 04/25/2020 Overview (08/20/2024): With sciatica Perennial allergic rhinitis 04/25/2020 Encounters Date Type Department Care Team Description 10/08/2024 Billing Patient Not Present Adult Medicine [address] [phone] Baron Patrick MD Major depressive disorder, recurrent, moderate (CMS/HCC) (Primary Dx); Depression, unspecified depression type; Anxiety disorder, unspecified type; Essential (primary) hypertension; Prediabetes; Mixed incontinence; Human immunodeficiency virus (HIV) disease (CMS/HCC); COVID-19 10/04/2024 Telephone Adult Medicine [address] [phone] Morena Reed LPN Fitting for DME 10/01/2024 Telephone Adult Medicine [address] [phone] Morena Reed LPN Fitting for DME 09/19/2024 Telephone Adult [address] [phone] Baron Patrick MD Fitting for DME 09/18/2024 10:45 AM EST Office Visit [address] [phone] Chrissy Nguyen PA Gout involving toe, unspecified cause, unspecified chronicity, unspecified laterality (Primary Dx); Anxiety and depression; Primary hypertension; Pre-diabetes; Mixed stress and urge incontinence; Mild intermittent asthma without complication; Chronic constipation 09/09/2024 Billing Patient Not Present Adult [address] [phone] Baron Patrick MD Major depressive disorder, recurrent episode, moderate (CMS/HCC) (Primary Dx); Depression, unspecified depression type; Anxiety; Hypertension, unspecified type; Pre-diabetes; Mixed incontinence; HIV infection, unspecified symptom status (CMS/HCC); COVID-19 09/06/2024 Billing Patient Not Present Adult [address] [phone] Baron Patrick MD Major depressive disorder, recurrent, moderate (CMS/HCC) (Primary Dx); Depression, unspecified depression type; Anxiety disorder, unspecified type; Essential (primary) hypertension; Prediabetes; Mixed incontinence; Human immunodeficiency virus (HIV) disease (CMS/HCC); COVID-19 09/06/2024 Telephone Adult Medicine [address] [phone] Baron Patrick MD Gout 08/28/2024 10:45 AM EST Office Visit Adult Medicine [place] - [address] [phone] Chrissy Nguyen PA Acute gout involving toe of right foot, unspecified cause (Primary Dx); S/P gastric sleeve procedure 08/28/2024 Telephone Adult Medicine [address] [phone] Baron Patrick MD faxed order (Faxed order received from [facility] [id number] placed in providers box) 08/24/2024 Telephone Adult Medicine [address] [phone] Baron Patrick MD Faxed Order ([facility] #[id number]) 08/16/2024 Telephone Adult [address] [phone] Baron Patrick MD faxed order (Faxed order received from [facility] [id number] placed in providers box,) 08/01/2024 Telephone Gastroenterology [facility] [address] [place] [address] Lili Noel NP Prior Authorization from Last 3 Months Immunizations Name Administration Dates Next Due Hepatitis B (Noqmgdq-X-Sczir , Recombivax HB-Adult) 19yo and older 07/15/2023,04/10/2021 Hepatitis B Pediatric (Enger ix B; Recombivax HB) to less than 20 yo 08/29/2009 Influenza Quadravalent, MDCK , 0.5ml, preservative free (Flucelvax) 6mo and older 07/04/2023,07/13/2022 Influenza trivalent, 0.5mL, preservative free (Fluarix; FluLaval; Fluzone) ages 6mo and older (Afluria) 3 years and older 06/26/2012,06/26/2012,06/09/2011,05/27,05/28/2009,08/14/2007 Influenza trivalent, with pr eservative (Fluzone; Afluria) 6mo and older 07/17/2021,08/30/2017,07/11/2015,07/22,07/04/2013,08/18/2006 Influenza, Unspecified 07/17/2021 STONE/Jordon SARS-CoV-2 COVID -19, vector-nr, rS-Ad26, preservative free 12/08/2020 Meningococcal MCV4P 07/15/2023,08/30/2017,2016 Moderna SARS-CoV-2 COVID-19, mRNA, LNP-S, preservative free 07/17/2021 Pneumococcal conjugate 13 va lent (Prevnar 13, PCV13) 2mo and older 07/11/2015 Pneumococcal conjugate 20 va lent (Prevnar 20, PCV 20) 2mo and older 07/15/2023 Pneumococcal polysaccharide 23 valent (Pneumovax 23) 2yo and older 05/01/2009,07/18/2002 Td Tetanus diptheria (Tdvax) 7yo and older 05/01/2009 Tdap Tetanus diptheria acell ular pertussis (Boostrix; Adacel) 7yo and older 07/15/2023,12/02/2016 Surgical History Surgery Date Site/Laterality Comments APPENDECTOMY PROCEDURE: HISTORICAL APPENDECTOMY ELBOW SURGERY Left PROCEDURE: HISTORICAL ELBOW SURGERY; COMMENT: repair of tendon OTHER SURGICAL HISTORY 11/2020 PROCEDURE: ---- OTHER ----; COMMENT: laparoscopic sleeve gastrectomy with hiatal hernia repair Medical History Medical History Date Comments Eczema DX:Eczema HIV (human immunodeficiency virus infection) ([facility]) DX:HIV (human immunodeficien cy virus infection) ([facility]); COMMENT: Referred to infectious disease specialist on 01/19/2021 HTN (hypertension) DX:HTN (hyper tension) Asthma DX:Asthma; COMME NT: seeing specialist Arthritis DX:Arthritis Sciatica DX:Sciatica Anxiety and depression DX:Anxiet y and depression; COMMENT: never saw psychiatrist Family History Medical History Relation Name Comments No Known Problems Brother 1 Hypertension Brother 2 No Known Problems Brother 3 Diabetes Father Coronary artery disease Maternal Grandmother s/p [place] Diabetes Mother Hypertension Mother Other: fatty liver Mother Colon cancer Paternal Grandmother Other: ?colon or uterine cancer Paternal Grandmother Hypertension Sister 1 No Known Problems Sister 2 Hypertension Sister 3 No Known Problems Sister 4 Hypertension Sister 5 No Known Problems Sister 6 Hypertension Sister 7 Breast cancer Neg Hx Relation Name Status Comments Brother 1 Alive Brother 2 Alive Brother 3 Alive Father Maternal Grandmother Mother Alive Paternal Grandmother Sister 1 Alive Sister 2 Alive Sister 3 Alive Sister 4 Alive Sister 5 Alive Sister 6 Alive Sister 7 Alive Social History Tobacco Use Types Packs/Day Years Used Date Smoking Tobacco: Former Smokeless Tobacco: Never Tobacco Cessation:Counseling Given: Not Answered Alcohol Use Standard Drinks/Week Comments Yes 0 (1 standard drink = 0.6 oz pur e alcohol) Sex and Gender Information Value Date Recorded Sex Assigned at Female 09/18/2024 4:26 PM EST Gender Identity Female 09/18/2024 4:26 PM EST Sexual Orientation Straight 09/18/2024 4: 26 PM EST Job Start Date Occupation Industry Not on file Not on file Not on file Obstetrics History Last Filed Vital Signs Vital Sign Reading Time Taken Comments Blood Pressure 122/80 09/18/2024 10:36 AM EST Pulse 96 09/18/2024 10:36 AM EST Temperature 37 ??C (98.6 ??F) 09/18/2024 10:36 AM EST Respiratory Rate 16 09/18/2024 10:36 AM EST Oxygen Saturation - - Inhaled Oxygen Concentration - - Weight 105 kg (231 lb) 09/18/2024 10:36 AM EST Height 165.1 cm (5' 5 ) 09/18/2024 10:36 AM EST Body Mass Index 38.44 09/18/2024 10:36 AM EST Plan of Treatment Upcoming Encounters Date Type Department Care Team (Late st Contact Info) Description 10/23/2024 9:20 AM EST Appointment Radiology Department - [address] [phone] 01/09/2025 1:30 PM EDT Office Visit Obstetrics and Gynecology - [address] [phone] Libby Cornejo MD [address] [place], [place] 05/14/2025 4:00 PM EDT Office Visit Adult Medicine [facility] [place] [address] [place] [address] Chrissy Nguyen PA [address] [place] [address] Health Maintenance Due Date Last Done Comments MMR Vaccines (1 of 2 - Risk 2-dose series) 1994 Hepatitis A Vaccines (1 of 2 - Risk 2-dose series) 1995 Colorectal Cancer Screening: Colonoscopy 08/21/2022 Depression Screening 08/21/2022 Medicare Annual Wellness Visit 08/21/2022 Social Influencers of Health Screening 08/21/2022 Hepatitis B Vaccines (3 of 3 - 19+ 3-dose series) 09/09/2023 07/15/2023, 04/10/2021, 08/29/2009 COVID-19 Vaccine ( season) 2024 09/16/2023, 07/15/2022, 07/17/2021, Additional history exists Influenza Vaccine (#1) 2024 , 07/13/2022, 07/17/2021, Additional history exists Hypertension/CHF/CAD Annual BMP Blood Test 09/18/2025 09/18/2024, 04/06/2024, 04/06/2024 Breast Cancer Screening 10/08/2025 10/08/19 24, 09/25/2022, 09/19/2021, Additional history exists Cholesterol Screening (Lipid Panel) 03/08/2028 03/08/2023 Cervical Cancer Screening: HPV 04/28/2028 04/28/2023 Meningococcal ACWY Vaccine (4 - Risk 2-dose series) 07/15/2028 07/15/2023, 08/30/2017, 12/02/2016 DTaP,Tdap,and Td Vaccines (4 - Td or Tdap) 07/15/2033 07/15/2023, 12/02/2016, 05/01/2009 Hepatitis C Screening Completed 07/15/2020 Pneumococcal Vaccine: Pediatrics (0 to 5 Years) and At-Risk Patients (6 to 64 Years) Completed 07/15/2023, 07/11/2015, 05/01/2009, Additional history exists HIB Vaccines Aged Out No longer eligi ble based on patient's age to complete this topic HPV Vaccines Aged Out No longer eligi ble based on patient's age to complete this topic IPV Vaccines Aged Out No longer eligi ble based on patient's age to complete this topic RSV Immunization Patients Under 20 months Aged Out No longer eligible based on patient's age to complete this topic Varicella Vaccines Aged Out No longer eligible based on patient's age to complete this topic Procedures Procedure Name Priority Date/Time Associated Diagnosis Comments URIC ACID Routine 09/18/2024 11:13 AM EST Anxiety and depression Gout involving toe, unspecified cause, unspecified chronicity, unspecified laterality BASIC METABOLIC PANEL Routine 09/18/2024 11:13 AM EST Anxiety and depression Gout involving toe, unspecified cause, unspecified chronicity, unspecified laterality SCREENING MAMMOGRAPHY BI 2-VIEW BREAST INC CAD Routine 10/08/2023 1:11 PM EST Encounter for screening mammogram for malignant neoplasm of breast HPV Routine 04/28/2023 LIPID PANEL Routine 03/08/2023 HEPATITIS C SCREENING Routine 07/15/2020 from Last 3 Months or Most Recently Relevant to Health Maintenance Results * Uric acid (09/18/2024 11:13 AM EST) Uric Acid 5.0 3.1 - 7.8 mg/dL LAB CHEMISTRY METHOD 09/18/2024 2:28 PM EST [facility] Blood Venous blood specimen / Unknown Venipuncture / Unknown 09/18/2024 11:13 AM EST 09/18/2024 11:13 AM EST Chrissy CROCKETT LAB BLOOD ORDERA BLES [facility] [address] [place] [address], [place] [phone] * (ABNORMAL) Basic metabolic panel (09/18/2024 11:13 AM EST) Sodium 139 133 - 145 mmol/L LAB CHEMISTRY METHOD 09/18/2024 2:28 PM [facility] Potassium 3.9 3.5 - 5.5 mmol/L LAB CHEMISTRY METHOD 09/18/2024 2:28 PM [facility] Chloride 105 96 - 110 mmol/L LAB CHEMISTRY METHOD 09/18/2024 2:28 PM [facility] CO2 26 21 - 32 mmol/L LAB CHEMISTRY METHOD 09/18/2024 2:28 PM [facility] Anion Gap 8 3 - 11 LAB CHEMISTRY METHOD 09/18/2024 2:28 PM [facility] Glucose 116(H) 70 - 100 mg/dL LAB CHEMISTRY METHOD 09/18/2024 2:28 PM [facility] BUN 11 5 - 25 mg/dL LAB CHEMISTRY METHOD 09/18/2024 2:28 PM [facility] Creatinine 1.17(H) 0.50 - 1.10 mg/dL LAB CHEMISTRY METHOD 09/18/2024 2:28 PM [facility] eGFR 58(L) >=60 mL/min/1. 73m2 LAB CHEMISTRY METHOD 09/18/2024 2:28 PM [facility] Comment:Calculation based on the??Chronic Kidney Disease Epidemiology Collaboration (CKD-EPI) equation refit??without adjustment for race. BUN/Creatinine Ratio 9.4 LAB CHEMISTRY METHOD 09/18/2024 2:28 PM [facility] Calcium 9.3 8.5 - 10.5 mg/dL LAB CHEMISTRY METHOD 09/18/2024 2:28 PM [facility] Blood Venous blood specimen / Unknown Venipuncture / Unknown 09/18/2024 11:13 AM EST 09/18/2024 11:13 AM EST Chrissy Sanabria Gabe Nguyen PA LAB BLOOD ORDERA BLES [facility] [address] [place] [address], * SCREENING MAMMOGRAPHY BI 2-VIEW BREAST INC CAD (10/08/2023 1:11 PM EST) Anatomical Region Laterality Modality Radiographic Mariann ging 09/25/2022 1:41 PM EST Narrative 10/08/2023 4:00 PM EST This is a summary report. The complete report is available in the patient's medical record. If you cannot access the medical record, please contact the sending organization for a detailed fax or copy. Study: SCREENING MAMMOGRAPHY BI 2-VIEW BREAST INC CAD Technique: Bilateral full-field digital screening mammography is obtained and read in conjunction with computer aided detection. ??Tomosynthesis as well as 2D C-View imaging were obtained. Comparison: Comparison made to multiple prior, most recent September 25, 2022, and most remote August 09, 2020. Breast composition: There are scattered areas of fibroglandular density. Bilateral breasts: No significant masses, suspicious calcifications or other abnormalities are seen in either breast. IMPRESSION: Impression: Bilateral breasts: Negative, no specific mammographic evidence of malignancy. ??Normal interval follow-up is recommended in 12 months. BI-RADS: Category 1: Negative Procedure Note Michela Em MD - 04/30/2024 This is a summary report. The complete report is available in thepatient's medical record. If you cannot access the medical record, pleasecontact the sending organization for a detailed fax or copy. Study: SCREENING MAMMOGRAPHY BI 2-VIEW BREAST INC CAD Technique: Bilateral full-field digital screening mammography is obtainedand read in conjunction with computer aided detection. Tomosynthesis aswell as 2D C-View imaging were obtained. Comparison: Comparison made to multiple prior, most recent September, and most remote August 09, 2020. Breast composition: There are scattered areas of fibroglandular density. Bilateral breasts: No significant masses, suspicious calcifications orother abnormalities are seen in either breast. IMPRESSION: Impression: Bilateral breasts: Negative, no specific mammographic evidence ofmalignancy. Normal interval follow-up is recommended in 12 months. BI-RADS: Category 1: Negative Valentín Castanon MD IMG XR PROCEDURES * Cervical Cancer Screening: HPV (04/28/2023) Pathologist [facility] Cervical Cancer Screening: HPV negative, abstracted Historical Provider MD SAIDA ELDER E * (ABNORMAL) Lipid panel (03/08/2023) [facility] [address] LDL/HDL Ratio 5(A) 0 - 4 Triglycerides 179(A) 0 - 150 mg/dL Cholesterol 213(A) 0 - 200 mg/dL HDL 45 40 mg/dL LDL Cholesterol 133(A) 0 - 100 mg/dL Blood Venous blood specimen / Unknown Historical Provider LAB BLOOD ORDERAB LES * Hepatitis C Screening (07/15/2020) Pathologist [facility] Hepatitis C Screening abstracted Historical Provider MD SAIDA Marc from Last 3 Months or Most Recently Relevant to Health Maintenance Care Teams Brick Tender Relationship Specialty Start Date End Date Baron Patrick MD [address] [place] [address] BETTY GONZALEZ PCP - General Internal Medicine 12/24/21
--- OUTSIDE RECORDS SUMMARY | 2024-10-18 10:44 | XMS_ITS | Encounter Summary ---
Author Organization [facility] Address [address] [place] [address] Care Team Providers Care Healthcare Risk Control Consultant Name Role Phone Baron Patrick Primary Care Provider [phone] Encounter Details Date Type Department Care Team Description 05/18/2024 Refill Adult Medicine [address] [address] Baorn Patrick [address] [place] [id number] Social History Tobacco Use Types Packs/Day Years [...] encounter Miscellaneous Notes * Telephone Encounter - Vicky Franklin M.A. - 05/18/2024 3:38 PM EDT Last office visit??04/06/24 ?Patient advised to schedule follow-up appointment for routine physical.??(care gap states due 2025) * Telephone Encounter - Vicky Franklin M.A. - 05/18/2024 3:37 PM EDTFrom: Jhoana De La Garza To: Office of Radha Patrick Sent: 05/18/2024 11:03 AM EDT Subject: Medication Renewal Request Refills have been requested for the following medications: Other - Diclofenac Sodium Topical Gel 1%, PCP had prescribed this medication in the past for chronic back pain and it worked well. [id number] [place] - [address] [place] [address] AT [facility] & [facility] Medication renewals requested in this message routed separately: ammonium lactate (AMLACTIN) 12 % cream [Radha Patrick] documented in this encounter Plan of Treatment Not on file documented as of this encounter Visit Diagnoses Not on filedocumented in this encounter Care Teams Healthcare Risk Control Consultant Relationship Specialty Start Date End Date Baron Patrick [address] [place] [id number] PCP - General Internal Medicine 12/24/21 documented as of this encounter
--- OUTSIDE RECORDS SUMMARY | 2024-10-18 10:44 | XMS_ITS | Encounter Summary ---
Author Organization [facility] Address [address] [facility] [address] Care Team Providers Care Sports Marketer Name Role Phone John Crawford DO Primary Care Provider Simon Adame MD Primary Care Provider Baron Minor Primary Care Provider [phone] Reason for Visit * Reason Comments E-prescribe Rx Request Encounter Details Date Type Department Care Team Description 08/18/2021 Refill Medicine/Pediatrics - [address] [phone] John Crawford DO E-prescribe Rx Request Social History Tobacco Use [...] have Coronavirus / COVID-19? No / Unsure 08/13/2021 1:02 PM EST documented as of this encounter Miscellaneous Notes * Telephone Encounter - Gay Kahn M.A. - 08/19/2021 11:40 AM EST Lab Results Component Value Date NA 140 08/13/2021 K 3.6 08/13/2021 CO2 31 08/13/2021 CL 102 08/13/2021 BUN 14 08/13/2021 CREAT 0.82 08/13/2021 GLU 60 08/13/2021 CA 10.4 08/13/2021 GFR > 60 08/13/2021 Pending first visit with Dr. Rangel 11/04/[address] Crawford 03/2021 Please review as support prescribers do not refill Gabapentin * Telephone Encounter - Angi Slater - 08/19/2021 11:16 AM EST Patient would like script to be: E-PRESCRIBED/FAXED TO PHARMACY WHEN WAS THE PATIENT'S LAST APPOINTMENT IN ADULT MEDICINE? 07/01/2021 WHEN WAS THE LAST TIME THE PATIENT SAW THEIR PCP? Same as above Does patient have an upcoming appointment? Yes 11/04/2021 (THE MEDICATION REQUESTED IS ON THE MED LIST ABOVE) All of the medications requested were on the CURRENT MEDS list Did you check the Pharmacy information above?: YES Patient wants: 90 -day supply Is this a mail order prescription request ? NO If the refill is from a FAXED refill request what is the RX # listed on the fax? N/A Patients current insurance carrier is: Payor: [employer] M[employer] / Plan: ONE [facility] [employer] / Product Type: HMO [id number] documented in this encounter Plan of Treatment Not on file documented as of this encounter Visit Diagnoses Not on filedocumented in this encounter Care Teams Sports Marketer Relationship Specialty Start Date End Date John Crawford DO PCP - General Internal Medicine 02/18/21 1 Simon Rangel MD PCP - General Internal Medicine 08/19/21 12/23/21 Baron Patrick [address] [place] [id number] PCP - General Internal Medicine 12/24/21 documented as of this encounter
--- OUTSIDE RECORDS SUMMARY | 2024-10-18 10:44 | XMS_ITS | Encounter Summary ---
Author Organization [facility] Address [address] [facility] [place] [address] Care Team Providers Care Avionic Technician Name Role Phone Venkatesh Abel MD Primary Care Provider Rocky Ramirez MD Primary Care Provider [facility] Hospital[facility] Al[facility] DO Primary Care Provider Simon Adame MD Primary Care Provider Baron Minor Primary Care Provider [phone] Encounter Details Date Type Department Care Team Description 11/26/2020 [facility] Medical Records [address] [place] [address] Peg Schmitz MD Social History Tobacco Use Types Packs/Day Years [...] on filedocumented in this encounter Care Teams Avionic Technician Relationship Specialty Start Date End Date Venkatesh Abel MD PCP - General Internal Medicine 10/23/19 01/12/21 Rocky Whitlock MD PCP - General Internal Medicine 01/13/21 02/17/21 John Crawford DO PCP - General Internal Medicine 02/18/21 1 Simon Nolen MD PCP - General Internal Medicine 08/19/21 12/23/21 Baron Patrick [address] [place] [address] PCP - General Internal Medicine 12/24/21 documented as of this encounter
--- OUTSIDE RECORDS SUMMARY | 2024-10-18 10:44 | XMS_ITS | Encounter Summary ---
Author Organization [facility] Address [address] [place] [address] Care Team Providers Care Eap Counselor Name Role Phone Rocky Whitlock MD Primary Care Provider John Younger DO Primary Care Provider Simon Adame MD Primary Care Provider Baron Minor Primary Care Provider [phone] Encounter Details Date Type Department Care Team Description 01/29/2021 Vice President Regulatory Report Medical Records [address] [place] [address] Rola Moy Social History Tobacco Use Types Packs/Day Years [...] on filedocumented in this encounter Care Teams Eap Counselor Relationship Specialty Start Date End Date Rocky Whitlock MD PCP - General Internal Medicine 01/13/21 02/17/21 John Crawford DO PCP - General Internal Medicine 02/18/21 Simon Christianson MD PCP - General Internal Medicine 08/19/21 12/23/21 Baron Patrick [address] [place] [address] PCP - General Internal Medicine 12/24/21 documented as of this encounter
--- OUTSIDE RECORDS SUMMARY | 2024-10-18 10:44 | XMS_ITS | Encounter Summary ---
Author Organization [facility] Address [address] [facility] [place] [address] Care Team Providers Care Dental Resident Name Role Phone Venkatesh Abel MD Primary Care Provider Rocky Ramirez MD Primary Care Provider John Younger DO Primary Care Provider Simon Adame MD Primary Care Provider Baron Minor Primary Care Provider [phone] Encounter Details Date Type Department Care Team Description 10/07/2020 Refill Adult Medicine [address] [address] Venkatesh Abel MD Social History Tobacco Use Types Packs/Day [...] have Coronavirus / COVID-19? No / Unsure 09/25/2020 10:29 AM EST documented as of this encounter Plan of Treatment Not on file documented as of this encounter Visit Diagnoses Not on filedocumented in this encounter Care Teams Dental Resident Relationship Specialty Start Date End Date Venkatesh Abel MD PCP - General Internal Medicine 10/23/19 01/12/21 Rocky Whitlock MD PCP - General Internal Medicine 01/13/21 02/17/21 John Crawford DO PCP - General Internal Medicine 02/18/21 1 Simon Nolen MD PCP - General Internal Medicine 08/19/21 12/23/21 Baron Patrick [address] [place] [id number] PCP - General Internal Medicine 12/24/21 documented as of this encounter
--- OUTSIDE RECORDS SUMMARY | 2024-10-18 10:44 | XMS_ITS | Encounter Summary ---
Author Organization [employer] [facility] Address [address] [place] [address] Care Team Providers Care Granulizing Machine Operator Name Role Phone Baron Patrick Primary Care Provider [phone] Encounter Details Date Type Department Care Team Description 04/15/2023 Orders Only Adult Medicine [address] [address] Baron Patrick [address] [place] [address] Social History Tobacco Use Types Packs/Day Years [...] Recorded In the last 10 days, have froilan seo been in contact with someone who was confirmed or suspected to have Coronavirus/COVID-19? No / Unsure 04/05/2023 9:33 AM EDT documented as of this encounter Plan of Treatment Not on file documented as of this encounter Visit Diagnoses Not on filedocumented in this encounter Care Teams Granulizing Machine Operator Relationship Specialty Start Date End Date Baron Patrick [address] [place] [address] PCP - General Internal Medicine 12/24/21 documented as of this encounter
--- OUTSIDE RECORDS SUMMARY | 2024-10-18 10:44 | XMS_ITS | Encounter Summary ---
Author Organization [facility] Address [address] [facility] [place] [address] Care Team Providers Care Cnc Maintenance Mechanic Name Role Phone Baron PatrickTerrence Primary Care Provider [phone] Reason for Visit * Reason Comments E-prescribe Rx Request Encounter Details Date Type Department Care Team Description 02/09/2023 Refill Gastroenterology [address] [place] [phone] Charly Pedro PA-C E-prescribe Rx Request Social History Tobacco [...] encounter Miscellaneous Notes * Telephone Encounter - Shelia Harris M.A. - 02/09/2023 3:28 PM EDT Rene: 06/02/2022 No gi follow up documented in this encounter Plan of Treatment Not on file documented as of this encounter Visit Diagnoses Not on filedocumented in this encounter Care Teams Cnc Maintenance Mechanic Relationship Specialty Start Date End Date Baron Patrick [address] [place] [address] PCP - General Internal Medicine 12/24/21 documented as of this encounter
--- OUTSIDE RECORDS SUMMARY | 2024-10-18 10:44 | XMS_ITS | Encounter Summary ---
Author Organization [facility] Address [address] [place] [address] Care Team Providers Care Dock Pumper Name Role Phone Venkatesh Abel MD Primary Care Provider Rocky Ramirez MD Primary Care Provider John Younger DO Primary Care Provider Simon Adame MD Primary Care Provider Baron Minor Primary Care Provider [phone] Reason for Visit * Reason Onset Date Comments [facility] Call 04/30/2020 Encounter Details Date Type Department Care Team Description 04/30/2020 Telephone Adult Medicine [address] [address] Venkatesh Abel MD [facility]NA Call Social History Tobacco Use Types Packs/Day Years [...] encounter Miscellaneous Notes * Telephone Encounter - Rula Stout MD - 04/30/2020 11:28 AM EDT filled * Telephone Encounter - Gay Jacques R.N. - 04/30/2020 9:34 AM EDT Spoke with tanna from [facility] jonah went over med list states needs refill for atarax order pended for your approval * Telephone Encounter - Lev Teddy - 04/30/2020 9:31 AM EDT [facility] CALL Which [facility] office is calling? [facility] Full name of caller: liza The caller is A nurse Is the caller at the patients home?: NO Reason for call: needs flucanisole sent to [facility] pharmacy listed above and would like to go overmedications with the nurse Does caller need an urgent call back? NO Was CONTACT Telephone # obtained above?: YES Fax #: documented in this encounter Plan of Treatment Not on file documented as of this encounter Visit Diagnoses Not on filedocumented in this encounter Care Teams Dock Pumper Relationship Specialty Start Date End Date Venkatesh Abel MD PCP - General Internal Medicine 10/23/19 01/12/21 Rocky Whitlock MD PCP - General Internal Medicine 01/13/21 02/17/21 John Crawford DO PCP - General Internal Medicine 02/18/21 1 Simon Nolen MD PCP - General Internal Medicine 08/19/21 12/23/21 Baron Patrick [address] [place] [id number] PCP - General Internal Medicine 12/24/21 documented as of this encounter
--- OUTSIDE RECORDS SUMMARY | 2024-10-18 10:45 | XMS_ITS | Encounter Summary ---
Author Organization [facility] Address [address] [place] [address] Care Team Providers Care Assault Amphibious Vehicle Officer Name Role Phone Baron Patrick Primary Care Provider [phone] Encounter Details Date Type Department Care Team Description 07/14/2023 Refill Gastroenterology - [address] [place] [address] Ailyn Morales Social History Tobacco Use Types Packs/Day Years [...] suspected to have Coronavirus/COVID-19? No / Unsure 07/04/2023 1:44 PM EDT documented as of this encounter Plan of Treatment Not on file documented as of this encounter Visit Diagnoses Not on filedocumented in this encounter Care Teams Assault Amphibious Vehicle Officer Relationship Specialty Start Date End Date Baron Patrick [address] [place] [address] PCP - General Internal Medicine 12/24/21 documented as of this encounter
--- OUTSIDE RECORDS SUMMARY | 2024-10-18 10:45 | XMS_ITS | Encounter Summary ---
Author Organization [facility] Address [address] [place] [address] Care Team Providers Care Electronic System Engineer Name Role Phone Baron Patrick MD Primary Care Provider [phone] Reason for Visit * Reason Onset Date Comments Fitting for DME 10/04/2024 Encounter Details Date Type Department Care Team ([facility] st Contact Info) Description 10/04/2024 Telephone Adult Medicine [address] [place] [address] Morena Reed LPN Fitting for DME Social History Tobacco Use Types Packs/Day Years [...] on file documented as of this encounter Progress Notes * Morena Reed LPN - 10/04/2024 1:43 PM EST New rx with quantity change signed and faxed to Ant @ [phone] * Morena Reed LPN - 10/04/2024 8:50 AM EST New rx to Chrissy to sign * Morena Reed LPN - 10/04/2024 8:27 AM EST Images from the original note were not included. Jhoana Grossman [facility] Adult Medicine [facility] Clinical Pool (supporting KEIRA De Leon)17 hours ago (2:53 PM) EVARISTO Mcguire I call Ward and Angelito they told me I only have 4 wipes I need pre for the month I need more u can take 2 pages off my cotes but wipesi need since I'm allergic to toilet paper No questionnaires available. documented in this encounter Plan of Treatment Upcoming Encounters Date Type Department Care Team (Late st Contact Info) Description 10/23/2024 9:20 AM EST Appointment Radiology Department - [address] [phone] 01/09/2025 1:30 PM EDT Office Visit Obstetrics and Gynecology - [address] [phone] Libby Cornejo MD [address] [place] [address] 05/14/2025 4:00 PM EDT Office Visit [address] [phone] Chrissy Nguyen PA [address] [place] [address] documented as of this encounter Visit Diagnoses Diagnosis Mixed stress and urge incontinence- Primary documented in this encounter Orders General Supply Count Last Ordered Date First Or dered Date GENERAL SUPPLY 1 10/04/2024 documented in this encounter Care Teams Electronic System Engineer Relationship Specialty Start Date End Date Baron Patrick MD [address] [place] [address] PCP - General Internal Medicine 12/24/21 documented as of this encounter
--- OUTSIDE RECORDS SUMMARY | 2024-10-18 10:45 | XMS_ITS | Encounter Summary ---
Author Organization [facility] [facility] Address [address] [facility] [place] [address] Care Team Providers Care Police Patrol Lieutenant Name Role Phone Baron Patrick Primary Care Provider [phone] Encounter Details Date Type Department Care Team Description 06/08/2022 Home Health Certification Medical Records [address] [place] [address] Baron Patrick [address] [place] [address] Social History Tobacco Use Types Packs/Day Years [...] In the last 10 days, have froilan u been in contact with someone who was confirmed or suspected to have Coronavirus/COVID-19? No / Unsure 06/02/2022 12:36 PM EDT documented as of this encounter Plan of Treatment Not on file documented as of this encounter Visit Diagnoses Not on filedocumented in this encounter Care Teams Police Patrol Lieutenant Relationship Specialty Start Date End Date Baron Patrick [address] [place] [address] PCP - General Internal Medicine 12/24/21 documented as of this encounter
--- OUTSIDE RECORDS SUMMARY | 2024-10-18 10:45 | XMS_ITS | Data Portability ---
Author Organization [address] [place] [place] [facility] [employer] Address [address] [place] [address] Care Team Providers Care Freight Team Associate Name Role Phone HIM CCA OTHER Assessment Encounter Date Assessment Date Assessment LastModified by Organization Details LastModified Time 09/13/2023 09/13/2023 I provided real -time medical direction via phone for this encounter, and was available for additional phone based assistance as needed. I have reviewed and agree with the Assessment and Plan as documented by the Scientific Technical Writer. Patient given the opportunity to ask questions. Advised if develops CP/severe SOB/turning blue/uncontrolle d n/v/d / AMS/ syncope/ hi fever / any focal neuro c/o: visual changes/speech changes/severe dizziness/focal weakness or new numbness to call 911- verbalized understanding of instructions [email or web address] Not available 09/13/2023 22:35:01 04/16/2024 04/16/2024 49 [...] instead for sleep. Reviewed red flags s/sxs. [email or web address] Not available 04/16/2024 21:02:08 09/06/2024 09/06/2024 As noted, we were called to see this patient regarding concerns of infectious sxs. Evaluation in the field was performed by my edger machine setter colleague, as noted above, I provided real-time direction and supervision for this visit. The evaluation revealed 49y F with nonspecific sick sxs w/o fever. VSS. POC swabs neg. Resp exam stable. Precautions. Impression: viral syndrome Plan: supportive care Primary care, consider f/u in 5-7d to confirm improvement Disposition: We discussed the diagnostic uncertainty of home visits and the risk associated with this. In this case, the patient and I felt this to be an acceptable and reasonable amount of risk given the benefit of avoiding an ED visit. We discussed the need to seek care urgently/emergen tly in the setting of any new or worsening serious symptoms, particularly fever, worsening malaise, fatigue, chest pain, shob, cough atilhou Not available 09/06/2024 17:45:46 Plan of Treatment Reminders Order Date Submit Date Provider Last Modified By Organization Details Last Modified Time Details Appointments None recorded. Lab rapid SARS CoV 2 Ag, QL [place], respiratory specimen [address], [id number], 4 07:56:00 rapid flu (A+B) 2023 [facility], [address] [place] [address], [id number], 4 07:56:20 Referral None recorded. Procedures None recorded. Surgeries None recorded. Imaging None recorded. Medication Orders Paxlovid 300 mg (150 mg x 2)-100 mg tablets in a dose pack 2023 [id number], [address] [place] [address], [id number], 21:04:47 Patient TargetsNo targets recorded. Patient InstructionsNo instructions recorded. Reason for Referral None Reported. Results Created Date Observation Date Name Description Value Unit Range Abnormal Flag Note LastModifiedBy Organization Detail LastModifiedTime Result Notes None recorded. Medical Equipment None Reported. Allergies Allergen ID Allergen Name Allergen Category Reaction Reaction Severity Criticality Documentation Date Start Date Code Code System Note Provider Name and Address Organization Details Recorded Time 7911 egg extract food,medi cation Not available Not available Not available 07/10/2024 26206 15 RxNorm Not Available [facility] - production 03:40:36 7912 prednison e medicatio n Not [...] 4 80 /min 98 % 98 % 18111.4 g 14 /min 167.64 cm 98.1 [degF] 147 mm[Hg] 84 mm[Hg] Not Available [facility] - production 4 14:26:35 Date Recorded Oxygen saturation Oxygen saturation in Arterial blood by Pulse oximetry Heart rate Respiratory rate Body temperature Systolic blood pressure Diastolic blood pressure Provider Name and Address Organization Details Last Updated DateTime 4 97 % 97 % 108 /min 20 /min 98.9 [degF] 150 mm[Hg] 92 mm[Hg] Not Available [facility] - production 20:20:05 Date Recorded Respiratory rate Heart rate Body weight Body temperature Oxygen saturation Oxygen saturation in Arterial blood by Pulse oximetry Systolic blood pressure Diastolic blood pressure Provider Name and Address Organization Details Last Updated DateTime 4 16 /min 94 /min 494436. 12 g 99.3 [degF] 97 % 97 % 134 mm[Hg] 74 mm[Hg] Not Available [facility] - production 17:43:03 Social History None recorded. Functional Status None recorded. Mental Status None recorded. Family History Nothing Reported. Medical History No medical history recorded. Gynecological HistoryNo gynecological history recorded. Obstetrics History GPAL:G 0 P 0 0 0 0 Past Encounters Encounter ID Performer Location Encounter Start Date Encounter Closed Date Diagnosis/Indication Diagnosis SNOMED-CT Code Diagnosis ICD10 Code Diagnosis Note [id number] Rula Garcia MD [facility] [address] [place] [id number] 09/13/2023 14:26:27 09/14/2023 14:23:58 Essential hypertension 72300276 I10 continue regular meds as prescribed - until sees pcp in Two days- pat declined an EKG per the medic [id number] DACIA TORIBIO MD [facility] - [facility] [address] [place] [id number] 04/16/2024 20:20:02 04/17/2024 11:04:07 COVID-19 083945863 U07.1 [id number] Ruma Harrison MD Main - [facility] [address] [place] [id number] 09/06/2024 17:43:01 09/07/2024 12:23:47 Viral syndrome 004397677 B34.9 Health Concerns Section Related Observation LastModified by Organization Detai ls LastModified Time None Recorded Concern Status LastModified by Organization Details LastModified Time None Recorded Advance Directives Directive None Recorded Payers Encounter Date Sequence Insurance Name Policy Number Policy Coley Covered Member ID Coley Member ID Guarantor Name 09/13/2023 1 [facility] - DOS ON OR AFTER 2022 - DUAL ELIGIBLE - DETENTION OPTIONS AND ONE CARE (MEDICARE REPLACEMENT/ADV ANTAGE - HMO) Jhoana De La Garza [id number] Jhoana De La Garza 04/16/2024 1 [facility] - DOS ON OR AFTER 2022 - DUAL ELIGIBLE - DETENTION OPTIONS AND ONE CARE (MEDICARE REPLACEMENT/ADV ANTAGE - HMO) Jhoana Frederic [id number] Jhoana Garcai De La Garza 09/06/2024 1 [facility] - DOS ON OR AFTER 2022 - DUAL ELIGIBLE - DETENTION OPTIONS AND ONE CARE (MEDICARE REPLACEMENT/ADV ANTAGE - HMO) Jhoana Frederic [id number] Jhoana Garcia De La Garza Notes Date Note Type [...] EKG ........................ ........................ ........................ ........................ ........................ ..................... Scientific Technical Writer Note From Iain Moore: PT caox3 answers door with a steady gait. Pt reports her BP was high earlier for the VNA, 160/80. Pt denies complaints. Pt reports [facility]NA was able to help her make an appointment with her PCP two days from now. Pt VS checked. Pt refused ECG, states she feels fine. [facility] advises pt to attend PCP appointment. Red flags and pt education discussed. ........................ ........................ ........................ ........................ ........................ ..................... Disposition: Fulfilled Rula Garcia MD [address] [facility],[address], [place], [address], [address] 09/13/2023 22:35:49 4 text/html HPI: 1:44pm ? GAGE contacts [facility] directly to request an in-home visit today for ? b ad cold? symptoms. GAGE is a 49 y/o [...] other symptoms. 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 She has nasal congestion and can be [...] do so. GAGE can be reached at [phone]. ........................ ........................ ........................ ........................ ........................ ..................... [facility] Nurse Triage Notes (Fabiana Gimenez): Chief Complaints: Cough, ENT, Headache, URI PMH: Hypertension, HIV Allergies: Egg, Prednisone Other Allergies: Prednisone, eggs Comments: CRC RN did not require any additional information to process this visit. Scientific Technical Writer Organization Information for Nkiolay Garibay [employer] Legal Name: [email or web address]? Address: [address] [place] [address] Emergency Vehicle Operations Instructor: Ej Ayala MD [facility] No.: [id number] Scientific Technical Writer POC Test Results from Nikolay Garibay Rapid COVID antigen (20:17:49) COVID: + Rapid influenza antigen (20:18:06) Flu: - DACIA TORIBIO MD [address] [place] [address],[address], [place], [address], [employer] 04/16/2024 21:02:16 4 text/html HPI: Member phoned in requesting a home visit. Member states 2 days ago she developed body aches, headache, throat pain, chills. Member does not have a thermometer. Member continues having these symptoms. Member has poor appetite. Member has been voiding. LBM today. Member denies any further symptoms. Hita request submitted. Member aware and in agreement. ........................ ........................ ........................ ........................ ........................ ..................... [facility] Nurse Triage Notes (Fabiana Gimenez - RN): Chief Complaints: Fever/chills, Headache, Nausea, Sore throat PMH: Hypertension, HIV/AIDS Comments: CRC RN did not require any additional information to process this visit. ........................ ........................ ........................ ........................ ........................ ..................... Scientific Technical Writer Note From Malvin Montgomery: Pt co cough and NC for 2 days. Pt denies sob cp , headache NVD, abdominal pain , dizziness. Pt sts uses inhaler as needed. Baseline vitals assessed, WNL, afebrile, lungs clear bilaterally Covid and flu swab negative. C contacted and advised self care and otc meds for symptom relief. Pt advised to monitor symptoms and if worsen or don? t improve over next week to call [facility] back or contact pcp. Pt education on signs indicating the ER. ........................ ........................ ........................ ........................ ........................ ..................... [facility] Consulted: Ruma Harrison ........................ ........................ ........................ ........................ ........................ ..................... Disposition: Fulfilled Ruma Harrison MD [address] [place] [address],[address], [place], [address], FAREED FLORIAN 09/06/2024 18:15:34 OBGyn Episode No OBEpisode recorded.
--- OUTSIDE RECORDS SUMMARY | 2024-10-18 10:45 | XMS_ITS | Encounter Summary ---
Author Organization [facility] Address [address] [place] [address] Care Team Providers Care Detective Youth Bureau Name Role Phone Baron Patrick Primary Care Provider [phone] Reason for Visit * Reason Comments E-prescribe Rx Request Encounter Details Date Type Department Care Team Description 07/14/2022 Refill Adult Medicine [address] [address] Baron Patrick [address] [place] [phone] E-prescribe Rx Request Social History Tobacco Use [...] suspected to have Coronavirus/COVID-19? No / Unsure 07/13/2022 2:18 PM EDT documented as of this encounter Miscellaneous Notes * Telephone Encounter - Gay Kahn M.A. - 07/14/2022 11:51 AM EDT Pt seen by Dr. Castanon yesterday Please advise should refill of Trimeq be requested from Inectious disease provider? documented in this encounter Plan of Treatment Not on file documented as of this encounter Visit Diagnoses Not on filedocumented in this encounter Care Teams Detective Youth Bureau Relationship Specialty Start Date End Date Baron Patrick [address] [place] [address] PCP - General Internal Medicine 12/24/21 documented as of this encounter
--- OUTSIDE RECORDS SUMMARY | 2024-10-18 10:45 | XMS_ITS | Encounter Summary ---
Author Organization [employer] [facility] Address [address] [facility] [place] [address] Care Team Providers Care Track Dresser Name Role Phone Baron Patrick Primary Care Provider [phone] Reason for Visit * Reason Onset Date Comments Faxed Order 02/16/2024 [facility] Order # [id number], [id number] Encounter Details Date Type Department Care Team Description 02/16/2024 Telephone Adult Medicine [address] [address] Baron Patrick [address] [place] [address] Faxed Order (Behavioral Health Order # [id number], [id number]) Social History Tobacco Use Types Packs/Day Years [...] on filedocumented in this encounter Care Teams Track Dresser Relationship Specialty Start Date End Date Baron Patrick [address] [place] [address] PCP - General Internal Medicine 12/24/21 documented as of this encounter
--- OUTSIDE RECORDS SUMMARY | 2024-10-18 10:45 | XMS_ITS | Encounter Summary ---
Author Organization [employer] [facility] Address [address] [facility] [place] [address] Care Team Providers Care Lot Boss Name Role Phone Baron Patrick Primary Care Provider [phone] Encounter Details Date Type Department Care Team Description 10/06/2022 Home Health Certification Medical Records [address] [place] [address] Abstract, Provider Social History Tobacco Use Types [...] suspected to have Coronavirus/COVID-19? No / Unsure 10/07/2022 11:23 AM EST documented as of this encounter Plan of Treatment Not on file documented as of this encounter Visit Diagnoses Not on filedocumented in this encounter Care Teams Lot Boss Relationship Specialty Start Date End Date Baron Patrick [address] [place] [address] PCP - General Internal Medicine 12/24/21 documented as of this encounter
--- OUTSIDE RECORDS SUMMARY | 2024-10-18 10:45 | XMS_ITS | Continuity of Care Document ---
Author Organization [facility] Address [address] [place] [address]- Care Team Providers Care Systems Mechanic Name Role Phone Not on Staff, PCP Primary Care Physician Unavail able Encounter [facility] Date(s): 08/30/24 - 09/29/24 [facility] [address] [place] [address] Encounter Type: Triage Allergies, Adverse Reactions, Alerts [...] influenza virus vaccine, inactivated 08/18/06 Give n [id number] bivalent booster vax 07/15/22 Recorded SARS-CoV-2 (COVID-19) [...] DOSE LOWER SITE 4Result Comment: [12/02/2016] Dilutent [id number] 5Result Comment: UPPER SITE 6Result Comment: LOWER SITE 7Admin Note: recieved the flu shot at [facility] 06/23/2012 8Admin Note: VIS GIVEN 9Admin Note: VIS given 2008-. 10Admin Note: [...] Refills, Maintenance, 01/21/20 11:39:00 PM EDT, Solution, [facility], 170.18, cm, 07/03/19 12:11:00 EDT, Height Start Date: 01/21/20 Stop Date: 07/07/20 Status: Ordered Quantity: 25.0 Unit: each Repeat number: 12 albuterol-ipratropium 3 mg-0.5 mg/3 ml inhalation solution 3 mL, Inhalation, 4 times a day, PRN Wheezing/Shortness of Breath, # 180 mL, 11 Refills, Maintenance, 01/21/20 11:38:00 PM EDT, Solution, [facility], 3 mL Inhalation 4 times a day,PRN:Wheezing/Shortness of Breath, 170.18, cm, 07/03/19 12:11:00 EDT, Height Start Date: 01/21/20 Status: Ordered Quantity: 180.0 Unit: mL Repeat number: 12 buPROPion 300 mg/24 hours (XL) oral tablet, extended release 1 tablet = 300 mg, By Mouth, Daily, # 30 tablet, 11 Refills, Maintenance, 07/18/20 1:39:00 PM EST, ER Tablet, [facility], 170.18, cm, 07/03/19 12:11:00 EDT, Height Start Date: 07/18/20 Stop Date: 07/13/21 Status: Ordered Quantity: 30.0 Unit: tablet Repeat number: 12 chlorthalidone 25 mg oral tablet 25 mg, 1, tablet, By Mouth, Daily, # 30 tablet, Refills 11, Tot. Refills 11, Maintenance, 09/23/20 12:53:00 PM EST, Route to Pharmacy Electronically, [facility], 170.18, cm, 07/03/19 12:11:00 EDT, [...] 6:35:00 PM EDT, Route to Pharmacy Electronically, [id number], Partial fill upon patient request if the [...] Refills, Maintenance, 12/29/18 1:48:58 PM EDT, Solution, [facility], 1 drops both eyes qid [...] 10 Refills, Maintenance, 10/17/23 2:14:00 PM EST, [facility], 170.18, cm, 07/15/23 11:40:00 EDT, Height Start Date: 10/17/23 Status: Ordered Quantity: 60.0 Unit: capsule Repeat number: 1 doxepin 10 mg oral capsule 1 capsule, By Mouth, Daily at bedtime, CAN CAUSE DROWSINESS, # 30 capsule, 10 Refills, Maintenance,01/13/21 12:21:00 PM EDT, [facility], 170.18, cm, 07/03/19 12:11:00 EDT, Height [...] Soft Stop, 08/12/20 2:05:00 PM EST, Solution, [facility], 170.18, cm, 07/03/19 12:11:00 EDT, Height Start Date: 08/12/20 Status: Ordered Quantity: 2.0 Unit: each Repeat number: 12 escitalopram 20 mg oral tablet 1 tablet = 20 mg, By Mouth, Daily, # 30 tablet, 11 Refills, Maintenance, 09/24/20 3:41:00 PM EST, Tablet, [facility], Partial fill upon patient request if the prescription is for a schedule II opioid drug., 170.18, cm, 07/03/19 12:11:00 EDT, Height Start Date: 09/24/20 Status: Ordered Quantity: 30.0 Unit: tablet Repeat number: 12 Flovent HFA 220 mcg/inh inhalation aerosol 2 puffs, Inhalation, 2 times a day, # 1 each, 11 Refills, Maintenance, 09/23/20 12:52:00 PM EST, Aerosol, [facility], 170.18, cm, 07/03/19 12:11:00 EDT, Height Start Date: 09/23/20 Stop Date: 09/18/21 Status: Ordered Quantity: 1.0 Unit: each Repeat number: 12 flunisolide 25 mcg/inh nasal spray 1 puff, Nares, Both, 2 times a day, PRN allergic rhinitis w/ sneezing, each nostril, # 1 each, 11 Refills, Maintenance, 05/26/20 2:58:00 PM EDT, [place], [facility], 1 puff Nares, Both 2 [...] 11 Refills, Maintenance, 01/31/23 3:14:00 PM EDT, [facility], 50, INHALE 1 PUFF IN EACH NOSTRIL TWO TIMES A DAY NEEDED FOR ALLERGY SYMPTOMS WITH SNEEZING, 170.18, cm, 02/09/22 18:24:00 EDT, Height Start Date: 01/31/23 Status: Ordered Quantity: 25.0 Unit: mL Repeat number: 1 gabapentin 300 mg oral capsule 1, capsule, By Mouth, 3 times a day, # 90 capsule, Refills 2, Route to Pharmacy Electronically, [facility], 170.18, cm, 05/20/21 10:59:00 EDT, Height Start Date: 11/18/21 Status: Ordered Quantity: 90.0 Unit: capsule Repeat number: 1 hydrOXYzine pamoate 25 mg oral capsule 1 capsule = 25 mg, By Mouth, Daily, PRN for anxiety, # 30 capsule, 11 Refills, Maintenance, 191:50:41 PM EDT, Capsule, [facility], Note dose decrease to qD Start Date: 12/29/18 Status: Ordered Quantity: 30.0 Unit: capsule Repeat number: 12 ketotifen 0.025% ophthalmic solution See Instructions, INSTILL 1 DROP INTO BOTH EYES TWO TIMES A DAY FOR ALLERGY SYMPTOMS, # 5 mL, 11 Refills, Maintenance, 02/01/23 4:48:00 PM EDT, [facility], 25, INSTILL 1 DROP INTO BOTH [...] 0 Refills,Maintenance, 03/21/20 2:26:00 PM EDT, Film, [facility], 1 patch Topically Daily,[id number],PRN:Pain , Mild,Instr:as needed; remove after 12 hours, 170.18, cm, 07/03/19 12:11:00 EDT, Height Start Date: 03/21/20 Stop Date: 04/04/20 Status: Ordered Quantity: 13.0 Unit: each Repeat number: 1 Indication: Dorsalgia, unspecified Linzess 145 mcg oral capsule 1 capsule, By Mouth, Daily, # 30 capsule, 2 Refills, [facility], 170.18, cm, 05/20/21 10:59:00 EDT, Height Start Date: 11/18/21 Status: Ordered Quantity: 30.0 Unit: capsule Repeat number: 1 lisinopril 20 mg oral tablet 20 mg, 1, tablet, By Mouth, Daily, Blood pressure. Take at night/evening., # 30 tablet, Refills 11,Tot. Refills 11, Maintenance, 09/23/20 12:53:00 PM EST, Route to Pharmacy Electronically, [facility], 170.18, cm, 07/03/19 12:11:00 EDT, Height Start Date: 09/23/20 Status: Ordered Quantity: 30.0 Unit: tablet Repeat number: 12 loratadine 10 mg oral tablet 10 mg, 1, tablet, By Mouth, Daily, PRN, # 30 tablet, Refills 11, Tot. Refills 11, Maintenance, Congestion, 07/18/20 1:41:00 PM EST, Route to Pharmacy Electronically, [facility], 170.18, cm, 07/03/19 12:11:00 EDT, Height Start Date: 07/18/20 Status: Ordered Quantity: 30.0 Unit: tablet Repeat number: 12 massage massage, See Instructions, # 1 each, Refills 0, Tot. Refills 0, Maintenance, massage dx chronic pain massage for one hour, one day a week for four weeks fax to [phone] attention of Jenelle Cleaning, 04/23/19 9:05:11 AM [...] use for albuterol administration as directed pls [facility] home infusion and respiratory, 02/03/17 5:30:06 [...] 11 Refills, Maintenance, 07/18/20 1:41:00 PM EST, [facility], 170.18, cm, 07/03/19 12:11:00 EDT, Height Start Date: 07/18/20 Status: Ordered Quantity: 60.0 Unit: tablet Repeat number: 12 Singulair 10 mg oral tablet 10 mg, 1, tablet, By Mouth, Daily in PM, asthma, # 30 tablet, Refills 11, Tot. Refills 11, Maintenance, 10/27/20 2:14:00 PM EST, Route to Pharmacy Electronically, [facility], 170.18, cm, 07/03/19 12:11:00 EDT, [...] BY MOUTH AT BEDTIME. MAY TAKE 1 2 - 2 TABLET, Refills 0, 07/15/23 11:39:00 AM EDT, Partial fill upon patient request if the prescription is for a schedule II opioid drug. Start Date: 07/15/23 Status: Ordered Repeat number: 1 Triumeq oral tablet 1 tablet, By Mouth, Daily, # 30 tablet, 0 Refills, Maintenance, 08/30/24 9:12:00 AM EST, Tablet, [facility] #[id number], Pt needs to call office to schedule an appointment, 1 tablet By Mouth Daily,x30 days, 170.18, cm, 07/15/23 11:40:00 EDT, Height Start Date: 08/30/24 Stop Date: 09/29/24 Status: Ordered Quantity: 30.0 Unit: tablet Repeat number: 1 valacyclovir 1 gm oral tablet 10 each, [...] 11 Refills, Maintenance, 01/31/23 3:14:00 PM EDT, [facility], Please dispense 10 pills; disregard prior script, 170.18, cm, 02/09/22 18:24:00 EDT, Height Start Date: 01/31/23 Stop Date: 04/01/23 Status: Ordered Quantity: 10.0 Unit: tablet Repeat number: 12 Ventolin HFA 108 mcg/inh inhalation aerosol with adapter 2 puffs, Inhalation, 4 times a day, PRN Wheezing/Shortness of Breath, # 1 each, 11 Refills, Maintenance, 09/23/20 12:52:00 PM EST, Aerosol, [facility], 170.18, cm, 07/03/19 12:11:00 EDT, [...] Refills, Maintenance, 10/27/20 2:15:00 PM EST, Tablet, [facility], 170.18, cm, 07/03/19 12:11:00 EDT,Height [...] Care Team Personnel Name: Lianne Gomes Position: [facility] Outreach Member Role: Lifetime Consulting Physician Name: Not on Staff, PCP Position: [facility] Physician (General Medicine) Member Role: PCP Care Team Related Persons Name: CLARICE WALLACE Name: JENNIFER EMMANUEL Name: BRANDON POPE Insurance Providers Guarantor name: JOAO WALLACE Health Plan Information #: 1 Payer: [facility] [employer] C[employer] Member Number: NA Policy Number: NA Group Number: NA
--- OUTSIDE RECORDS SUMMARY | 2024-10-18 10:45 | XMS_ITS | Encounter Summary ---
Author Organization [employer] [facility] Address [address] [facility] [place] [address] Care Team Providers Care Director Clinical Research Name Role Phone John Crawford DO Primary Care Provider Simon Adame MD Primary Care Provider Baron Minor Primary Care Provider [phone] Encounter Details Date Type Department Care Team Description 07/06/2021 Home Health Certification Medical Records [address] [place] [address] Social History Tobacco Use Types Packs/Day Years [...] on filedocumented in this encounter Care Teams Director Clinical Research Relationship Specialty Start Date End Date John Crawford DO PCP - General Internal Medicine 02/18/21 1 Simon Nolen MD PCP - General Internal Medicine 08/19/21 12/23/21 Baron Patrick [address] [place], [place] [id number] PCP - General Internal Medicine 12/24/21 documented as of this encounter
--- OUTSIDE RECORDS SUMMARY | 2024-10-18 10:45 | XMS_ITS | Encounter Summary ---
[facility] Organization [facility] Address [address] [place] [address] Care Team Providers Care Tumbler Machine Operator Helper Name Role Phone Baron Patrick Primary Care Provider [phone] Reason for Visit * Reason Onset Date Comments Faxed Order 08/08/2023 [facility] Order # [id number] Encounter Details Date Type Department Care Team Description 08/08/2023 Telephone Adult Medicine [address] [address] Baron Patrick [address] [place] [address] Faxed Order ([facility] Order # [id number]) Social History Tobacco Use Types Packs/Day Years [...] * Telephone Encounter - Jill Mendoza - 08/08/2023 11:42 AM EST [facility] Order # [id number] documented in this encounter Plan of Treatment Not on file documented as of this encounter Visit Diagnoses Not on filedocumented in this encounter Care Teams Tumbler Machine Operator Helper Relationship Specialty Start Date End Date Baron Patrick [address] [place] [address] PCP - General Internal Medicine 12/24/21 documented as of this encounter
--- OUTSIDE RECORDS SUMMARY | 2024-10-18 10:45 | XMS_ITS | Encounter Summary ---
Author Organization [facility] Address [address] [facility] [place] [address] Care Team Providers Care Director Cardiology Name Role Phone Baron Patrick Primary Care Provider [phone] Reason for Visit * Reason Comments E-prescribe Rx Request Encounter Details Date Type Department Care Team Description 09/14/2022 Refill Gastroenterology - [address] [place] [phone] Charly Pedro PA-C E-prescribe Rx Request Social [...] Telephone Encounter - Gia Butts M.A. - 09/14/2022 3:04 PM EST ANTONI 06/02/22, no GI f/up documented in this encounter Plan of Treatment Not on file documented as of this encounter Visit Diagnoses Not on filedocumented in this encounter Care Teams Director Cardiology Relationship Specialty Start Date End Date Baron Patrick [address] [place] [address] PCP - General Internal Medicine 12/24/21 documented as of this encounter
--- OUTSIDE RECORDS SUMMARY | 2024-10-18 10:45 | XMS_ITS | Encounter Summary ---
[facility] Address [address] [place] [address] Care Team Providers Care Vamp Maker Name Role Phone Baron Patrick Primary Care Provider [phone] Reason for Visit * Reason Onset Date Comments Faxed Order 04/21/2022 Order #[id number] Encounter Details Date Type Department Care Team Description 04/21/2022 Telephone Adult Medicine [address] [address] Baron Patrick [address] [place] [phone] Faxed Order (Order #[id number]) Social History Tobacco Use Types Packs/Day Years [...] Miscellaneous Notes * Telephone Encounter - Amanda Cortes - 04/21/2022 2:32 PM EDT Faxed order from [facility]. Order #[id number]. Please sign, date, and fax back. documented in this encounter Plan of Treatment Not on file documented as of this encounter Visit Diagnoses Not on filedocumented in this encounter Care Teams Vamp Maker Relationship Specialty Start Date End Date Baron Patrick [address] [place] [address] PCP - General Internal Medicine 12/24/21 documented as of this encounter
--- OUTSIDE RECORDS SUMMARY | 2024-10-18 10:45 | XMS_ITS | Encounter Summary ---
Author Organization [facility] Address [address] [place] [address] Care Team Providers Care Dipper Operator Name Role Phone Baron Patrick MD Primary Care Provider [phone] Reason for Visit * Reason Comments Home Health Cert Encounter Details Date Type Department Care Team (Late st Contact Info) Description 10/08/2024 Billing Patient Not Present Adult Medicine [address] [phone] Baron Patrick MD [address] [place] [phone] Major depressive disorder, recurrent, moderate (CMS/HCC) (Primary Dx); Depression, unspecified depression type; Anxiety disorder, unspecified type; Essential (primary) hypertension; Prediabetes; Mixed incontinence; Human immunodeficiency virus (HIV) disease (CMS/HCC); COVID-19 Social History Tobacco Use Types Packs/Day Years [...] as of this encounter Progress Notes * Amarilis Phelps MA - 10/08/2024 4:37 PM EST Start of Care Date: 04/06/2023 Date of certification period: 09/27/2024-11/25/2024 Date of service = signature date 10/08/2024 Hospice patient: no Home Care Agency: [facility] Recertification Code G0179 Initial Code G0180 documented in this encounter Plan of Treatment Upcoming Encounters Date Type Department Care Team (Late st Contact Info) Description 10/23/2024 9:20 AM EST Appointment Radiology Department - [address] [phone] 01/09/2025 1:30 PM EDT Office Visit Obstetrics and Gynecology - [address] [phone] Libby Cornejo MD [address] [place] [phone] 05/14/2025 4:00 PM EDT Office Visit Adult Medicine [place] - [address] [phone] Chrissy Nguyen PA [address] [place] [address] documented as of this encounter Visit Diagnoses Diagnosis Major depressive disorder, recurrent, moderate (CMS/HCC)- Primary Major depressive disorder, recurrent episode, moderate Depression, unspecified depression type Anxiety disorder, unspecified type Essential (primary) hypertension Unspecified essential hypertension Prediabetes Other abnormal glucose Mixed incontinence Mixed incontinence urge and stress (male)(female) Human immunodeficiency virus (HIV) disease (CMS/HCC) Human immunodeficiency virus [HIV] disease COVID-19 documented in this encounter Care Teams Dipper Operator Relationship Specialty Start Date End Date Baron Patrick MD [address] [place] [address] PCP - General Internal Medicine 12/24/21 documented as of this encounter
--- OUTSIDE RECORDS SUMMARY | 2024-10-18 10:45 | XMS_ITS | Encounter Summary ---
Author Organization [facility] Address [address] [facility] [place] [address] Care Team Providers Care Intake Rn Name Role Phone Venkatesh Abel MD Primary Care Provider Rocky Ramirez MD Primary Care Provider John Younger DO Primary Care Provider Simon Adame MD Primary Care Provider Baron Minor Primary Care Provider [phone] Encounter Details Date Type Department Care Team Description 07/02/2020 Home Health Certification Medical Records [address] [place] [phone] Social History Tobacco Use Types Packs/Day Years [...] on filedocumented in this encounter Care Teams Intake Rn Relationship Specialty Start Date End Date Venkatesh Abel MD PCP - General Internal Medicine 10/23/19 01/12/21 Rocky Whitlock MD PCP - General Internal Medicine 01/13/21 02/17/21 John Crawford DO PCP - General Internal Medicine 02/18/21 Simon Christianson MD PCP - General Internal Medicine 08/19/21 12/23/21 Baron Patrick [address] [place] [address] PCP - General Internal Medicine 12/24/21 documented as of this encounter
--- OUTSIDE RECORDS SUMMARY | 2024-10-18 10:45 | XMS_ITS | Encounter Summary ---
Author Organization [facility] Address [address] [place] [address] Care Team Providers Care Pony Trimmer Name Role Phone Baron Patrick MD Primary Care Provider [phone] Reason for Visit * Reason Onset Date Comments Fitting for DME 09/19/2024 Encounter Details Date Type Department Care Team ([facility] st Contact Info) Description 09/19/2024 Telephone Adult Medicine [address] [phone] Baron Patrick MD [address] [place] [address] Fitting for DME Social History Tobacco Use [...] Progress Notes * Morena Reed LPN - 09/25/2024 10:14 AM EST Form signed and faxed to Ant @ [phone] * Morena Reed LPN - 09/20/2024 9:13 AM EST Form to Chrissy to sign * Jamia Bowens - 09/19/2024 3:37 PM EST DME REQUEST Name of Product: wipes and pads Specific information about product # Needed 4, 117, 60 Reason patient is asking for this supply? Mixed incontinence Have you received this supply before? If yes , when?: Have you discussed the need for this supply with a provider at a recent visit? If yes, with who andwhen? When completed: Fax to other office/MD/pharmacy at fax # [facility] [phone] Have you told the patient it will take 7-10 days for completion of this request? No documented in this encounter Plan of Treatment Upcoming Encounters Date Type Department Care Team (Late st Contact Info) Description 10/23/2024 9:20 AM EST Appointment Radiology Department - [address] [phone] 01/09/2025 1:30 PM EDT Office Visit Obstetrics and Gynecology - [address] [phone] Libby Cornejo MD [address] [place] [address] 05/14/2025 4:00 PM EDT Office Visit Adult Medicine [place] - [address] [phone] Chrissy Nguyen PA [address] [place] [address] documented as of this encounter Visit Diagnoses Not on filedocumented in this encounter Care Teams Pony Trimmer Relationship Specialty Start Date End Date Baron Patrick MD [address] [place] [address] PCP - General Internal Medicine 12/24/21 documented as of this encounter
--- OUTSIDE RECORDS SUMMARY | 2024-10-18 10:45 | XMS_ITS | Encounter Summary ---
Author Organization [facility] Address [address] [facility] [address] Care Team Providers Care Fabric Pattern Grader Name Role Phone Baron Patrick Primary Care Provider [phone] Reason for Visit * Reason Onset Date Comments Faxed Order 09/28/2023 [facility] [id number] Encounter Details Date Type Department Care Team Description 09/28/2023 Telephone Adult Medicine [address] [address] Baron Patrick [address] [place] [phone] Faxed Order ([facility] [id number]) Social History Tobacco Use Types Packs/Day Years [...] on filedocumented in this encounter Care Teams Fabric Pattern Grader Relationship Specialty Start Date End Date Baron Patrick [address] [place] [address] PCP - General Internal Medicine 12/24/21 documented as of this encounter
--- OUTSIDE RECORDS SUMMARY | 2024-10-18 10:45 | XMS_ITS | Encounter Summary ---
Author Organization [facility] Address [address] [facility] [place] [address] Care Team Providers Care Medical Registrar Name Role Phone Baron Patrick Primary Care Provider [phone] Encounter Details Date Type Department Care Team Description 08/07/2022 Home Health Certification Medical Records [address] [place] [address] Baron Patrick [address] [place] [address] Social History Tobacco Use Types Packs/Day Years [...] on filedocumented in this encounter Care Teams Medical Registrar Relationship Specialty Start Date End Date Baron Patrick [address] [place] [address] PCP - General Internal Medicine 12/24/21 documented as of this encounter
--- OUTSIDE RECORDS SUMMARY | 2024-10-18 10:45 | XMS_ITS | Encounter Summary ---
Author Organization [facility] Address [address] [facility] [place] [address] Care Team Providers Care Arcade Games Mechanic Name Role Phone Baron Patrick Primary Care Provider [phone] Encounter Details Date Type Department Care Team Description 08/04/2023 Home Health Certification Medical Records [address] [place] [address] Abstract, Provider Social History Tobacco Use Types [...] on filedocumented in this encounter Care Teams Arcade Games Mechanic Relationship Specialty Start Date End Date Baron Patrick [address] [place] [address] PCP - General Internal Medicine 12/24/21 documented as of this encounter
--- OUTSIDE RECORDS SUMMARY | 2024-10-18 10:45 | XMS_ITS | Encounter Summary ---
Author Organization [facility] Address [address] [place] [address] Care Team Providers Care Drop Board Worker Name Role Phone John Crawford DO Primary Care Provider Simon Adame MD Primary Care Provider Baron Minor Primary Care Provider [phone] Reason for Visit * Reason Onset Date Comments Faxed Order 07/06/2021 [id number] Encounter Details Date Type Department Care Team Description 07/06/2021 Telephone Adult Medicine [address] [address] John Crawford DO Faxed Order ([id number]) Social History Tobacco Use Types Packs/Day Years [...] encounter Miscellaneous Notes * Telephone Encounter - Anum Tang Britni - 07/06/2021 1:35 PM EDT [facility] IS FAXING ORDERS TO BE SING AND FAX BACK [phone]. documented in this encounter Plan of Treatment Not on file documented as of this encounter Visit Diagnoses Not on filedocumented in this encounter Care Teams Drop Board Worker Relationship Specialty Start Date End Date John Crawford DO PCP - General Internal Medicine 02/18/21 1 Simon Nolen MD PCP - General Internal Medicine 08/19/21 12/23/21 Baron Patrick [address] [place] [address] PCP - General Internal Medicine 12/24/21 documented as of this encounter
--- OUTSIDE RECORDS SUMMARY | 2024-10-18 10:45 | XMS_ITS | Encounter Summary ---
Author Organization [facility] Address [address] [facility] [place] [address] Care Team Providers Care Cone Treater Name Role Phone Baron Patrick Primary Care Provider [phone] Reason for Visit * Reason Comments E-prescribe Rx Request Encounter Details Date Type Department Care Team Description 10/26/2023 Refill Pulmonology - [place] [address] [phone] Annmarie Pham, DEPUTY CHIEF SHERIFF [address] [phone] E-prescribe Rx Request Social History Tobacco Use [...] encounter Miscellaneous Notes * Telephone Encounter - Montse Dupont - 10/28/2023 4:38 PM EST Rene 03/11/23 Nov lvm documented in this encounter Plan of Treatment Not on file documented as of this encounter Visit Diagnoses Diagnosis Mild persistent asthma without complication Unspecified asthma documented in this encounter Care Teams Cone Treater Relationship Specialty Start Date End Date Baron Patrick [address] [place] [address] PCP - General Internal Medicine 12/24/21 documented as of this encounter
--- OUTSIDE RECORDS SUMMARY | 2024-10-18 10:45 | XMS_ITS | Encounter Summary ---
Author Organization [facility] Address [address] [place] [address] Care Team Providers Care Brazing Machine Tender Name Role Phone Baron Patrick MD Primary Care Provider [phone] Reason for Referral * Consultation (Routine) - Pending Review Specialty Diagnoses / Procedures Referred By Mildred rao Referred To Contact Behavioral Health Diagnoses Anxiety and depression Chrissy Nguyen PA [address] [place] [address] Referral ID Status Reason Start Date Expiration Date Visits Requested Visits Authorized [id number] Pending Review Specialty Services Required 09/18/2024 09/18/2025 1 1 Reason for Visit * Reason Comments gout Flare up Encounter Details Date Type Department Care Team ([facility] Contact Info) Description 09/18/2024 10:45 AM EST Office Visit Adult Medicine [address] [address] Chrissy Nguyen PA [address] [place] [address] Gout involving toe, unspecified cause, unspecified chronicity, unspecified laterality (Primary Dx); Anxiety and depression; Primary hypertension; Pre-diabetes; Mixed stress and urge incontinence; Mild intermittent asthma without complication; Chronic constipation Social History Tobacco Use Types Packs/Day Years [...] on file documented as of this encounter Last Filed Vital Signs Vital Sign Reading [...] Mass Index 38.44 09/18/2024 10:36 AM EST documented in this encounter Patient Instructions * Attachments The following attachments cannot be sent through Care Everywhere. * Purine-Restricted Diet (Estonian) documented in this encounter Progress Notes * KEIRA Freitas 09/18/2024 10:45 AM EST CHIEF COMPLAINT: gout (Flare up) IDENTIFIER: Jhoana De La Garza is a 49 y.o. old female. HPI: Jhoana De La Garza is a 49 y.o. 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 Her swelling and pain has improved with allopurinol although reports still has mild pain. She continues to take Tylenol as needed for pain. There is no erythema or edema in the toe. She reports recently her psychiatrist closed practice and is in need of new psychiatrist. I will place referral today for behavioral health. She is on Linzess for chronic constipation. Blood pressure today is stable. ROS: GENERAL: No malaise, significant weight loss or fever HEENT: No changes in hearing or vision, nose bleeds or other nasal problems NECK: No lumps, goiter, pain or significant neck swelling RESPIRATORY: No cough, wheezing or shortness of breath CARDIOVASCULAR: No chest pain, leg swelling or palpitations GI: No abdominal pain, hematochezia, melena : No dysuria, oliguria, polyuria, hematuria, flank pain MUSCULOSKELETAL: No joint pain or swelling, back pain, or muscle pain. SKIN: No lesions, rash or itching NEURO: No persistent headache, syncope, seizures, weakness or numbness PAST MEDICAL HISTORY: Patient Active Problem List Diagnosis Date Noted Major depressive disorder, recurrent episode, moderate [place] 09/09/2024 Depression, unspecified 09/09/2024 COVID-19 09/09/2024 Pre-diabetes 03/08/2023 Mixed incontinence 10/08/2022 Adrenal nodule ([facility] 10/29/2021 S/P gastric sleeve procedure 10/29/2021 Low grade squamous intraepith lesion on cytologic smear cervix (lgsil) 07/23/2020 Allergic conjunctivitis, bilateral 05/27/2020 Eczema 05/27/2020 Elevated LFTs 05/21/2020 Obstructive sleep apnea 05/21/2020 Anxiety and depression 04/25/2020 Anxiety 04/25/2020 Asthma 04/25/2020 Constipation 04/25/2020 Fatty liver 04/25/2020 HIV (human immunodeficiency virus infection) ([facility] 04/25/2020 Hypertension 04/25/2020 Osteoarthritis of lower back 04/25/2020 Perennial allergic rhinitis 04/25/2020 Past Surgical History: Procedure Laterality Date APPENDECTOMY PROCEDURE: HISTORICAL APPENDECTOMY ELBOW SURGERY Left PROCEDURE: HISTORICAL ELBOW SURGERY; COMMENT: repair of tendon OTHER SURGICAL HISTORY 11/2020 PROCEDURE: ---- OTHER ----; COMMENT: laparoscopic sleeve gastrectomy with hiatal hernia repair SOCIAL HISTORY: Social History Tobacco Use Smoking status: Former Smokeless tobacco: Never Substance Use Topics Alcohol use: Yes FAMILY HISTORY: Family History Problem Relation Name Age of Onset Hypertension Mother Diabetes Mother Other (Other: fatty liver) Mother Diabetes Father Hypertension Sister No Known Problems Brother Coronary artery disease Maternal Grandmother s/p [place] Colon cancer Paternal Grandmother Other (Other: ?colon or uterine cancer) Paternal Grandmother No Known Problems Sister Hypertension Brother Hypertension Sister No Known Problems Sister Hypertension Sister No Known Problems Sister Hypertension Sister No Known Problems Brother Breast cancer Neg Hx Family Status Relation Name Status Mother Alive Father Sister Alive Brother Alive MGM PGM Sister Alive Brother Alive Sister Alive Sister Alive Sister Alive Sister Alive Sister Alive Brother Alive Neg Hx (Not Specified) No partnership data on file MEDICATIONS DISCONTINUED/REORDERED: Medications Discontinued During This Encounter Medication Reason UNABLE TO FIND Discontinued by another clinician morphine (MSIR) 15 mg tablet Therapy completed meclizine (ANTIVERT) 25 mg tablet Therapy completed ACTIVE MEDICATIONS: Outpatient Medications Marked as Taking for the 09/18/24 encounter (Office Visit) with KEIRA Freitas Medication Sig Dispense Refill uvkdkbgg-eehqeflnchgy-qherCUFbro (Triumeq) 600-50-300 mg per tablet Take 1 tablet by mouth 1 (one) time each day. acetaminophen (TYLENOL 8 HOUR) 650 mg 8 hr tablet Take 1 tablet (650 mg total) by mouth 3 (three) times a day if needed. albuterol 2.5 mg /3 mL (0.083 %) nebulizer solution TAKE 1 VIAL BY NEBULIZATION EVERY 6 HOURS NEEDED FOR WHEEZING OR SHORTNESS OF BREATH. albuterol HFA (PROAIR HFA ; PROVENTIL HFA ; VENTOLIN HFA) 90 mcg/actuation inhaler Inhale 2 Puffs into the lungs every 4 hours as needed for Cough, Wheezing or Shortness of Breath. allopurinoL (ZYLOPRIM) 100 mg tablet Take 1 tablet (100 mg total) by mouth 2 (two) times a day. 180tablet 0 ammonium lactate (AMLACTIN) 12 % cream Apply 1 Applicator topically 2 times daily as needed for DrySkin. azelastine (ASTELIN) 137 mcg (0.1 %) nasal spray 2 Sprays by Each Nare route 2 times daily. buPROPion XL (WELLBUTRIN XL) 300 mg 24 hr tablet Take 300 mg by mouth every morning. cholecalciferol (VITAMIN D-3) 25 mcg (1,000 unit) tablet TAKE 1 TABLET BY MOUTH DAILY 90 tablet 1 crisaborole (Eucrisa) 2 % ointment Apply 1 Each topically 2 times daily. cromolyn (OPTICROM) 4 % ophthalmic solution Place 1 Drop into both eyes 4 times daily. cyanocobalamin (VITAMIN B-12) 1,000 mcg tablet Take 1 tablet (1,000 mcg total) by mouth 1 (one) time each day. cyproheptadine (PERIACTIN) 4 mg tablet TAKE 1 TABLET BY MOUTH 3 TIMES DAILY NEEDED FOR ITCH diclofenac (VOLTAREN) 1 % topical gel Apply 1 Applicator topically 2 times daily as needed (neck pain) for up to 28 days. doxepin (SINEquan) 10 mg capsule Take 1 Capsule by mouth. DULoxetine (CYMBALTA) [address] capsule Take 40 mg by mouth daily. EPINEPHrine (EpiPen 2-[place]ino) 0.3 mg/0.3 mL injection INJECT INTRAMUSCULARLY FOR ALLERGIC REACTIONS. CALL 911 SEEK MEDICAL ATTENTION escitalopram (LEXAPRO) 20 mg tablet Take 0.5 Tablets by mouth every morning. famotidine (PEPCID) 20 mg tablet Take 1 Tablet by mouth daily as needed for Heartburn. fluticasone HFA (Flovent HFA) 220 mcg/actuation inhaler Inhale 2 puffs by mouth 2 (two) times a day. hydrocortisone 1 % topical cream Apply small amount to affect area (s) twice daily for up to 2 weeks. ketotifen fumarate (ZADITOR) 0.035 % ophthalmic solution 1 Drop 2 times daily as needed. levocetirizine (XYZAL) 5 mg tablet TAKE 1 TABLET BY MOUTH EVERY EVENING 90 tablet 1 Linzess 145 mcg capsule TAKE 1 CAPSULE(145 MCG) BY MOUTH DAILY 30 capsule 1 lisinopril-hydroCHLOROthiazide (PRINZIDE,ZESTORETIC) 20-12.5 mg per tablet Take 1 tablet by mouth 1(one) time each day. medroxyPROGESTERone (PROVERA) 5 mg tablet Take 2 Tablets by mouth daily for 40 days. melatonin 10 mg capsule Take by mouth. metFORMIN (GLUCOPHAGE) 500 mg tablet TAKE 1 TABLET BY MOUTH DAILY WITH BREAKFAST 90 tablet 1 montelukast (SINGULAIR) 10 mg tablet TAKE 1 TABLET BY MOUTH AT BEDTIME. rOPINIRole (REQUIP) 0.25 mg tablet Take 1 Tablet by mouth at bedtime. senna (SENOKOT) 8.6 mg tablet Take 1 tablet (8.6 mg total) by mouth 1 (one) time each day. tiZANidine (ZANAFLEX) 4 mg tablet Take 1 Tablet by mouth 2 times daily as needed for Muscle spasms. trospium 60 mg capsule,extended release 24hr Take 1 capsule (60 mg total) by mouth 1 (one) time each day. [DISCONTINUED] meclizine (ANTIVERT) 25 mg tablet Take 25 mg by mouth 3 times daily. [DISCONTINUED] morphine (MSIR) 15 mg tablet 1 tablet (15 mg total) 1 (one) time. [DISCONTINUED] UNABLE TO FIND 1 Units by Does not apply route 6 times daily. ALLERGIES: Allergies Allergen Reactions Egg Eczema flares Prednisone Other and Wheezing Shrimp Hives Raw shrimp PHYSICAL EXAM: Vitals: 09/18/24 1036 BP: 122/80 Pulse: 96 Resp: 16 Temp: 37 ??C (98.6 ??F) APPEARANCE: Alert and in no acute distress EYES: PERRLA, conjunctiva and sclera normal. EARS: External ears normal. Canals clear. TMs normal. NOSE/SINUS: Nares normal. Septum midline. Mucosa normal. No drainage or sinus tenderness. MOUTH/THROAT: no erythema or exudates NECK: Neck supple, no adenopathy, thyroid symmetric and of normal size HEART: RRR with normal S1 and S2, no murmurs, no gallops CHEST: non-tender to palpation, no crepitation LUNG: clear to auscultation, no wheezing, rales, or rhonchi. Able to talk in full complete sentences ABDOMEN: Bowel sounds normoactive, soft, non-tender, without organomegaly or palpable masses. BACK: No pain to palpation with good flexion and extension. Spine midline, no deviations or step-offs EXTREMITIES: Extremities warm and well perfused without clubbing, cyanosis, or edema MUSCULOSKELETAL: Strength 5/5 to bilateral upper/lower extremities NEURO: Awake, alert and oriented x 3. No focal neurological deficits SKIN: Skin color, texture, turgor normal. No rashes or lesions IMPRESSION: 1. Gout involving toe, unspecified cause, unspecified chronicity, unspecified laterality 2. Anxiety and depression 3. Primary hypertension 4. Pre-diabetes 5. Mixed stress and urge incontinence 6. Mild intermittent asthma without complication 7. Chronic constipation PLAN: Edema and pain improved. Will recheck uric acid levels. Patient to continue with allopurinol 100 mgtwice daily. Her previous psychiatrist left and she is in need of new psychiatrist. I have place new referral for behavioral health. She continues on doxepin, Cymbalta, Lexapro, Wellbutrin. Her blood pressure today stable. Continue with lisinopril-hydrochlorothiazide 20- 12.5 mg, take 1 tablet daily. Last A1c was 5.7. She will continue low-carb, low sugar diet. She continues to follow-up with Dr. Wilson. No recent exacerbations. She continues on Flovent, Singulair, albuterol as needed. She is follow up with GI. She is on Linzess for chronic constipation. Follow up in 3-4 months for medication review with pcp/team. All questions and concerns were addressed. Jhoana Radha De La Garza verbalizes understanding and agrees with this treatment plan. Patient was reminded to call or return to the office if any new or existing problems arise. Orders Placed This Encounter Procedures Uric acid Basic metabolic panel Ambulatory referral to Behavioral Health AMB REFERRAL TO BEHAVIORAL HEALTH KEIRA Freitas on 09/23/2024 at 3:04 PM EST Today's documentation was made using voice recognition software.This note may contain grammatical errors secondary to this software. documented in this encounter Plan of Treatment Upcoming Encounters Date Type Department Care Team (Late st Contact Info) Description 10/23/2024 9:20 AM EST Appointment Radiology Department - [address] [phone] 01/09/2025 1:30 PM EDT Office Visit Obstetrics and Gynecology - [address] [phone] Libby Cornejo MD [address] [place] [address] 05/14/2025 4:00 PM EDT Office Visit Adult Medicine [place] - [address] [phone] Chrissy Nguyen PA [address] [place] [address] Scheduled Referrals Name Type Priority Associated Diagnoses Order Schedule Ambulatory referral to Behavioral Health Outpatient Referral Routine Anxiety and depression 1 Occurrences starting 09/18/2024 until 09/18/2025 documented as of this encounter Results * (ABNORMAL) Basic metabolic panel (09/18/2024 11:13 AM EST) Sodium 139 133 - 145 mmol/L LAB CHEMISTRY METHOD 09/18/2024 2:28 PM [facility] Potassium 3.9 3.5 - 5.5 mmol/L LAB CHEMISTRY METHOD 09/18/2024 2:28 PM [facility] Chloride 105 96 - 110 mmol/L LAB CHEMISTRY METHOD 09/18/2024 2:28 PM [facility] CO2 26 21 - 32 mmol/L LAB CHEMISTRY METHOD 09/18/2024 2:28 PM [facility] Anion Gap 8 3 - 11 LAB CHEMISTRY METHOD 09/18/2024 2:28 PM [facility] Glucose 116(H) 70 - 100 mg/dL LAB CHEMISTRY METHOD 09/18/2024 2:28 PM [facility] BUN 11 5 - 25 mg/dL LAB CHEMISTRY METHOD 09/18/2024 2:28 PM [facility] Creatinine 1.17(H) 0.50 - 1.10 mg/dL LAB CHEMISTRY METHOD 09/18/2024 2:28 PM [facility] eGFR 58(L) >=60 mL/min/1. 73m2 LAB CHEMISTRY METHOD 09/18/2024 2:28 PM [facility] Comment:Calculation based on the??Chronic Kidney Disease Epidemiology Collaboration (CKD-EPI) equation refit??without adjustment for race. BUN/Creatinine Ratio 9.4 LAB CHEMISTRY METHOD 09/18/2024 2:28 PM [facility] Calcium 9.3 8.5 - 10.5 mg/dL LAB CHEMISTRY METHOD 09/18/2024 2:28 PM [facility] Blood Venous blood specimen / Unknown Venipuncture / Unknown 09/18/2024 11:13 AM EST 09/18/2024 11:13 AM EST Chrissy Elly Gabe CROCKETT LAB BLOOD ORDERA BLES [facility] [address] [place] [address], [place] [phone] * Uric acid (09/18/2024 11:13 AM EST) Uric Acid 5.0 3.1 - 7.8 mg/dL LAB CHEMISTRY METHOD 09/18/2024 2:28 PM EST [facility] Blood Venous blood specimen / Unknown Venipuncture / Unknown 09/18/2024 11:13 AM EST 09/18/2024 11:13 AM EST Chrissy Ellyisela CROCKETT LAB BLOOD ORDERA BLES Performing Organization Address City/[facility]/ZIP Co de Phone Number [facility] [address] [place] [address], [place] [phone] documented in this encounter Visit Diagnoses Diagnosis Gout involving toe, unspecified cause, unspecified chronicity, unspecified laterality- Primary Anxiety and depression Primary hypertension Unspecified essential hypertension Pre-diabetes Other abnormal glucose Mixed stress and urge incontinence Mild intermittent asthma without complication Chronic constipation Unspecified constipation documented in this encounter Discontinued Medications Medication Sig Discontinue Reason Start Date End Da te UNABLE TO FIND 1 Units by Does not apply route 6 times daily. Discontinued by another clinician 01/11/2023 09/18/2024 morphine (MSIR) 15 mg tablet 1 tablet (15 mg total) 1 (one) time. Therapy completed 09/18/2024 meclizine (ANTIVERT) 25 mg tablet Take 25 mg by mouth 3 times daily. Therapy completed 09/18/2024 documented as of this encounter Care Teams Brazing Machine Tender Relationship Specialty Start Date End Date Baron Patrick MD [address] [place] [address] PCP - General Internal Medicine 12/24/21 documented as of this encounter
--- OUTSIDE RECORDS SUMMARY | 2024-10-18 10:45 | XMS_ITS | Encounter Summary ---
Author Organization [facility] Address [address] [facility] [place] [address] Care Team Providers Care Food And Drink Factory Workers Name Role Phone Baron Patrick Primary Care Provider [phone] Encounter Details Date Type Department Care Team Description 07/14/2023 Marketing Assistant Retail Division Report Medical Records [address] [place] [address] Melina Allred, DEON Social History Tobacco Use Types Packs/Day Years [...] on filedocumented in this encounter Care Teams Food And Drink Factory Workers Relationship Specialty Start Date End Date Baron Patrick [address] [place] [address] PCP - General Internal Medicine 12/24/21 documented as of this encounter
--- OUTSIDE RECORDS SUMMARY | 2024-10-18 10:45 | XMS_ITS | Encounter Summary ---
Author Organization [facility] Address [address] [place] [address] Care Team Providers Care Lumber Sorter Name Role Phone Baron Patrick Primary Care Provider [phone] Reason for Visit * Reason Onset Date Comments Faxed Order 12/05/2023 Encounter Details Date Type Department Care Team Description 12/05/2023 Telephone Adult Medicine [address] [address] Baron Patrick [address] [place] [address] [phone] Faxed Order Social History Tobacco Use Types [...] encounter Miscellaneous Notes * Telephone Encounter - Jamia Bowens - 12/05/2023 9:14 AM EDT Faxed orders received from [facility] [phone] and placed in providers box. documented in this encounter Plan of Treatment Not on file documented as of this encounter Visit Diagnoses Not on filedocumented in this encounter Care Teams Lumber Sorter Relationship Specialty Start Date End Date Baron Patrick [address] [place] [address] PCP - General Internal Medicine 12/24/21 documented as of this encounter
--- OUTSIDE RECORDS SUMMARY | 2024-10-18 10:45 | XMS_ITS | Encounter Summary ---
Author Organization [email or web address] Address [address] [place] [address] Care Team Providers Care Dye Colorist Formulator Name Role Phone Baron PatrickTerrence Primary Care Provider [phone] Reason for Visit * Reason Comments E-prescribe Rx Request Encounter Details Date Type Department Care Team Description 04/15/2022 Refill Adult Medicine [address] [address] Simon Nolen MD E-prescribe Rx Request Social History Tobacco Use [...] Telephone Encounter - Vicky Franklin M.A. - 04/15/2022 3:16 PM EDT Last office visit 02/25/22 Next office visit 04/26/22 with new PCP Albuterol filled on 02/16/22, rescue use only should last 6 months Lab Results Component Value Date NA 140 10/29/2021 K 4.0 10/29/2021 CO2 28 10/29/2021 CL 106 10/29/2021 BUN 9 10/29/2021 CREAT 0.83 10/29/2021 GLU 73 10/29/2021 CA 9.5 10/29/2021 GFR > 60 10/29/2021 * Telephone Encounter - Elise Altamirano - 04/15/2022 3:09 PM EDT Patient would like script to be: E-PRESCRIBED/FAXED TO PHARMACY ?? WHEN WAS THE PATIENT'S LAST APPOINTMENT IN ADULT MEDICINE? 02/25/22 ?? WHEN WAS THE LAST TIME THE PATIENT SAW THEIR PCP? 10/29/[address] Nolen ?? Does patient have an upcoming appointment? Yes 04/26/22 ?? (THE MEDICATION REQUESTED IS ON THE MED LIST ABOVE) All of the medications requested were on the CURRENT MEDS list ?? Did you check the Pharmacy information above?: YES ?? Patient wants: 90 -day supply ?? Is this a mail order prescription request ? NO ?? If the refill is from a FAXED refill request what is the RX # listed on the fax? N/A ?? Patients current insurance carrier is: Payor: [email or web address] [facility] M[facility] / Plan: [facility] / Product Type: HMO [id number] ? documented in this encounter Plan of Treatment Not on file documented as of this encounter Visit Diagnoses Not on filedocumented in this encounter Care Teams Dye Colorist Formulator Relationship Specialty Start Date End Date Baron Patrick [address] [place] [address] PCP - General Internal Medicine 12/24/21 documented as of this encounter
--- OUTSIDE RECORDS SUMMARY | 2024-10-18 10:45 | XMS_ITS | Encounter Summary ---
Author Organization [facility] Address [address] [facility] [place] [address] Care Team Providers Care Mineral Surveying Technician Name Role Phone John Crawford DO Primary Care Provider Simon Adame MD Primary Care Provider Baron Minor Primary Care Provider [phone] Reason for Visit * Reason Onset Date Comments medication problems 04/20/2021 Encounter Details Date Type Department Care Team Description 04/20/2021 Telephone Gastroenterology - [address] [place] [address] Charly Pedro PA-C medication problems Social History Tobacco Use Types Packs/Day Years [...] have Coronavirus / COVID-19? No / Unsure 04/20/2021 11:32 AM EDT documented as of this encounter Miscellaneous Notes * Telephone Encounter - Adrianne Verdugo M.A. - 04/22/2021 11:01 AM EDT Approval for [facility] 145g capsules. Approved from 04/22/2021-04/22/2022. [facility] notified by fax. * Telephone Encounter - Adrianne Verdugo M.A. - 04/22/2021 9:00 AM EDT Dx code:Chronic ideopathic constipation Prior authorization done with Floridalma by phone from [facility] for Linzess 145mcg and marked URGENT. 24hour decision. * Telephone Encounter - Pamela Davis M.A. - 04/21/2021 3:59 PM EDT Please advise * Telephone Encounter - Erik Priest - 04/21/2021 2:57 PM EDT Pharmacy calling in [facility] is not covered Asking for pa or another mediation Please advise Any questions call [phone] * Telephone Encounter - Charly Pedro PA-C - 04/20/2021 3:33 PM EDT Will try for linzess instead. * Telephone Encounter - Dhara Pool - 04/20/2021 1:05 PM EDT Who is calling? Fax from [facility] Name of the medication Motegrity 2 mg What is the specific problem or interaction? Not covered by patient's insurance. Lactulose can be used as a substitute and does not require prior auth. If the patient is having a problem with taking the med - how long has the problem been going on? N/A Routed to Lawson Mcmahan PA-C in error. documented in this encounter Plan of Treatment Not on file documented as of this encounter Visit Diagnoses Not on filedocumented in this encounter Care Teams Mineral Surveying Technician Relationship Specialty Start Date End Date John Crawford DO PCP - General Internal Medicine 02/18/21 1 Simon Nolen MD PCP - General Internal Medicine 08/19/21 12/23/21 Baron Patrick [address] [place] [address] PCP - General Internal Medicine 12/24/21 documented as of this encounter
--- OUTSIDE RECORDS SUMMARY | 2024-10-18 10:45 | XMS_ITS | Encounter Summary ---
Author Organization [facility] Address [address] [place] [address] Care Team Providers Care Manager Application Name Role Phone John Crawford DO Primary Care Provider Simon Adame MD Primary Care Provider Baron Minor Primary Care Provider [phone] Reason for Visit * Reason Onset Date Comments Faxed Order 06/17/2021 [id number] Encounter Details Date Type Department Care Team Description 06/17/2021 Telephone Adult Medicine [address] [address] John Crawford DO Faxed Order ([id number]) Social History Tobacco Use Types Packs/Day Years [...] encounter Miscellaneous Notes * Telephone Encounter - Vega Becerra - 06/17/2021 12:21 PM EDT Home Health Certification and Plan of care faxed order documented in this encounter Plan of Treatment Not on file documented as of this encounter Visit Diagnoses Not on filedocumented in this encounter Care Teams Manager Application Relationship Specialty Start Date End Date Crawford, John, DO PCP - General Internal Medicine 02/18/21 1 Simon Nolen MD PCP - General Internal Medicine 08/19/21 12/23/21 Baron Patrick [address] [place] [address] PCP - General Internal Medicine 12/24/21 documented as of this encounter
--- OUTSIDE RECORDS SUMMARY | 2024-10-18 10:45 | XMS_ITS | Encounter Summary ---
Author Organization [facility] Address [address] [place] [address] Care Team Providers Care Manager Marketing Sales Name Role Phone Baron Patrick MD Primary Care Provider [phone] Reason for Visit * Reason Onset Date Comments faxed order 08/28/2024 Faxed order rece ived from [facility] [id number] placed in providers box Encounter Details Date Type Department Care Team ([facility] Contact Info) Description 08/28/2024 Telephone Adult Medicine [address] [phone] Baron Patrick MD [address] [place] [phone] faxed order (Faxed order received from [facility] [id number] placed in providers box) Social History Tobacco Use Types Packs/Day Years [...] as of this encounter Plan of Treatment Upcoming Encounters Date Type Department Care Team (Late Contact Info) Description 10/23/2024 9:20 AM EST Appointment Radiology Department - [address] [phone] 01/09/2025 1:30 PM EDT Office Visit Obstetrics and Gynecology - [address] [phone] Libby Cornejo MD [address] [place], [place] 05/14/2025 4:00 PM EDT Office Visit Adult Medicine West - [address] [phone] Chrissy Nguyen PA [address] [place] [address] documented as of this encounter Visit Diagnoses Not on filedocumented in this encounter Care Teams Manager Marketing Sales Relationship Specialty Start Date End Date Baron Patrick MD [address] [place] [address] PCP - General Internal Medicine 12/24/21 documented as of this encounter
--- OUTSIDE RECORDS SUMMARY | 2024-10-18 10:45 | XMS_ITS | Encounter Summary ---
Author Organization [facility] Address [address] [place] [address] Care Team Providers Care Flight Nurse Name Role Phone Baron Patrick MD Primary Care Provider [phone] Reason for Visit * Reason Onset Date Comments Faxed Order 08/24/2024 [facility] #[id number] Encounter Details Date Type Department Care Team ([facility] Contact Info) Description 08/24/2024 Telephone Adult Medicine [address] [phone] Baron Patrick MD [address] [place] [phone] Faxed Order ([facility] #[id number]) Social History Tobacco Use Types Packs/Day Years [...] as of this encounter Progress Notes * Aakash Haney - 08/24/2024 10:56 AM EST [facility] order #[id number] received. Please sign and fax to [phone] documented in this encounter Plan of Treatment Upcoming Encounters Date Type Department Care Team (Late st Contact Info) Description 10/23/2024 9:20 AM EST Appointment Radiology Department - [address] [phone] 01/09/2025 1:30 PM EDT Office Visit Obstetrics and Gynecology - [address] [phone] Libby Cornejo MD [address] [place], [place] 05/14/2025 4:00 PM EDT Office Visit Adult Medicine [facility] - [address] [phone] Chrissy Nguyen PA [address] [place] [address] documented as of this encounter Visit Diagnoses Not on filedocumented in this encounter Care Teams Flight Nurse Relationship Specialty Start Date End Date Baron Patrick MD [address] [place] [address] PCP - General Internal Medicine 12/24/21 documented as of this encounter
--- OUTSIDE RECORDS SUMMARY | 2024-10-18 10:45 | XMS_ITS | Encounter Summary ---
Author Organization [facility] Address [address] [place] [address] Care Team Providers Care Spin Instructor Name Role Phone Baron Patrick MD Primary Care Provider Reason for Visit * Reason Onset Date Comments Fitting for DME 10/01/2024 Encounter Details Date Type Department Care Team ([facility] Contact Info) Description 10/01/2024 Telephone Adult Medicine [address] [place] [phone] Morena Reed LPN Fitting for DME Social [...] as of this encounter Progress Notes * Morean Reed LPN - 10/04/2024 2:48 PM EST Call back from MARY herrera Pt is having eval on 10/09/24 for the power lift recliner They have all the paperwork for this and once the eval is done they will take care of the power chair and reach out to the pt * Morena Reed LPN - 10/02/2024 9:08 AM EST Called [facility] again today About the power recliner to see if she received a call from them Spoke to Joanne and she says that the pt had her eval on 09/27/24 with [facility] rehab [facility] is waiting for [facility] to send the eval notes to [facility] and then [facility] will complete process for the power chair and send the request to the vendor I asked Joanne to relay to that when the process is complete to reach out to the patient to let her know this She will forward this message to her care team Pt notified of this If she has any further questions She should call [facility] and speak to her care team * Morena Reed LPN - 10/01/2024 11:38 AM EST Called [facility] to see if they called her they did not call her I called [facility] to see if they called her The office is closed today for the holiday I will call them tomorrow [phone] I called [facility] to see if they called her ,they did not call her I sent my chart message to pt to let her know that I will check with [facility] tomorrow via my chart * Morena Reed LPN - 10/01/2024 11:33 AM EST Some one call me said it was approved but haven't received anything I need the prescription to go to [facility] I spoke to the insurance I also need the prescription off the wipes and bed padsend there and my cotex documented in this encounter Plan of Treatment Upcoming Encounters Date Type Department Care Team (Late st Contact Info) Description 10/23/2024 9:20 AM EST Appointment Radiology Department - [address] [phone] 01/09/2025 1:30 PM EDT Office Visit Obstetrics and Gynecology - [address], [place] [phone] Libby Cornejo MD [address] [place], [place] 05/14/2025 4:00 PM EDT Office Visit Adult Medicine [address] [phone] Chrissy Nguyen PA [address] [place] [address] documented as of this encounter Visit Diagnoses Not on filedocumented in this encounter Care Teams Spin Instructor Relationship Specialty Start Date End Date Baron Patrick MD [address] [place] [address] PCP - General Internal Medicine 12/24/21 documented as of this encounter
== END 2024-10-18 10:46 | disposition home or self-care (01) ==
LOC: HO.HBS 10:40
PROVIDERS: PCP Internal Medicine; Visit Provider Physician Assistant Surgical
DX: E66.812 Obesity, class 2 (principal); Z68.38 Body mass index [BMI] 38.0-38.9, adult; Z90.3 Acquired absence of stomach [part of]; Z98.84 Bariatric surgery status
CPT/HCPCS: 98016

== ENCOUNTER → 2024-10-18 10:40 | Outpatient (BNVA) | payer OTHER, SELFPAY | PROVIDERS: PCP Internal Medicine; Visit Provider Physician Assistant Surgical ==

== ENCOUNTER 2024-11-22 18:16 | Emergency (ER) | payer OTHER, SELFPAY ==
--- NOTE | ~2024-11-22 | CT_ITS ---
CLINICAL HISTORY: chets pain, SOB CT angiography chest with contrast. 3D Postprocessing. Comparison: None Findings: Mild cardiomegaly. No pericardial effusion. No pulmonary artery filling defect or pulmonary artery enlargement. No thoracic aortic aneurysm. Small right pleural effusion with overlying atelectasis. Mosaic attenuation in the lung parenchyma. Scattered areas of patchy ground-glass airspace opacity. No consolidation. No acute finding in the partially visualized upper abdomen Bones intact. IMPRESSION: 1. No pulmonary embolism. 2. Mild cardiomegaly with findings of interstitial and alveolar pulmonary edema as well as small right pleural effusion. 3. Patchy ground-glass opacity in both lungs could be due to pulmonary edema although superimposed infectious process is not excluded. This document has been electronically signed by: Cornelius Oliveira MD on 11/22/2024 22:15:27
--- NOTE | ~2024-11-22 | XR_ITS ---
CLINICAL HISTORY: sob 1 view chest x-ray Comparison: CR/CT/SR - XR CHEST 2V - 03/02/23 18:35 EDT Findings: Cardiomegaly. Cephalization of pulmonary vasculature and central pulmonary vascular engorgement. Increased interstitial markings in both lungs, with central/perihilar predominance. No acute airspace or alveolar infiltrate. No visible pleural effusion or findings of pneumothorax. No gross evidence of acute fracture. IMPRESSION: 1. Cardiomegaly with findings of pulmonary venous congestion and mild interstitial edema. This document has been electronically signed by: Cornelius Oliveira MD on 11/22/2024 19:34:58
[2024-11-22 18:22] VITALS: BP 118/86; PULSE 90; O2SAT 100
[2024-11-22 18:25] VITALS: BP 107/63; PULSE 96; RESP 22; TEMP 37; O2SAT 97; BMI 39.7
--- NOTE | 2024-11-22 18:31 | ECG_ITS ---
Test Reason : CHEST PAIN Blood Pressure : */* mmHG Vent. Rate : 93 BPM Atrial Rate : 93 BPM P-R Int : 156 ms QRS Dur : 90 ms QT Int : 412 ms P-R-T Axes : 39 -12 49 degrees QTcB Int : 512 ms Normal sinus rhythm Possible Left atrial enlargement Minimal voltage criteria for LVH, may be normal variant ( [place] product ) Nonspecific ST abnormality Abnormal ECG When compared with ECG of 02-Mar-2023 18:19, Nonspecific T wave abnormality now evident in Anterolateral leads Referred By: Generic ED Physician Electronically Signed By: ALINA EPSTEIN
[2024-11-22 18:55] LABS: MANUAL DIFF FLAG NO
[2024-11-22 18:56] LABS: Basophils Percent Auto 0.4 % (0-2); Eosinophils Absolute Auto 0.1 X10*3/uL (0.0-0.4); Hemoglobin 10.4 g/dl (12.0-16.0); Imm Gran Abs Auto 0.02 X10*3/uL (0.00-0.03); Imm Gran Pct Auto 0.2 % (0.0-0.4); Mean Corpuscular HGB Conc 31.5 g/dl (31.0-35.0); Mean Corpuscular Hemoglobin 26.3 pg (27.0-33.0); Mean Corpuscular Volume 83.5 fL (80.0-98.0); Mean Platelet Volume 10.3 fL (9.4-12.3); Monocytes Absolute Auto 0.6 X10*3/uL (0.1-1.2); Monocytes Percent Auto 6.3 % (2-11); Neutrophils Absolute Auto 6.3 x10*3/uL (2.0-8.3); Neutrophils Percent Auto 70.1 % (45-73); Platelet Count 306 X10*3/uL (160-400); Red Blood Count 3.95 X10*6/uL (4.20-5.50); Red Cell Distribution Width 14.6 % (11.0-16.0)
--- NOTE | 2024-11-22 19:02 | ED.CHESTPAIN ---
HPI - Chest Pain General Chief Complaint: Chest Pain Stated Complaint: crushing cp, sob, ASA given Time Seen by Provider: 11/22/24 18:32 Source: patient and EMS Mode of arrival: EMS Limitations: no limitations History of Present Illness ED Provider: Gavi Garcia NP HPI narrative: Patient is a 49-year-old female who presents emergency department for evaluation. She reports over the past month she has been experiencing a nonproductive cough, shortness of breath, and substernal chest pain described as a pressure and crushing pain that exacerbates with cough and exertion. This is unchanged from its onset 1 month ago. She reports that it feels like an asthma exacerbation. She believes that there may be black mold in her apartment, but [facility] has not approved in inspection, she is not visualized mild. She was seen by her stake setter last week and was started on Symbicort (Dr. Vaengas through [facility]). Reports no change in her symptoms since starting this. Denies associated fevers, chills, diaphoresis, nausea, vomiting. States that she has a ?supposed allergy? to prednisone, believes in the past I do not know I think I told them I had difficulty breathing after taking it but states this was many years ago. Related Data Home Medications ?Medication ?Instructions ?Recorded ?Confirmed abacavir 600 mg-dolutegravir 50 1 tab PO DAILY 10/15/21 10/18/24 mg-lamivudine 300 mg tablet (Triumeq) albuterol sulfate 2.5 mg/3 mL 2.5 mg inhalation Q6H PRN sob 10/15/21 10/18/24 (0.083 %) solution for nebulization azelastine 205.5 mcg (0.15 %) 1 spray intranasal DAILY 10/15/21 10/18/24 nasal spray bupropion HCl 150 mg 24 hr tablet, 1 tab PO BEDTIME 10/15/21 10/18/24 extended release calcium 500 mg (as 1 tab PO DAILY 10/15/21 10/18/24 carbonate)-vitamin D3 3.125 mcg (125 unit) tablet cromolyn 4 % eye drops 1 drp ophthalmic-Left QID PRN 10/15/21 10/18/24 itchy eyes cyproheptadine 4 mg tablet 4 mg PO Q8H PRN Allergy Symptoms 10/15/21 10/18/24 docusate sodium 100 mg capsule 1 cap PO BID 10/15/21 10/18/24 fluticasone propionate 220 2 puff inhalation BID 10/15/21 10/18/24 mcg/actuation HFA aerosol inhaler (Flovent HFA) fluticasone propionate 50 2 spray intranasal DAILY 10/15/21 10/18/24 mcg/actuation nasal spray,suspension ketotifen fumarate 0.025 % (0.035 1 drp ophthalmic (eye) BID PRN 10/15/21 10/18/24 %) eye drops itchy eyes levocetirizine 5 mg tablet 1 tab PO BEDTIME 10/15/21 10/18/24 linaclotide 145 mcg capsule 1 cap PO DAILY 10/15/21 10/18/24 (Linzess) meclizine 25 mg tablet 25 mg PO TID PRN Vertigo 10/15/21 10/18/24 melatonin 10 mg tablet 1 tab PO BEDTIME 10/15/21 10/18/24 montelukast 10 mg tablet 1 tab PO DAILY 10/15/21 10/18/24 multivitamin 1 tab PO DAILY 10/15/21 10/18/24 duloxetine 60 mg capsule,delayed 60 mg PO QAM 07/05/22 10/18/24 release escitalopram oxalate 20 mg tablet 20 mg PO DAILY 07/05/22 10/18/24 hydroxyzine HCl 50 mg tablet 50 mg PO BEDTIME 07/05/22 10/18/24 quetiapine 100 mg tablet 100 mg PO BEDTIME 07/05/22 10/18/24 evening primrose oil 500 mg capsule 500 mg PO DAILY 11/29/22 10/18/24 glucomannan 500 mg capsule 1,800 mg PO DAILY 11/29/22 10/18/24 cyclobenzaprine 5 mg tablet 25 mg PO NEEDED PRN Agitation 12/14/22 10/18/24 metformin 500 mg tablet 500 mg PO DAILY 01/12/24 10/18/24 Previous Rx's ?Medication ?Instructions ?Recorded clonidine HCl 0.1 mg tablet 0.1 mg PO BEDTIME #30 tabs 10/17/21 betamethasone dipropionate 0.05 % 1 appl topical BID PRN skin 01/06/22 topical cream irritation #45 grams cholecalciferol (vitamin D3) 25 25 mcg PO DAILY #90 caps 08/09/22 mcg (1,000 unit) capsule lisinopril 20 mg tablet 20 mg PO DAILY #30 tabs 03/02/23 cephalexin 500 mg capsule 500 mg PO QID 7 days #28 caps 07/15/24 dexamethasone 6 mg tablet 6 mg PO DAILY 5 days #5 tabs 07/15/24 ketorolac 10 mg tablet 10 mg PO Q6H PRN pain 5 days #20 07/15/24 tabs colchicine 0.6 mg capsule 0.6 mg PO BID 3 days #6 caps 07/16/24 morphine 15 mg immediate release 15 mg PO Q8H PRN severe pain 08/14/24 tablet (scale score 7-10) #20 tabs pantoprazole 40 mg tablet,delayed 40 mg PO BID #180 tabs 10/02/24 release sucralfate 100 mg/mL oral 10 ml PO BID #414 mL 11/01/24 suspension tirzepatide (weight loss) 5 mg/0.5 5 mg (0.5 mL) subcut QWEEK #2 mL 11/19/24 mL subcutaneous pen injector (Zepbound) Allergies Allergy/AdvReac Type Severity Reaction Status Date / Time prednisone [PREDNISONE] Allergy Severe DIFFICULTY Verified 11/22/24 18:29 BREATHING, anaphylaxis eggs Allergy Intermediate Hives Uncoded 11/22/24 18:29 Review of Systems Review of Systems: Yes all other systems are reviewed and are negative [facility] Past Medical History Attestation statement: The following information was validated with the patient. Source: old records reviewed Medical History Allergic reaction caused by a drug Anxiety Arthritis Asthma BMI 39.0-39.9,adult Body mass index (BMI) of 40.1 to 44.9 in adult Constipation Depression HIV (human immunodeficiency virus infection) HTN (hypertension) Insomnia Low back pain Morbid obesity Preoperative examination Sciatica Seasonal allergies Shortness of breath Sleep apnea Vertigo Vitamin B1 deficiency Surgical History History of appendectomy History of elbow surgery History of sleeve gastrectomy Family History Family History Mother Hyperlipidemia Hypertension Arthritis Sciatica Diabetes Father No problems noted. Brother Hypertension Social History Social History Household Members: None Housing: Apartment Are you a primary rn transitional care to a significant other at home: No Do you presently have visiting nurse or other home services: Yes (HELP WITH HOUSEWORK ONCE A WEEK) Alcohol intake: never Patient Tobacco Use Status: Former Tobacco user Tobacco use type: Cigarette Smoked in Last 30 Days: No e-Cigarette/Vaping Use: Never Used Second Hand Smoke Exposure: No Use of substances other than those prescribed or required for medical reasons: No Advance Directives: No Advance Directives Information Provided: Yes Do you have a plan to hurt others: No Plan service: No Current occupational status: unemployed Physical Exam Vital Signs: Vital Signs: Last Vital Signs Temp 98.6 F 11/22/24 18:25 Pulse 96 11/22/24 21:26 Resp 16 11/22/24 21:26 BP 96/62 11/22/24 21:26 Pulse Ox 98 11/22/24 21:26 O2 Del Method Room Air 11/22/24 21:26 BMI result Body Mass Index 39.0 Appearance: Alert.?Oriented to person, place and time. No acute distress.?Normal affect. Eyes: Pupils equal, round and reactive to light.? ENT: Pharynx normal.?? Neck: Normal inspection.? Neck supple.??No JVD. CVS: Heart sounds normal. Normal heart rate and rhythm.? Pulses normal.?? Respiratory: No respiratory distress.? Lung sounds clear to auscultation bilaterally?? Abdomen: Soft and non-tender. Normoactive bowel sounds. No pulsatile mass.?? Skin: Skin warm and dry.? Normal skin color.? ?? Extremities: No lower extremity edema.? No calf ttp? Neuro: Moves all extremities spontaneously. Sensation intact bilaterally. CN II-XII intact. No focal neuro deficits. Ambulates with normal steady gait. Course Reevaluation(s) Reevaluation #1: Troponin critical at 5313.7. EKG NSR with a ventricular rate of 93, QTC 512, no ST elevation. Prior levels in 2022 of 30. No DAGMAR today. - obtaining d-dimer, coags, and CPK. Consulted with Cardiology Dr. Matson who recommends initiating heparin infusion and transferring to a tertiary care center. I spoke with [facility], school child care attendant Dr. Rebolledo, who accepts patient for transfer to PCU, awaiting bed assignment. Patient has been updated on plan of care, and is agreeable. Time: 19:50 Reevaluation #2: D-dimer is elevated, CT angio with PE protocol obtained, radiologist impression pending at the time of transfer. Have sent images to [facility] system Medications Administered Generic Name Dose Route Start Last Admin Trade Name Freq PRN Reason Stop Dose Admin Heparin Sodium/Sodium Chloride 25,000 unit in 250 mls @ 0 mls/hr 11/22/24 21:15 11/22/24 21:22 Heparin Sodium,Porcine/1/2ns IVCONT 9.42 units/kg/hr .Q0M MAIKOL 10 mls/hr Administration Protocol Per Protocol Discontinued Medications Generic Name Dose Route Start Last Admin Trade Name Freq PRN Reason Stop Dose Admin Heparin Sodium (Porcine) 4,000 unit 11/22/24 20:15 11/22/24 21:18 Heparin Sodium,Porcine 5,000 Unit/Ml Vial IVPUSH 11/22/24 20:16 4,000 unit ONCE ONE Administration Iohexol 65 ml 11/22/24 21:02 11/22/24 21:03 Iohexol 350 Mg/Ml 100 Ml Infus..Btl IV 11/22/24 21:03 65 ml ONCE ONE Administration Medical Decision Making Medical Decision Making MDM Narrative: Patient is a 49 year old female with past medical history of obesity, prior gastrectomy, asthma, HIV on antivirals with reported nondetectable viral load, hypertension who presents emergency department for evaluation of chest pain shortness of breath and a nonproductive cough for the past month. Reports feeling like an asthma exacerbation. Symptoms not acutely changing nor worsening just not improving. appears somewhat fatigued and uncomfortable, hemodynamically stable at this time.No evidence of volume overload or shock on exam. EKG without signs of acute ischemia. EKG without evidence of STEMI. Low suspicion for acute PE (Wells low risk). No recent trauma or injury, no tracheal deviation, unlikely tension pneumothorax. No abdominal tenderness upon palpation, negative Wan sign, unlikely acute cholecystitis, choledocholithiasis, no fever or jaundice to suggest acute cholangitis, may possibly be biliary colic secondary to cholelithiasis. Denies associated acid reflux, no tenderness upon palpation over the epigastrium or left upper quadrant to suggest gastritis, no recent hematemesis history less likely to suggest PUD. Denies excessive alcohol consumption, history of diabetes, lower suspicion acute pancreatitis. Will obtain CBC to evaluate for leukocytosis/ anemia, CMP and lipase to evaluate for abnormal electrolytes /abnormal renal function/ abnormal hepatic/biliary function, EKG and troponin to evaluate for ischemia/ACS. Chest x-ray to evaluate for consolidation/ infiltrate/ mass/ pulmonary congestion, ASA, pain control and reassessment Differential Diagnosis Differential Diagnoses: The differential diagnosis associated with the presentation includes (See narrative above) Admission/Observation Consideration of admission/observation: Escalation of care including admission/observation considered (See narrative above and course narrative for further detail) Lab Data MDM Lab Attestation statement: I reviewed the patient's lab results. No leukocytosis, mild anemia that does not meet transfusion criteria, no thrombocytopenia. No electrolyte derangement. No DAGMAR. Critical troponin. 11/22/24 20:42 11/22/24 18:51 Labs: Lab Results 11/22/24 11/22/24 11/22/24 Range/Units 18:51 20:03 20:11 WBC 9.0 (4.8-10.8) X10*3/uL RBC 3.95 L (4.20-5.50) X10*6/uL Hgb 10.4 L D (12.0-16.0) g/dl Hct 33.0 L D (37.0-47.0) % MCV 83.5 (80.0-98.0) fL MCH 26.3 L (27.0-33.0) pg MCHC 31.5 (31.0-35.0) g/dl RDW 14.6 (11.0-16.0) % Plt Count 306 D (160-400) X10*3/uL MPV 10.3 (9.4-12.3) fL Immature Gran % (Auto) 0.2 (0.0-0.4) % Neut % (Auto) 70.1 (45-73) % Lymph % (Auto) 22.0 (20-40) % [place] % (Auto) 6.3 (2-11) % Eos % (Auto) 1.0 (0-4) % Baso % (Auto) 0.4 (0-2) % Lymph # (Auto) 2.0 (1.2-4.9) X10*3/uL [place] # (Auto) 0.6 (0.1-1.2) X10*3/uL Eos # (Auto) 0.1 (0.0-0.4) X10*3/uL Baso # (Auto) 0.0 (0.0-0.2) X10*3/uL Abs Immat Gran (auto) 0.02 (0.00-0.03) X10*3/uL Absolute Neuts (auto) 6.3 (2.0-8.3) x10*3/uL Absolute Nucleated RBC 0.000 (0.0-0.012) X10*3/uL Nucleated RBC % (auto) 0.0 (0.0-0.2) /100WBC PT (10.9-12.4) SEC INR (0.9-1.1) APTT (26.0-36.8) SEC D-Dimer High Sensitivty 338 NG/ML Sodium 141 (135-145) mmol/L Potassium 3.8 (3.3-5.1) mmol/L Chloride 110 H (96-108) mmol/L Carbon Dioxide 23 (22-29) mmol/L Anion Gap 12 (12-20) BUN 11 (9-16) mg/dL Creatinine 0.95 (0.5-1.4) mg/dL Estim Creat Clear Calc 88.6 Estimated GFR > 60 Random Glucose 114 (60-115) mg/dL Calcium 8.7 D (8.4-10.2) mg/dL Magnesium 1.9 (1.6-2.6) mg/dL Total Bilirubin 0.5 (0.0-1.0) mg/dL AST 25 (5-31) U/L ALT 22 (0-31) U/L Alkaline Phosphatase 82 (39-117) U/L Total Creatine Kinase 44 (26-140) U/L Troponin I High Sens 5313.7 H* D (<3.5-17.0) ng/L B-Natriuretic Peptide 883 H (<100) pg/mL Total Protein 7.6 (6.5-8.0) g/dL Albumin 3.4 L (3.5-5.0) g/dL Urine Color Dark Yellow Urine Appearance Clear Urine pH 5.0 (5.0-9.0) Ur Specific [place] 1.020 (1.005-1.025) Urine Protein 30 (1+) H (Neg-Trace) mg/dL Urine Glucose (UA) Negative (Negative) mg/dL Urine Ketones Trace (Negative) mg/dL Urine Blood Negative (Negative) Urine Nitrite Negative (Negative) Ur Leukocyte Esterase Negative (Negative) Urine RBC 0-2 (0-2) /HPF Urine WBC 0-5 (0-5) /HPF Ur Squamous Epith Cells 3-5 (0-2) /HPF Urine Bacteria Trace (None Seen) Hyaline Casts 0-2 (0-2) /LPF Influenza Type A (PCR) NEGATIVE (Negative) Influenza Type B (PCR) NEGATIVE (Negative) RSV RNA Qual (PCR) NEGATIVE (Negative) SARS-CoV-2 RNA (RT-PCR) NEGATIVE (Negative) 11/22/24 Range/Units 20:42 WBC 11.2 H (4.8-10.8) X10*3/uL RBC 3.98 L (4.20-5.50) X10*6/uL Hgb 10.5 L (12.0-16.0) g/dl Hct 32.9 L (37.0-47.0) % MCV 82.7 (80.0-98.0) fL MCH 26.4 L (27.0-33.0) pg MCHC 31.9 (31.0-35.0) g/dl RDW 14.5 (11.0-16.0) % Plt Count 368 (160-400) X10*3/uL MPV 10.6 (9.4-12.3) fL Immature Gran % (Auto) (0.0-0.4) % Neut % (Auto) (45-73) % Lymph % (Auto) (20-40) % [place] % (Auto) (2-11) % Eos % (Auto) (0-4) % Baso % (Auto) (0-2) % Lymph # (Auto) (1.2-4.9) X10*3/uL [place] # (Auto) (0.1-1.2) X10*3/uL Eos # (Auto) (0.0-0.4) X10*3/uL Baso # (Auto) (0.0-0.2) X10*3/uL Abs Immat Gran (auto) (0.00-0.03) X10*3/uL Absolute Neuts (auto) (2.0-8.3) x10*3/uL Absolute Nucleated RBC 0.000 (0.0-0.012) X10*3/uL Nucleated RBC % (auto) 0.0 (0.0-0.2) /100WBC PT 14.2 H (10.9-12.4) SEC INR 1.2 H (0.9-1.1) APTT 28.5 (26.0-36.8) SEC D-Dimer High Sensitivty NG/ML Sodium (135-145) mmol/L Potassium (3.3-5.1) mmol/L Chloride (96-108) mmol/L Carbon Dioxide (22-29) mmol/L Anion Gap (12-20) BUN (9-16) mg/dL Creatinine (0.5-1.4) mg/dL Estim Creat Clear Calc Estimated GFR Random Glucose (60-115) mg/dL Calcium (8.4-10.2) mg/dL Magnesium (1.6-2.6) mg/dL Total Bilirubin (0.0-1.0) mg/dL AST (5-31) U/L ALT (0-31) U/L Alkaline Phosphatase (39-117) U/L Total Creatine Kinase (26-140) U/L Troponin I High Sens (<3.5-17.0) ng/L B-Natriuretic Peptide (<100) pg/mL Total Protein (6.5-8.0) g/dL Albumin (3.5-5.0) g/dL Urine Color Urine Appearance Urine pH (5.0-9.0) Ur Specific [place] (1.005-1.025) Urine Protein (Neg-Trace) mg/dL Urine Glucose (UA) (Negative) mg/dL Urine Ketones (Negative) mg/dL Urine Blood (Negative) Urine Nitrite (Negative) Ur Leukocyte Esterase (Negative) Urine RBC (0-2) /HPF Urine WBC (0-5) /HPF Ur Squamous Epith Cells (0-2) /HPF Urine Bacteria (None Seen) Hyaline Casts (0-2) /LPF Influenza Type A (PCR) (Negative) Influenza Type B (PCR) (Negative) RSV RNA Qual (PCR) (Negative) SARS-CoV-2 RNA (RT-PCR) (Negative) Independent Interpretation I performed an independent interpretation of an: EKG ( see course narrative) and Plain X-Ray ( No consolidation or infiltrate) Radiology Impression Discussion of test interpretation with radiology: I have reviewed the radiologist's reading. Radiologist Impression: IMPRESSION: 1. Cardiomegaly with findings of pulmonary venous congestion and mild interstitial edema. Independent Historian Clinical information obtained from an independent historian. History obtained from or confirmed by: EMS External Record Review External record reviewed: Outpatient record Chronic Conditions Patient?s care impacted by: Other ( see narrative above) Critical Care Time Critical Care Time Critical Care Time: Yes Total Critical Care Time: 40 Attestation: I personally attest to this critical care time spent taking care of the patient exclusive of all other billable procedures was approximately 40 minutes including initial evaluation of patient, ordering tests, x-ray interpretation, EKG interpretation, heparin infusion, medical consultation, documentation, re-evaluation. Discharge Plan Discharge Clinical Impression: Chest pain Patient Disposition: [facility] Transfer Details: [facility] PCU Prescriptions: No Action cholecalciferol (vitamin D3) 25 mcg (1,000 unit) capsule 25 mcg PO DAILY Qty: 90 3RF pantoprazole 40 mg tablet,delayed release (DR/EC) 40 mg PO BID Qty: 180 3RF sucralfate 100 mg/mL suspension 10 ml PO BID Qty: 414 3RF Zepbound 5 mg/0.5 mL pen injector 5 mg subcut QWEEK Qty: 2 0RF docusate sodium 100 mg capsule 1 cap PO BID montelukast 10 mg tablet 1 tab PO DAILY bupropion HCl 150 mg tablet extended release 24 hr 1 tab PO BEDTIME levocetirizine 5 mg tablet 1 tab PO BEDTIME melatonin 10 mg tablet 1 tab PO BEDTIME Linzess 145 mcg capsule 1 cap PO DAILY Triumeq 600-50-300 mg tablet 1 tab PO DAILY multivitamin Tablet 1 tab PO DAILY albuterol sulfate 2.5 mg /3 mL (0.083 %) Solution For Nebulization 2.5 mg INHALATION Q6H PRN (Reason: sob) ketotifen fumarate 0.025 % (0.035 %) Drops 1 drp OPHTHALMIC (EYE) BID PRN (Reason: itchy eyes) Rx Instructions: administer at least 8 hours apart cromolyn 4 % Drops 1 drp OPHTHALMIC-LEFT QID PRN (Reason: itchy eyes) cyproheptadine 4 mg Tablet 4 mg PO Q8H PRN (Reason: Allergy Symptoms) meclizine 25 mg Tablet 25 mg PO TID PRN (Reason: Vertigo) fluticasone propionate [Flovent HFA] 220 mcg/actuation HFA aerosol inhaler 2 puff inhalation BID fluticasone propionate 50 mcg/actuation [place],Suspension 2 spray INTRANASAL DAILY Rx Instructions: administer into each nostril calcium carbonate-vitamin D3 500 mg-3.125 mcg (125 unit) Tablet 1 tab PO DAILY azelastine 205.5 mcg (0.15 %) [place],Non-Aerosol 1 spray INTRANASAL DAILY Rx Instructions: administer into each nostril clonidine HCl 0.1 mg tablet 0.1 mg PO BEDTIME Qty: 30 0RF lisinopril 20 mg tablet 20 mg PO DAILY Qty: 30 0RF ketorolac 10 mg tablet 10 mg PO Q6H PRN (Reason: pain) 5 Days Qty: 20 0RF Rx Instructions: Patient received 30 mg IM Toradol in the ED dexamethasone 6 mg tablet 6 mg PO DAILY 5 Days Qty: 5 0RF cephalexin 500 mg capsule 500 mg PO QID 7 Days Qty: 28 0RF colchicine 0.6 mg capsule 0.6 mg PO BID 3 Days Qty: 6 0RF morphine 15 mg tablet 15 mg PO Q8H PRN (Reason: severe pain (scale score 7-10)) Qty: 20 0RF Rx Instructions: Partial Fill upon patient request. cyclobenzaprine 5 mg tablet 25 mg PO NEEDED PRN (Reason: Agitation) betamethasone dipropionate 0.05 % cream 1 appl topical BID PRN (Reason: skin irritation) Qty: 45 2RF Rx Instructions: [place], try on a small area of your skin first to see if you develop an allergic reaction. If not, apply to rash. escitalopram oxalate 20 mg tablet 20 mg PO DAILY duloxetine 60 mg capsule,delayed release(DR/EC) 60 mg PO QAM quetiapine 100 mg tablet 100 mg PO BEDTIME hydroxyzine HCl 50 mg tablet 50 mg PO BEDTIME glucomannan 500 mg capsule 1,800 mg PO DAILY evening primrose oil 500 mg capsule 500 mg PO DAILY Rx Instructions: give with meal/snack metformin 500 mg tablet 500 mg PO DAILY Print Language: [place]
[2024-11-22 19:10] LABS: Alanine Aminotransferase 22 U/L (0-31); Albumin Level 3.4 g/dL (3.5-5.0); Alkaline Phosphatase 82 U/L (39-117); Anion Gap 12 (12-20); Aspartate Amino Transferase 25 U/L (5-31); Bilirubin Total 0.5 mg/dL (0.0-1.0); Blood Urea Nitrogen 11 mg/dL (9-16); Calcium 8.7 mg/dL (8.4-10.2); Carbon Dioxide 23 mmol/L (22-29); Chloride 110 mmol/L (96-108); Creatinine Clr Calc Pharmacy 88.6; Estimated Glomerular Filt Rate > 60; Glucose Random 114 mg/dL (60-115); Magnesium 1.9 mg/dL (1.6-2.6); Potassium 3.8 mmol/L (3.3-5.1); Sodium 141 mmol/L (135-145); Total Protein 7.6 g/dL (6.5-8.0)
--- OUTSIDE RECORDS SUMMARY | 2024-11-22 19:32 | XMS_ITS | Encounter Summary ---
Author Organization [employer] [facility] Address [address] [place] [address] Care Team Providers Care Global Process Owner Name Role Phone Baron Patrick Primary Care Provider [phone] Encounter Details Date Type Department Care Team Description 02/03/2023 Home Health Certification Medical Records [address] [place] [address] Baron Patrick [address] [place] [id number] Social History Tobacco Use Types Packs/Day Years [...] on filedocumented in this encounter Care Teams Global Process Owner Relationship Specialty Start Date End Date Baron Patrick [address] [place] [id number] PCP - General Internal Medicine 12/24/21 documented as of this encounter
--- OUTSIDE RECORDS SUMMARY | 2024-11-22 19:32 | XMS_ITS | Encounter Summary ---
Author Organization [employer] [facility] Address [address] [facility] [place] [address] Care Team Providers Care Video News Editor Name Role Phone Community, Pcp Primary Care Provider Malissa Flowers Primary Care Provider [phone] Venkatesh Abel MD Primary Care Provider Unava ilmeeta [facility] Primary Care Pro vider Rocky Whitlock MD Primary Care Provider UnavailJohn Alvarez DO Primary Care Provider Palak Simon Alcazar MD Primary Care Provider Baron Minor Primary Care Provider [phone] Encounter Details Date Type Department Care Team Description 01/29/2002 Telephone OBGYN - [address] [place] [address] [id number] Social History Tobacco Use Types Packs/Day Years Used Date Smoking Tobacco: Never Assessed Sex Assigned at Date Recorded Not on file Job Start Date Occupation Industry Not on file Not on file Not on file documented as of this encounter Plan of Treatment Not on file documented as of this encounter Visit Diagnoses Not on filedocumented in this encounter Care Teams Video News Editor Relationship Specialty Start Date End Date Community, Pcp PCP - General 11/02/06 5 Malissa Rodriguez [address] [place] [id number] PCP - General 11/20/99 11/01/06 Venkatesh Abel MD [address] [place] [address] PCP - General Internal Medicine 10/23/19 01/12/21 [facility] [address] [address] PCP - General 01/15/16 10/22/19 Rocky Whitlock MD [address] [address] PCP - General Internal Medicine 01/13/21 02/17/21 John Crawford DO [address] [address] PCP - General Internal Medicine 02/18/21 08/18/21 Simon Nolen MD [address] [address] PCP - General Internal Medicine 08/19/21 12/23/21 Baron Patrick [address] [place] [id number] PCP - General Internal Medicine 12/24/21 documented as of this encounter
--- OUTSIDE RECORDS SUMMARY | 2024-11-22 19:32 | XMS_ITS | Encounter Summary ---
Author Organization [employer] [facility] Address [address] [place] [address] Care Team Providers Care Procurement Clerk Name Role Phone Simon Nolen MD Primary Care Provider Baron Minor Primary Care Provider [phone] Reason for Visit * Reason Onset Date Comments Faxed Order 10/20/2021 [id number] Encounter Details Date Type Department Care Team Description 10/20/2021 Telephone Adult Medicine [address] [address] Simon Nolen MD Faxed Order ([id number]) Social History Tobacco Use Types Packs/Day Years [...] Telephone Encounter - Juliet Curry - 10/20/2021 1:59 PM EST [facility] faxing orders to be signed and faxed back to [phone] documented in this encounter Plan of Treatment Not on file documented as of this encounter Visit Diagnoses Not on filedocumented in this encounter Care Teams Procurement Clerk Relationship Specialty Start Date End Date Simon Nolen MD PCP - General Internal Medicine 08/19/21 12/23/21 Baron Patrick [address] [place] [address] PCP - General Internal Medicine 12/24/21 documented as of this encounter
--- OUTSIDE RECORDS SUMMARY | 2024-11-22 19:32 | XMS_ITS | Encounter Summary ---
[facility] Address [address] [place] [address] Care Team Providers Care Broiler Supervisor Name Role Phone Baron Patrick Primary Care Provider [phone] Reason for Visit * Reason Onset Date Comments E-prescribe Rx Request APPOINTMENT 01/31/2023 Please schedule pt a med fu appt 03/2023 then send back to pod for refill Encounter Details Date Type Department Care Team Description 01/31/2023 Refill Adult Medicine [address] [address] Baron Patrick [address] [place] [address] E-prescribe Rx Request; APPOINTMENT (Please schedule pt a med fu appt 03/2023 then send back to pod for refill) Social History Tobacco Use Types Packs/Day Years [...] Telephone Encounter - Vicky Franklin M.A. - 02/09/2023 12:37 PM EDT Last office visit 10/07/22 Next office visit 02/18/23 Lab Results Component Value Date NA 140 05/03/2022 K 4.2 05/03/2022 CO2 28 05/03/2022 CL 105 05/03/2022 BUN 8 05/03/2022 CREAT 0.94 05/03/2022 GLU 79 05/03/2022 CA 9.4 05/03/2022 GFR > 60 05/03/2022 * Telephone Encounter - Isabel Christopher - 02/09/2023 12:07 PM EDT Pt booked 02/18 with Baron Patrick * Telephone Encounter - Gay Kahn M.A. - 01/31/2023 3:41 PM EDT Lab Results Component Value Date NA 140 05/03/2022 K 4.2 05/03/2022 CO2 28 05/03/2022 CL 105 05/03/2022 BUN 8 05/03/2022 CREAT 0.94 05/03/2022 GLU 79 05/03/2022 CA 9.4 05/03/2022 GFR > 60 05/03/2022 documented in this encounter Plan of Treatment Not on file documented as of this encounter Visit Diagnoses Not on filedocumented in this encounter Care Teams Broiler Supervisor Relationship Specialty Start Date End Date Baron Patrick [address] [place] [address] PCP - General Internal Medicine 12/24/21 documented as of this encounter
--- OUTSIDE RECORDS SUMMARY | 2024-11-22 19:32 | XMS_ITS | Encounter Summary ---
Author Organization [facility] Address [address] [place] [address] Care Team Providers Care Bindery Machine Tender Name Role Phone Baron Patrick Primary Care Provider [phone] Reason for Visit * Reason Onset Date Comments [id number] Encounter Details Date Type Department Care Team Description 04/23/2024 Telephone Adult Medicine [address] [address] Baron Patrick [address] [place] [phone] Faxed Order ([facility]/Order #[id number]) Social History Tobacco Use Types Packs/Day Years [...] - 04/23/2024 3:02 PM EDT Faxed order #[id number] from [facility] received and placed in provider bin. Please review, sign, and fax to [phone] documented in this encounter Plan of Treatment Not on file documented as of this encounter Visit Diagnoses Not on filedocumented in this encounter Care Teams Bindery Machine Tender Relationship Specialty Start Date End Date Baron Patrick [address] [place] [address] PCP - General Internal Medicine 12/24/21 documented as of this encounter
--- OUTSIDE RECORDS SUMMARY | 2024-11-22 19:32 | XMS_ITS | Encounter Summary ---
Author Organization [facility] Address [address] [facility] [place] [address] Care Team Providers Care Family Medicine Physician Name Role Phone Baron Patrick Primary Care Provider [phone] Reason for Visit * Reason Comments E-prescribe Rx Request Encounter Details Date Type Department Care Team Description 06/11/2024 Refill Gastroenterology - [place] 175 [facility] [address] [place] [phone] Lili Noel, ANIMAL HUSBANDRY MANAGER [facility] [address] E-prescribe Rx Request Social History Tobacco Use [...] on filedocumented in this encounter Care Teams Family Medicine Physician Relationship Specialty Start Date End Date Baron Patrick [address] [place] [address] PCP - General Internal Medicine 12/24/21 documented as of this encounter
--- OUTSIDE RECORDS SUMMARY | 2024-11-22 19:32 | XMS_ITS | Encounter Summary ---
Author Organization [facility] [facility] Address [address] [facility] [place] [address] Care Team Providers Care Complex Care Nurse Practitioner Name Role Phone Simon Nolen MD Primary Care Provider Baron Minor Primary Care Provider [phone] Encounter Details Date Type Department Care Team Description 10/11/2021 Home Health Certification Medical Records [address] [place] [address] Social History Tobacco Use Types Packs/Day Years [...] on filedocumented in this encounter Care Teams Complex Care Nurse Practitioner Relationship Specialty Start Date End Date Simon Nolen MD PCP - General Internal Medicine 08/19/21 12/23/21 Baron Patrick [address] [place] [address] PCP - General Internal Medicine 12/24/21 documented as of this encounter
--- OUTSIDE RECORDS SUMMARY | 2024-11-22 19:32 | XMS_ITS | Encounter Summary ---
Author Organization [facility] Address [address] [place] [address] Care Team Providers Care Territory Account Representative Name Role Phone Baron Patrick Primary Care Provider [phone] Reason for Visit * Reason Onset Date Comments Faxed Order 02/10/2023 Order number [id number] Encounter Details Date Type Department Care Team Description 02/10/2023 Telephone Adult Medicine [address] [address] Baron Patrick [address] [place] [address] Faxed Order (Order number [id number]) Social History Tobacco Use Types Packs/Day Years [...] 02/10/2023 7:17 AM EDT Faxed orders from [facility] Order number [id number], please sign, date and fax back to [phone] documented in this encounter Plan of Treatment Not on file documented as of this encounter Visit Diagnoses Not on filedocumented in this encounter Care Teams Territory Account Representative Relationship Specialty Start Date End Date Baron Patrick [address] [place] [address] PCP - General Internal Medicine 12/24/21 documented as of this encounter
--- OUTSIDE RECORDS SUMMARY | 2024-11-22 19:32 | XMS_ITS | Encounter Summary ---
Author Organization [employer] [facility] Address [address] [facility] [place] [address] Care Team Providers Care Scholastic Aptitude Test Grader Name Role Phone Simon Nolen MD Primary Care Provider Baron Minor Primary Care Provider [phone] Encounter Details Date Type Department Care Team Description 09/09/2021 Home Health Certification Medical Records [address] [place] [address] Social History Tobacco Use Types Packs/Day Years [...] on filedocumented in this encounter Care Teams Scholastic Aptitude Test Grader Relationship Specialty Start Date End Date Simon Nolen MD PCP - General Internal Medicine 08/19/21 12/23/21 Baron Patrick [address] [place] [address] PCP - General Internal Medicine 12/24/21 documented as of this encounter
--- OUTSIDE RECORDS SUMMARY | 2024-11-22 19:32 | XMS_ITS | Encounter Summary ---
Author Organization [employer] [facility] Address [address] [facility] [place] [address] Care Team Providers Care Sterile Proc Tech Name Role Phone John Crawford DO Primary Care Provider Simon Adame MD Primary Care Provider Baron Minor Primary Care Provider [phone] Encounter Details Date Type Department Care Team Description 07/10/2021 Home Health Certification Medical Records [address] [place] [address] Social History Tobacco Use Types Packs/Day Years [...] on filedocumented in this encounter Care Teams Sterile Proc Tech Relationship Specialty Start Date End Date John Crawford DO PCP - General Internal Medicine 02/18/21 1 Simon Nolen MD PCP - General Internal Medicine 08/19/21 12/23/21 Baron Patrick [address] [place], [place] [phone] PCP - General Internal Medicine 12/24/21 documented as of this encounter
--- OUTSIDE RECORDS SUMMARY | 2024-11-22 19:32 | XMS_ITS | Encounter Summary ---
Author Organization [facility] Address [address] [facility] [place] [address] Care Team Providers Care Help Desk Team Leader Name Role Phone Baron Patrick Primary Care Provider [phone] Reason for Visit * Reason Comments E-prescribe Rx Request Encounter Details Date Type Department Care Team Description 11/15/2022 Refill Gastroenterology - [address] [place] [phone] Charly Pedro PA-C E-prescribe Rx Request Social [...] suspected to have Coronavirus/COVID-19? No / Unsure 10/22/2022 9:55 AM EST documented as of this encounter Miscellaneous Notes * Telephone Encounter - Gia Butts M.A. - 11/15/2022 3:44 PM EST ANTONI 06/02/22 documented in this encounter Plan of Treatment Not on file documented as of this encounter Visit Diagnoses Not on filedocumented in this encounter Care Teams Help Desk Team Leader Relationship Specialty Start Date End Date Baron Patrick [address] [place] [address] PCP - General Internal Medicine 12/24/21 documented as of this encounter
--- OUTSIDE RECORDS SUMMARY | 2024-11-22 19:32 | XMS_ITS | Encounter Summary ---
Author Organization [employer] [facility] Address [address] [facility] [place] [address] Care Team Providers Care Inside Barrel Lathe Operator Name Role Phone John Crawford DO Primary Care Provider Simon Adame MD Primary Care Provider Baron Minor Primary Care Provider [phone] Encounter Details Date Type Department Care Team Description 07/23/2021 Molding Cutter Report Medical Records [address] [place] [address] Nikolay Diaz [address] [place] [address] Social History Tobacco Use Types Packs/Day Years [...] on filedocumented in this encounter Care Teams Inside Barrel Lathe Operator Relationship Specialty Start Date End Date John Crawford DO PCP - General Internal Medicine 02/18/21 Simon Christianson MD PCP - General Internal Medicine 08/19/21 12/23/21 Baron Patrick [address] [place], [place] [phone] PCP - General Internal Medicine 12/24/21 documented as of this encounter
--- OUTSIDE RECORDS SUMMARY | 2024-11-22 19:32 | XMS_ITS | Encounter Summary ---
Author Organization [email or web address] [facility] Address [address] [facility] [place] [address] Care Team Providers Care Patents Examiner Name Role Phone Venkatesh Abel MD Primary Care Provider Rocky Ramirez MD Primary Care Provider John Younger DO Primary Care Provider Simon Adame MD Primary Care Provider Baron Minor Primary Care Provider [phone] Encounter Details Date Type Department Care Team Description 07/28/2020 Transfer Records Medical Records [address] [place] [address] Abstract, Provider Social History Tobacco Use Types [...] have Coronavirus / COVID-19? No / Unsure 07/31/2020 1:55 PM EST documented as of this encounter Plan of Treatment Not on file documented as of this encounter Visit Diagnoses Not on filedocumented in this encounter Care Teams Patents Examiner Relationship Specialty Start Date End Date Venkatesh Abel MD PCP - General Internal Medicine 10/23/19 01/12/21 Rocky Whitlock MD PCP - General Internal Medicine 01/13/21 02/17/21 John Crawford DO PCP - General Internal Medicine 02/18/21 1 Simon Nolen MD PCP - General Internal Medicine 08/19/21 12/23/21 Baron Patrick [address] [place] [address] PCP - General Internal Medicine 12/24/21 documented as of this encounter
--- OUTSIDE RECORDS SUMMARY | 2024-11-22 19:32 | XMS_ITS | Encounter Summary ---
Author Organization [facility] Address [address] [place] [address] Care Team Providers Care Exercise Specialist Name Role Phone Baron Patrick Primary Care Provider [phone] Reason for Visit * Reason Onset Date Comments Faxed Order 04/22/2024 [facility] orders received order # [id number], [id number] # [phone] Encounter Details Date Type Department Care Team Description 04/22/2024 Telephone Adult Medicine [address] [address] Baron Patrick [address] [place] [address] Faxed Order ([facility] orders received order # [id number], [id number]/Fax # [phone]) Social History Tobacco Use Types Packs/Day Years [...] encounter Miscellaneous Notes * Telephone Encounter - Suzanna Nicolas - 04/22/2024 7:43 PM EDT [facility] orders received order # [id number], [id number] Fax # [phone] documented in this encounter Plan of Treatment Not on file documented as of this encounter Visit Diagnoses Not on filedocumented in this encounter Care Teams Exercise Specialist Relationship Specialty Start Date End Date Baron Patrick [address] [place] [address] PCP - General Internal Medicine 12/24/21 documented as of this encounter
--- OUTSIDE RECORDS SUMMARY | 2024-11-22 19:32 | XMS_ITS | Encounter Summary ---
Author Organization [facility] Address [address] [place] [address] Care Team Providers Care Assistant Professor Of Biology Name Role Phone Baron Patrick Primary Care Provider [phone] Reason for Visit * Reason Onset Date Comments VNA Call 01/31/2023 Encounter Details Date Type Department Care Team Description 01/31/2023 Telephone Adult Medicine [address] [address] Baron Patrick [address] [place] [phone] VNA Call Social History Tobacco Use Types [...] encounter Miscellaneous Notes * Telephone Encounter - Ander MaysP.N. - 02/01/2023 8:32 AM EDT VO left on (+ID) Matilda * Telephone Encounter - Imelda Chiu R.N. - 01/31/2023 2:33 PM EDT Vna asking for orders to se pt 3 times a week for med management * Telephone Encounter - Renae Ball - 01/31/2023 2:27 PM EDT VNA CALL Which VNA office is calling? [facility] Full name of caller: matilda The caller is A nurse Is the caller at the patients home?: NO Reason for call: verble orders to continues care 3 times a week for medication management Does caller need an urgent call back? NO Was CONTACT Telephone # obtained above?: YES Fax #: na documented in this encounter Plan of Treatment Not on file documented as of this encounter Visit Diagnoses Not on filedocumented in this encounter Care Teams Assistant Professor Of Biology Relationship Specialty Start Date End Date Baron Patrick [address] [place] [address] PCP - General Internal Medicine 12/24/21 documented as of this encounter
--- OUTSIDE RECORDS SUMMARY | 2024-11-22 19:32 | XMS_ITS | Encounter Summary ---
Author Organization [facility] Address [address] [place] [address] Care Team Providers Care School Age Lead Teacher Name Role Phone Baron Patrick Primary Care Provider [phone] Reason for Visit * Reason Onset Date Comments Faxed Order 05/10/2024 [facility] [id number] Encounter Details Date Type Department Care Team Description 05/10/2024 Telephone Adult Medicine [address] [address] Baron Patrick [address] [place] [phone] Faxed Order ([facility] [id number]) Social History Tobacco Use Types Packs/Day Years [...] on filedocumented in this encounter Care Teams School Age Lead Teacher Relationship Specialty Start Date End Date Baron Patrick [address] [place] [address] PCP - General Internal Medicine 12/24/21 documented as of this encounter
--- OUTSIDE RECORDS SUMMARY | 2024-11-22 19:32 | XMS_ITS | Encounter Summary ---
Author Organization [facility] Address [address] [facility] [place] [address] Care Team Providers Care Plate Former Name Role Phone Venkatesh Abel MD Primary Care Provider Rocky Ramirez MD Primary Care Provider John Younger DO Primary Care Provider Simon Adame MD Primary Care Provider Baron Minor Primary Care Provider [phone] Reason for Visit * Reason Comments E-prescribe Rx Request Encounter Details Date Type Department Care Team Description 07/18/2020 Refill Allergy [place] [address] [place] [address] Ana Luisa Canales PA-C E-prescribe Rx Request [...] on filedocumented in this encounter Care Teams Plate Former Relationship Specialty Start Date End Date Venkatesh Abel MD PCP - General Internal Medicine 10/23/19 01/12/21 Rocky Whitlock MD PCP - General Internal Medicine 01/13/21 02/17/21 John Crawford DO PCP - General Internal Medicine 02/18/21 1 Simon Nolen MD PCP - General Internal Medicine 08/19/21 12/23/21 Baron Patrick [address] [place] [address] PCP - General Internal Medicine 12/24/21 documented as of this encounter
--- OUTSIDE RECORDS SUMMARY | 2024-11-22 19:33 | XMS_ITS | Encounter Summary ---
Author Organization [facility] Address [address] [place] [address] Care Team Providers Care Silverlight Developer Name Role Phone Baron Patrick MD Primary Care Provider [phone] Reason for Visit * Reason Onset Date Comments Fitting for DME 10/22/2024 Encounter Details Date Type Department Care Team ([facility] st Contact Info) Description 10/22/2024 Telephone Adult Medicine [address] [place] [phone] Maryann Baird LPN Fitting for DME Social History Tobacco Use Types Packs/Day Years Used Date Smoking Tobacco: Former Smokeless Tobacco: Never Alcohol Use Standard Drinks/Week Comments Yes 0 (1 standard drink = 0.6 oz pur e alcohol) Comments No Sex and Gender Information Value Date Recorded Sex Assigned at Female 09/18/2024 4:26 PM EST Legal Sex Female 9:51 AM EST Gender Identity Female 09/18/2024 4:26 PM EST Sexual Orientation Straight 09/18/2024 4: 26 PM EST documented as of this encounter Progress Notes * Morena Reed LPN - 10/23/2024 10:17 AM EST Te rx for the power recliner was faxed to [facility] as requested on 10/22/2024 A rx was faxed to [facility] for #12 packages of personal cleansing wipes on 10/04/2024 I called [facility] to see if they received this Spoke to Awa she will update order to / for Nov 03 increase Message sent to pt via my chart to let her know this * Maryann Baird LPN - 10/22/2024 3:14 PM EST And I also need a script for more wipes they only gave me 4 packs and that don't let me a month andthe packs are smaller I'm allergic to paper toilets documented in this encounter Plan of Treatment Upcoming Encounters Date Type Department Care Team (Late st Contact Info) Description 01/03/2025 9:00 AM EDT Office Visit [address] [phone] Baron Patrick MD [address] [place] [address] 01/09/2025 1:30 PM EDT Office Visit Obstetrics and Gynecology - [address] [phone] Libby Cornejo MD [address] [place], [place] 01/15/2025 10:10 AM EDT Office Visit Pulmonolgy - [place] [address] [phone] Annmarie Pham NP 175 [facility] [address] [place] [address] 05/14/2025 4:00 PM EDT Office Visit Adult [address] [phone] Chrissy Nguyen PA [address] [place] [address] documented as of this encounter Visit Diagnoses Not on filedocumented in this encounter Care Teams Silverlight Developer Relationship Specialty Start Date End Date Baron Patrick MD [address] [place] [address] PCP - General Internal Medicine 12/24/21 documented as of this encounter
--- OUTSIDE RECORDS SUMMARY | 2024-11-22 19:33 | XMS_ITS | Encounter Summary ---
Author Organization [facility] Address [address] [facility] [place] [address] Care Team Providers Care Certified Rehabilitation Counselor Name Role Phone Baron Patrick Primary Care Provider [phone] Encounter Details Date Type Department Care Team Description 02/08/2022 Home Health Certification Medical Records [address] [place] [address] Social History Tobacco Use Types Packs/Day Years [...] on filedocumented in this encounter Care Teams Certified Rehabilitation Counselor Relationship Specialty Start Date End Date Baron Patrick [address] [place] [address] PCP - General Internal Medicine 12/24/21 documented as of this encounter
--- OUTSIDE RECORDS SUMMARY | 2024-11-22 19:33 | XMS_ITS | Encounter Summary ---
Author Organization [facility] Address [address] [facility] [place] [address] Care Team Providers Care Assistant Boiler Operator Name Role Phone Venkatesh Abel MD Primary Care Provider Rocky Ramirez MD Primary Care Provider John Younger DO Primary Care Provider Simon Adame MD Primary Care Provider Baron Minor Primary Care Provider [phone] Encounter Details Date Type Department Care Team Description 12/25/2020 Home Health Certification Medical Records [address] [place] [address] Social History Tobacco Use Types Packs/Day Years [...] filedocumented in this encounter Care Teams Assistant Boiler Operator Relationship Specialty Start Date End Date Venkatesh Abel MD PCP - General Internal Medicine 10/23/19 01/12/21 Rocky Whitlock MD PCP - General Internal Medicine 01/13/21 02/17/21 John Crawford DO PCP - General Internal Medicine 02/18/21 1 Simon Nolen MD PCP - General Internal Medicine 08/19/21 12/23/21 Baron Patrick [address] [place] [address] PCP - General Internal Medicine 12/24/21 documented as of this encounter
--- OUTSIDE RECORDS SUMMARY | 2024-11-22 19:33 | XMS_ITS | Encounter Summary ---
Author Organization [facility] Address [address] [facility] [place] [address] Care Team Providers Care English Drawer Name Role Phone John Crawford DO Primary Care Provider Simon Adame MD Primary Care Provider Baron Minor Primary Care Provider [phone] Reason for Visit * Reason Onset Date Comments Faxed Order 04/13/2021 Encounter Details Date Type Department Care Team Description 04/13/2021 Telephone Adult Medicine [address] [address] John Crawford DO Faxed Order Social History [...] have Coronavirus / COVID-19? No / Unsure 04/13/2021 10:47 AM EDT documented as of this encounter Miscellaneous Notes * Telephone Encounter - Re Grissom - 04/21/2021 8:47 AM EDT Orders from [facility], please sign and fax back. * Telephone Encounter - Elise Altamirano - 04/14/2021 8:39 AM EDT Orders from [facility], please sign and fax back. * Telephone Encounter - Re Grissom - 04/13/2021 12:02 PM EDT Orders from [facility], please sign and fax back. documented in this encounter Plan of Treatment Not on file documented as of this encounter Visit Diagnoses Not on filedocumented in this encounter Care Teams English Drawer Relationship Specialty Start Date End Date John Crawford DO PCP - General Internal Medicine 02/18/21 1 Simon Nolen MD PCP - General Internal Medicine 08/19/21 12/23/21 [place] [address] PCP - General Internal Medicine 12/24/21 documented as of this encounter
--- OUTSIDE RECORDS SUMMARY | 2024-11-22 19:33 | XMS_ITS | Clinical Summary ---
Author Organization [facility] [address] [place] [address] [place] [address] [place] [address] Phone Care Team Providers Care Supervisor Kennel Name Role Phone Baron Patrick MD Primary Care Provider Allergies Active Allergy Reactions Criticality Noted Date Comments Egg 04/25/2020 Eczema flares Prednisone Other,Wheezing 04/25/2020 Shrimp Hives 03/11/2023 Raw shrimp Medications metFORMIN (GLUCOPHAGE) 500 mg tablet TAKE 1 TABLET BY MOUTH DAILY WITH BREAKFAST 90 tablet 1 08/20/20 24 Active abacavir-dolute gravir-lamiVUDi ne (Triumeq) 600-50-300 mg per tablet Take 1 tablet by mouth 1 (one) time each day. 07/14/20 22 Active acetaminophen (TYLENOL 8 HOUR) 650 mg 8 hr tablet Take 1 tablet (650 mg total) by mouth 3 (three) times a day if needed. 05/18/20 24 Active ammonium lactate (AMLACTIN) 12 % cream Apply 1 Applicator topically 2 times daily as needed for Dry Skin. 05/18/20 24 Active azelastine (ASTELIN) 137 mcg (0.1 %) nasal spray 2 Sprays by Each Nare route 2 times daily. 08/19/20 21 Active buPROPion XL (WELLBUTRIN XL) 300 mg 24 hr tablet Take 300 mg by mouth every morning. Active crisaborole (Eucrisa) 2 % ointment Apply 1 Each topically 2 times daily. 04/09/20 21 Active cromolyn (OPTICROM) 4 % ophthalmic solution Place 1 Drop into both eyes 4 times daily. 05/18/20 24 Active cyanocobalamin (VITAMIN B-12) 1,000 mcg tablet Take 1 tablet (1,000 mcg total) by mouth 1 (one) time each day. 07/04/20 24 Active cyproheptadine (PERIACTIN) 4 mg tablet TAKE 1 TABLET BY MOUTH 3 TIMES DAILY NEEDED FOR ITCH 01/14/20 Active diclofenac (VOLTAREN) 1 % topical gel Apply 1 Applicator topically 2 times daily as needed (neck pain) for up to 28 days. 05/18/20 24 Active doxepin (SINEquan) 10 mg capsule Take 1 Capsule by mouth. 01/14/20 21 Active DULoxetine (CYMBALTA) [address] capsule Take 40 mg by mouth daily. Active EPINEPHrine (EpiPen 2-[place]) 0.3 mg/0.3 mL injection INJECT INTRAMUSCULARLY FOR ALLERGIC REACTIONS. CALL 911 SEEK MEDICAL ATTENTION 03/18/20 23 Active escitalopram (LEXAPRO) 20 mg tablet Take 0.5 Tablets by mouth every morning. 10/29/19 22 Active famotidine (PEPCID) 20 mg tablet Take 1 Tablet by mouth daily as needed for Heartburn. 02/23/20 24 Active hydrocortisone 1 % topical cream Apply small amount to affect area (s) twice daily for up to 2 weeks. 05/18/20 24 Active ketotifen fumarate (ZADITOR) 0.035 % ophthalmic solution 1 Drop 2 times daily as needed. Active lisinopril-hydr oCHLOROthiazide (PRINZIDE,ZESTO RETIC) 20-12.5 mg per tablet Take 1 tablet by mouth 1 (one) time each day. 02/23/20 24 Active medroxyPROGESTE Feng (PROVERA) 5 mg tablet Take 2 Tablets by mouth daily for 40 days. 02/23/20 24 Active melatonin 10 mg capsule Take by mouth. Activ e montelukast (SINGULAIR) 10 mg tablet TAKE 1 TABLET BY MOUTH AT BEDTIME. 10/18/19 24 Active senna (SENOKOT) 8.6 mg tablet Take 1 tablet (8.6 mg total) by mouth 1 (one) time each day. 02/23/20 24 Active tiZANidine (ZANAFLEX) 4 mg tablet Take 1 Tablet by mouth 2 times daily as needed for Muscle spasms. 02/03/20 24 Active trospium 60 mg capsule,extende d release 24hr Take 1 capsule (60 mg total) by mouth 1 (one) time each day. 02/23/20 24 Active cholecalciferol (VITAMIN D-3) 25 mcg (1,000 unit) tablet TAKE 1 TABLET BY MOUTH DAILY 90 tablet 1 08/30/20 24 Active allopurinoL (ZYLOPRIM) 100 mg tablet Take 1 tablet (100 mg total) by mouth 2 (two) times a day. 180 tablet 08/28/20 24 Active levocetirizine (XYZAL) 5 mg tablet TAKE 1 TABLET BY MOUTH EVERY EVENING 90 tablet 1 08/30/20 24 Active rOPINIRole (REQUIP) 0.25 mg tablet Take 1 tablet (0.25 mg total) by mouth at bedtime. at bedtime. 30 tablet 1 10/09/19 25 Active albuterol 2.5 mg /3 mL (0.083 %) nebulizer solution USE 1 VIAL VIA NEBULIZER EVERY 6 HOURS NEEDED FOR WHEEZING OR SHORTNESS OF BREATH 75 mL 3 10/18/19 25 Active Linzess 145 mcg capsuleIndicati ons:Constipatio n, unspecified constipation type TAKE 1 CAPSULE(145 MCG) BY MOUTH DAILY 30 capsule 5 10/22/19 25 Active Symbicort 160-4.5 mcg/actuation inhalerIndicati ons:Moderate persistent asthma without complication Inhale 2 puffs by mouth 2 (two) times a day. Rinse mouth with water after use to reduce aftertaste and incidence of candidiasis. Do not swallow. 10.2 g 2 11/13/19 25 025 Active albuterol HFA (PROAIR HFA ; PROVENTIL HFA ; VENTOLIN HFA) 90 mcg/actuation inhalerIndicati ons:Moderate persistent asthma without complication Inhale 2 puffs by mouth every 4 (four) hours if needed for wheezing. 18 g 1 11/13/19 25 Active albuterol HFA (PROAIR HFA ; PROVENTIL HFA ; VENTOLIN HFA) 90 mcg/actuation inhaler Inhale 2 Puffs into the lungs every 4 hours as needed for Cough, Wheezing or Shortness of Breath. 03/14/20 23 025 Discontin ued(Reord er) fluticasone HFA (Flovent HFA) 220 mcg/actuation inhaler Inhale 2 puffs by mouth 2 (two) times a day. 05/19/20 23 025 Discontin ued(Alter yoana therapy) Active Problems Problem Noted Date Diagnosed Date [...] Encounters Date Type Department Care Team Description 11/12/2024 3:40 PM EST Office Visit Pulmonolgy - [place] [facility] [address] [place] [address] Annmarie Pham NP Moderate persistent asthma without complication (Primary Dx) 10/29/2024 Telephone Adult Medicine [place] - [address] [phone] Morena Reed LPN Fitting for DME (Faxed form from [facility] /) 10/26/2024 Telephone Adult Medicine [address] [phone] Baron Patrick MD faxed order (Faxed order received from [facility] [id number] please sign and fax to [phone]/) 10/22/2024 Telephone Adult Medicine [address] [phone] Maryann Baird LPN Fitting for DME 10/22/2024 Telephone Adult Medicine [address] [phone] Maryann Baird MANUFACTURING PRODUCTION MANAGER Fitting for DME 10/08/2024 Billing Patient Not Present Adult Medicine [address] [phone] Baron Patrick MD Major depressive disorder, recurrent, moderate (CMS/HCC) (Primary Dx); Depression, unspecified depression type; Anxiety disorder, unspecified type; Essential (primary) hypertension; Prediabetes; Mixed incontinence; Human immunodeficiency virus (HIV) disease (CMS/HCC); COVID-19 10/04/2024 Telephone Adult Medicine [address] [phone] Morena Reed MANUFACTURING PRODUCTION MANAGER Fitting for DME 10/01/2024 Telephone Adult Medicine [address] [phone] Morena Reed MANUFACTURING PRODUCTION MANAGER Fitting for DME 09/19/2024 Telephone Adult Medicine [address] [phone] Baron Patrick MD Fitting for DME 09/18/2024 10:45 AM EST Office Visit Adult Medicine [address] [phone] Chrissy Nguyen PA Gout involving toe, unspecified cause, unspecified chronicity, unspecified laterality (Primary Dx); Anxiety and depression; Primary hypertension; Pre-diabetes; Mixed stress and urge incontinence; Mild intermittent asthma without complication; Chronic constipation 09/09/2024 Billing Patient Not Present Adult [address] [phone] Baron Patrick MD Major depressive disorder, recurrent episode, moderate (CMS/HCC) (Primary Dx); Depression, unspecified depression type; Anxiety; Hypertension, unspecified type; Pre-diabetes; Mixed incontinence; HIV infection, unspecified symptom status (CMS/HCC); COVID-19 09/06/2024 Billing Patient Not Present [address] [phone] Baron Patrick MD Major depressive disorder, recurrent, moderate (CMS/HCC) (Primary Dx); Depression, unspecified depression type; Anxiety disorder, unspecified type; Essential (primary) hypertension; Prediabetes; Mixed incontinence; Human immunodeficiency virus (HIV) disease (CMS/HCC); COVID-19 09/06/2024 Telephone Adult [address] [phone] Baron Patrick MD Gout 08/28/2024 10:45 AM EST Office Visit Adult [address] [phone] Chrissy Nguyen PA Acute gout involving toe of right foot, unspecified cause (Primary Dx); S/P gastric sleeve procedure 08/28/2024 Telephone Adult [address] [phone] Baron Patrick MD faxed order (Faxed order received from [facility] [id number] placed in providers box) 08/24/2024 Telephone Adult Medicine [address] [place] [address] Baron Patrick MD Faxed Order ([facility] #[id number]) from Last 3 Months Immunizations Name Administration Dates Next Due Hepatitis B (Qszgaww-P-Ytqcn , Recombivax HB-Adult) 19yo and older 07/15/2023,04/10/2021 [...] Eczema DX:Eczema HIV (human immunodeficiency virus infection) ([facility]/HCC) DX:HIV (human immunodeficien cy virus infection) ([facility]); COMMENT: Referred to infectious disease [...] Father Coronary artery disease Maternal Grandmother s/p [place] Diabetes Mother Hypertension Mother Other: fatty liver [...] Orientation Straight 09/18/2024 4: 26 PM EST Obstetrics History Last Filed Vital Signs Vital Sign Reading Time Taken Comments Blood Pressure 124/72 11/12/2024 3:55 PM EST Pulse 108 11/12/2024 3:55 PM EST Temperature 36.1 ??C (97 ??F) 11/12/2024 3:55 PM EST Respiratory Rate 16 11/12/2024 3:55 PM EST Oxygen Saturation 96% 11/12/2024 3:55 PM EST Inhaled Oxygen Concentration - - Weight 104 kg (228 lb 12.8 oz) 11/12/2024 3:55 P M EST Height 166.4 cm (5' 5.5 ) 11/12/2024 3:55 PM EST Body Mass Index 37.5 11/12/2024 3:55 PM EST Plan of Treatment Upcoming Encounters Date Type Department Care Team (Late st Contact Info) Description 01/03/2025 9:00 AM EDT Office Visit Adult Medicine [address] [phone] Baron Patrick MD [address] [place] [address] 01/09/2025 1:30 PM EDT Office Visit Obstetrics and Gynecology - [address] [phone] Libby Cornejo MD [address] [place] [address] 01/15/2025 10:10 AM EDT Office Visit Pulmonolgy - [place] [address] [facility] [address] [place] [address] Annmarie Pham NP [address] [facility] [address] [place] [address] 05/14/2025 4:00 PM EDT Office Visit Adult [address] [phone] Chrissy Nguyen PA [address] [place] [address] Health Maintenance Due Date Last Done Comments [...] on patient's age to complete this topic Meningococcal B Vacine Aged Out No lo nger eligible based on patient's age to complete [...] LAB CHEMISTRY METHOD 09/18/2024 2:28 PM EST [facility] Blood Venous blood specimen / Unknown Venipuncture / Unknown 09/18/2024 11:13 AM EST 09/18/2024 11:13 AM EST Chrissy CROCKETT LAB BLOOD ORDERABLES Fin al Result [facility] [address] [place] [address], * (ABNORMAL) Basic metabolic panel (09/18/2024 11:13 AM EST) Sodium 139 133 - 145 mmol/L LAB CHEMISTRY METHOD 09/18/2024 2:28 PM EST [facility] Potassium 3.9 3.5 - 5.5 mmol/L LAB CHEMISTRY METHOD 09/18/2024 2:28 PM [facility] Chloride 105 96 - 110 mmol/L LAB CHEMISTRY METHOD 09/18/2024 2:28 PM [facility] CO2 26 21 - 32 mmol/L LAB CHEMISTRY METHOD 09/18/2024 2:28 PM [facility] Anion Gap 8 3 - 11 LAB CHEMISTRY METHOD 09/18/2024 2:28 PM [facility] Glucose 116(H) 70 - 100 mg/dL LAB CHEMISTRY METHOD 09/18/2024 2:28 PM [facility] BUN 11 5 - 25 mg/dL LAB CHEMISTRY METHOD 09/18/2024 2:28 PM [facility] Creatinine 1.17(H) 0.50 - 1.10 mg/dL LAB CHEMISTRY METHOD 09/18/2024 2:28 PM [facility] eGFR 58(L) >=60 mL/min/1. 73m2 LAB CHEMISTRY METHOD 09/18/2024 2:28 PM [facility] Comment:Calculation based on the??Chronic Kidney Disease Epidemiology Collaboration (CKD-EPI) equation refit??without adjustment for race. BUN/Creatinine Ratio 9.4 LAB CHEMISTRY METHOD 09/18/2024 2:28 PM [facility] Calcium 9.3 8.5 - 10.5 mg/dL LAB CHEMISTRY METHOD 09/18/2024 2:28 PM [facility] Blood Venous blood specimen / Unknown Venipuncture / Unknown 09/18/2024 11:13 AM EST 09/18/2024 11:13 AM EST us Chrissy CROCKETT LAB BLOOD ORDERABLES Fin al Result [facility] [address] [place] [address], * SCREENING MAMMOGRAPHY BI 2-VIEW BREAST INC [...] in 12 months. BI-RADS: Category 1: Negative us Valentín Castanon MD IMG XR PROCEDURES Final Res ult * Hm Cervical Cancer Screening: HPV (04/28/2023) Pathologist [facility] Cervical Cancer Screening: HPV negative, abstracted Historical Provider HEALTH MAINTENANCE Final Result * (ABNORMAL) Lipid panel (03/08/2023) [facility] LDL/HDL Ratio 5(A) 0 - 4 Triglycerides 179(A) 0 - 150 mg/dL Cholesterol 213(A) 0 - 200 mg/dL HDL 45 >=40 mg/dL LDL Cholesterol 133(A) 0 - 100 mg/dL Blood Venous blood specimen / Unknown Historical Provider LAB BLOOD ORDERABLES Lawanda l Result * Hepatitis C Screening (07/15/2020) [facility] Hepatitis C Screening abstracted Historical Provider HEALTH MAINTENANCE Final Result from Last 3 Months or Most Recently Relevant to Health Maintenance Insurance [facility] MEDIC[facility] Member Subscriber Plan / Payer (Ef fective 2016-Present) Name:Jhoana De La Garza Relation to Subscriber:Self Name:Jhoana De La Garza Payer ID:[id number] Group ID:[id number] Type:Not on file Address: [place] [address] [place] [address] Care Teams Supervisor Kennel Relationship Specialty Start Date End Date Baron Patrick MD [address] [place] [address] BETTY GONZALEZ PCP - General Internal Medicine 12/24/21
--- OUTSIDE RECORDS SUMMARY | 2024-11-22 19:33 | XMS_ITS | Encounter Summary ---
Author Organization [facility] Address [address] [place] [address] Care Team Providers Care Home Demonstration Agent Name Role Phone Baron Patrick Primary Care Provider [phone] Encounter Details Date Type Department Care Team Description 05/18/2024 Refill Adult Medicine [address] [address] Baron Patrick [address] [place] [phone] Social History Tobacco Use Types Packs/Day Years [...] Encounter - Vicky Franklin M.A. - 05/18/2024 12:55 PM EDT Last office visit 04/06/24 ?? Patient advised to schedule follow-up appointment for routine physical. (care [place] due 2025) documented in this encounter Plan of Treatment Not on file documented as of this encounter Visit Diagnoses Not on filedocumented in this encounter Care Teams Home Demonstration Agent Relationship Specialty Start Date End Date Baron Patrick [address] [place] [id number] PCP - General Internal Medicine 12/24/21 documented as of this encounter
--- OUTSIDE RECORDS SUMMARY | 2024-11-22 19:33 | XMS_ITS | Encounter Summary ---
Author Organization [facility] Address [address] [facility] [place] [address] Care Team Providers Care Filler Blender Name Role Phone Baron Patrick Primary Care Provider [phone] Encounter Details Date Type Department Care Team Description 04/01/2023 Meter Changes Records Clerk Report Medical Records [address] [place] [address] Abstract, Provider Social History Tobacco Use Types [...] on filedocumented in this encounter Care Teams Filler Blender Relationship Specialty Start Date End Date Baron Patrick [address] [place] [address] PCP - General Internal Medicine 12/24/21 documented as of this encounter
--- OUTSIDE RECORDS SUMMARY | 2024-11-22 19:33 | XMS_ITS | Continuity of Care Document ---
Author Organization [facility] Address [address] [place] [phone]- Care Team Providers Care Mud Temperer Name Role Phone Not on Staff, PCP Primary Care Physician Unavail able Encounter [facility] Date(s): 10/02/24 - 11/01/24 [facility] [address] [place] [id number] Encounter Type: Triage Allergies, Adverse Reactions, Alerts Substance Criticality Severity Reaction Reaction Severity Status predniSONE 1 SOB Active Egg Allergy hives Active 1Has used Flovent in the past [...] influenza virus vaccine, inactivated 08/18/06 Give n [id number] bivalent booster vax 07/15/22 Recorded SARS-CoV-2 (COVID-19) [...] DOSE LOWER SITE 4Result Comment: [12/02/2016] Dilutent [id number] 5Result Comment: UPPER SITE 6Result Comment: LOWER SITE 7Admin Note: recieved the flu shot at [facility] 06/23/2012 8Admin Note: VIS GIVEN [id number] 9Admin Note: VIS given 2008-. 10Admin Note: [...] Maintenance, 01/21/20 11:39:00 PM EDT, Solution, [facility], 170.18, cm, 07/03/19 12:11:00 EDT, Height Start Date: 01/21/20 Stop Date: 07/07/20 Status: Ordered Quantity: 25.0 Unit: each Repeat number: 12 albuterol-ipratropium 3 mg-0.5 mg/3 ml inhalation solution 3 mL, Inhalation, 4 times a day, PRN Wheezing/Shortness of Breath, # 180 mL, 11 Refills, Maintenance, 01/21/20 11:38:00 PM EDT, Solution, [facility], 3 mL Inhalation 4 times a day,PRN:Wheezing/Shortness of Breath, 170.18, cm, 07/03/19 12:11:00 EDT, Height Start Date: 01/21/20 Status: Ordered Quantity: 180.0 Unit: mL Repeat number: 12 buPROPion 300 mg/24 hours (XL) oral tablet, extended release 1 tablet = 300 mg, By Mouth, Daily, # 30 tablet, 11 Refills, Maintenance, 07/18/20 1:39:00 PM EST, ER Tablet, [facility], 170.18, cm, 07/03/19 12:11:00 EDT, Height [...] 6:35:00 PM EDT, Route to Pharmacy Electronically, [facility] #[id number], Partial fill upon patient request if the [...] Refills, Maintenance, 12/29/18 1:48:58 PM EDT, Solution, [facility], 1 drops both eyes [...] 10 Refills, Maintenance, 10/17/23 2:14:00 PM EST, [facility], 170.18, cm, 07/15/23 11:40:00 EDT, Height Start Date: 10/17/23 Status: Ordered Quantity: 60.0 Unit: capsule Repeat number: 1 doxepin 10 mg oral capsule 1 capsule, By Mouth, Daily at bedtime, CAN CAUSE DROWSINESS, # 30 capsule, 10 Refills, Maintenance,01/13/21 12:21:00 PM EDT, [facility], 170.18, cm, 07/03/19 12:11:00 EDT, Height [...] Stop, 08/12/20 2:05:00 PM EST, Solution, [facility], 170.18, cm, 07/03/19 12:11:00 EDT, Height Start Date: 08/12/20 Status: Ordered Quantity: 2.0 Unit: each Repeat number: 12 escitalopram 20 mg oral tablet 1 tablet = 20 mg, By Mouth, Daily, # 30 tablet, 11 Refills, Maintenance, 09/24/20 3:41:00 PM EST, Tablet, [facility], Partial fill upon patient request if the prescription is for a schedule II opioid drug., 170.18, cm, 07/03/19 12:11:00 EDT, Height Start Date: 09/24/20 Status: Ordered Quantity: 30.0 Unit: tablet Repeat number: 12 Flovent HFA 220 mcg/inh inhalation aerosol 2 puffs, Inhalation, 2 times a day, # 1 each, 11 Refills, Maintenance, 09/23/20 12:52:00 PM EST, Aerosol, [facility], 170.18, cm, 07/03/19 12:11:00 EDT, Height Start Date: 09/23/20 Stop Date: 09/18/21 Status: Ordered Quantity: 1.0 Unit: each Repeat number: 12 flunisolide 25 mcg/inh nasal spray 1 puff, Nares, Both, 2 times a day, PRN allergic rhinitis w/ sneezing, each nostril, # 1 each, 11 Refills, Maintenance, 05/26/20 2:58:00 PM EDT, [place], [facility], 1 puff Nares, Both 2 times [...] 11 Refills, Maintenance, 01/31/23 3:14:00 PM EDT, [facility], 50, INHALE 1 PUFF IN EACH NOSTRIL TWO TIMES A DAY NEEDED FOR ALLERGY SYMPTOMS WITH SNEEZING, 170.18, cm, 02/09/22 18:24:00 EDT, Height Start Date: 01/31/23 Status: Ordered Quantity: 25.0 Unit: mL Repeat number: 1 gabapentin 300 mg oral capsule 1, capsule, By Mouth, 3 times a day, # 90 capsule, Refills 2, Route to Pharmacy Electronically, [facility], 170.18, cm, 05/20/21 10:59:00 EDT, Height Start Date: 11/18/21 Status: Ordered Quantity: 90.0 Unit: capsule Repeat number: 1 hydrOXYzine pamoate 25 mg oral capsule 1 capsule = 25 mg, By Mouth, Daily, PRN for anxiety, # 30 capsule, 11 Refills, Maintenance, 191:50:41 PM EDT, Capsule, [facility], Note dose decrease to qD Start Date: 12/29/18 Status: Ordered Quantity: 30.0 Unit: capsule Repeat number: 12 ketotifen 0.025% ophthalmic solution See Instructions, INSTILL 1 DROP INTO BOTH EYES TWO TIMES A DAY FOR ALLERGY SYMPTOMS, # 5 mL, 11 Refills, Maintenance, 02/01/23 4:48:00 PM EDT, [facility], 25, INSTILL 1 DROP INTO BOTH [...] Refills,Maintenance, 03/21/20 2:26:00 PM EDT, Film, [facility], 1 patch Topically Daily,[id number],PRN:Pain , Mild,Instr:as needed; remove after 12 hours, 170.18, cm, 07/03/19 12:11:00 EDT, Height Start Date: 03/21/20 Stop Date: 04/04/20 Status: Ordered Quantity: 13.0 Unit: each Repeat number: 1 Indication: Dorsalgia, unspecified Linzess 145 mcg oral capsule 1 capsule, By Mouth, Daily, # 30 capsule, 2 Refills, [facility], 170.18, cm, 05/20/21 10:59:00 EDT, Height Start Date: 11/18/21 Status: Ordered Quantity: 30.0 Unit: capsule Repeat number: 1 lisinopril 20 mg oral tablet 20 mg, 1, tablet, By Mouth, Daily, Blood pressure. Take at night/evening., # 30 tablet, Refills 11,Tot. Refills 11, Maintenance, 09/23/20 12:53:00 PM EST, Route to Pharmacy Electronically, [facility], 170.18, cm, 07/03/19 12:11:00 EDT, Height Start Date: 09/23/20 Status: Ordered Quantity: 30.0 Unit: tablet Repeat number: 12 loratadine 10 mg oral tablet 10 mg, 1, tablet, By Mouth, Daily, PRN, # 30 tablet, Refills 11, Tot. Refills 11, Maintenance, Congestion, 07/18/20 1:41:00 PM EST, Route to Pharmacy Electronically, [facility], 170.18, cm, 07/03/19 12:11:00 EDT, Height Start Date: 07/18/20 Status: Ordered Quantity: 30.0 Unit: tablet Repeat number: 12 massage massage, See Instructions, # 1 each, Refills 0, Tot. Refills 0, Maintenance, massage dx chronic pain massage for one hour, one day a week for four weeks fax to [phone] attention of [facility], 04/23/19 9:05:11 AM [...] use for albuterol administration as directed pls [facility] home infusion and respiratory, 02/03/17 5:30:06 PM [...] 11 Refills, Maintenance, 07/18/20 1:41:00 PM EST, [facility], 170.18, cm, 07/03/19 12:11:00 EDT, Height Start Date: 07/18/20 Status: Ordered Quantity: 60.0 Unit: tablet Repeat number: 12 Singulair 10 mg oral tablet 10 mg, 1, tablet, By Mouth, Daily in PM, asthma, # 30 tablet, Refills 11, Tot. Refills 11, Maintenance, 10/27/20 2:14:00 PM EST, Route to Pharmacy Electronically, [facility], 170.18, cm, 07/03/19 12:11:00 [...] Daily, # 30 tablet, 0 Refills, Maintenance, 10/05/24 10:57:00 AM EST, Tablet, [id number], Pt needs to call office to schedule an appointment, 1 tablet By Mouth Daily,x30 days, 170.18, cm, 07/15/23 11:40:00 EDT, Height Start Date: 10/05/24 Stop Date: 11/04/24 Status: Ordered Quantity: 30.0 Unit: tablet Repeat [...] 11 Refills, Maintenance, 01/31/23 3:14:00 PM EDT, [facility], Please dispense 10 pills; disregard prior script, 170.18, cm, 02/09/22 18:24:00 EDT, Height Start Date: 01/31/23 Stop Date: 04/01/23 Status: Ordered Quantity: 10.0 Unit: tablet Repeat number: 12 Ventolin HFA 108 mcg/inh inhalation aerosol with adapter 2 puffs, Inhalation, 4 times a day, PRN Wheezing/Shortness of Breath, # 1 each, 11 Refills, Maintenance, 09/23/20 12:52:00 PM EST, Aerosol, [facility], 170.18, cm, 07/03/19 12:11:00 [...] Refills, Maintenance, 10/27/20 2:15:00 PM EST, Tablet, [facility], 170.18, cm, 07/03/19 12:11:00 [...] Care Team Personnel Name: Lianne Gomes Position: [facility] Outreach Member Role: Lifetime Consulting Physician Name: Not on Staff, PCP Position: [facility] Physician (General Medicine) Member Role: PCP Care Team Related Persons Name: CLARICE WALLACE Name: JENNIFER EMMANUEL Name: BRANDON POPE Insurance Providers Guarantor name: JOAO WALLACE Health Plan Information #: 1 Payer: [facility] ALLI[facility] C[facility] Member Number: NA Policy Number: NA Group Number: NA
--- OUTSIDE RECORDS SUMMARY | 2024-11-22 19:33 | XMS_ITS | Encounter Summary ---
Author Organization [facility] Address [address] [place] [address] Care Team Providers Care Dance Critic Name Role Phone Simon Nolen MD Primary Care Provider Baron Minor Primary Care Provider [phone] Reason for Visit * Reason Onset Date Comments Faxed Order 10/21/2021 Encounter Details Date Type Department Care Team Description 10/21/2021 Telephone Adult Medicine [address] [address] Simon Nolen MD Faxed Order Social History [...] Juliet Curry - 10/21/2021 3:46 PM EST [facility] faxing orders to be signed and faxed back to [phone] documented in this encounter Plan of Treatment Not on file documented as of this encounter Visit Diagnoses Not on filedocumented in this encounter Care Teams Dance Critic Relationship Specialty Start Date End Date Simon Nolen MD PCP - General Internal Medicine 08/19/21 12/23/21 Baron Patrick [address] [place] [address] PCP - General Internal Medicine 12/24/21 documented as of this encounter
--- OUTSIDE RECORDS SUMMARY | 2024-11-22 19:33 | XMS_ITS | Continuity of Care Document ---
Author Organization [facility] Address [address] [place] [address]- Care Team Providers Care Loftsman Name Role Phone Not on Staff, PCP Primary Care Physician Unavail able Encounter [facility] Date(s): 10/19/24 - 11/18/[address] [address] Attending Physician: Bryanna Coleman Admitting Physician: Bryanna Coleman Referring Physician: AdmBryanna enriquez Encounter Type: Triage Allergies, Adverse Reactions, Alerts [...] influenza virus vaccine, inactivated 08/18/06 Give n [id number] bivalent booster vax 07/15/22 Recorded SARS-CoV-2 (COVID-19) [...] DOSE LOWER SITE 4Result Comment: [12/02/2016] Dilutent [id number] 5Result Comment: UPPER SITE 6Result Comment: LOWER SITE 7Admin Note: recieved the flu shot at [facility] 06/23/2012 8Admin Note: VIS GIVEN [id number] 9Admin Note: VIS given 2008-. 10Admin Note: [...] Refills, Maintenance, 01/21/20 11:39:00 PM EDT, Solution, [facility], 170.18, cm, 07/03/19 12:11:00 EDT, Height Start Date: 01/21/20 Stop Date: 07/07/20 Status: Ordered Quantity: 25.0 Unit: each Repeat number: 12 albuterol-ipratropium 3 mg-0.5 mg/3 ml inhalation solution 3 mL, Inhalation, 4 times a day, PRN Wheezing/Shortness of Breath, # 180 mL, 11 Refills, Maintenance, 01/21/20 11:38:00 PM EDT, Solution, [facility], 3 mL Inhalation 4 times a day,PRN:Wheezing/Shortness of Breath, 170.18, cm, 07/03/19 12:11:00 EDT, Height Start Date: 01/21/20 Status: Ordered Quantity: 180.0 Unit: mL Repeat number: 12 buPROPion 300 mg/24 hours (XL) oral tablet, extended release 1 tablet = 300 mg, By Mouth, Daily, # 30 tablet, 11 Refills, Maintenance, 07/18/20 1:39:00 PM EST, ER Tablet, [facility], 170.18, cm, 07/03/19 12:11:00 EDT, Height Start Date: 07/18/20 Stop Date: 07/13/21 Status: Ordered Quantity: 30.0 Unit: tablet Repeat number: 12 chlorthalidone 25 mg oral tablet 25 mg, 1, tablet, By Mouth, Daily, # 30 tablet, Refills 11, Tot. Refills 11, Maintenance, 09/23/20 12:53:00 PM EST, Route to Pharmacy Electronically, [facility], 170.18, cm, 07/03/19 12:11:00 EDT, [...] 6:35:00 PM EDT, Route to Pharmacy Electronically, [facility] #[id number], Partial fill upon patient request if the [...] Refills, Maintenance, 12/29/18 1:48:58 PM EDT, Solution, [facility], 1 drops both eyes qid [...] 10 Refills, Maintenance, 10/17/23 2:14:00 PM EST, [facility], 170.18, cm, 07/15/23 11:40:00 EDT, Height Start Date: 10/17/23 Status: Ordered Quantity: 60.0 Unit: capsule Repeat number: 1 doxepin 10 mg oral capsule 1 capsule, By Mouth, Daily at bedtime, CAN CAUSE DROWSINESS, # 30 capsule, 10 Refills, Maintenance,01/13/21 12:21:00 PM EDT, [facility], 170.18, cm, 07/03/19 12:11:00 EDT, [...] Soft Stop, 08/12/20 2:05:00 PM EST, Solution, [facility], 170.18, cm, 07/03/19 12:11:00 EDT, Height Start Date: 08/12/20 Status: Ordered Quantity: 2.0 Unit: each Repeat number: 12 escitalopram 20 mg oral tablet 1 tablet = 20 mg, By Mouth, Daily, # 30 tablet, 11 Refills, Maintenance, 09/24/20 3:41:00 PM EST, Tablet, [facility], Partial fill upon patient request if the prescription is for a schedule II opioid drug., 170.18, cm, 07/03/19 12:11:00 EDT, Height Start Date: 09/24/20 Status: Ordered Quantity: 30.0 Unit: tablet Repeat number: 12 Flovent HFA 220 mcg/inh inhalation aerosol 2 puffs, Inhalation, 2 times a day, # 1 each, 11 Refills, Maintenance, 09/23/20 12:52:00 PM EST, Aerosol, [facility], 170.18, cm, 07/03/19 12:11:00 EDT, Height Start Date: 09/23/20 Stop Date: 09/18/21 Status: Ordered Quantity: 1.0 Unit: each Repeat number: 12 flunisolide 25 mcg/inh nasal spray 1 puff, Nares, Both, 2 times a day, PRN allergic rhinitis w/ sneezing, each nostril, # 1 each, 11 Refills, Maintenance, 05/26/20 2:58:00 PM EDT, [place], [facility], 1 puff Nares, Both [...] 11 Refills, Maintenance, 01/31/23 3:14:00 PM EDT, [facility], 50, INHALE 1 PUFF IN EACH NOSTRIL TWO TIMES A DAY NEEDED FOR ALLERGY SYMPTOMS WITH SNEEZING, 170.18, cm, 02/09/22 18:24:00 EDT, Height Start Date: 01/31/23 Status: Ordered Quantity: 25.0 Unit: mL Repeat number: 1 gabapentin 300 mg oral capsule 1, capsule, By Mouth, 3 times a day, # 90 capsule, Refills 2, Route to Pharmacy Electronically, [facility], 170.18, cm, 05/20/21 10:59:00 EDT, Height Start Date: 11/18/21 Status: Ordered Quantity: 90.0 Unit: capsule Repeat number: 1 hydrOXYzine pamoate 25 mg oral capsule 1 capsule = 25 mg, By Mouth, Daily, PRN for anxiety, # 30 capsule, 11 Refills, Maintenance, 191:50:41 PM EDT, Capsule, [facility], Note dose decrease to qD Start Date: 12/29/18 Status: Ordered Quantity: 30.0 Unit: capsule Repeat number: 12 ketotifen 0.025% ophthalmic solution See Instructions, INSTILL 1 DROP INTO BOTH EYES TWO TIMES A DAY FOR ALLERGY SYMPTOMS, # 5 mL, 11 Refills, Maintenance, 02/01/23 4:48:00 PM EDT, [facility], 25, INSTILL 1 DROP INTO [...] 0 Refills,Maintenance, 03/21/20 2:26:00 PM EDT, Film, [facility], 1 patch Topically Daily,[id number],PRN:Pain , Mild,Instr:as needed; remove after 12 hours, 170.18, cm, 07/03/19 12:11:00 EDT, Height Start Date: 03/21/20 Stop Date: 04/04/20 Status: Ordered Quantity: 13.0 Unit: each Repeat number: 1 Indication: Dorsalgia, unspecified Linzess 145 mcg oral capsule 1 capsule, By Mouth, Daily, # 30 capsule, 2 Refills, [facility], 170.18, cm, 05/20/21 10:59:00 EDT, Height Start Date: 11/18/21 Status: Ordered Quantity: 30.0 Unit: capsule Repeat number: 1 lisinopril 20 mg oral tablet 20 mg, 1, tablet, By Mouth, Daily, Blood pressure. Take at night/evening., # 30 tablet, Refills 11,Tot. Refills 11, Maintenance, 09/23/20 12:53:00 PM EST, Route to Pharmacy Electronically, [facility], 170.18, cm, 07/03/19 12:11:00 EDT, Height Start Date: 09/23/20 Status: Ordered Quantity: 30.0 Unit: tablet Repeat number: 12 loratadine 10 mg oral tablet 10 mg, 1, tablet, By Mouth, Daily, PRN, # 30 tablet, Refills 11, Tot. Refills 11, Maintenance, Congestion, 07/18/20 1:41:00 PM EST, Route to Pharmacy Electronically, [facility], 170.18, cm, 07/03/19 12:11:00 EDT, Height Start Date: 07/18/20 Status: Ordered Quantity: 30.0 Unit: tablet Repeat number: 12 massage massage, See Instructions, # 1 each, Refills 0, Tot. Refills 0, Maintenance, massage dx chronic pain massage for one hour, one day a week for four weeks fax to [phone] [facility], 04/23/19 9:05:11 AM EDT, [...] use for albuterol administration as directed pls [facility] home infusion and respiratory, 02/03/17 5:30:06 PM [...] 11 Refills, Maintenance, 07/18/20 1:41:00 PM EST, [facility], 170.18, cm, 07/03/19 12:11:00 EDT, Height Start Date: 07/18/20 Status: Ordered Quantity: 60.0 Unit: tablet Repeat number: 12 Singulair 10 mg oral tablet 10 mg, 1, tablet, By Mouth, Daily in PM, asthma, # 30 tablet, Refills 11, Tot. Refills 11, Maintenance, 10/27/20 2:14:00 PM EST, Route to Pharmacy Electronically, [facility], 170.18, cm, 07/03/19 12:11:00 EDT, [...] Daily, # 30 tablet, 0 Refills, Maintenance, 11/05/24 11:26:00 AM EST, Tablet, [id number], Pt needs to call office to schedule an appointment, 1 tablet By Mouth Daily,x30 days, 170.18, cm, 07/15/23 11:40:00 EDT, Height Start Date: 11/05/24 Stop Date: 12/05/24 Status: Ordered Quantity: 30.0 Unit: tablet Repeat [...] 11 Refills, Maintenance, 01/31/23 3:14:00 PM EDT, [facility], Please dispense 10 pills; disregard prior script, 170.18, cm, 02/09/22 18:24:00 EDT, Height Start Date: 01/31/23 Stop Date: 04/01/23 Status: Ordered Quantity: 10.0 Unit: tablet Repeat number: 12 Ventolin HFA 108 mcg/inh inhalation aerosol with adapter 2 puffs, Inhalation, 4 times a day, PRN Wheezing/Shortness of Breath, # 1 each, 11 Refills, Maintenance, 09/23/20 12:52:00 PM EST, Aerosol, [facility], 170.18, cm, 07/03/19 12:11:00 EDT, [...] Refills, Maintenance, 10/27/20 2:15:00 PM EST, Tablet, [facility], 170.18, cm, 07/03/19 12:11:00 EDT,Height [...] I (cervical intraepithelial neoplasia I) Confirmed Active [facility] Colpo Patient Confirmed Active HSV - Anogenital [...] Pap LGSIL/HPV +. 2colpo, ECC; referred to [facility] to sample adequately 3DNKA colpo 4Pap LGSIL [...] Care Team Personnel Name: Lianne Gomes Position: [facility] Outreach Member Role: Lifetime Consulting Physician Name: Not on Staff, PCP Position: [facility] Physician (General Medicine) Member Role: PCP Care Team Related Persons Name: CLARICE WALLACE Name: JENNIFER EMMANUEL Name: BRANDON POPE Insurance Providers Guarantor name: JOAO WALLACE Health Plan Information #: 1 Payer: [facility] ALLI[facility]/[employer] Member Number: NA Policy Number: NA Group Number: NA
--- OUTSIDE RECORDS SUMMARY | 2024-11-22 19:33 | XMS_ITS | Encounter Summary ---
Author Organization [facility] Address [address] [place] [address] Care Team Providers Care Acid Concentrator Name Role Phone Baron Patrick Primary Care Provider [phone] Reason for Visit * Reason Onset Date Comments VNA Call 03/22/2023 Encounter Details Date Type Department Care Team Description 03/22/2023 Telephone Adult Medicine [address] [address] Baron Patrick [address] [place] [address] [phone] VNA Call Social History Tobacco Use Types [...] * Telephone Encounter - Ander MaysP.N. - 04/05/2023 9:02 AM EDT CHRISTINE ramirez and notes faxed 03/23/23 * Telephone Encounter - Ander Bobo L.P.N. - 04/04/2023 1:33 PM EDT . * Telephone Encounter - Joanne Abarca - 04/04/2023 1:17 PM EDT Oleg home health manager from [facility] is calling back to check status on a re admit for pt. Please call her back at [phone]. * Telephone Encounter - Ander Grissomx L.P.N. - 03/23/2023 8:41 AM EDT Vo given Office notes faxed [phone] Confirmation received * Telephone Encounter - Ander Grissomx L.P.N. - 03/22/2023 3:05 PM EDT VNA needs VO to discharge patient going on vacation When she returns need or to readmit 04/06/23 Please review and advise Will send last office note Please review and adivse * Telephone Encounter - Joanne Abarca - 03/22/2023 2:53 PM EDT VNA CALL Which VNA office is calling? [facility] Full name of caller: Matilda The caller is A nurse Is the caller at the patients home?: NO Reason for call: Matilda kaleb is calling to inform us that the pt will be going to [place] for vacation and they need to discharged her and readmit her she stated discharged date will be 04/03/2023 and readmit date will be 04/06/2023. She also stated they will need last office notes to readmit. Does caller need an urgent call back? NO Was CONTACT Telephone # obtained above?: YES Fax #: documented in this encounter Plan of Treatment Not on file documented as of this encounter Visit Diagnoses Not on filedocumented in this encounter Care Teams Acid Concentrator Relationship Specialty Start Date End Date Baron Patrick [address] [place] [id number] PCP - General Internal Medicine 12/24/21 documented as of this encounter
--- OUTSIDE RECORDS SUMMARY | 2024-11-22 19:33 | XMS_ITS | Encounter Summary ---
Author Organization [facility] Address [address] [facility] [place] [address] Care Team Providers Care Biological Sciences Instructor Name Role Phone Baron PatrickTerrence Primary Care Provider [phone] Encounter Details Date Type Department Care Team Description 04/25/2023 Orders Only Medical Records [address] [facility] [place] [address] Abstract, Provider Social History Tobacco Use Types [...] on filedocumented in this encounter Care Teams Biological Sciences Instructor Relationship Specialty Start Date End Date Baron Patrick [address] [place] [address] PCP - General Internal Medicine 12/24/21 documented as of this encounter
--- OUTSIDE RECORDS SUMMARY | 2024-11-22 19:33 | XMS_ITS | Encounter Summary ---
Author Organization [employer] [facility] Address [address] [facility] [place] [address] Care Team Providers Care Inspector Advanced Composite Name Role Phone Baron Patrick Primary Care Provider [phone] Encounter Details Date Type Department Care Team Description 05/30/2024 Home Health Certification Medical Records [address] [place] [address] Vna Social History Tobacco Use Types Packs/Day Years [...] on filedocumented in this encounter Care Teams Inspector Advanced Composite Relationship Specialty Start Date End Date Baron Patrick [address] [place] [address] PCP - General Internal Medicine 12/24/21 documented as of this encounter
--- OUTSIDE RECORDS SUMMARY | 2024-11-22 19:33 | XMS_ITS | Encounter Summary ---
[facility] Organization [facility] Address [address] [facility] [place] [address] Care Team Providers Care Case Finisher Name Role Phone Baron Patrick Primary Care Provider [phone] Encounter Details Date Type Department Care Team Description 04/14/2023 Orders Only Adult Medicine [address] [address] Baron Patrick [address] [place] [address] Major depressive disorder, recurrent, moderate (HCC) (Primary Dx); Depression, unspecified depression type; Anxiety disorder, unspecified type; Essential (primary) hypertension; Prediabetes; Mixed incontinence; Human immunodeficiency virus (HIV) disease (HCC) Social History Tobacco Use Types Packs/Day Years [...] Diagnoses Diagnosis Major depressive disorder, recurrent, moderate (HCC)- Primary Major depressive disorder, recurrent episode, moderate Depression, unspecified depression type Anxiety disorder, unspecified type Essential (primary) hypertension Unspecified essential hypertension Prediabetes Other abnormal glucose Mixed incontinence Mixed incontinence urge and stress (male)(female) Human immunodeficiency virus (HIV) disease (HCC) Human immunodeficiency virus [HIV] disease documented in this encounter Care Teams Case Finisher Relationship Specialty Start Date End Date Baron Patrick [address] [place] [address] PCP - General Internal Medicine 12/24/21 documented as of this encounter
--- OUTSIDE RECORDS SUMMARY | 2024-11-22 19:33 | XMS_ITS | Encounter Summary ---
Author Organization [facility] Address [address] [facility] [place] [address] Care Team Providers Care Lighting Equipment Operator Name Role Phone Venkatesh Abel MD Primary Care Provider Rocky Ramirez MD Primary Care Provider John Younger DO Primary Care Provider Simon Adame MD Primary Care Provider Baron Minor Primary Care Provider [phone] Encounter Details Date Type Department Care Team Description 10/07/2020 Refill Adult Medicine [address] [address] Venkatesh Abel MD Social History Tobacco Use [...] on filedocumented in this encounter Care Teams Lighting Equipment Operator Relationship Specialty Start Date End Date Venkatesh Abel MD PCP - General Internal Medicine 10/23/19 01/12/21 Rocky Whitlock MD PCP - General Internal Medicine 01/13/21 02/17/21 John Crawford DO PCP - General Internal Medicine 02/18/21 1 Simon Nolen MD PCP - General Internal Medicine 08/19/21 12/23/21 Baron Patrick [address] [place] [address] PCP - General Internal Medicine 12/24/21 documented as of this encounter
--- OUTSIDE RECORDS SUMMARY | 2024-11-22 19:33 | XMS_ITS | Continuity of Care Document ---
Author Organization [facility] Address [address] [place] [address]- Care Team Providers Care Fiberglass Boat Parts Finisher Name Role Phone Not on Staff, PCP Primary Care Physician Unavail able Encounter [facility] Date(s): 10/05/24 - 11/04/24 [facility] [address] [place] [address] Encounter Type: Triage Allergies, Adverse Reactions, [...] influenza virus vaccine, inactivated 08/18/06 Give n [id number] bivalent booster vax 07/15/22 Recorded SARS-CoV-2 (COVID-19) [...] DOSE LOWER SITE 4Result Comment: [12/02/2016] Dilutent [id number] 5Result Comment: UPPER SITE 6Result Comment: LOWER SITE 7Admin Note: recieved the flu shot at [facility] 06/23/2012 8Admin Note: VIS GIVEN [id number] 9Admin Note: VIS given 2008-. 10Admin Note: [...] Refills, Maintenance, 01/21/20 11:39:00 PM EDT, Solution, [facility], 170.18, cm, 07/03/19 12:11:00 EDT, Height Start Date: 01/21/20 Stop Date: 07/07/20 Status: Ordered Quantity: 25.0 Unit: each Repeat number: 12 albuterol-ipratropium 3 mg-0.5 mg/3 ml inhalation solution 3 mL, Inhalation, 4 times a day, PRN Wheezing/Shortness of Breath, # 180 mL, 11 Refills, Maintenance, 01/21/20 11:38:00 PM EDT, Solution, [facility], 3 mL Inhalation 4 times a day,PRN:Wheezing/Shortness of Breath, 170.18, cm, 07/03/19 12:11:00 EDT, Height Start Date: 01/21/20 Status: Ordered Quantity: 180.0 Unit: mL Repeat number: 12 buPROPion 300 mg/24 hours (XL) oral tablet, extended release 1 tablet = 300 mg, By Mouth, Daily, # 30 tablet, 11 Refills, Maintenance, 07/18/20 1:39:00 PM EST, ER Tablet, [facility], 170.18, cm, 07/03/19 12:11:00 EDT, [...] 6:35:00 PM EDT, Route to Pharmacy Electronically, [facility] #[id number], Partial fill upon patient request if the [...] Refills, Maintenance, 12/29/18 1:48:58 PM EDT, Solution, [facility], 1 drops both eyes [...] 10 Refills, Maintenance, 10/17/23 2:14:00 PM EST, [facility], 170.18, cm, 07/15/23 11:40:00 EDT, Height Start Date: 10/17/23 Status: Ordered Quantity: 60.0 Unit: capsule Repeat number: 1 doxepin 10 mg oral capsule 1 capsule, By Mouth, Daily at bedtime, CAN CAUSE DROWSINESS, # 30 capsule, 10 Refills, Maintenance,01/13/21 12:21:00 PM EDT, [facility], 170.18, cm, 07/03/19 12:11:00 EDT, [...] Soft Stop, 08/12/20 2:05:00 PM EST, Solution, [facility], 170.18, cm, 07/03/19 12:11:00 EDT, Height Start Date: 08/12/20 Status: Ordered Quantity: 2.0 Unit: each Repeat number: 12 escitalopram 20 mg oral tablet 1 tablet = 20 mg, By Mouth, Daily, # 30 tablet, 11 Refills, Maintenance, 09/24/20 3:41:00 PM EST, Tablet, [facility], Partial fill upon patient request if the prescription is for a schedule II opioid drug., 170.18, cm, 07/03/19 12:11:00 EDT, Height Start Date: 09/24/20 Status: Ordered Quantity: 30.0 Unit: tablet Repeat number: 12 Flovent HFA 220 mcg/inh inhalation aerosol 2 puffs, Inhalation, 2 times a day, # 1 each, 11 Refills, Maintenance, 09/23/20 12:52:00 PM EST, Aerosol, [facility], 170.18, cm, 07/03/19 12:11:00 EDT, Height Start Date: 09/23/20 Stop Date: 09/18/21 Status: Ordered Quantity: 1.0 Unit: each Repeat number: 12 flunisolide 25 mcg/inh nasal spray 1 puff, Nares, Both, 2 times a day, PRN allergic rhinitis w/ sneezing, each nostril, # 1 each, 11 Refills, Maintenance, 05/26/20 2:58:00 PM EDT, [place], [facility], 1 puff Nares, Both 2 [...] 11 Refills, Maintenance, 01/31/23 3:14:00 PM EDT, [facility], 50, INHALE 1 PUFF IN EACH NOSTRIL TWO TIMES A DAY NEEDED FOR ALLERGY SYMPTOMS WITH SNEEZING, 170.18, cm, 02/09/22 18:24:00 EDT, Height Start Date: 01/31/23 Status: Ordered Quantity: 25.0 Unit: mL Repeat number: 1 gabapentin 300 mg oral capsule 1, capsule, By Mouth, 3 times a day, # 90 capsule, Refills 2, Route to Pharmacy Electronically, [facility], 170.18, cm, 05/20/21 10:59:00 EDT, [...] 11 Refills, Maintenance, 02/01/23 4:48:00 PM EDT, [facility], 25, INSTILL 1 DROP INTO [...] 0 Refills,Maintenance, 03/21/20 2:26:00 PM EDT, Film, [facility], 1 patch Topically Daily,[id number],PRN:Pain , Mild,Instr:as needed; remove after 12 hours, 170.18, cm, 07/03/19 12:11:00 EDT, Height Start Date: 03/21/20 Stop Date: 04/04/20 Status: Ordered Quantity: 13.0 Unit: each Repeat number: 1 Indication: Dorsalgia, unspecified Linzess 145 mcg oral capsule 1 capsule, By Mouth, Daily, # 30 capsule, 2 Refills, [facility], 170.18, cm, 05/20/21 10:59:00 EDT, Height Start Date: 11/18/21 Status: Ordered Quantity: 30.0 Unit: capsule Repeat number: 1 lisinopril 20 mg oral tablet 20 mg, 1, tablet, By Mouth, Daily, Blood pressure. Take at night/evening., # 30 tablet, Refills 11,Tot. Refills 11, Maintenance, 09/23/20 12:53:00 PM EST, Route to Pharmacy Electronically, [facility], 170.18, cm, 07/03/19 12:11:00 EDT, Height Start Date: 09/23/20 Status: Ordered Quantity: 30.0 Unit: tablet Repeat number: 12 loratadine 10 mg oral tablet 10 mg, 1, tablet, By Mouth, Daily, PRN, # 30 tablet, Refills 11, Tot. Refills 11, Maintenance, Congestion, 07/18/20 1:41:00 PM EST, Route to Pharmacy Electronically, [facility], 170.18, cm, 07/03/19 12:11:00 EDT, Height Start Date: 07/18/20 Status: Ordered Quantity: 30.0 Unit: tablet Repeat number: 12 massage massage, See Instructions, # 1 each, Refills 0, Tot. Refills 0, Maintenance, massage dx chronic pain massage for one hour, one day a week for four weeks fax to [phone] attention of Jenelle Cleaning, 04/23/19 9:05:11 AM [...] use for albuterol administration as directed pls [facility] home infusion and respiratory, 02/03/17 5:30:06 PM [...] 11 Refills, Maintenance, 07/18/20 1:41:00 PM EST, [facility], 170.18, cm, 07/03/19 12:11:00 EDT, Height Start Date: 07/18/20 Status: Ordered Quantity: 60.0 Unit: tablet Repeat number: 12 Singulair 10 mg oral tablet 10 mg, 1, tablet, By Mouth, Daily in PM, asthma, # 30 tablet, Refills 11, Tot. Refills 11, Maintenance, 10/27/20 2:14:00 PM EST, Route to Pharmacy Electronically, [facility], 170.18, cm, 07/03/19 12:11:00 [...] Refills, Maintenance, 10/05/24 10:57:00 AM EST, Tablet, [id number], Pt needs to call office to schedule [...] 11 Refills, Maintenance, 01/31/23 3:14:00 PM EDT, [facility], Please dispense 10 pills; disregard prior script, 170.18, cm, 02/09/22 18:24:00 EDT, Height Start Date: 01/31/23 Stop Date: 04/01/23 Status: Ordered Quantity: 10.0 Unit: tablet Repeat number: 12 Ventolin HFA 108 mcg/inh inhalation aerosol with adapter 2 puffs, Inhalation, 4 times a day, PRN Wheezing/Shortness of Breath, # 1 each, 11 Refills, Maintenance, 09/23/20 12:52:00 PM EST, Aerosol, [facility], 170.18, cm, 07/03/19 12:11:00 [...] Refills, Maintenance, 10/27/20 2:15:00 PM EST, Tablet, [facility], 170.18, cm, 07/03/19 12:11:00 [...] Care Team Personnel Name: Lianne Gomes Position: [facility] Outreach Member Role: Lifetime Consulting Physician Name: Not on Staff, PCP Position: [facility] Physician (General Medicine) Member Role: PCP Care Team Related Persons Name: CLARICE WALLACE Name: JENNIFER EMMANUEL Name: BRANDON POPE Insurance Providers Guarantor name: JOAO WALLACE Health Plan Information #: 1 Payer: [facility] Member Number: NA Policy Number: NA Group Number: [id number]
--- OUTSIDE RECORDS SUMMARY | 2024-11-22 19:33 | XMS_ITS | Encounter Summary ---
[facility] Address [address] [place] [address] Care Team Providers Care Flour Blender Name Role Phone John Crawford DO Primary Care Provider Simon Adame MD Primary Care Provider Baron Minor Primary Care Provider [phone] Reason for Visit * Reason Onset Date Comments Faxed Order 03/06/2021 Encounter Details Date Type Department Care Team Description 03/06/2021 Telephone Adult Medicine [address] [address] John Crawford DO Faxed Order Social History [...] encounter Miscellaneous Notes * Telephone Encounter - Melina Dominguez - 03/06/2021 1:38 PM EDT Faxed order received from [facility]. Please sign, date and fax to [phone]. documented in this encounter Plan of Treatment Not on file documented as of this encounter Visit Diagnoses Not on filedocumented in this encounter Care Teams Flour Blender Relationship Specialty Start Date End Date John Crawford DO PCP - General Internal Medicine 02/18/21 1 Simon Nolen MD PCP - General Internal Medicine 08/19/21 12/23/21 Baron Patrick [address] [place] [address] PCP - General Internal Medicine 12/24/21 documented as of this encounter
--- OUTSIDE RECORDS SUMMARY | 2024-11-22 19:33 | XMS_ITS | Encounter Summary ---
Author Organization [facility] Address [address] [facility] [place] [address] Care Team Providers Care Process Development Technician Name Role Phone Simon Nolen MD Primary Care Provider Baron Minor Primary Care Provider [phone] Reason for Visit * Reason Onset Date Comments Faxed Order 11/23/2021 order [id number] Encounter Details Date Type Department Care Team Description 11/23/2021 Telephone Adult Medicine [address] [address] Simon Nolen MD Faxed Order (order [id number]) Social History Tobacco Use Types Packs/Day Years [...] 11/23/2021 3:20 PM EDT Fax orders from [facility] [employer] [facility], please sign and fax back. order [id number] documented in this encounter Plan of Treatment Not on file documented as of this encounter Visit Diagnoses Not on filedocumented in this encounter Care Teams Process Development Technician Relationship Specialty Start Date End Date Simon Nolen MD PCP - General Internal Medicine 08/19/21 12/23/21 Baron Patrick [address] [place] [address] PCP - General Internal Medicine 12/24/21 documented as of this encounter
--- OUTSIDE RECORDS SUMMARY | 2024-11-22 19:33 | XMS_ITS | Encounter Summary ---
Author Organization [facility] Address [address] [place] [address] Care Team Providers Care Ranch Hand Supervisor Name Role Phone Rocky Whitlock MD Primary Care Provider John Younger DO Primary Care Provider Simon Adame MD Primary Care Provider Baron Minor Primary Care Provider [phone] Reason for Referral * EXTERNAL (Priority) - Authorized/Booked Specialty Diagnoses / Procedures Referred By Contac t Referred To Contact Infectious Disease Diagnoses HIV infection, unspecified symptom status (HCC) Procedures REFERRAL TO INFECTIOUS DISEASE Rocky Whitlock MD [address] [place] [id number] [address] Referral ID Status Reason Start Date Expiration Date V isits Requested Visits Authorized [id number] Authorized/B ooked 01/28/2021 04/30/2021 1 1 Reason for Visit * Reason Onset Date Comments Fisher Scallop Feedback 01/27/2021 infectious disea se Encounter Details Date Type Department Care Team Description 01/27/2021 Telephone Adult Medicine [address] [address] Rocky Whitlock MD Fisher Scallop Feedback (infectious disease) Social History Tobacco Use Types Packs/Day Years [...] encounter Miscellaneous Notes * Telephone Encounter - Rocky Whitlock MD - 01/28/2021 8:31 AM EDT Please forward this to the referral department or call them and make them aware, I could not forward them directly. Sent in referral for infectious disease. * Telephone Encounter - Jenelle Castillo - 01/27/2021 1:[address] Rocky Whitlock, You pended an order on 01/19/21 for Infectious Disease upon calling the office @ [facility] office. Provider is a PcP Cannot referral patient to this provider This practice is a Primary care facility. If you would like the patient to be seen @ [facility] Infectious Disease [address] please pend new order. Thank You, Jacqui Referrals Department documented in this encounter Plan of Treatment Not on file documented as of this encounter Visit Diagnoses Diagnosis HIV infection, unspecified symptom status (HCC)- Primary documented in this encounter Care Teams Ranch Hand Supervisor Relationship Specialty Start Date End Date Rocky Whitlock MD PCP - General Internal Medicine 01/13/21 02/17/21 John Crawford DO PCP - General Internal Medicine 02/18/21 1 Simon Nolen MD PCP - General Internal Medicine 08/19/21 12/23/21 Baron Patrick [address] [place] [address] PCP - General Internal Medicine 12/24/21 documented as of this encounter
--- OUTSIDE RECORDS SUMMARY | 2024-11-22 19:33 | XMS_ITS | Encounter Summary ---
Author Organization [facility] Address [address] [place] [address] Care Team Providers Care Perfect Binder Feeder Offbearer Name Role Phone Baron Patrick Primary Care Provider [phone] Encounter Details Date Type Department Care Team Description 04/09/2022 Home Health Certification Medical Records [address] [place] [address] Social History Tobacco Use Types Packs/Day Years [...] on filedocumented in this encounter Care Teams Perfect Binder Feeder Offbearer Relationship Specialty Start Date End Date Baron Patrick [address] [place] [address] PCP - General Internal Medicine 12/24/21 documented as of this encounter
--- OUTSIDE RECORDS SUMMARY | 2024-11-22 19:33 | XMS_ITS | Encounter Summary ---
Author Organization [facility] Address [address] [place] [address] Care Team Providers Care Flight Attendant Ramp Name Role Phone Venkatesh Able MD Primary Care Provider Rocky Ramirez MD Primary Care Provider John Younger DO Primary Care Provider Simon Adame MD Primary Care Provider Baron Minor Primary Care Provider Reason for Visit * Reason Onset Date Comments [facility] Call 04/30/2020 Encounter Details Date Type Department Care Team Description 04/30/2020 Telephone Adult Medicine [address] [address] Venkatesh Abel MD [facility] Call Social History [...] AM EDT Spoke with tanna from vna barry went over med list states needs refill for atarax order pended for your approval * Telephone Encounter - Lev Teddy - 04/30/2020 9:31 AM EDT [facility]NA CALL Which [facility] office is calling? [facility] Full name of caller: liza The caller is A nurse Is the caller at the patients home?: NO Reason for call: needs flucanisole sent to [facility] listed above and would like to go overmedications with the nurse Does caller need an urgent call back? NO Was CONTACT Telephone # obtained above?: YES Fax #: documented in this encounter Plan of Treatment Not on file documented as of this encounter Visit Diagnoses Not on filedocumented in this encounter Care Teams Flight Attendant Ramp Relationship Specialty Start Date End Date Venkatesh Abel MD PCP - General Internal Medicine 10/23/19 01/12/21 Rocky Whitlock MD PCP - General Internal Medicine 01/13/21 02/17/21 John Crawford DO PCP - General Internal Medicine 02/18/21 1 Simon Nolen MD PCP - General Internal Medicine 08/19/21 12/23/21 Baron Patrick [address] [place] [address] PCP - General Internal Medicine 12/24/21 documented as of this encounter
--- OUTSIDE RECORDS SUMMARY | 2024-11-22 19:33 | XMS_ITS | Encounter Summary ---
Author Organization [facility] Address [address] [facility] [place] [address] Care Team Providers Care Microstrategy Architect Name Role Phone Venkatesh Abel MD Primary Care Provider Rocky Ramirez MD Primary Care Provider John Younger DO Primary Care Provider Simon Adame MD Primary Care Provider Baron Minor Primary Care Provider [phone] Encounter Details Date Type Department Care Team Description 11/25/2020 Publishing Systems Analyst Report Medical Records [address] [place] [address] Peg Schmitz MD Social History Tobacco Use [...] on filedocumented in this encounter Care Teams Microstrategy Architect Relationship Specialty Start Date End Date Venkatesh Abel MD PCP - General Internal Medicine 10/23/19 01/12/21 Rocky Whitlock MD PCP - General Internal Medicine 01/13/21 02/17/21 John Crawford DO PCP - General Internal Medicine 02/18/21 1 Simon Nolen MD PCP - General Internal Medicine 08/19/21 12/23/21 Baron Patrick [address] [place] [address] PCP - General Internal Medicine 12/24/21 documented as of this encounter
--- OUTSIDE RECORDS SUMMARY | 2024-11-22 19:33 | XMS_ITS | Encounter Summary ---
Author Organization [facility] Address [address] [facility] [place] [address] Care Team Providers Care Auto Cleaner Name Role Phone Venkatesh Abel MD Primary Care Provider Rocky Ramirez MD [facility] Primary Care Provider Simon Adame MD Primary Care Provider Baron Minor Primary Care Provider [phone] Encounter Details Date Type Department Care Team Description 11/26/2020 [facility] Medical Records [address] [place] [address] Peg Schmitz MD Social History Tobacco Use [...] filedocumented in this encounter Care Teams Auto Cleaner Relationship Specialty Start Date End Date Venkatesh Abel MD PCP - General Internal Medicine 10/23/19 01/12/21 Rocky Whitlock MD PCP - General Internal Medicine 01/13/21 02/17/21 John Crawford DO PCP - General Internal Medicine 02/18/21 1 Simon Nolen MD PCP - General Internal Medicine 08/19/21 12/23/21 Baron Patrick [address] [place] [address] PCP - General Internal Medicine 12/24/21 documented as of this encounter
--- OUTSIDE RECORDS SUMMARY | 2024-11-22 19:33 | XMS_ITS | Encounter Summary ---
Author Organization [facility] Address [address] [place] [address] Care Team Providers Care Vp Account Director Name Role Phone Baron Patrick Primary Care Provider [phone] Reason for Visit * Reason Onset Date Comments Faxed Order 03/04/2023 Order number [id number] Encounter Details Date Type Department Care Team Description 03/04/2023 Telephone Adult Medicine [address] [address] Baron Patrick [address] [place] [address] Faxed Order (Order number [id number]) Social History Tobacco Use Types Packs/Day Years [...] 03/04/2023 10:23 AM EDT Faxed orders from [facility] Order number [id number], please sign, date and fax back to [phone] documented in this encounter Plan of Treatment Not on file documented as of this encounter Visit Diagnoses Not on filedocumented in this encounter Care Teams Vp Account Director Relationship Specialty Start Date End Date Baron Patrick [address] [place] [address] PCP - General Internal Medicine 12/24/21 documented as of this encounter
--- OUTSIDE RECORDS SUMMARY | 2024-11-22 19:33 | XMS_ITS | Encounter Summary ---
Author Organization [facility] Address [address] [place] [address] Care Team Providers Care Tugboat Captain Name Role Phone Simon Nolen MD Primary Care Provider Baron Minor Primary Care Provider [phone] Encounter Details Date Type Department Care Team Description 12/10/2021 Home Health Certification Medical Records [address] [place] [address] Social History Tobacco Use Types Packs/Day Years [...] on filedocumented in this encounter Care Teams Tugboat Captain Relationship Specialty Start Date End Date Simon Nolen MD PCP - General Internal Medicine 08/19/21 12/23/21 Baron Patrick [address] [place] [address] PCP - General Internal Medicine 12/24/21 documented as of this encounter
--- OUTSIDE RECORDS SUMMARY | 2024-11-22 19:33 | XMS_ITS | Encounter Summary ---
Author Organization [facility] Address [address] [facility] [place] [address] Care Team Providers Care Management Psychologist Name Role Phone Venkatesh Abel MD Primary Care Provider Rocky Ramirez MD Primary Care Provider John Younger DO Primary Care Provider Simon Adame MD Primary Care Provider Baron Minor Primary Care Provider [phone] Encounter Details Date Type Department Care Team Description 07/02/2020 Home Health Certification Medical Records [address] [place] [address] Social History Tobacco Use Types Packs/Day Years [...] on filedocumented in this encounter Care Teams Management Psychologist Relationship Specialty Start Date End Date Venkatesh Abel MD PCP - General Internal Medicine 10/23/19 01/12/21 Rocky Whitlock MD PCP - General Internal Medicine 01/13/21 02/17/21 John Crawford DO PCP - General Internal Medicine 02/18/21 Simon Christianson MD PCP - General Internal Medicine 08/19/21 12/23/21 Baron Patrick [address] [place] [address] PCP - General Internal Medicine 12/24/21 documented as of this encounter
--- OUTSIDE RECORDS SUMMARY | 2024-11-22 19:33 | XMS_ITS | Encounter Summary ---
Author Organization [facility] Address [address] [place] [address] Care Team Providers Care Barrel Inspector Tight Name Role Phone Baron Patrick Primary Care Provider [phone] Reason for Visit * Reason Onset Date Comments Faxed Order 06/03/2023 [facility] Order # [id number] Encounter Details Date Type Department Care Team Description 06/03/2023 Telephone Adult Medicine [address] [address] Baron Patrick [address] [place] [address] [phone] Faxed Order ([facility] Order # [id number]) Social History Tobacco Use Types Packs/Day Years [...] Jill Mendoza - 06/03/2023 2:13 PM EDT [facility] Order # [id number] documented in this encounter Plan of Treatment Not on file documented as of this encounter Visit Diagnoses Not on filedocumented in this encounter Care Teams Barrel Inspector Tight Relationship Specialty Start Date End Date Baron Patrick [address] [place] [address] PCP - General Internal Medicine 12/24/21 documented as of this encounter
--- OUTSIDE RECORDS SUMMARY | 2024-11-22 19:33 | XMS_ITS | Encounter Summary ---
Author Organization [facility] Address [address] [facility] [place] [address] Care Team Providers Care Assistant Professor Of Economics Name Role Phone John Crawford DO Primary Care Provider Simon Adame MD Primary Care Provider Baron Minor Primary Care Provider [phone] Encounter Details Date Type Department Care Team Description 02/24/2021 Home Health Certification Medical Records [address] [place] [address] Social History Tobacco Use Types Packs/Day Years [...] this encounter Care Teams Assistant Professor Of Economics Relationship Specialty Start Date End Date John Crawford DO PCP - General Internal Medicine 02/18/21 1 Simon Nolen MD PCP - General Internal Medicine 08/19/21 12/23/21 Baron Patrick [address] [place], [place] [phone] PCP - General Internal Medicine 12/24/21 documented as of this encounter
--- OUTSIDE RECORDS SUMMARY | 2024-11-22 19:33 | XMS_ITS | Encounter Summary ---
Author Organization [facility] Address [address] [facility] [place] [address] Care Team Providers Care Criminal Justice Lawyer Name Role Phone Baron PatrickTerrence Primary Care Provider [phone] Reason for Visit * Reason Onset Date Comments refill request 03/19/2022 Encounter Details Date Type Department Care Team Description 03/19/2022 Refill Gastroenterology - [address] [place] [phone] Charly Pedro PA-C refill request Social History Tobacco Use Types Packs/Day Years [...] encounter Miscellaneous Notes * Telephone Encounter - Lucía Clifton - 03/19/2022 12:02 PM EDT ANTONI 04/20/21 NOV 06/02/22 * Telephone Encounter - Dhara Pool - 03/19/2022 10:45 AM EDT ANTONI 04/20/21 NOV 06/02/22 QTY #30 documented in this encounter Plan of Treatment Not on file documented as of this encounter Visit Diagnoses Not on filedocumented in this encounter Care Teams Criminal Justice Lawyer Relationship Specialty Start Date End Date Baron Patrick [address] [place] [address] PCP - General Internal Medicine 12/24/21 documented as of this encounter
--- OUTSIDE RECORDS SUMMARY | 2024-11-22 19:33 | XMS_ITS | Encounter Summary ---
Author Organization [facility] Address [address] [place] [address] Care Team Providers Care Syruper Name Role Phone Baron Patrick Primary Care Provider [phone] Encounter Details Date Type Department Care Team Description 05/18/2024 Refill Adult Medicine [address] [address] Baron Patrick [address] [place] [address] Social History Tobacco Use Types Packs/Day Years [...] pain and it worked well. [id number] [place] - [address] [place] [address] [facility] Medication renewals requested in this message routed separately: ammonium lactate (AMLACTIN) 12 % cream [Radha Patrick] documented in this encounter Plan of Treatment Not on file documented as of this encounter Visit Diagnoses Not on filedocumented in this encounter Care Teams Syruper Relationship Specialty Start Date End Date Baron Patrick [address] [place] [address] PCP - General Internal Medicine 12/24/21 documented as of this encounter
--- OUTSIDE RECORDS SUMMARY | 2024-11-22 19:33 | XMS_ITS | Clinical Summary ---
Author Organization [facility] Address [address] [facility] [place] [address] Care Team Providers Care Applications Programmer Name Role Phone Baron Patrick Primary Care Provider [phone] Allergies Active Allergy Reactions Severity Noted Date [...] 3 Diabetes Father CAD Maternal Grandmother s/p IN Diabetes Mother Hypertension Mother fatty liver Mother [...] 07/11/2015, 05/01/2009, Additional history exists Care Teams Applications Programmer Relationship Specialty Start Date End Date Baron Patrick [address] [place] [address] PCP - General Internal Medicine 12/24/21
--- OUTSIDE RECORDS SUMMARY | 2024-11-22 19:33 | XMS_ITS | Encounter Summary ---
Author Organization [facility] Address [address] [place] [address] Care Team Providers Care Paralegal Legal Secretary Name Role Phone Baron Patrick Primary Care Provider Reason for Visit * Reason Onset Date Comments VNA Call 04/06/2023 Encounter Details Date Type Department Care Team Description 04/06/2023 Telephone Adult Medicine [address] [address] Baron Patrick [address] [place] [address] [phone] [facility]NA Call Social History Tobacco Use Types [...] * Telephone Encounter - Ander MaysP.N. - 04/07/2023 1:15 PM EDT Left VO on (+ID) CHRISTIN us * Telephone Encounter - Ander Bobo L.P.N. - 04/07/2023 11:28 AM EDT 2 nd request for VO to restart services in 3 weeks for med management Please review and advise * Telephone Encounter - Ander Jeramie L.P.N. - 04/06/2023 3:21 PM EDT Lab faxed [id number] Confirmation received [facility] will be restarting services in 3 weeks for med management VO needed Please review and advise * Telephone Encounter - Joanne Abarca - 04/06/2023 3:04 PM EDT VNA also asking for labs results from 03/22/2023. * Telephone Encounter - Joanne Abarca - 04/06/2023 2:59 PM EDT [facility]NA CALL Which [facility]NA office is calling? [facility] Full name of caller: Matilda The caller is A nurse Is the caller at the patients home?: NO Reason for call: Restaring medication management x3 a week. Does caller need an urgent call back? NO Was CONTACT Telephone # obtained above?: YES Fax #: documented in this encounter Plan of Treatment Not on file documented as of this encounter Visit Diagnoses Not on filedocumented in this encounter Care Teams Paralegal Legal Secretary Relationship Specialty Start Date End Date Baron Patrick [address] [place] [address] PCP - General Internal Medicine 12/24/21 documented as of this encounter
--- OUTSIDE RECORDS SUMMARY | 2024-11-22 19:33 | XMS_ITS | Encounter Summary ---
Author Organization [facility] Address [address] [place] [address] Care Team Providers Care Garbage Collector Supervisor Name Role Phone John Crawford DO Primary Care Provider Simon Adame MD Primary Care Provider Baron Minor Primary Care Provider [phone] Reason for Visit * Reason Onset Date Comments Faxed Order 02/19/2021 [facility] Encounter Details Date Type Department Care Team Description 02/19/2021 Telephone OBGYN - [place] [address] [place] [address] Lupillo Rowe MD [address] [place], [place] [phone] Faxed Order ([facility]) Social History Tobacco Use Types Packs/Day Years [...] have Coronavirus / COVID-19? No / Unsure 02/11/2021 2:21 PM EDT documented as of this encounter Miscellaneous Notes * Telephone Encounter - Jamia Hernández - 02/19/2021 4:55 PM EDT Faxed order received from [facility] Please sign, date and fax back to [phone] Rowe's bin at front end assistant documented in this encounter Plan of Treatment Not on file documented as of this encounter Visit Diagnoses Not on filedocumented in this encounter Care Teams Garbage Collector Supervisor Relationship Specialty Start Date End Date John Crawford DO PCP - General Internal Medicine 02/18/21 1 Simon Nolen MD PCP - General Internal Medicine 08/19/21 12/23/21 Baron Patrick [address] [place] [address] PCP - General Internal Medicine 12/24/21 documented as of this encounter
--- OUTSIDE RECORDS SUMMARY | 2024-11-22 19:33 | XMS_ITS | Encounter Summary ---
Author Organization [facility] Address [address] [facility] [place] [address] Care Team Providers Care Marine Electrician Name Role Phone Venkatesh Abel MD Primary Care Provider Rocky Ramirez MD Primary Care Provider John Younger DO Primary Care Provider Simon Adame MD Primary Care Provider Baron Minor Primary Care Provider [phone] Encounter Details Date Type Department Care Team Description 04/30/2020 Release of Information Medical Records [address] [place] [address] Abstract, Provider Social History Tobacco Use Types [...] filedocumented in this encounter Care Teams Marine Electrician Relationship Specialty Start Date End Date Venkatesh Abel MD PCP - General Internal Medicine 10/23/19 01/12/21 Rocky Whitlock MD PCP - General Internal Medicine 01/13/21 02/17/21 John Crawford DO PCP - General Internal Medicine 02/18/21 1 Simon Nolen MD PCP - General Internal Medicine 08/19/21 12/23/21 Baron Patrick [address] [place] [address] PCP - General Internal Medicine 12/24/21 documented as of this encounter
--- OUTSIDE RECORDS SUMMARY | 2024-11-22 19:33 | XMS_ITS | Encounter Summary ---
Author Organization [facility] Address [address] [place] [address] Care Team Providers Care Assistant Merchandiser Name Role Phone Rocky Whitlock MD Primary Care Provider John Younger DO Primary Care Provider Simon Adame MD Primary Care Provider Baron Minor Primary Care Provider [phone] Encounter Details Date Type Department Care Team Description 02/05/2021 Scooper Report Medical Records [address] [place] [address] Migdalia Pittman PA-C Social History Tobacco Use Types Packs/Day [...] filedocumented in this encounter Care Teams Assistant Merchandiser Relationship Specialty Start Date End Date Rocky Whitlock MD PCP - General Internal Medicine 01/13/21 02/17/21 John Crawford DO PCP - General Internal Medicine 02/18/21 1 Simon Nolen MD PCP - General Internal Medicine 08/19/21 12/23/21 Baron Patrick [address] [place] [address] PCP - General Internal Medicine 12/24/21 documented as of this encounter
--- OUTSIDE RECORDS SUMMARY | 2024-11-22 19:33 | XMS_ITS | Encounter Summary ---
Author Organization [employer] [facility] Address [address] [place] [address] Care Team Providers Care Casework Supervisor Name Role Phone John rCawford DO Primary Care Provider Simon Adame MD Primary Care Provider Baron Minor Primary Care Provider [phone] Encounter Details Date Type Department Care Team Description 03/24/2021 Plier Worker Report Medical Records [address] [place] [address] Abstract, Provider Social History Tobacco Use Types [...] on filedocumented in this encounter Care Teams Casework Supervisor Relationship Specialty Start Date End Date John Crawford DO PCP - General Internal Medicine 02/18/21 1 Simon Nolen MD PCP - General Internal Medicine 08/19/21 12/23/21 Baron Patrick [address] [place], [place] [phone] PCP - General Internal Medicine 12/24/21 documented as of this encounter
--- OUTSIDE RECORDS SUMMARY | 2024-11-22 19:33 | XMS_ITS | Encounter Summary ---
Author Organization [facility] Address [address] [place] [address] Care Team Providers Care Hand Marker Name Role Phone Baron Patrick Primary Care Provider [phone] Reason for Visit * Reason Onset Date Comments Faxed Order 2023 Order number [id number] Encounter Details Date Type Department Care Team Description 2023 Telephone Adult Medicine [address] [address] Baron Patrick [address] [place] [phone] Faxed Order (Order number [id number]) Social History Tobacco Use Types Packs/Day Years [...] * Telephone Encounter - Raudel Santana - 2023 11:36 AM EDT Faxed orders from [facility] Order number [id number], please sign, date and fax back to [phone] documented in this encounter Plan of Treatment Not on file documented as of this encounter Visit Diagnoses Not on filedocumented in this encounter Care Teams Hand Marker Relationship Specialty Start Date End Date Baron Patrick [address] [place] [address] PCP - General Internal Medicine 12/24/21 documented as of this encounter
--- OUTSIDE RECORDS SUMMARY | 2024-11-22 19:33 | XMS_ITS | Encounter Summary ---
Author Organization [facility] Address [address] [place] [address] Care Team Providers Care Flooring Grader Name Role Phone John Crawford DO Primary Care Provider Simon Adame MD Primary Care Provider Baron Minor Primary Care Provider [phone] Reason for Visit * Reason Onset Date Comments Medication 02/20/2021 Encounter Details Date Type Department Care Team Description 02/20/2021 Refill Gastroenterology - [address] [place] [address] Trace Radford MD [address] [place] [address] Medication Social History Tobacco Use Types Packs/Day Years [...] on filedocumented in this encounter Care Teams Flooring Grader Relationship Specialty Start Date End Date John Crawford DO PCP - General Internal Medicine 02/18/21 1 Simon Nolen MD PCP - General Internal Medicine 08/19/21 12/23/21 Baron Patrick [address] [place] [address] PCP - General Internal Medicine 12/24/21 documented as of this encounter
--- OUTSIDE RECORDS SUMMARY | 2024-11-22 19:34 | XMS_ITS | Encounter Summary ---
Author Organization [facility] [facility] Address [address] [facility] [place] [address] Care Team Providers Care Assistant Professor Of Forestry Name Role Phone Baron Patrick Primary Care Provider [phone] Encounter Details Date Type Department Care Team Description 01/31/2024 Home Health Certification Medical Records [address] [place] [address] Vna Social History Tobacco Use Types Packs/Day [...] this encounter Care Teams Assistant Professor Of Forestry Relationship Specialty Start Date End Date Baron Patrick [address] [place] [address] PCP - General Internal Medicine 12/24/21 documented as of this encounter
--- OUTSIDE RECORDS SUMMARY | 2024-11-22 19:34 | XMS_ITS | Encounter Summary ---
Author Organization [facility] Address [address] [place] [address] Care Team Providers Care Restorative Rehab Aide Name Role Phone Baron Patrick Primary Care Provider [phone] Encounter Details Date Type Department Care Team Description 09/27/2023 Telephone Adult Medicine [address] [address] Baron Patrick [address] [place] [address] Social History Tobacco Use Types Packs/Day Years [...] Miscellaneous Notes * Telephone Encounter - Ander Viramontes.P.N. - 09/28/2023 9:11 AM EST See FYI from [facility]NA * Telephone Encounter - Brittney Ashanti - 09/27/2023 3:28 PM EST VNA CALL Which [facility] office is calling? [facility] Full name of caller: KANG The caller is A nurse Is the caller at the patients home?: NO Reason for call: Patient is planning to be [place] in the [place] from 10/02/23-10/10/23. Will pre-package meds for patient. Next visit 10/12/23. Does caller need an urgent call back? NO Was CONTACT Telephone # obtained above?: YES Fax #: documented in this encounter Plan of Treatment Not on file documented as of this encounter Visit Diagnoses Not on filedocumented in this encounter Care Teams Restorative Rehab Aide Relationship Specialty Start Date End Date Baron Patrick [address] [place] [address] PCP - General Internal Medicine 12/24/21 documented as of this encounter
--- OUTSIDE RECORDS SUMMARY | 2024-11-22 19:34 | XMS_ITS | Encounter Summary ---
Author Organization [facility] Address [address] [place] [address] Care Team Providers Care Enterprise Data Architect Name Role Phone Baron Patrick Primary Care Provider [phone] Reason for Visit * Reason Onset Date Comments Faxed Order 04/21/2022 Order #[id number] Encounter Details Date Type Department Care Team Description 04/21/2022 Telephone Adult Medicine [address] [address] Baron Patrick [address] [place] [address] Faxed Order (Order #[id number]) Social History Tobacco Use Types Packs/Day Years [...] Faxed order from [facility]. Order #[id number]. Please sign, date, and fax back. documented in this encounter Plan of Treatment Not on file documented as of this encounter Visit Diagnoses Not on filedocumented in this encounter Care Teams Enterprise Data Architect Relationship Specialty Start Date End Date Baron Patrick [address] [place] [address] PCP - General Internal Medicine 12/24/21 documented as of this encounter
--- OUTSIDE RECORDS SUMMARY | 2024-11-22 19:34 | XMS_ITS | Encounter Summary ---
Author Organization [facility] Address [address] [facility] [place] [address] Care Team Providers Care Crab Catcher Name Role Phone Baron Patrick Primary Care Provider [phone] Reason for Visit * Reason Comments E-prescribe Rx Request Encounter Details Date Type Department Care Team Description 10/26/2023 Refill Pulmonology - [place] [address] [phone] Annmarie Pham, NOXIOUS WEEDS AND PEST INSPECTOR [address] [phone] E-prescribe Rx Request Social History [...] asthma documented in this encounter Care Teams Crab Catcher Relationship Specialty Start Date End Date Baron Patrick [address] [place] [address] PCP - General Internal Medicine 12/24/21 documented as of this encounter
--- OUTSIDE RECORDS SUMMARY | 2024-11-22 19:34 | XMS_ITS | Encounter Summary ---
Author Organization [employer] [facility] Address [address] [facility] [place] [address] Care Team Providers Care Sales And Customer Relations Rep Name Role Phone Baron PatrickTerrence Primary Care Provider [phone] Reason for Visit * Reason Comments E-prescribe Rx Request Encounter Details Date Type Department Care Team Description 04/15/2022 Refill Adult Medicine [address] [address] Simon Nolen MD E-prescribe Rx Request Social [...] ?? Patients current insurance carrier is: Payor: [employer] [facility] M[facility] / Plan: [facility] / Product Type: HMO [id number] ? documented in this encounter Plan of Treatment Not on file documented as of this encounter Visit Diagnoses Not on filedocumented in this encounter Care Teams Sales And Customer Relations Rep Relationship Specialty Start Date End Date Baron Patrick [address] [place] [address] PCP - General Internal Medicine 12/24/21 documented as of this encounter
--- OUTSIDE RECORDS SUMMARY | 2024-11-22 19:34 | XMS_ITS | Encounter Summary ---
Author Organization [facility] Address [address] [facility] [place] [address] Care Team Providers Care Sock Knitter Name Role Phone Baron Patrick Primary Care Provider [phone] Reason for Visit * Reason Comments E-prescribe Rx Request Encounter Details Date Type Department Care Team Description 09/14/2022 Refill Gastroenterology - [address] [place] [phone] Charly Pedro PA-C E-prescribe Rx Request Social [...] on filedocumented in this encounter Care Teams Sock Knitter Relationship Specialty Start Date End Date Baron Patrick [address] [place] [address] PCP - General Internal Medicine 12/24/21 documented as of this encounter
--- OUTSIDE RECORDS SUMMARY | 2024-11-22 19:34 | XMS_ITS | Encounter Summary ---
Author Organization [facility] Address [address] [facility] [place] [address] Care Team Providers Care Benzol Operator Name Role Phone Baron Patrick Primary Care Provider [phone] Reason for Visit * Reason Onset Date Comments Faxed Order 09/28/2023 [facility] [id number] Encounter Details Date Type Department Care Team Description 09/28/2023 Telephone Adult Medicine [address] [address] Baron Patrick [address] [place] [phone] Faxed Order ([facility] [id number]) Social History Tobacco Use Types Packs/Day Years [...] on filedocumented in this encounter Care Teams Benzol Operator Relationship Specialty Start Date End Date Baron Patrick [address] [place] [address] PCP - General Internal Medicine 12/24/21 documented as of this encounter
--- OUTSIDE RECORDS SUMMARY | 2024-11-22 19:34 | XMS_ITS | Encounter Summary ---
Author Organization [employer] [facility] Address [address] [place] [address] Care Team Providers Care Blocking Machine Operator Name Role Phone Baron Patrick Primary Care Provider [phone] Encounter Details Date Type Department Care Team Description 08/07/2022 Home Health Certification Medical Records [address] [place] [address] Baron Patrick [address] [place] [address] Social History Tobacco Use Types Packs/Day Years [...] on filedocumented in this encounter Care Teams Blocking Machine Operator Relationship Specialty Start Date End Date Baron Patrick [address] [place] [address] PCP - General Internal Medicine 12/24/21 documented as of this encounter
--- OUTSIDE RECORDS SUMMARY | 2024-11-22 19:34 | XMS_ITS | Encounter Summary ---
Author Organization [facility] Address [address] [place] [address] Care Team Providers Care As400 Developer Name Role Phone Baron Patrick MD Primary Care Provider [phone] Reason for Visit * Reason Onset Date Comments faxed order 10/26/2024 Faxed order rece ived from [facility] [id number] please sign and fax to [phone] Encounter Details Date Type Department Care Team (Late Contact Info) Description 10/26/2024 Telephone Adult [address] [address] Baron Patrick MD [address] [place] [address] faxed order (Faxed order received from [facility] [id number] please sign and fax to [phone]/) Social History Tobacco Use Types Packs/Day Years [...] Department Care Team (Late Contact Info) Description 01/03/2025 9:00 AM EDT Office Visit Adult Medicine [address] [phone] Baron Patrick MD [address] [place] [address] 01/09/2025 1:30 PM EDT Office Visit Obstetrics and Gynecology - [address] [phone] Libby Cornejo MD [address] [place] [address] 01/15/2025 10:10 AM EDT Office Visit Pulmonolgy - [place] [address] [phone] Annmarie Pham NP [address] [address] 05/14/2025 4:00 PM EDT Office Visit Adult Medicine [place] - [address] [phone] Chrissy Nguyen PA [address] [place] [address] documented as of this encounter Visit Diagnoses Not on filedocumented in this encounter Care Teams As400 Developer Relationship Specialty Start Date End Date Baron Patrick MD [address] [place] [address] PCP - General Internal Medicine 12/24/21 documented as of this encounter
--- OUTSIDE RECORDS SUMMARY | 2024-11-22 19:34 | XMS_ITS | Encounter Summary ---
Author Organization [facility] Address [address] [facility] [place] [address] Care Team Providers Care Quarter Folder Name Role Phone Baron Patrick Primary Care Provider [phone] Encounter Details Date Type Department Care Team Description 01/12/2024 High Speed Operator Report Medical Records [address] [place] [address] Melina Allred, DENO Social History Tobacco Use Types Packs/Day Years [...] on filedocumented in this encounter Care Teams Quarter Folder Relationship Specialty Start Date End Date Baron Patrick [address] [place] [address] PCP - General Internal Medicine 12/24/21 documented as of this encounter
--- OUTSIDE RECORDS SUMMARY | 2024-11-22 19:34 | XMS_ITS | Encounter Summary ---
Author Organization [facility] Address [address] [place] [address] Care Team Providers Care Coconut Cooker Name Role Phone Baron Patrick Primary Care Provider [phone] Reason for Visit * Reason Onset Date Comments Faxed Order 12/05/2023 Encounter Details Date Type Department Care Team Description 12/05/2023 Telephone Adult Medicine [address] [address] Baron Patrick [address] [place] [address] [phone] Faxed Order Social History Tobacco Use Types [...] 9:14 AM EDT Faxed orders received from [facility] [id number] and placed in providers box. documented in this encounter Plan of Treatment Not on file documented as of this encounter Visit Diagnoses Not on filedocumented in this encounter Care Teams Coconut Cooker Relationship Specialty Start Date End Date Baron Patrick [address] [place] [address] PCP - General Internal Medicine 12/24/21 documented as of this encounter
--- OUTSIDE RECORDS SUMMARY | 2024-11-22 19:34 | XMS_ITS | Encounter Summary ---
Author Organization [facility] Address [address] [place] [address] Care Team Providers Care Impregnator And Drier Name Role Phone Baron Patrick Primary Care Provider [phone] Reason for Visit * Reason Onset Date Comments Faxed Order 12/16/2023 Encounter Details Date Type Department Care Team Description 12/16/2023 Telephone Adult Medicine [address] [address] Baron Patrick [address] [place], [place] [phone] Faxed Order Social History Tobacco Use Types [...] * Telephone Encounter - Jamia Bowens - 12/16/2023 1:57 PM EDT Faxed order received from [facility] [id number] placed in providers box. documented in this encounter Plan of Treatment Not on file documented as of this encounter Visit Diagnoses Not on filedocumented in this encounter Care Teams Impregnator And Drier Relationship Specialty Start Date End Date Baron Patrick [address] [place] [address] PCP - General Internal Medicine 12/24/21 documented as of this encounter
--- OUTSIDE RECORDS SUMMARY | 2024-11-22 19:34 | XMS_ITS | Encounter Summary ---
Author Organization [facility] Address [address] [facility] [place] [address] Care Team Providers Care Armature Rewinder Name Role Phone John Crawford DO Primary Care Provider Simon Adame MD Primary Care Provider Baron Minor Primary Care Provider [phone] Reason for Visit * Reason Onset Date Comments medication problems 04/20/2021 Encounter Details Date Type Department Care Team Description 04/20/2021 Telephone Gastroenterology - [address] [place] [address] Charly Pedro PA-C medication problems [...] - 04/22/2021 11:01 AM EDT Approval for kSARIA 145g capsules. Approved from 04/22/2021-04/22/2022. [facility] notified by fax. * Telephone Encounter - Adrianne Verdugo M.A. - 04/22/2021 9:00 AM EDT Dx code:Chronic ideopathic constipation Prior authorization done with Floridalma by phone from [facility] for Linzess 145mcg and marked URGENT. 24hour decision. * Telephone Encounter - Pamela Davis M.A. - 04/21/2021 3:59 PM EDT Please advise * Telephone Encounter - Erik Priest - 04/21/2021 2:57 PM EDT Pharmacy calling in [facility] is not covered Asking for pa or another mediation Please advise Any questions call [phone] * Telephone Encounter - Charly Pedro PA-C [...] on filedocumented in this encounter Care Teams Armature Rewinder Relationship Specialty Start Date End Date John Crawford DO PCP - General Internal Medicine 02/18/21 1 Simon Nolen MD PCP - General Internal Medicine 08/19/21 12/23/21 Baron Patrick [address] [place] [address] PCP - General Internal Medicine 12/24/21 documented as of this encounter
--- OUTSIDE RECORDS SUMMARY | 2024-11-22 19:34 | XMS_ITS | Data Portability ---
Author Organization [facility] Address [address] [place] [phone] Care Team Providers Care Lock Operator Name Role Phone HIM [facility] OTHER Assessment Encounter Date Assessment Date Assessment LastModified by Organization Details LastModified Time 09/13/2023 09/13/2023 I provided real -time medical direction via phone for this encounter, and was available for additional phone based assistance as needed. I have reviewed and agree with the Assessment and Plan as documented by the Casting Inspector. Patient given the opportunity to ask questions. Advised if develops CP/severe SOB/turning blue/uncontrolle d n/v/d / AMS/ syncope/ hi fever / any focal neuro c/o: visual changes/speech changes/severe dizziness/focal weakness or new numbness to call 911- verbalized understanding of instructions [email or web address] Not available 09/13/2023 22:35:01 04/16/2024 04/16/2024 49 [...] instead for sleep. Reviewed red flags s/sxs. [email or web address] Not available 04/16/2024 21:02:08 09/06/2024 09/06/2024 As noted, we were called to see this patient regarding concerns of infectious sxs. Evaluation in the field was performed by my copier operator colleague, as noted above, I provided real-time [...] 2 Ag, QL IA, respiratory specimen [address], [phone], 4 07:56:00 rapid flu (A+B) 2023 [facility], [address] [place] [address], [phone], 4 07:56:20 Referral None recorded. Procedures None recorded. Surgeries None recorded. Imaging None recorded. Medication Orders Paxlovid 300 mg (150 mg x 2)-100 mg tablets in a dose pack 2023 [id number], [address] [place] [address], [id number], 21:04:47 Patient TargetsNo targets recorded. Patient InstructionsNo [...] Not available Not available Not available 07/10/2024 [id number] RxNorm Not Available [facility] - production [...] 4 80 /min 98 % 98 % 26732.4 g 14 /min 167.64 cm 98.1 [degF] 147 mm[Hg] 84 mm[Hg] Not Available [facility] - production 4 14:26:35 Date Recorded Oxygen [...] Updated DateTime 4 16 /min 94 /min 333923. 12 g 99.3 [degF] 97 % 97 [...] SNOMED-CT Code Diagnosis ICD10 Code Diagnosis Note [id number] Rula Garcia MD [facility] [address] [place] [phone] 09/13/2023 14:26:27 09/14/2023 14:23:58 Essential hypertension 84241314 I10 continue regular meds as prescribed - until sees pcp in Two days- pat declined an EKG per the medic [id number] DACIA TORIBIO MD [facility] - [facility] [address] [place] [phone] 04/16/2024 20:20:02 04/17/2024 11:04:07 COVID-19 382614365 U07.1 07208 Ruma Harrison MD [facility] [address] [place] [phone] 09/06/2024 17:43:01 09/07/2024 12:23:47 Viral syndrome 615843227 B34.9 Health Concerns Section Related Observation LastModified by Organization Detai ls LastModified Time None Recorded Concern Status LastModified by Organization Details LastModified Time None Recorded Advance Directives Directive None Recorded Payers Encounter Date Sequence Insurance Name Policy Number Policy Coley Covered Member ID Coley Member ID Guarantor Name 09/13/2023 1 [facility] - DOS ON OR AFTER 2022 - DUAL ELIGIBLE - [facility] OPTIONS AND ONE CARE (MEDICARE REPLACEMENT/ADV ANTAGE - HMO) Jhoana De La Garza [id number] Jhoana De La Garza 04/16/2024 1 [facility] - DOS ON OR AFTER 2022 - DUAL ELIGIBLE - [facility] OPTIONS AND ONE CARE (MEDICARE REPLACEMENT/ADV ANTAGE - HMO) Jhoana Frederic [id number] Jhoana Garcia De La Garza 09/06/2024 1 [facility] - DOS ON OR AFTER 2022 - DUAL ELIGIBLE - [facility] OPTIONS AND ONE CARE (MEDICARE REPLACEMENT/ADV ANTAGE - HMO) Jhoana Frederic [id number] Jhoana Garcia De La Garza Notes Date [...] EKG ........................ ........................ ........................ ........................ ........................ ..................... Casting Inspector Note From Iain Moore: PT caox3 answers door with a steady gait. Pt reports her BP was high earlier for the [facility]NA, 160/80. Pt denies complaints. Pt reports [facility] was able to help her make an appointment with her PCP two days from now. Pt VS checked. Pt refused ECG, states she feels fine. [facility] advises pt to attend PCP appointment. Red flags and pt education discussed. ........................ ........................ ........................ ........................ ........................ ..................... Disposition: Fulfilled Rula Garcia MD [address] [facility],[address], [place], [address], [facility] 09/13/2023 22:35:49 4 text/html HPI: 1:44pm ? [...] other symptoms. GAGE is ill-sounding to this proposal lead writer. She has nasal congestion and can [...] do so. GAGE can be reached at [phone]. ........................ ........................ ........................ ........................ ........................ ..................... CRC Nurse Triage Notes (Fabiana Gimenez): Chief Complaints: Cough, ENT, Headache, URI PMH: Hypertension, HIV Allergies: Egg, Prednisone Other Allergies: Prednisone, eggs Comments: CRC RN did not require any additional information to process this visit. Casting Inspector Organization Information for Nikolay Garibay [employer] Legal Name: [employer]? Address: [address] [place] [address] [employer] Agent Team Member: Ej Ayala MD [facility] No.: [id number] Casting Inspector POC Test Results from Nikolay Garibay Rapid COVID antigen (20:17:49) COVID: + Rapid influenza antigen (20:18:06) Flu: - DACIA TORIBIO MD [address] [place] [address],[address], [place], [address], Companion Canine - Straight Up English 04/16/2024 21:02:16 4 text/html HPI: Member phoned in requesting a home visit. Member states 2 days ago she developed body aches, headache, throat pain, chills. Member does not have a thermometer. Member continues having these symptoms. Member has poor appetite. Member has been voiding. LBM today. Member denies any further symptoms. Zelgor request submitted. Member aware and in agreement. ........................ ........................ ........................ ........................ ........................ ..................... CRC Nurse Triage Notes (Fabiana Gimenez - RN): Chief Complaints: Fever/chills, Headache, Nausea, Sore throat PMH: Hypertension, HIV/AIDS Comments: CRC RN did not require any additional information to process this visit. ........................ ........................ ........................ ........................ ........................ ..................... Casting Inspector Note From Malvin Montgomery: Pt co cough [...] ER. ........................ ........................ ........................ ........................ ........................ ..................... [facility] Consulted: Ruma Harrison ........................ ........................ ........................ ........................ ........................ ..................... Disposition: Fulfilled Ruma Harrison MD [address] [place] [address],[address], [place], [address], FAREED FLORIAN 09/06/2024 18:15:34 OBGyn Episode No OBEpisode recorded.
--- OUTSIDE RECORDS SUMMARY | 2024-11-22 19:34 | XMS_ITS | Encounter Summary ---
Author Organization [email or web address] Address [address] [place] [address] Care Team Providers Care Websphere Message Broker Developer Name Role Phone John Crawford DO Primary Care Provider Simon Adame MD Primary Care Provider Baron Minor Primary Care Provider [phone] Reason for Visit * Reason Onset Date Comments Faxed Order 06/17/2021 [id number] Encounter Details Date Type Department Care Team Description 06/17/2021 Telephone Adult Medicine [address] [address] John Crawford DO Faxed Order ([id number]) Social History Tobacco Use Types Packs/Day Years [...] on filedocumented in this encounter Care Teams Websphere Message Broker Developer Relationship Specialty Start Date End Date Crawford, John, DO PCP - General Internal Medicine 02/18/21 1 Simon Nolen MD PCP - General Internal Medicine 08/19/21 12/23/21 Baron Patrick [address] [place] [address] PCP - General Internal Medicine 12/24/21 documented as of this encounter
--- OUTSIDE RECORDS SUMMARY | 2024-11-22 19:34 | XMS_ITS | Encounter Summary ---
Author Organization [facility] Address [address] [place] [address] Care Team Providers Care Treasury Specialist Name Role Phone Baron Patrick Primary Care Provider [phone] Encounter Details Date Type Department Care Team Description 08/04/2023 Home Health Certification Medical Records [address] [place] [address] Abstract, Provider Social History Tobacco Use Types [...] on filedocumented in this encounter Care Teams Treasury Specialist Relationship Specialty Start Date End Date Baron Patrick [address] [place] [address] PCP - General Internal Medicine 12/24/21 documented as of this encounter
--- OUTSIDE RECORDS SUMMARY | 2024-11-22 19:34 | XMS_ITS | Encounter Summary ---
Author Organization [employer] Address [address] [place] [address] Care Team Providers Care Key Operator Name Role Phone Baron Patrick MD Primary Care Provider [phone] Reason for Visit * Reason Onset Date Comments Fitting for DME 10/29/2024 Faxed form from [facility] Encounter Details Date Type Department Care Team ([facility] st Contact Info) Description 10/29/2024 Telephone Adult Medicine [address] [place] [phone] Morena Reed LPN Fitting for DME (Faxed form from [facility] /) Social History Tobacco Use Types Packs/Day Years [...] Progress Notes * Morena Reed LPN - 10/30/2024 1:22 PM EST Called [facility] to get the eval faxed to me Was told cannot fax me the note due to Hippa The pt was given the recommendation on by forestdale The pt will need to bring this to [facility] herself as she was handed it @ time of her appt Called [facility] to let them know this Left message on voice to have her call pt Form signed and faxed back to [facility] @ [phone] * Morena Reed LPN - 10/29/2024 10:53 AM EST They need the pt eval for the lift chair recliner The pt eval was done through [facility] Called [facility] for the notes to be faxed to me spoke to Ashlyn and she needs to send a note to her carepartner to get the eval documented in this encounter Plan of Treatment Upcoming Encounters Date Type Department Care Team (Late st Contact Info) Description 01/03/2025 9:00 AM EDT Office Visit [address] [phone] Baron Patrick MD [address] [place] [address] 01/09/2025 1:30 PM EDT Office Visit Obstetrics and Gynecology - [address] [phone] Libby Cornejo MD [address] [place] [address] 01/15/2025 10:10 AM EDT Office Visit Pulmonolgy - [place] [address] [phone] Annmarie Pham NP [address] [address] 05/14/2025 4:00 PM EDT Office Visit [address] [phone] Chrissy Nguyen PA [address] [place] [address] documented as of this encounter Visit Diagnoses Not on filedocumented in this encounter Care Teams Key Operator Relationship Specialty Start Date End Date Baron Patrick MD [address] [place] [address] PCP - General Internal Medicine 12/24/21 documented as of this encounter
--- OUTSIDE RECORDS SUMMARY | 2024-11-22 19:34 | XMS_ITS | Encounter Summary ---
Author Organization [facility] Address [address] [place] [address] Care Team Providers Care Corduroy Brusher Operator Name Role Phone Baron Patrick MD Primary Care Provider [phone] Reason for Visit * Reason Comments Asthma Med Refill Encounter Details Date Type Department Care Team (Late st Contact Info) Description 11/12/2024 3:40 PM EST Office Visit Pulmonol - [place] [address] [place] [id number] Annmarie Pham NP [address] [facility] [address] [place] [address] Moderate persistent asthma without complication (Primary Dx) Social History Tobacco Use Types Packs/Day Years [...] PM EST documented as of this encounter Last Filed [...] Mass Index 37.5 11/12/2024 3:55 PM EST documented in this encounter Ordered Prescriptions Prescription Sig Dispense Quantity Refills Last Filled Start Date End Date albuterol HFA (PROAIR HFA ; PROVENTIL HFA ; VENTOLIN HFA) 90 mcg/actuation inhalerIndications :Moderate persistent asthma without complication Inhale 2 puffs by mouth every 4 (four) hours if needed for wheezing. 18 g 1 11/12/2024 Symbicort 160-4.5 mcg/actuation inhalerIndications :Moderate persistent asthma without complication Inhale 2 puffs by mouth 2 (two) times a day. Rinse mouth with water after use to reduce aftertaste and incidence of candidiasis. Do not swallow. 10.2 g 2 11/12/2024 documented in this encounter Progress Notes * Annmarie Pham, COLTON - 11/12/2024 3:40 PM EST ADULT PULMONARY MEDICINE FOLLOW UP CHIEF COMPLAINT or REASON FOR CONSULTATION: Asthma and Med Refill INITIAL VISIT AT THIS PULMONARY CLINIC 04/13/2021 See note for further details. IDENTIFIER Jhoana De La Garza is a 49 y.o. years old, female History of Present Illness The patient is a 39-year-old female who has come for a follow-up due to her asthma. Last visit was on 03/11/2023 but lost to follow up. She is requesting letter for her landlord about mold removal/evaluation due to her asthma worsening. Her PMH is HTN, prediabetes, adrenal nodule, HIV, anxiety depression, osteoarthritis, allergies, eczema, and morbid obesity s/p bariatric sleeve. She reports an exacerbation of her asthma symptoms during the winter season, characterized by a persistent dry cough and wheezing. She also experiences chest tightness, which she attributes to her frequent coughing episodes. Additionally, she notes an increase in shortness of breath compared to previous episodes. She also notes that can't breathe when she is in her apartment. Noted musty smell. States her neighbors was evaluate and found mold for both sides of her apartment and she has significant symptoms. She has been using albuterol as a rescue medication but ran out of her supply and had to borrow from a friend. She has been using a nebulizer 3 times daily, every 4 hours, to manage her symptoms. She also uses nebulized budesonide that her friend given to her which helps more then albuterol in neb. She has previously used Symbicort or Advair which helped. ALLERGIES: Allergies Allergen Reactions Egg Eczema flares Prednisone Other and Wheezing Shrimp Hives Raw shrimp ACTIVE MEDICATIONS: Outpatient Medications Marked as Taking for the 11/12/24 encounter (Office Visit) with Annmarie Pham NP Medication Sig Dispense Refill ylyjjuym-xpoevxjyzrab-swysGCYunc (Triumeq) 600-50-300 mg per tablet Take 1 [...] OR SHORTNESS OF BREATH 75 mL 3 albuterol HFA (PROAIR HFA ; PROVENTIL HFA ; VENTOLIN HFA) 90 mcg/actuation inhaler Inhale 2 puffs by mouth every 4 (four) hours if needed for wheezing. 18 g 1 allopurinoL (ZYLOPRIM) 100 mg tablet Take 1 [...] by mouth daily as needed for Heartburn. hydrocortisone 1 % topical cream Apply small amount to affect area (s) twice daily for up to 2 weeks. ketotifen fumarate (ZADITOR) 0.035 % ophthalmic solution 1 Drop 2 times daily as needed. levocetirizine (XYZAL) 5 mg tablet TAKE 1 TABLET BY MOUTH EVERY EVENING 90 tablet 1 Linzess 145 mcg capsule TAKE 1 CAPSULE(145 MCG) BY MOUTH DAILY 30 capsule 5 lisinopril-hydroCHLOROthiazide (PRINZIDE,ZESTORETIC) 20-12.5 mg per tablet Take [...] at bedtime. at bedtime. 30 tablet 1 senna (SENOKOT) 8.6 mg tablet Take 1 tablet (8.6 mg total) by mouth 1 (one) time each day. tiZANidine (ZANAFLEX) 4 mg tablet Take 1 Tablet by mouth 2 times daily as needed for Muscle spasms. trospium 60 mg capsule,extended release 24hr Take 1 capsule (60 mg total) by mouth 1 (one) time each day. [DISCONTINUED] albuterol HFA (PROAIR HFA ; PROVENTIL HFA ; VENTOLIN HFA) 90 mcg/actuation inhaler Inhale 2 Puffs into the lungs every 4 hours as needed for Cough, Wheezing or Shortness of Breath. [DISCONTINUED] fluticasone HFA (Flovent HFA) 220 mcg/actuation inhaler Inhale 2 puffs by mouth 2 (two) times a day. PROVIDER ATTESTS THAT THE MEDICATION LIST WAS OBTAINED, REVIEWED AND UPDATED. REVIEW OF SYSTEMS: GENERAL: Negative for malaise, significant weight loss and fever HEENT: No changes in hearing or vision, no nose bleeds or other nasal problems NECK: Negative for lumps, goiter, pain and significant neck swelling RESPIRATORY: No cough, wheezing or shortness of breath or chest tightness CARDIOVASCULAR: No chest pain, leg swelling or palpitations GI: No abdominal discomfort, blood in stools or black stools, or acid reflex : No dysuria, frequency or incontinence or nocturia MUSCULOSKELETAL: No joint pain or swelling, back pain, or muscle pain. SKIN: No lesions, rash or itching PSYCH: No sleep disturbance, anxiety, depression, claustrophobia or SI/HI. HEMATOLOGY/LYMPHOLOGY No prolonged bleeding, easy bruisability or swollen nodes ENDOCRINE: No cold or heat intolerance, polyuria, polydipsia or goiter. NEURO: No persistent headache, syncope, seizures, weakness or numbness The remainder of the review of systems is noncontributory PAST MEDICAL HISTORY: Patient Active Problem List Diagnosis Date Noted Major depressive disorder, recurrent episode, moderate ([facility]) 09/09/2024 Depression, unspecified 09/09/2024 COVID-19 09/09/2024 Pre-diabetes 03/08/2023 Mixed incontinence 10/08/2022 Adrenal nodule (CMS/HCC) 10/29/2021 S/P gastric sleeve procedure 10/29/2021 Low grade squamous intraepith lesion on cytologic smear cervix (lgsil) 07/23/2020 Allergic conjunctivitis, bilateral 05/27/2020 Eczema 05/27/2020 Elevated LFTs 05/21/2020 Obstructive sleep apnea 05/21/2020 Anxiety and depression 04/25/2020 Anxiety 04/25/2020 Asthma 04/25/2020 Constipation 04/25/2020 Fatty liver 04/25/2020 HIV (human immunodeficiency virus infection) ([facility]) 04/25/2020 Hypertension 04/25/2020 Osteoarthritis of lower back 04/25/2020 Perennial allergic rhinitis 04/25/2020 Past Surgical History: Procedure Laterality Date APPENDECTOMY PROCEDURE: HISTORICAL APPENDECTOMY ELBOW SURGERY Left PROCEDURE: HISTORICAL ELBOW SURGERY; COMMENT: repair of tendon OTHER SURGICAL HISTORY 11/2020 PROCEDURE: ---- OTHER ----; COMMENT: laparoscopic sleeve gastrectomy with hiatal hernia repair SOCIAL HISTORY: TOBACCO: Started years old, Quit: , around pack daily at the most, for at least years. Patient is PPY. ALCOHOL: occasionally DRUGS: none. Past marijuana OCCUPATION OR OCCUPATION EXPOSURE:disable. 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 asthma IMMUNIZATION: 2022 Influenza Vaccine 2014 Pneumococcal 13 2022 Pneumococcal 20 2008 Pneumococcal 23 2023 COVID x4 PULMONARY HOSPITALIZATION Hx: Visit Vitals BP 124/72 Pulse 108 Temp 36.1 ??C (97 ??F) (Temporal) Resp 16 Ht 1.664 m (65.5 ) Wt 104 kg (228 lb 12.8 oz) SpO2 96% BMI 37.50 kg/m?? OB Status Having periods Smoking Status Former BSA 2.11 m?? Physical Exam General Appearance: Obese(37.5). Alert and in no acute distress. Speaks in full sentences. No stridor. Eyes: Conjunctiva and sclera normal. Nose/Sinus: Nares normal. Septum midline. Mucosa pink with no drainage or sinus tenderness. Mouth/Throat: Moist, pink with excudates or erythema, Mallampati class 2. Neck: Neck supple, thyroid symmetric and of normal size. Respiratory: Vesicular sounds adequate bilaterally without wheezes,crackles, rhonchi, rales or rubs. Normal chest expansion and tactile fremitus. Cardiovascular: RRR with normal S1 and S2, no murmurs, no gallops, no JVD appreciated. Gastrointestinal: Bowel sounds normoactive, soft, non-tender. Lymphatic: No cervical and supra-clavicular lymphadenopathy. Extremities: Warm, well perfused without clubbing, cyanosis, or edema. Skin: Warm and dry, no rash. Neurological: Awake, alert and oriented x 3, no focalization. DIAGNOSTIC DATA: Peripheral oxygen saturation or SpO2 on RA today is 96%. CARDIOPULMONARY TEST: Last Pulmonary function Test showed: Not done RADIOLOGIST IMAGING: No recent chest imaging. ASSESSMENT: 1. Moderate persistent asthma without complication Assessment & Plan 1. Asthma: Worsened this winter with increased shortness of breath, dry cough, and wheezing. No chest tightness. Using albuterol as needed and nebulizer three times a day. - Initiate Symbicort, 2 puffs in the morning and 2 puffs at night, irrespective of symptom presence. - Rinse mouth, gargle, and spit out the solution post-inhalation to prevent oral thrush. - Use albuterol as needed. - Provide prescription for a nebulizer solution. - Inform the office if medication is not received. - Consider alternative therapy if current treatment is ineffective. - Write a letter for housing to check for mold in the apartment. - The patient was educated about respiratory problems, where assessment and plan was reviewed and explained, some educational material about his pulmonary problems was given with the discharge summary. All questions were answered.The above assessment and plan was discussed with Willis Vanegas MD ( ). Diagnostic testing results were available for review during the discussion. Based on physical exam, symptomatology, tests requested and baseline pulmonary evaluation/disease, I instructed the patient to follow-up with in 2 months and as needed in the interim if other concerns/worsening symptoms. - Follow up with Baron Patrick MD for the other co-morbidities. Thanks Baron Patrick MD for allowing me to have the opportunity to assist in the care of this patient. I have obtained verbal consent from Jhoana De La Garza prior to the recording. I have advised Jhoana De La Garza that she may refuse the recording and require the recording to be turned off at any time during this encounter. documented in this encounter Plan of Treatment Upcoming Encounters Date Type Department Care Team (Late st Contact Info) Description 01/03/2025 9:00 AM EDT Office Visit Adult Medicine [address] [phone] Baron Patrick MD [address] [place] [address] 01/09/2025 1:30 PM EDT Office Visit Obstetrics and Gynecology - [address] [phone] Libby Cornejo MD [address] [place] [address] 01/15/2025 10:10 AM EDT Office Visit Pulmonolgy - [place] [address] [phone] Annmarie Pham NP [address] [address] 05/14/2025 4:00 PM EDT Office Visit Adult Medicine [address] [phone] Chrissy Nguyen PA [address] [place], [place] documented as of this encounter Visit Diagnoses Diagnosis Moderate persistent asthma without complication- Primary documented in this encounter Discontinued Medications Medication Sig Discontinue Reason Start Date End Da te fluticasone HFA (Flovent HFA) 220 mcg/actuation inhaler Inhale 2 puffs by mouth 2 (two) times a day. Alternate therapy 05/19/2023 11/12/2024 albuterol HFA (PROAIR HFA ; PROVENTIL HFA ; VENTOLIN HFA) 90 mcg/actuation inhaler Inhale 2 Puffs into the lungs every 4 hours as needed for Cough, Wheezing or Shortness of Breath. Reorder 03/14/2023 11/12/2024 documented as of this encounter Care Teams Corduroy Brusher Operator Relationship Specialty Start Date End Date Baron Ptarick MD [address] [place] [address] PCP - General Internal Medicine 12/24/21 documented as of this encounter
--- OUTSIDE RECORDS SUMMARY | 2024-11-22 19:34 | XMS_ITS | Encounter Summary ---
Author Organization [facility] Address [address] [place] [address] Care Team Providers Care Follow Up Manager Name Role Phone Baron Patrick Primary Care Provider Encounter Details Date Type Department Care Team Description 07/14/2023 Plush Dresser Report Medical Records [address] [place] [address] Melina Allred, DEON Social History Tobacco Use [...] on filedocumented in this encounter Care Teams Follow Up Manager Relationship Specialty Start Date End Date Baron Patrick [address] [place] [address] PCP - General Internal Medicine 12/24/21 documented as of this encounter
--- OUTSIDE RECORDS SUMMARY | 2024-11-22 19:34 | XMS_ITS | Encounter Summary ---
Author Organization [facility] Address [address] [place] [address] Care Team Providers Care Furnace Combustion Analyst Name Role Phone Baron Patrick Primary Care Provider [phone] Reason for Visit * Reason Onset Date Comments VNA Call 09/09/2023 Encounter Details Date Type Department Care Team Description 09/09/2023 Telephone Adult Medicine [address] [address] Baron Patrick [address] [place] [phone] VNA Call Social History Tobacco Use Types [...] encounter Miscellaneous Notes * Telephone Encounter - Sherri Dayna Shankar - 09/09/2023 12:39 PM EST Spoke with Matilda, BP readings per below Did not recheck BP after her medications. Nurse is there to make sure she takes her medications, only about 10 minutes. She was feeling and acting appropriate. Denied any complaints. She is waiting for the pt to call her with a repeat BP after her medications. Tuesday she was elevated and after taking her medications her BP was better Nurse is in the home Tue, Tue and Fridays She will prefill her medications so she takes them before she gets there on Tuesday and see what the BP is after taking medications She is to call the office when the patient calls with her retake. * Telephone Encounter - Aakash Haney - 09/09/2023 9:48 AM EST [facility]NA CALL Which [facility] office is calling? [facility] Full name of caller: Matilda The caller is A nurse Is the caller at the patients home?: NO Reason for call: Reporting patients blood pressure has been elevated for the past 2 days. Qwmrshhut627/90 and pulse rate of 96 bpm, todays reading was 170/92 and pulse rate of 108 bpm. States this was this morning before patient took medication. Does caller need an urgent call back? NO Was CONTACT Telephone # obtained above?: YES Fax #: documented in this encounter Plan of Treatment Not on file documented as of this encounter Visit Diagnoses Not on filedocumented in this encounter Care Teams Furnace Combustion Analyst Relationship Specialty Start Date End Date Baron Patrick [address] [place] [id number] PCP - General Internal Medicine 12/24/21 documented as of this encounter
--- OUTSIDE RECORDS SUMMARY | 2024-11-22 19:34 | XMS_ITS | Encounter Summary ---
Author Organization [facility] Address [address] [place] [address] Care Team Providers Care Painting Manager Name Role Phone Baron Patrick Primary Care Provider [phone] Encounter Details Date Type Department Care Team Description 07/14/2023 Refill Gastroenterology - [address] [place] [address] Ailyn Morales Social History Tobacco [...] on filedocumented in this encounter Care Teams Painting Manager Relationship Specialty Start Date End Date Baron Patrick [address] [place] [address] PCP - General Internal Medicine 12/24/21 documented as of this encounter
--- OUTSIDE RECORDS SUMMARY | 2024-11-22 19:34 | XMS_ITS | Encounter Summary ---
Author Organization [facility] Address [address] [facility] [place] [address] Care Team Providers Care Telehealth Nurse Name Role Phone Baron Patrick Primary Care Provider [phone] Reason for Visit * Reason Comments E-prescribe Rx Request Encounter Details Date Type Department Care Team Description 07/14/2022 Refill Adult Medicine [address] [address] Baron Patrick [address] [place] [phone] E-prescribe Rx Request Social History Tobacco Use [...] on filedocumented in this encounter Care Teams Telehealth Nurse Relationship Specialty Start Date End Date Baron Patrick [address] [place] [address] PCP - General Internal Medicine 12/24/21 documented as of this encounter
--- OUTSIDE RECORDS SUMMARY | 2024-11-22 19:34 | XMS_ITS | Encounter Summary ---
Author Organization [facility] Address [address] [place] [address] Care Team Providers Care Director Automotive Name Role Phone Baron Patrick Primary Care Provider [phone] Reason for Visit * Reason Onset Date Comments Faxed Order 10/20/2022 Order #[id number] Encounter Details Date Type Department Care Team Description 10/20/2022 Telephone Adult Medicine [address] [address] Baron Patrick [address] [place] [phone] Faxed Order (Order #[id number]) Social History Tobacco Use Types Packs/Day Years [...] Miscellaneous Notes * Telephone Encounter - Amanda Quinnluis - 10/20/2022 2:55 PM EST Faxed order from [facility], Order #[id number]. Please sign, date, and fax back. documented in this encounter Plan of Treatment Not on file documented as of this encounter Visit Diagnoses Not on filedocumented in this encounter Care Teams Director Automotive Relationship Specialty Start Date End Date Baron Patrick [address] [place] [id number] PCP - General Internal Medicine 12/24/21 documented as of this encounter
[2024-11-22 19:35] LABS: Influenza A PCR NEGATIVE (Negative); Influenza B PCR NEGATIVE (Negative); Resp Syncy Virus RNA Qual PCR NEGATIVE (Negative); SARS COV2 PCR INHOUSE NEGATIVE (Negative)
[2024-11-22 19:44] LABS: Troponin-I High Sensitivity 5313.7 ng/L (<3.5-17.0)
[2024-11-22 20:15] LABS: D Dimer High Sensitivity 338 NG/ML
[2024-11-22 20:20] LABS: Appearance Urine Clear; Color Urine Dark Yellow; Glucose Urine UA Negative (Negative); Leukocyte Esterase Urine Negative (Negative); Nitrite Urine Negative (Negative); UMIC TRIGGER UACC YES; Urine Blood Negative (Negative); Urine Ketones Trace mg/dL (Negative); Urine Protein 30 (1+) mg/dL (Neg-Trace)
[2024-11-22 20:25] LABS: Bacteria Urine Trace (None Seen); Hyaline Casts Urine 0-2 /LPF (0-2); RBC Urine 0-2 /HPF (0-2); WBC Urine 0-5 /HPF (0-5)
[2024-11-22 20:44] LABS: B Type Natriuretic Peptide 883 pg/mL (<100)
[2024-11-22 20:48] LABS: Hematocrit 32.9 % (37.0-47.0); Hemoglobin 10.5 g/dl (12.0-16.0); Mean Corpuscular HGB Conc 31.9 g/dl (31.0-35.0); Mean Corpuscular Hemoglobin 26.4 pg (27.0-33.0); Mean Corpuscular Volume 82.7 fL (80.0-98.0); Mean Platelet Volume 10.6 fL (9.4-12.3); Platelet Count 368 X10*3/uL (160-400); Red Blood Count 3.98 X10*6/uL (4.20-5.50); Red Cell Distribution Width 14.5 % (11.0-16.0); White Blood Count 11.2 X10*3/uL (4.8-10.8)
[2024-11-22 20:54] LABS: INTERNATIONAL NORM RATIO 1.2 (0.9-1.1); Prothrombin Time 14.2 SEC (10.9-12.4)
[2024-11-22 20:56] LABS: Partial Thromboplastin Time 28.5 SEC (26.0-36.8)
[2024-11-22] MEDS: iohexoL 350 MG/ML 100 ML INFUS..BTL 65 ML IV (21:03)
[2024-11-22 21:08] VITALS: BMI 39.0
[2024-11-22] MEDS: Heparin Sodium,Porcine 5,000 UNIT/ML VIAL 4000 UNIT IVPUSH (21:18)
[2024-11-22] MEDS: Heparin Sodium,Porcine/1/2NS 25,000 UNIT/250 ML IV.SOLN 10 UNIT IVCONT (21:22)
[2024-11-22 21:26] VITALS: BP 96/62; PULSE 96; RESP 16; O2SAT 98
[2024-11-22 21:49] VITALS: BP 96/62; PULSE 96; RESP 16; TEMP 36.6; O2SAT 98
--- NOTE | 2024-11-22 21:50 | PC.NURSE ---
RN to RN report given to Lili at [facility], all questions answered, EMS currently at bedside to transfer patient.
== END 2024-11-22 22:00 | disposition short-term general hospital (02) ==
PROVIDERS: Nurse Practitioner Family; Emergency Provider Internal Medicine; PCP Internal Medicine
DX: R07.89 Other chest pain (principal); R06.02 Shortness of breath; R05.9 Cough, unspecified; R94.31 Abnormal electrocardiogram [ECG] [EKG]; Z87.891 Personal history of nicotine dependence; Z79.899 Other long term (current) drug therapy; Z03.818 Encounter for observation for suspected exposure to other biological agents ruled out
CPT/HCPCS: 0241U; 36415; 71045; 71275; 80053; 81001; 82550; 83735; 83880; 84484; 85025; 85027; 85379; 85610; 85730; 93005; 96374; 96375; 99285; J1644; Q9967

== ENCOUNTER → 2024-11-22 18:31 | Outpatient (BNV) | payer OTHER, SELFPAY | PROVIDERS: Emergency Provider Internal Medicine; PCP Internal Medicine; Visit Provider Internal Medicine | DX: R07.9 Chest pain, unspecified (principal); R94.31 Abnormal electrocardiogram [ECG] [EKG] | CPT/HCPCS: 93010 ==

== ENCOUNTER → 2024-11-22 18:55 | Outpatient (BNV) | payer OTHER, SELFPAY | PROVIDERS: Emergency Provider Internal Medicine; PCP Internal Medicine; Visit Provider Radiology Diagnostic Radiology | DX: R07.9 Chest pain, unspecified (principal); R06.02 Shortness of breath; J90 Pleural effusion, not elsewhere classified; I51.7 Cardiomegaly | CPT/HCPCS: 71045; 71275 ==

== ENCOUNTER 2025-01-15 09:46 | Outpatient (AMB) | payer OTHER, SELFPAY ==
--- NOTE | 2025-01-15 09:48 | A.OFFVIS_ITS ---
VS Expanded 01/15/25 09:56 BP 117/84 Blood Pressure Location Rt brachial Blood Pressure Position Sitting Pulse 115 H Pulse Source Pulse Oximeter Temp 95.8 F L Temperature Source Temporal Artery Scan Pulse Oximetry 96 Oxygen Delivery Method Room Air Height 5 ft 5.5 in Weight 208 lb BMI 34.1 Body Fat % 42.8 Body Fat Mass 89.0 Fat Free Mass 118.8 Visceral Fat Rating 11.0 Body Water % 40.7 Body Water Mass 84.6 Muscle Mass/Score 112.8 Basal Metabolic Rate/Score 1,654 Intake Visit Reasons: OV PO LSG 11/26/20 Allergies prednisone [PREDNISONE] Allergy (Severe, Verified 01/15/25 09:54) DIFFICULTY BREATHING, anaphylaxis eggs Allergy (Intermediate, Uncoded 11/22/24 18:29) Hives Medication List - Last Reconciled 01/15/25 by KEIRA Wing rkivqvhb-pujzunewdibw-ldacego 600-50-300 mg (Triumeq) 1 tab PO DAILY albuterol sulfate 2.5 mg inhalation Q6H PRN azelastine 1 spray intranasal DAILY betamethasone dipropionate 0.05% 1 appl topical BID PRN bupropion HCl XL 1 tab PO BEDTIME calcium carbonate-vitamin D3 500 mg-3.125 mcg (125 unit) 1 tab PO DAILY cephalexin 500 mg PO QID 7 days cholecalciferol (vitamin D3) 25 mcg PO DAILY clonidine HCl 0.1 mg PO BEDTIME colchicine 0.6 mg PO BID 3 days cromolyn 4% 1 drp ophthalmic-Left QID PRN cyclobenzaprine 25 mg PO NEEDED PRN cyproheptadine 4 mg PO Q8H PRN docusate sodium 1 cap PO BID duloxetine 60 mg PO QAM escitalopram oxalate 20 mg PO DAILY evening primrose oil 500 mg PO DAILY fluticasone propionate 50 mcg/actuation 2 sprays intranasal DAILY fluticasone propionate 220 mcg/actuation (Flovent HFA) 2 puffs inhalation BID glucomannan 1,800 mg PO DAILY hydroxyzine HCl 50 mg PO BEDTIME ketorolac 10 mg PO Q6H PRN 5 days ketotifen fumarate 0.025%(0.035%) 1 drp ophthalmic (eye) BID PRN levocetirizine 1 tab PO BEDTIME linaclotide (Linzess) 1 cap PO DAILY lisinopril 20 mg PO DAILY meclizine 25 mg PO TID PRN melatonin 1 tab PO BEDTIME metformin 500 mg PO DAILY montelukast 1 tab PO DAILY morphine 15 mg PO Q8H PRN multivitamin 1 tab PO DAILY pantoprazole 40 mg PO BID quetiapine 100 mg PO BEDTIME sucralfate 10 mL PO BID tirzepatide (weight loss) (Zepbound) 10 mg (0.5 mL) subcut QWEEK HPI Comments Details: This?is a 49?yo F who is s/p LSG 11/26/2020. Presents for 4 year 2 month post op visit. Weight at last visit on 10/18/2024 was 231 pounds with a BMI of 38.4, weight today is 208 pounds, representing a 23 pound weight loss with a BMI today of 34.6.? Since last visit pt was started on Zepbound. She was admitted at [facility] 3x since last visit for chest pain/ heart failure . Seeing cardiology in March. Experiences palpitations sometimes but not today in office. She reports her reflux is much better than before, rare now. Recheck of HR 105. Present meal plan includes: Goal weight 219-220lbs to be a candidate for revision surgery 10am-12pm Premier protein shake, premade or Pure protein shake, 1 scoop powder in 8oz 1% milk 2-4pm same shake 5:30pm dinner- 3oz protein, 3oz veg 9pm Luxembourgish yogurt with berries or oranges sometimes skips meals, shakes Exercise routine includes: not supposed to exercise currently per cardiology due to heart issues [facility] Medical History Allergic reaction caused by a drug Anxiety Arthritis Asthma BMI 39.0-39.9,adult Body mass index (BMI) of 40.1 to 44.9 in adult Constipation Depression HIV (human immunodeficiency virus infection) HTN (hypertension) Insomnia Low back pain Morbid obesity Preoperative examination Sciatica Seasonal allergies Shortness of breath Sleep apnea Vertigo Vitamin B1 deficiency Surgical History History of sleeve gastrectomy History of elbow surgery History of appendectomy Family History Mother Hyperlipidemia Hypertension Arthritis Sciatica Diabetes Father No problems noted. Brother Hypertension Social History Household Members: None Housing: Apartment Are you a primary child care team lead to a significant other at home: No Do you presently have visiting nurse or other home services: Yes (HELP WITH HOUSEWORK ONCE A WEEK) Alcohol intake: never Patient Tobacco Use Status: Former Tobacco user Tobacco use type: Cigarette e-Cigarette/Vaping Use: Never Used Second Hand Smoke Exposure: No service: No Current occupational status: unemployed Assessment & Plan Assessment & Plan (1) Obesity: Code(s): E66.9 - Obesity, unspecified Category: Medical (2) Status post sleeve gastrectomy: Code(s): Z90.3 - Acquired absence of stomach [part of] Category: Surgical Plan Pt doing very well with weight loss on Zepbound. Reflux has improved as well. She is restricted in exercise currently. Emphasized the importance of an adequate meal plan. Pt will continue to check in with me via text in between visits with updates/weight measurements. RTC 3mo. Medications: New tirzepatide (weight loss) (Zepbound) 10 mg (0.5 mL) subcut QWEEK 2 mL 0RF Discontinued tirzepatide (weight loss) (Zepbound) Discontinued Reason: Doctor's Order 7.5 mg (0.5 mL) subcut QWEEK 2 mL 0RF
[2025-01-15 09:56] VITALS: BP 117/84; PULSE 115; TEMP 35.4; O2SAT 96; BMI 34.1
--- OUTSIDE RECORDS SUMMARY | 2025-01-15 10:52 | XMS_ITS | Encounter Summary ---
Author Organization [facility] Address [address] [place] [address] Care Team Providers Care Mimeograph Operator Name Role Phone Baron Patrick MD Primary Care Provider [phone]- [phone] Reason for Visit * Reason Onset Date Comments faxed order 12/25/2024 [facility] [id number] Encounter Details Date Type Department [facility] Description 12/25/2024 Telephone Adult Medicine [address] [phone] Baron Patrick MD [address] [place] [phone] faxed order ([facility] [id number] ) Social History Tobacco Use Types Packs/Day Years [...] as of this encounter Progress Notes * Jamia Bowens - 12/25/2024 3:33 PM EDT Faxed order received from [facility] [id number] please sign and fax to [phone]. documented in this encounter Plan of Treatment Upcoming Encounters Date Type Department Care Team (Late st Contact Info) Description 01/17/2025 2:20 PM EDT Office Visit Pulmonolgy - [place] [address] [facility] [address] [place] [address] Annmarie Pham NP [address] [facility] [address] [place] [address] 05/14/2025 4:00 PM EDT Office Visit Adult Medicine [facility] [address] [place] [address] Chrissy Nguyen PA [address] [place] [address] documented as of this encounter Visit Diagnoses Not on filedocumented in this encounter Care Teams Mimeograph Operator Relationship Specialty Start Date End Date Baron Patrick MD [address] [place] [address] PCP - General Internal Medicine 12/24/21 documented as of this encounter
--- OUTSIDE RECORDS SUMMARY | 2025-01-15 10:52 | XMS_ITS | Encounter Summary ---
Author Organization [facility] Address [address] [place] [address] Care Team Providers Care Manager Electrical Name Role Phone Baron Patrick MD Primary Care Provider [phone]- [phone] Reason for Visit * Reason Onset Date Comments faxed order 12/20/2024 [facility] [id number] Encounter Details Date Type Department Care Team ([facility] st Contact Info) Description 12/20/2024 Telephone Adult Medicine [address] [phone] Baron Patrick MD [address] [place] [phone] faxed order ([facility] [id number]) Social History Tobacco Use Types Packs/Day Years [...] encounter Progress Notes * Jamia Bowens - 12/20/2024 2:05 PM EDT Faxed order received from [facility] [id number] please sign and fax to [phone]. documented in this encounter Plan of Treatment Upcoming Encounters Date Type Department Care Team (Late st Contact Info) Description 01/17/2025 2:20 PM EDT Office Visit Pulmonolgy - [place] [address] [facility] [address] [place] [address] Annmarie Pham NP [address] [facility] [address] [place] [address] 05/14/2025 4:00 PM EDT Office Visit Adult Medicine [facility] [address] [place] [address] Chrissy Nguyen PA [address] [place] [address] documented as of this encounter Visit Diagnoses Not on filedocumented in this encounter Care Teams Manager Electrical Relationship Specialty Start Date End Date Baron Patrick MD [address] [place] [address] PCP - General Internal Medicine 12/24/21 documented as of this encounter
--- OUTSIDE RECORDS SUMMARY | 2025-01-15 10:52 | XMS_ITS | Encounter Summary ---
Author Organization [facility] Address [address] [place] [address] Care Team Providers Care Laser Beam Color Scanner Operator Name Role Phone Baron Patrick MD Primary Care Provider [phone]- [phone] Reason for Visit * Reason Onset Date Comments home health certificate [id number] 01/14/2025 Encounter Details Date Type Department Care Team (Late Contact Info) Description 01/14/2025 Telephone Adult [address] [phone] Emmanuelle Kenny MA home health certificate [id number] Social History Tobacco Use Types Packs/Day Years [...] as of this encounter Progress Notes * Emmanuelle Kenny MA - 01/14/2025 4:17 PM EDT Home health certificate [id number] put in dr patrick's office signature documented in this encounter Plan of Treatment Upcoming Encounters Date Type Department Care Team (Late Contact Info) Description 01/17/2025 2:20 PM EDT [facility] [address] [place] [address] Annmarie Pham, [place] [address] [facility] [address] [place] [address] 05/14/2025 4:00 PM EDT Office Visit Adult Medicine [address] [address] Chrissy Nguyen PA [address] [place] [address] documented as of this encounter Visit Diagnoses Not on filedocumented in this encounter Care Teams Laser Beam Color Scanner Operator Relationship Specialty Start Date End Date Baron Patrick MD [address] [place] [address] PCP - General Internal Medicine 12/24/21 documented as of this encounter
--- OUTSIDE RECORDS SUMMARY | 2025-01-15 10:52 | XMS_ITS | Data Portability ---
Author Organization [employer] [facility] [employer] Address [address] [place] [phone] Care Team Providers Care Biomass Technician Name Role Phone HIM CCA OTHER Assessment Encounter Date Assessment Date Assessment LastModified by Organization Details LastModified Time 09/13/2023 09/13/2023 I provided real -time medical direction via phone for this encounter, and was available for additional phone based assistance as needed. I have reviewed and agree with the Assessment and Plan as documented by the Retail Support Manager. Patient given the opportunity to ask questions. Advised if develops CP/severe SOB/turning blue/uncontrolle d n/v/d / AMS/ syncope/ hi fever / any focal neuro c/o: visual changes/speech changes/severe dizziness/focal weakness or new numbness to call 911- verbalized understanding of instructions [email or web address] Not available 09/13/2023 22:35:01 04/16/2024 04/16/2024 49 [...] instead for sleep. Reviewed red flags s/sxs. [email or web address] Not available 04/16/2024 21:02:08 09/06/2024 09/06/2024 As noted, we were called to see this patient regarding concerns of infectious sxs. Evaluation in the field was performed by my slot floor supervisor colleague, as noted above, I provided real-time [...] 2 Ag, QL IA, respiratory specimen [address] [phone] 07:56:00 rapid flu (A+B) [address], [address] 07:56:20 Referral None recorded. Procedures None recorded. Surgeries None recorded. Imaging None recorded. Medication Orders Paxlovid 300 mg (150 mg x 2)-100 mg tablets in a dose pack 2023 [id number], [address] [place] [address], [id number], 21:04:47 Patient TargetsNo targets recorded. Patient InstructionsNo [...] Not available Not available Not available 07/10/2024 [id number] 15 RxNorm Not Available [facility] - production [...] 4 80 /min 98 % 98 % 78846.4 g 14 /min 167.64 cm 98.1 [degF] 147 mm[Hg] 84 mm[Hg] Not Available [employer] 4 14:26:35 Date Recorded Oxygen saturation Oxygen saturation in Arterial blood by Pulse oximetry Heart rate Respiratory rate Body temperature Systolic blood pressure Diastolic blood pressure Provider Name and Address Organization Details Last Updated DateTime 4 97 % 97 % 108 /min 20 /min 98.9 [degF] 150 mm[Hg] 92 mm[Hg] Not Available [employer] production 4 20:20:05 Date Recorded Respiratory rate Heart rate Body weight Body temperature Oxygen saturation Oxygen saturation in Arterial blood by Pulse oximetry Systolic blood pressure Diastolic blood pressure Provider Name and Address Organization Details Last Updated DateTime 4 16 /min 94 /min 429938. 12 g 99.3 [degF] 97 % 97 % 134 mm[Hg] 74 mm[Hg] Not Available [facility] - production 4 17:43:03 Social History None recorded. Functional Status None recorded. Mental Status None recorded. Family History Nothing Reported. Medical History No medical history recorded. Gynecological HistoryNo gynecological history recorded. Obstetrics History GPAL:G 0 P 0 0 0 0 Past Encounters Encounter ID Performer Location Encounter Start Date Encounter Closed Date Diagnosis/Indication Diagnosis SNOMED-CT Code Diagnosis ICD10 Code Diagnosis Note [id number] Rula Garcia MD [facility] [address] [place] [phone] 09/13/2023 14:26:27 09/14/2023 14:23:58 Essential hypertension 02886455 I10 continue regular meds as prescribed - until sees pcp in Two days- pat declined an EKG per the medic [id number] DACIA TORIBIO MD [facility] [address] [place] [phone] 04/16/2024 20:20:02 04/17/2024 11:04:07 COVID-19 518430202 U07.1 [id number] Ruma Harrison MD Main [facility] [address] [place] [phone] 09/06/2024 17:43:01 09/07/2024 12:23:47 Viral syndrome 296217495 B34.9 Health Concerns Section Related Observation LastModified by Organization Detai ls LastModified Time None Recorded Concern Status LastModified by Organization Details LastModified Time None Recorded Advance Directives Directive None Recorded Payers Encounter Date Sequence Insurance Name Policy Number Policy Coley Covered Member ID Coley Member ID Guarantor Name 09/13/2023 1 [employer] [facility] [facility] - DOS ON OR AFTER 2022 - DUAL ELIGIBLE - [employer] OPTIONS AND ONE CARE (MEDICARE REPLACEMENT/ADV ANTAGE - HMO) Jhoana De La Garza [id number] Jhoana De La Garza 04/16/2024 1 [employer] - DOS ON OR AFTER 2022 - DUAL ELIGIBLE - [employer] OPTIONS AND ONE CARE (MEDICARE REPLACEMENT/ADV ANTAGE - HMO) Jhoana De La Garza [id number] Jhoana De La Garza 09/06/2024 1 [facility] - DOS ON OR AFTER 2022 - DUAL ELIGIBLE - [employer] OPTIONS AND ONE CARE (MEDICARE REPLACEMENT/ADV ANTAGE - HMO) Jhoana De La Garza [id number] Jhoana De La Garza Notes Date Note [...] EKG ........................ ........................ ........................ ........................ ........................ ..................... Retail Support Manager Note From Iain Moore: PT caox3 answers door with a steady gait. Pt reports her BP was high earlier for the VNA, 160/80. Pt denies complaints. Pt reports [facility]NA was able to help her make an appointment with her PCP two days from now. Pt VS checked. Pt refused ECG, states she feels fine. [facility] advises pt to attend PCP appointment. Red flags and pt education discussed. ........................ ........................ ........................ ........................ ........................ ..................... Disposition: Fulfilled Rula Garcia MD [address] [facility],[address], [place], [address], [employer] 09/13/2023 22:35:49 4 text/html HPI: 1:44pm ? [...] other symptoms. GAGE is ill-sounding to this chief underwriter. She has nasal congestion and can [...] do so. GAGE can be reached at [phone]. ........................ ........................ ........................ ........................ ........................ ..................... CRC Nurse Triage Notes (Fabiana Gimenez): Chief Complaints: Cough, ENT, Headache, URI PMH: Hypertension, HIV Allergies: Egg, Prednisone Other Allergies: Prednisone, eggs Comments: CRC RN did not require any additional information to process this visit. Retail Support Manager Organization Information for Nikolay Garib[facility] [employer] Name: [employer]? ? Address: [address] [place] [address] Steep Tender: Ej Ayala MD [place] No.: [id number] Retail Support Manager POC Test Results from [facility]ol[facility] Rapid COVID antigen (20:17:49) COVID: + Rapid influenza antigen (20:18:06) Flu: - DACIA TORIBIO MD [address] [place] [address],[address], [place], [address], [employer] 04/16/2024 21:02:16 4 text/html HPI: Member phoned in requesting a home visit. Member states 2 days ago she developed body aches, headache, throat pain, chills. Member does not have a thermometer. Member continues having these symptoms. Member has poor appetite. Member has been voiding. LBM today. Member denies any further symptoms. Raising IT request submitted. Member aware and in agreement. ........................ ........................ ........................ ........................ ........................ ..................... CRC Nurse Triage Notes (Fabiana Gimenez - RN): Chief Complaints: Fever/chills, Headache, Nausea, Sore throat PMH: Hypertension, HIV/AIDS Comments: CRC RN did not require any additional information to process this visit. ........................ ........................ ........................ ........................ ........................ ..................... Retail Support Manager Note From Malvin [place]: Pt co cough and NC for 2 days. Pt denies sob cp , headache NVD, abdominal pain , dizziness. Pt sts uses inhaler as needed. Baseline vitals assessed, WNL, afebrile, lungs clear bilaterally Covid and flu swab negative. [facility] contacted and advised self care and otc meds for symptom relief. Pt advised to monitor symptoms and if worsen or don? t improve over next week to call [facility] back or contact pcp. Pt education on signs indicating the ER. ........................ ........................ ........................ ........................ ........................ ..................... [facility] Consulted: Ruma Harrison ........................ ........................ ........................ ........................ ........................ ..................... Disposition: Fulfilled Ruma Harrison MD [address] [facility],[address], [place], [address], [facility] [employer] 09/06/2024 18:15:34 OBGyn Episode No OBEpisode recorded.
--- OUTSIDE RECORDS SUMMARY | 2025-01-15 10:52 | XMS_ITS | Encounter Summary ---
Author Organization [employer] Address [address] [place] [address] Care Team Providers Care Creative Specialist Name Role Phone Baron Patrick MD Primary Care Provider [phone]- [phone] Reason for Visit * Reason Onset Date Comments TRIAGE 12/26/2024 Encounter Details Date Type Department Care Team ([facility] st Contact Info) Description 12/26/2024 Telephone Adult Medicine [address] [phone] Baron Patrick MD [address] [place] [phone] TRIAGE Social History Tobacco Use Types Packs/Day Years [...] as of this encounter Progress Notes * Ander Bobo LPN - 12/26/2024 3:16 PM EDT Please see VNA note needs to be triaged * Suzanna Lunsford - 12/26/2024 2:32 PM EDT VNA CALL Which VNA office is calling? [facility] / Full name of caller: Marilee The caller is A nurse Is the caller at the patients home?: no Reason for call: Per caller the patient's weight is 216.4 today, yesterday 211.4 and Tuesday was 213.2. She has faint crackles in her lung bases, no swelling to her legs. Please advise Does caller need an urgent call back? no Was CONTACT Telephone # obtained above?: yes Fax #: documented in this encounter Plan of Treatment Upcoming Encounters Date Type Department Care Team (Late st Contact Info) Description 01/17/2025 2:20 PM EDT Office Visit Pulmonolgy - [place] [address] [address] Annmarie Pham NP [address] [address] 05/14/2025 4:00 PM EDT Office Visit Adult Medicine [facility] [address] [place] [phone] Chrissy Nguyen PA [address] [place] [address] documented as of this encounter Visit Diagnoses Not on filedocumented in this encounter Care Teams Creative Specialist Relationship Specialty Start Date End Date Baron Patrick MD [address] [place] [address] PCP - General Internal Medicine 12/24/21 documented as of this encounter
--- OUTSIDE RECORDS SUMMARY | 2025-01-15 10:52 | XMS_ITS | Continuity of Care Document ---
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 Her systemic reaction was to po prednisone only Immunizations Given and Recorded Vaccine Date Status Refusal Reason SARS-CoV-2(COVID-19)mRNA-LNP vac([id number]) 09/16/23 Recorded hepatitis B adult vaccine 1 07/15/23 Given hepatitis B adult vaccine 2 04/10/21 Given Meningococcal Conjugate Vaccine 3 07/15/23 Given Meningococcal Conjugate Vaccine 12/19/17 Given Meningococcal Conjugate Vaccine 4 12/02/16 Given [...] influenza virus vaccine, inactivated 08/18/06 Give n [id number] bivalent booster vax 07/15/22 Recorded SARS-CoV-2 (COVID-19) [...] DOSE LOWER SITE 4Result Comment: [12/02/2016] Dilutent [id number] 5Result Comment: UPPER SITE 6Result Comment: LOWER SITE 7Admin Note: recieved the flu shot at [facility] 06/23/2012 8Admin Note: VIS GIVEN [id number] 9Admin Note: VIS given 2009-06. 10Admin Note: VIS GIVEN 11Admin Note: vis given 07/30/08 Medications Aerochamber See Instructions, # 1 application, Maintenance, Use with MDI, 04/15/17 12:48:15 PM EDT, Compound Start Date: 04/15/17 Status: Ordered Quantity: 1.0 Unit: application Repeat number: 1 Albuterol (Eqv-Ventolin HFA) 90 mcg/inh inhalation aerosol INHALE 2 PUFFS BY MOUTH EVERY 4 HOURS NEEDED FOR WHEEZING Start Date: 11/23/24 Status: Ordered Repeat number: 1 Alcohol Wipes See Instructions, # 120 each, Maintenance, Two times a day for Diabetes Mellitus/hypoglycemia or asneeded for hypoglycemia symptoms, 01/04/25 11:32:00 AM EDT, Supply, 165, cm, 01/04/25 7:34:00 EDT, Height, 98.5, kg, 01/01/25 1:16:00 EDT, Dry Weight Start Date: 01/04/25 Status: Ordered Quantity: 120.0 Unit: each Repeat number: 1 allopurinol 100 mg oral tablet 100 mg, 1, tablet, By Mouth, 2 times a day, Refills 0, Maintenance, 12/20/24 2:21:00 PM EDT, Partialfill upon patient request if the prescription is for a schedule II opioid drug. Start Date: 12/20/24 Status: Ordered Repeat number: 1 ammonium lactate 12% topical cream 1 application, Topically, 2 times a day, # 140 Gm, 0 Refills, Maintenance, 11/23/24 1:25:00 AM EDT, Cream, Partial fill upon patient request if the prescription is for a schedule II opioid drug. Start Date: 11/23/24 Status: Ordered Quantity: 140.0 Unit: g Repeat number: 1 aspirin 325 mg oral delayed release tablet See Instructions, 650 mg By Mouth Every 8 hours for 10 days followed by 325 mg po bid dollowed by 81 mg daily, # 80 tablet, Refills 0, Tot. Refills 0, Maintenance, 12/21/24 1:12:00 PM EDT, Instructions Replace Required Details, Route to Pharmacy Electronically, [facility], Partial fillupon patient request if the prescription is for a schedule II opioid drug., 166, cm, 12/21/24 13:11:00 EDT, Height, 94, kg, 12/20/24 11:34:00 EDT, Dry Weight Start Date: 12/21/24 Status: Ordered Quantity: 80.0 Unit: tablet Repeat number: 1 aspirin 81 mg oral delayed release tablet 81 mg, 1, tablet, By Mouth, Daily, Please start taking ASA 81 mg daily after finishing high dose ofAspirin for 20 days. Start on 01/10/25, # 90 tablet, Refills 1, Tot. Refills 1, Maintenance, 12/21/24 2:18:00 PM EDT, Route to Pharmacy Electronically, [facility], Partial fill upon patient request if the prescription is for a schedule II opioid drug., 166, cm, 12/21/24 13:11:00 EDT, Height, 94, kg, 12/20/24 11:34:00 EDT, Dry Weight Start Date: 12/21/24 Status: Ordered Quantity: 90.0 Unit: tablet Repeat number: 2 atorvastatin 80 mg oral tablet = 80 mg, By Mouth, Daily at bedtime, # 90 tablet, 3 Refills, Maintenance, 11/27/24 12:38:00 PM EDT, Tablet, [facility], Partial fill upon patient request if the prescription is for a schedule II opioid drug., 168, cm, 11/22/24 23:58:00 EDT, Height, 106.2, kg, 11/22/24 22:22:00 EDT, DryWeight Start Date: 11/27/24 Stop Date: 11/22/25 Status: Ordered Quantity: 90.0 Unit: tablet Repeat number: 4 azelastine 137 mcg/inh (0.1%) nasal spray 2 sprays = 274 mcg, Nares, Both, 2 times a day, PRN as needed for allergy symptoms, # 30 mL, 0 Refills, Maintenance, 11/23/24 1:17:00 AM EDT, [place], Partial fill upon patient request if the prescription is for a schedule II opioid drug. Start Date: 11/23/24 Status: Ordered Quantity: 30.0 Unit: mL Repeat number: 1 colchicine 0.6 mg oral tablet 0.6 mg, By Mouth, 2 times a day, # 178 tablet, Refills 0, Tot. Refills 0, Maintenance, 11/27/24 12:37:00 PM EDT, Route to Pharmacy Electronically, [facility], Partial fill upon patient request if the prescription is for a schedule II opioid drug., 168, cm, 11/22/24 23:58:00 EDT, Height, 106.2, kg, 11/22/24 22:22:00 EDT, Dry Weight Start Date: 11/27/24 Stop Date: 02/24/25 Status: Ordered Quantity: 178.0 Unit: tablet Repeat number: 1 CPAP CPAP, See Instructions, # 1 units, [...] Refills, Maintenance, 12/29/18 1:48:58 PM EDT, Solution, [facility], 1 drops both eyes qid prn itching allergy symptoms Start Date: 12/29/18 Status: Ordered Quantity: 10.0 Unit: mL Repeat number: 12 dapagliflozin 10 mg oral tablet = 10 mg, By Mouth, Daily, # 90 tablet, 3 Refills, Maintenance, 01/03/25 11:04:00 AM EDT, Tablet, [facility], Partial fill upon patient request if the prescription is for a schedule II opioid drug., 165, cm, 01/03/25 7:33:00 EDT, Height, 98.5, kg, 01/01/25 1:16:00 EDT, Dry Weight Start Date: 01/03/25 Stop Date: 12/29/25 Status: Ordered Quantity: 90.0 Unit: tablet Repeat number: 4 diclofenac 1% topical gel APPLY 1 APPLICATOR TOPICALLY TWICE DAILY NEEDED FOR NECK PAIN FOR 28 DAYS Start Date: 11/23/24 Status: Ordered Repeat number: 1 doxepin 10 mg oral capsule 1 capsule, By Mouth, Daily at bedtime, CAN CAUSE DROWSINESS, # 30 capsule, 10 Refills, Maintenance,01/13/21 12:21:00 PM EDT, [facility], 170.18, cm, 07/03/19 12:11:00 EDT, Height Start Date: 01/13/21 Status: Ordered Quantity: 30.0 Unit: capsule Repeat number: 1 duloxetine 20 mg oral enteric coated capsule 1 capsule = 20 mg, 0 Refills, Maintenance, 12/20/24 1:41:00 PM EDT, Partial fill upon patient request if the prescription is for a schedule II opioid drug. Start Date: 12/20/24 Status: Ordered Repeat number: 1 Entresto 49 mg-51 mg oral tablet 1 tablet, By Mouth, 2 times a day, # 60 tablet, 3 Refills, Maintenance, 01/03/25 10:59:00 AM EDT, Tablet, [facility], Partial fill upon patient request if the prescription is for a schedule II opioid drug., 1 tablet By Mouth 2 times a day, 165, cm, 01/03/25 7:33:00 EDT, Height, 98.5, kg, 01/01/25 1:16:00 EDT, Dry Weight Start Date: 01/03/25 Status: Ordered Quantity: 60.0 Unit: tablet Repeat number: 4 EPINEPHrine 1 mg/mL injectable solution 0.3 mL = 0.3 mg, Intramuscular, Once, Epinephrine auto-injector kit for anaphylaxis. See instructions. Call 911 if used., # 2 each, 11 Refills, Soft Stop, 08/12/20 2:05:00 PM EST, Solution, [facility], 170.18, cm, 07/03/19 12:11:00 EDT, Height Start Date: 08/12/20 Status: Ordered Quantity: 2.0 Unit: each Repeat number: 12 famotidine 20 mg oral tablet 20 mg, 1, tablet, By Mouth, Daily, # 30 tablet, Refills 0, Maintenance, 12/20/24 1:40:00 PM EDT, Partial fill upon patient request if the prescription is for a schedule II opioid drug. Start Date: 12/20/24 Status: Ordered Quantity: 30.0 Unit: tablet Repeat number: 1 Glucose Monitor See Instructions, # 1 each, Maintenance, Two times a day for Diabetes Mellitus/hypoglycemia or as needed for hypoglycemia symptoms, 01/04/25 11:32:00 AM EDT, Supply, 165, cm, 01/04/25 7:34:00 EDT, Height, 98.5, kg, 01/01/25 1:16:00 EDT, Dry Weight Start Date: 01/04/25 Status: Ordered Quantity: 1.0 Unit: each Repeat number: 1 Glucose Test Strips See Instructions, # 120 each, Maintenance, Two times a day for Diabetes Mellitus/hypoglycemia or asneeded for hypoglycemia symptoms, 01/04/25 11:32:00 AM EDT, Supply, 165, cm, 01/04/25 7:34:00 EDT, Height, 98.5, kg, 01/01/25 1:16:00 EDT, Dry Weight Start Date: 01/04/25 Status: Ordered Quantity: 120.0 Unit: each Repeat number: 1 hydrocortisone 2.5% topical ointment 1 application, Topically, 2 times a day, # 20 Gm, 0 Refills, Maintenance, 11/23/24 1:42:00 AM EDT, Ointment, Partial fill upon patient request if the prescription is for a schedule II opioid drug. Start Date: 11/23/24 Status: Ordered Quantity: 20.0 Unit: g Repeat number: 1 hydrOXYzine hydrochloride 50 mg oral tablet 1 tablet = 50 mg, By Mouth, Daily at bedtime Start Date: 12/20/24 Status: Ordered Repeat number: 1 Lace up ankle brace, right Lace up ankle brace, right, See Instructions, # 1 units, Refills 0, Tot. Refills 0, Maintenance, Dx: S93.401A Fax to [facility], 07/03/19 2:56:01 PM EDT, Compound Start Date: 07/03/19 Status: Ordered Quantity: 1.0 Unit: Units Repeat number: 1 Lancets See Instructions, # 120 each, Maintenance, Two times a day for Diabetes Mellitus/hypoglycemia or asneeded for hypoglycemia symptoms, 01/04/25 11:32:00 AM EDT, Supply, 165, cm, 01/04/25 7:34:00 EDT, Height, 98.5, kg, 01/01/25 1:16:00 EDT, Dry Weight Start Date: 01/04/25 Status: Ordered Quantity: 120.0 Unit: each Repeat number: 1 levocetirizine 5 mg oral tablet 1 tablet = 5 mg, By Mouth, Daily in PM, # 30 tablet, 0 Refills, Maintenance, 11/23/24 1:16:00 AM EDT, Tablet, Partial fill upon patient request if the prescription is for a schedule II opioid drug. Start Date: 11/23/24 Status: Ordered Quantity: 30.0 Unit: tablet Repeat number: 1 Linzess 145 mcg oral capsule 1 capsule = 145 mcg, By Mouth, Daily, # 30 capsule, 0 Refills, Maintenance, 12/20/24 1:39:00 PM EDT,Capsule, Partial fill upon patient request if the prescription is for a schedule II opioid drug. Start Date: 12/20/24 Status: Ordered Quantity: 30.0 Unit: capsule Repeat number: 1 metFORMIN 500 mg oral tablet 1 tablet = 500 mg, By Mouth, 2 times a day, # 180 tablet, 0 Refills, Maintenance, 11/23/24 1:19:00 AM EDT, Tablet, Partial fill upon patient request if the prescription is for a schedule II opioid drug. Start Date: 11/23/24 Status: Ordered Quantity: 180.0 Unit: tablet Repeat number: 1 metoprolol 50 mg oral tablet, extended release See Instructions, 1 tablet By Mouth Daily, # 30 tablet, Refills 5, Tot. Refills 5, Maintenance, 01/08/25 2:36:00 PM EDT, Instructions Replace Required Details, Route to Pharmacy Electronically, [facility], dose increase, 165, cm, 01/08/25 13:55:00 EDT, Height, 98.5, kg, 01/01/25 1:16:00 EDT, Dry Weight Start Date: 01/08/25 Status: Ordered Quantity: 30.0 Unit: tablet Repeat number: 6 montelukast 10 mg oral tablet 10 mg, 1, tablet, By Mouth, Daily in PM, # 30 tablet, Refills 0, Maintenance, 12/20/24 1:40:00 PM EDT, Partial fill upon patient request if the prescription is for a schedule II opioid drug. Start Date: 12/20/24 Status: Ordered Quantity: 30.0 Unit: tablet Repeat number: 1 Nebulizer/Compressor See Instructions, # 1 each, Refills 0, Tot. Refills 0, Maintenance, Use every 4 hours as needed., 04/01/22 9:27:00 PM EDT, portable with battery, Supply Start Date: 04/01/22 Status: Ordered Quantity: 1.0 Unit: each Repeat number: 1 Indication: Unspecified asthma, uncomplicated Nebulizer/Compressor See Instructions, # 1 each, Maintenance, J45.4 use for albuterol administration as directed pls [facility], 02/03/17 5:30:06 [...] pantoprazole 40 mg oral delayed release tablet 1 tablet = 40 mg, By Mouth, 2 times a day Start Date: 12/20/24 Status: Ordered Repeat number: 1 rOPINIRole 0.25 mg oral tablet See Instructions, Take one tablet By Mouth 2 hours prior to RLS onset, # 30 capsule, 0 Refills, Maintenance, 11/23/24 1:20:00 AM EDT, Partial fill upon patient request if the prescription is for a schedule II opioid drug. Start Date: 11/23/24 Status: Ordered Quantity: 30.0 Unit: capsule Repeat number: 1 Senna-Time 8.6 mg oral tablet 2 tablet = 17.2 mg, By Mouth, Daily at bedtime, as needed for constipation (stool softener), # 60 tablet, 11 Refills, Maintenance, 07/18/20 1:41:00 PM EST, [facility], 170.18, cm, 07/03/19 12:11:00 EDT, Height Start Date: 07/18/20 Status: Ordered Quantity: 60.0 Unit: tablet Repeat number: 12 spironolactone 25 mg oral tablet 25 mg, By Mouth, Daily, # 30 tablet, Refills 3, Tot. Refills 3, Maintenance, 01/03/25 10:59:00 AM EDT, Route to Pharmacy Electronically, [facility], Partial fill upon patient request if the prescription is for a schedule II opioid drug., 165, cm, 01/03/25 7:33:00 EDT, Height, 98.5, kg,01/01/25 1:16:00 EDT, Dry Weight Start Date: 01/03/25 Status: Ordered Quantity: 30.0 Unit: tablet Repeat number: 4 sucralfate 1 gm/10 ml oral suspension SHAKE LIQUID AND TAKE 10 ML BY MOUTH TWICE DAILY Start Date: 12/20/24 Status: Ordered Repeat number: 1 Symbicort 160mcg/4.5mcg Inhaler INHALE 2 PUFFS BY MOUTH TWICE DAILY. RINSE MOUTH WITH WATER AFTER USE FOR AFTERTASTE AND INCIDENCE OF CANDIDIASIS. DO NOT SWALLOW Start Date: 11/23/24 Status: Ordered Repeat number: 1 Thumb spica splint RIGHT Thumb spica splint RIGHT, See Instructions, # 1 units, Refills 0, Tot. Refills 0, Maintenance, Dx: M65.4 Fax to [facility], 07/03/19 2:57:34 PM EDT, Compound Start Date: 07/03/19 Status: Ordered Quantity: 1.0 Unit: Units Repeat number: 1 tiZANidine 4 mg oral tablet 4 mg, 1, tablet, By Mouth, Every 8 hours, PRN, # 90 tablet, Refills 0, Maintenance, Spasm, 11/23/24 1:34:00 AM EDT, Partial fill upon patient request if the prescription is for a schedule II opioid drug. Start Date: 11/23/24 Status: Ordered Quantity: 90.0 Unit: tablet Repeat number: 1 torsemide 20 mg oral tablet 1 tablet = 20 mg, By Mouth, Daily, # 30 tablet, 3 Refills, Maintenance, 01/03/25 11:00:00 AM EDT, Tablet, [facility], Partial fill upon patient request if the prescription is for a schedule II opioid drug., 165, cm, 01/03/25 7:33:00 EDT, Height, 98.5, kg, 01/01/25 1:16:00 EDT, Dry Weight Start Date: 01/03/25 Status: Ordered Quantity: 30.0 Unit: tablet Repeat number: 4 Triumeq oral tablet 1 tablet, By Mouth, Daily, # 30 tablet, 5 Refills, Maintenance, 01/09/25 9:40:00 AM EDT, Tablet, [id number], Pt needs to call office to schedule an appointment, 1 tablet By Mouth Daily,x30 days, 165, cm, 01/08/25 13:55:00 EDT, Height, 98.5, kg, 01/01/25 1:16:00 EDT, Dry Weight Start Date: 01/09/25 Stop Date: 07/08/25 Status: Ordered Quantity: 30.0 Unit: tablet Repeat number: 6 trospium 60 mg oral capsule, extended release 1 capsule = 60 mg, By Mouth, Daily in AM, # 30 capsule, 0 Refills, Maintenance, 11/23/24 1:35:00 AM EDT, CR Capsule, Partial fill upon patient request if the prescription is for a schedule II opioid drug. Start Date: 11/23/24 Status: Ordered Quantity: 30.0 Unit: capsule Repeat number: 1 Valtrex 1 gm oral tablet 1 tablet = 1 Gm, By Mouth, 2 times a day, PRN as needed for outbreak, # 10 tablet, 11 Refills, Maintenance, 01/31/23 3:14:00 PM EDT, [facility], Please dispense 10 pills; disregard prior script, 170.18, cm, 02/09/22 18:24:00 EDT, Height Start Date: 01/31/23 Stop Date: 04/01/23 Status: Ordered Quantity: 10.0 Unit: tablet Repeat number: 12 Vitamin B-12 1000 mcg oral tablet 1,000 mcg, 1, tablet, By Mouth, Every Tuesday, Tuesday and Tuesday Start Date: 12/20/24 Status: Ordered Repeat number: 1 Vitamin D3 1000 intl units oral capsule 90 each, 0 Refill(s), 0 Refills, 07/15/23 11:37:00 AM EDT, Partial fill upon patient request if the prescription is for a schedule II opioid drug. Start Date: 07/15/23 Status: Ordered Repeat number: 1 Vitamin D3 1000 intl units oral tablet 1 tablet = 25 mcg, By Mouth, Daily, # 30 tablet, 0 Refills, Maintenance, 12/20/24 1:39:00 PM EDT, Tablet, Partial fill upon patient request if the prescription is for a schedule II opioid drug. Start Date: 12/20/24 Status: Ordered Quantity: 30.0 Unit: tablet Repeat number: 1 Problem List Condition Confirmation Course Effective Dates [...] Confirmed Active Depression with anxiety Confirmed Active Obese class I Confirmed Active PCOS - Polycystic ovarian syndrome Confirmed Active Sciatica of right side Confirmed Active Hepatic steatosis Confirmed Active Left [...] Former smoker, quit more than 30 days ago entered on: 01/01/25 Sex Sex Representation Female (finding) Patient Care team information Care Team Personnel Name: Jessi Stokes RN Position: S RN Member Role: Primary Care Nurse Name: Alecia Sen RN Position: S RN Member Role: Primary Care Nurse Name: Herminia Britt RN Position: S RN Member Role: Primary Care Nurse Name: Albaro Birch RN Position: S RN Member Role: Primary Care Nurse Name: Baron Patrick MD Position: Reference Physician Member Role: PCP Address: [address] [place] [address] [place] [address]- [place] [employer]: Name: Lianne Gomes Position: [facility] Outreach Member Role: [employer] Consulting Physician Name: Anibal Dean RN Position: [facility] RN Member Role: Primary Care Nurse Name: Daniele Schuler RN Position: [facility] RN Member Role: Primary Care Nurse Care Team Related Persons Name: CLARICE WALLACE Name: JENNIFER EMMANUEL Name: BRANDON POPE Insurance Providers Guarantor name: JOAO WALLACE Health Plan Information #: 1 Payer: [employer] [facility] [employer] Member Number: NA Policy Number: NA Group Number: NA Health Plan Information #: 2 Payer: [place] Member Number: NA Policy Number: NA Group Number: NA
--- OUTSIDE RECORDS SUMMARY | 2025-01-15 10:52 | XMS_ITS | Clinical Summary ---
Author Organization [facility] [address] [place] [address] [place] [address] BETTY Riddle [address] Phone Care Team Providers Care Commercial Pilot Name Role Phone Baron Patrick MD Primary Care Provider [phone] Allergies Active Allergy Reactions Criticality Noted Date Comments Egg 04/25/2020 Eczema flares Prednisone Other,Wheezing 04/25/2020 Shrimp Hives 03/11/2023 Raw shrimp Medications abacavir-dolute gravir-lamiVUDi ne (Triumeq) 600-50-300 mg per tablet Take 1 tablet by mouth 1 (one) time each day. Active acetaminophen (TYLENOL 8 HOUR) 650 mg 8 hr tablet Take 1 tablet (650 mg total) by mouth 3 (three) times a day if needed. Active ammonium lactate (AMLACTIN) 12 % cream Apply 1 Applicator topically 2 times daily as needed for Dry Skin. Active diclofenac (VOLTAREN) 1 % topical gel Apply 1 Applicator topically 2 times daily as needed (neck pain) for up to 28 days. Active EPINEPHrine (EpiPen 2-Chino) 0.3 mg/0.3 mL injection INJECT INTRAMUSCULARLY FOR ALLERGIC REACTIONS. CALL 911 SEEK MEDICAL ATTENTION Active hydrocortisone 1 % topical cream Apply small amount to affect area (s) twice daily for up to 2 weeks. Active medroxyPROGESTE Feng (PROVERA) 5 mg tablet Take 2 Tablets by mouth daily for 40 days. Active melatonin 10 mg capsule Take by mouth. Activ e albuterol 2.5 mg /3 mL (0.083 %) nebulizer solution USE 1 VIAL VIA NEBULIZER EVERY 6 HOURS NEEDED FOR WHEEZING OR SHORTNESS OF BREATH 75 mL 3 025 Active Linzess 145 mcg capsuleIndicati ons:Constipatio n, unspecified constipation type TAKE 1 CAPSULE(145 MCG) BY MOUTH DAILY 30 capsule 5 025 Active allopurinoL (ZYLOPRIM) 100 mg tablet TAKE 1 TABLET(100 MG) BY MOUTH TWICE DAILY 180 tablet 1 025 Active cholecalciferol (VITAMIN D-3) 25 mcg (1,000 unit) tablet Take 1 tablet (1,000 Units total) by mouth 1 (one) time each day. 90 tablet 1 025 Active montelukast (SINGULAIR) 10 mg tablet Take 1 tablet (10 mg total) by mouth at bedtime. at bedtime. 90 tablet 1 025 Active senna (SENOKOT) 8.6 mg tablet Take 1 tablet (8.6 mg total) by mouth 1 (one) time each day. 90 tablet 1 025 Active dapagliflozin propanediol (Farxiga) 10 mg tablet Take 1 tablet (10 mg total) by mouth 1 (one) time each day. Active atorvastatin (LIPITOR) 80 mg tablet Take 1 tablet (80 mg total) by mouth at bedtime. Active metoprolol succinate (TOPROL-XL) 25 mg 24 hr tablet Take 0.5 tablets (12.5 mg total) by mouth 1 (one) time each day. Do not crush or chew. Active aspirin 325 mg EC tablet Take 2 tablets (650 mg total) by mouth 3 (three) times a day. 2 weeks Active sacubitriL-vals abdelrahman (Entresto) 24-26 mg per tablet Take 1 tablet by mouth 2 (two) times a day. Active famotidine (PEPCID) 20 mg tablet Take 1 tablet (20 mg total) by mouth 2 (two) times a day. 180 tablet 025 Active doxepin (SINEquan) 10 mg capsule Take 1 capsule (10 mg total) by mouth at bedtime. 90 capsule 025 Active DULoxetine (CYMBALTA) [address] capsule Take 2 capsules (40 mg total) by mouth 1 (one) time each day. Do not crush or chew. 60 each 3 025 Active albuterol HFA (PROAIR HFA ; PROVENTIL HFA ; VENTOLIN HFA) 90 mcg/actuation inhalerIndicati ons:Moderate persistent asthma without complication Inhale 2 puffs by mouth every 4 (four) hours if needed for wheezing. 18 g 1 025 Active Symbicort 160-4.5 mcg/actuation inhalerIndicati ons:Moderate persistent asthma without complication Inhale 2 puffs by mouth 2 (two) times a day. Rinse mouth with water after use to reduce aftertaste and incidence of candidiasis. Do not swallow. 10.2 g 3 025 2024 Active cyanocobalamin (VITAMIN B-12) 1,000 mcg tablet Take 1 tablet (1,000 mcg total) by mouth 3 (three) times a week. 90 tablet 1 025 Active aspirin 81 mg EC tablet Take 1 tablet (81 mg total) by mouth 1 (one) time each day. 90 tablet 1 025 Active colchicine (MITIGARE) 0.6 mg capsule capsule Take 1 capsule (0.6 mg total) by mouth 2 (two) times a day. Active levocetirizine (XYZAL) 5 mg tablet TAKE 1 TABLET BY MOUTH EVERY EVENING 90 tablet 1 024 2024 Discontinued Active Problems Problem Noted Date Diagnosed Date Major depressive disorder, r ecurrent episode, moderate ([facility] V24, [facility] V28) 09/09/2024 Depression, unspecified 09/09/2024 COVID-19 09/09/2024 Pre-diabetes 03/08/2023 Mixed incontinence 10/08/2022 Adrenal nodule ([facility] V24) 10/29/2021 S/P gastric sleeve procedure 10/29/2021 Low [...] liver 04/25/2020 HIV (human immunodeficiency virus infection) ([facility] V24, [facility] V28) 04/25/2020 Hypertension 04/25/2020 Osteoarthritis of lower back 04/25/2020 Overview (08/20/2024): With sciatica Perennial allergic rhinitis 04/25/2020 Encounters Date Type Department Care Team Description 01/14/2025 Telephone Adult Medicine [address] [phone] Emmanuelle Kenny MA home health certificate [id number] 12/31/2024 Nurse Triage Adult Medicine [address] [phone] Baorn Patrick MD 12/26/2024 Telephone Adult Medicine [address] [phone] Baron Patrick MD TRIAGE 12/25/2024 Telephone Adult Medicine [address] [phone] Baron Patrick MD faxed order ([facility] [id number] ) 12/20/2024 Telephone Adult Medicine [address] [phone] Baron Patrick MD faxed order ([facility] [id number]) 12/19/[address] [phone] Lainey Gross MA triage 12/18/[address] [phone] Baron Patrick MD vna 12/07/[address] [phone] Baron Patrick MD faxed order ([facility] [id number]) 12/07/[address] [phone] Baron Patrick MD fittitting DME 12/05/[address] [phone] Baron Patrick MD faxed order ([facility] [id number], [id number]) 12/03/2024 1:00 PM EDT Office Visit [address] [phone] Baron Patrick MD Hospital discharge follow-up (Primary Dx); Non-STEMI (non-ST elevated myocardial infarction) (CMS/HCC V24, CMS/HCC V28); HFrEF (heart failure with reduced ejection fraction) (CMS/HCC V24, CMS/HCC V28); Acute pericarditis, unspecified type; QT prolongation; Primary hypertension; HIV infection, unspecified symptom status (CMS/HCC V24, CMS/HCC V28); Pre-diabetes; Moderate persistent asthma without complication; Anxiety and depression; Chronic gout involving toe without tophus, unspecified cause, unspecified laterality; Constipation, unspecified constipation type; Screening for thyroid disorder 11/29/[address] [phone] Lainey Gross MA VNA 11/28/2024 Telephone Adult [address] [phone] Baron Patrick MD [facility] Follow-up 11/28/2024 [facility] Adult [address] [phone] Baron Patrick MD vna 11/12/2024 3:40 PM EST Office Visit Pulmonolgy - [place] [address] [place] [address] Annmarie Pham, COLTON Moderate persistent asthma without complication (Primary Dx) 10/29/2024 [facility] Adult [address] [phone] Morena Reed LPN Fitting for DME (Faxed form from [facility] /) 10/26/2024 Telephone Adult Medicine [address] [phone] Baron Patrick MD faxed order (Faxed order received from [facility] [id number] please sign and fax to [phone]/) 10/22/2024 Telephone Adult Medicine [address] [phone] Maryann Baird LPN Fitting for DME 10/22/2024 Telephone Adult Medicine [address] [phone] Maryann Baird LPN Fitting for DME from Last 3 Months Immunizations Name Administration Dates Next Due Hepatitis B (Jldasag-V-Arwrj , Recombivax HB-Adult) 19yo and older 07/15/2023,04/10/2021 [...] 6mo and older 07/17/2021,08/30/2017,07/11/2015,07/22,07/04/2013,08/18/2006 Influenza, Unspecified 07/17/2021 [email or web address] SARS-CoV-2 COVID -19, vector-nr, rS-Ad26, preservative free [...] Eczema DX:Eczema HIV (human immunodeficiency virus infection) ([facility] V24, [facility] V28) DX:HIV (human im munodeficiency virus infection) ([facility]); COMMENT: Referred to infectious disease [...] Father Coronary artery disease Maternal Grandmother s/p NE Diabetes Mother Hypertension Mother Other: fatty liver [...] Sign Reading Time Taken Comments Blood Pressure 130/86 12/03/2024 7:50 PM EDT Pulse 104 12/03/2024 12:21 PM EDT Temperature 36.7 ??C (98 ??F) 12/03/2024 12:21 PM EDT Respiratory Rate 18 12/03/2024 12:21 PM EDT Oxygen Saturation 96% 11/12/2024 3:55 PM EST Inhaled Oxygen Concentration - - Weight 97.1 kg (214 lb) 12/03/2024 12:21 PM EDT Height 166.4 cm (5' 5.5 ) 12/03/2024 12:21 PM ED T Body Mass Index 35.07 12/03/2024 12:21 PM EDT Plan of Treatment Upcoming Encounters Date Type Department Care Team (Late st Contact Info) Description 01/17/2025 2:20 PM EDT Office Visit Pulmonolgy - [place] [address] [facility] [address] [place] [phone] Annmarie Pham, [place] 175 [facility] [address] [place] [address] 05/14/2025 4:00 PM EDT Office Visit Adult [facility] [address] [place] [address] Chrissy Nguyen PA [address] [place] [address] Health Maintenance Due Date Last Done Comments [...] 07/15/2022, 07/17/2021, Additional history exists Influenza Vaccine (Season Ended) 2025 07/04/2023, 07/13/2022, 07/17/2021, Additional history exists Hypertension/CHF/CAD Annual [...] age to complete this topic Meningococcal B Vaccine Aged Out No l onger eligible based on patient's age to complete this topic RSV Immunization Patients Under 20 months Aged Out No longer eligible based on patient's age to complete this topic Varicella Vaccines Aged Out No longer eligible based on patient's age to complete this topic Procedures Procedure Name Priority Date/Time Associated Diagnosis Comments ECG 12-LEAD Routine 12/03/2024 8:24 PM EDT Non-STEMI (non-ST elevated myocardial infarction) (CMS/HCC V24, CMS/HCC V28) HFrEF (heart failure with reduced ejection fraction) (CMS/HCC V24, CMS/HCC V28) QT prolongation BASIC METABOLIC PANEL Routine 09/18/2024 11:13 AM EST Anxiety and depression Gout involving toe, unspecified cause, unspecified chronicity, unspecified laterality SCREENING MAMMOGRAPHY BI 2-VIEW BREAST INC CAD Routine 10/08/2023 1:11 PM EST Encounter for screening mammogram for malignant neoplasm of breast HM HPV Routine 04/28/2023 LIPID PANEL Routine 03/08/2023 HEPATITIS C SCREENING Routine 07/15/2020 from Last 3 Months or Most Recently Relevant to Health Maintenance Results * ECG 12 lead (12/03/2024 8:24 PM EDT) Narrative Baron Patrick MD - 12/03/2024 8:24 PM EDT EKG-sinus tachycardia, QT prolongation and no acute ST-T changes. Baron Patrick MD ECG ORDERABLES Final Resul t * (ABNORMAL) Basic metabolic panel (09/18/2024 11:13 AM EST) Sodium 139 133 - 145 mmol/L LAB CHEMISTRY METHOD 09/18/2024 2:28 PM [facility] Potassium 3.9 3.5 - 5.5 mmol/L LAB CHEMISTRY METHOD 09/18/2024 2:28 PM [facility] Chloride 105 96 - 110 mmol/L LAB CHEMISTRY METHOD 09/18/2024 2:28 PM [facility] CO2 26 21 - 32 mmol/L LAB CHEMISTRY METHOD 09/18/2024 2:28 PM [facility] Anion Gap 8 3 - 11 LAB CHEMISTRY METHOD 09/18/2024 2:28 PM [facility] Glucose 116(H) 70 - 100 mg/dL LAB CHEMISTRY METHOD 09/18/2024 2:28 PM [facility] BUN 11 5 - 25 mg/dL LAB CHEMISTRY METHOD 09/18/2024 2:28 PM [facility] Creatinine 1.17(H) 0.50 - 1.10 mg/dL LAB CHEMISTRY METHOD 09/18/2024 2:28 PM [facility] eGFR 58(L) >=60 mL/min/1. 73m2 LAB CHEMISTRY METHOD 09/18/2024 2:28 PM [facility] Comment:Calculation based on the??Chronic Kidney Disease Epidemiology Collaboration (CKD-EPI) equation refit??without adjustment for race. BUN/Creatinine Ratio 9.4 LAB CHEMISTRY METHOD 09/18/2024 2:28 PM [facility] Calcium 9.3 8.5 - 10.5 mg/dL LAB CHEMISTRY METHOD 09/18/2024 2:28 PM EST [facility] Blood Venous blood specimen / Unknown Venipuncture / Unknown 09/18/2024 11:13 AM EST 09/18/2024 11:13 AM EST Chrissy Nguyen KEIRA LAB BLOOD ORDERABLES Fin al Result [facility] ([facility] [address] [place] [address], * SCREENING MAMMOGRAPHY BI 2-VIEW BREAST INC [...] Negative Valentín Castanon MD IMG XR PROCEDURES Final Res ult * Cervical Cancer Screening: HPV (04/28/2023) Pathologist [facility] Cervical Cancer Screening: HPV negative, abstracted Historical Provider HEALTH MAINTENANCE Final Result * (ABNORMAL) Lipid panel (03/08/2023) [facility] LDL/HDL Ratio 5(A) 0 - 4 Triglycerides 179(A) 0 - 150 mg/dL Cholesterol 213(A) 0 - 200 mg/dL HDL 45 >=40 mg/dL LDL Cholesterol 133(A) 0 - 100 mg/dL Blood Venous blood specimen / Unknown Result [facility] Historical Provider LAB BLOOD ORDERABLES Lawanda l Result * Hepatitis C Screening (07/15/2020) Pathologist [facility] Hepatitis C Screening abstracted Historical Provider HEALTH MAINTENANCE Final Result from Last 3 Months or Most Recently Relevant to Health Maintenance Insurance [facility] Member Subscriber Plan / Payer (Ef fective 2016-Present) Name:Jhoana De La Garza Relation to Subscriber:Self Name:Jhoana De La Garza Payer ID:[id number] Group ID:[id number] Type:Not on file Address: [facility] [address] [phone] Care Teams Commercial Pilot Relationship Specialty Start Date End Date Baron Patrick MD [address] [place] [address] PCP - General Internal Medicine 12/24/21
--- OUTSIDE RECORDS SUMMARY | 2025-01-15 10:52 | XMS_ITS | Encounter Summary ---
Author Organization [facility] Address [address] [place] [address] Care Team Providers Care Jammer Operator Name Role Phone Baron Patrick MD Primary Care Provider Encounter Details Date Type Department Care Team (Late st Contact Info) Description 12/31/2024 Nurse Triage Adult Medicine [address] [phone] Baron Patrick MD [address] [place] [id number] Social History Tobacco Use Types Packs/Day Years [...] as of this encounter Progress Notes * Baron Patrick MD - 12/31/2024 3:25 PM EDT Sounds good. * Imelda Chiu RN - 12/31/2024 3:17 PM EDT Pt has not seen cardiology she will go to the ed now * Baron Patrick MD - 12/31/2024 3:07 PM EDT I am not sure if she was seen by the bobbin stripper. Patient was supposed to see [facility] bobbin stripper earlier this month. If she has not seen the bobbin stripper then I would recommend her to go to the emergency room. Some reason if she refuses to go to the emergency room, then she should be seen here tomorrow. * Imelda Chiu RN - 12/31/2024 2:16 PM EDT Pt was admitted 12/03 with nstemi and acute CHF , states she has had the same chest pain since discharge still 6/10 middle of the chest accompanied with SOB with any activity, no leg swelling VNA nurse notes 3 pound weight gain in past 4 days and bilateral basilar crackles Pt C/O chest pain which is unchanged with deep breath and movement, pt c/o SOB, is able to speak infull sentences and has no audible wheezing/stridor, pt has not noted any increase in pain with activity, pain is constant, located in the middle of the chest with no radiation, pain is 6/10 and has been constant since she was hospitalized , pt denies any rapid or irregular HR , no N/V/D or fever, has not had a cough, pt denies weakness or dizziness, has no leg pain or swelling. Appointment with dr patrick tomorrow but will send to dr patrick for review given pt's recent hx to see if er is more appropriate documented in this encounter Plan of Treatment Upcoming Encounters Date Type Department Care Team (Late st Contact Info) Description 01/17/2025 2:20 PM EDT Office Visit Pulmonolgy - [place] [address] [facility] [address] [place] [address] Annmarie Pham, [place] [address] [place] [address] [place] [address] 05/14/2025 4:00 PM EDT Office Visit Adult Medicine [facility] [address] [place] [address] Chrissy Nguyen PA [address] [place] [address] documented as of this encounter Visit Diagnoses Not on filedocumented in this encounter Care Teams Jammer Operator Relationship Specialty Start Date End Date Baron Patrick MD [address] [place] [address] PCP - General Internal Medicine 12/24/21 documented as of this encounter
== END 2025-01-15 10:20 | disposition home or self-care (01) ==
LOC: HO.HBS 09:47
PROVIDERS: PCP Internal Medicine; Visit Provider Physician Assistant Surgical
DX: E66.9 Obesity, unspecified (principal); Z90.3 Acquired absence of stomach [part of]
CPT/HCPCS: 99214; G2211

== ENCOUNTER → 2025-01-15 09:46 | Outpatient (BNVA) | payer OTHER, SELFPAY | PROVIDERS: PCP Internal Medicine; Visit Provider Physician Assistant Surgical | DX: E66.9 Obesity, unspecified (principal); Z98.84 Bariatric surgery status; Z68.43 Body mass index [BMI] 50.0-59.9, adult | CPT/HCPCS: 99212 ==

== ENCOUNTER 2025-04-23 10:01 | Outpatient (AMB) | payer OTHER, SELFPAY ==
--- NOTE | 2025-04-23 10:23 | MHC.OFFVISWM ---
VS Expanded 04/23/25 10:51 BP 104/60 Blood Pressure Location Rt brachial Blood Pressure Position Sitting Pulse 97 Pulse Source Pulse Oximeter Temp 96.8 F Temperature Source Temporal Artery Scan Pulse Oximetry 100 Oxygen Delivery Method Room Air Height 5 ft 5.5 in Weight 198 lb 6.4 oz BMI 32.5 Body Fat % 39.4 Body Fat Mass 78.0 Fat Free Mass 120.2 Visceral Fat Rating 9.0 Body Water % 43.2 Body Water Mass 85.6 Muscle Mass/Score 114.0 Basal Metabolic Rate/Score 1,651 Intake Visit Reasons: OV PO LSG 11/26/20 Allergies prednisone (PREDNISONE) Allergy (Severe, Verified 04/23/25 10:30) DIFFICULTY BREATHING, anaphylaxis eggs Allergy (Intermediate, Uncoded 11/22/24 18:29) Hives Medication List - Last Reconciled 04/23/25 by KEIRA Wing msojlegy-cpliymmfcbaf-rtlrgku 600-50-300 mg (Triumeq) 1 tab PO DAILY acetaminophen 650 mg PO Q6H PRN albuterol sulfate 2.5 mg inhalation Q6H PRN allopurinol 100 mg PO BID ammonium lactate 12% 1 appl topical .prn aspirin 81 mg PO DAILY atorvastatin (Lipitor) 80 mg PO BEDTIME azelastine 1 spray intranasal DAILY betamethasone dipropionate 0.05% 1 appl topical BID PRN cholecalciferol (vitamin D3) 25 mcg PO DAILY colchicine 0.6 mg PO BID 3 days cromolyn 4% 1 drp ophthalmic-Left QID PRN cyanocobalamin (vitamin B-12) 1,000 mcg PO DAILY doxepin 10 mg PO BEDTIME duloxetine 20 mg PO BID fluticasone propionate 50 mcg/actuation 2 sprays intranasal DAILY fluticasone propionate 220 mcg/actuation (Flovent HFA) 2 puffs inhalation BID linaclotide (Linzess) 1 cap PO DAILY lisinopril-hydrochlorothiazide 20-12.5 mg 1 tab PO DAILY metoprolol succinate ER 50 mg PO DAILY montelukast 1 tab PO DAILY ropinirole mg PO sacubitril-valsartan 97-103 mg (Entresto) 1 tab PO BID sennosides (Black-Draught Lax-Senna) 8.6 mg PO BEDTIME spironolactone 25 mg PO DAILY tirzepatide (weight loss) (Zepbound) 15 mg (0.5 mL) subcut QWEEK torsemide 20 mg PO DAILY HPI Comments Details: This?is a 49?yo F who is s/p LSG 11/26/2020. Weight loss of 9.6lbs since last OV 3mo ago. Continues on Zepbound, tolerating well. Having another echo by cardiology in June. Difficulty with sleeping still. Has an appt for her sleep apnea but not until next year. Present meal plan includes: Goal weight was 219-220lbs to be a candidate for revision surgery 10am-12pm Premier protein shake, premade or Pure protein shake, 1 scoop powder in 8oz 1% milk 2-4pm same shake 5:30pm dinner- 3oz protein, 3oz veg 9pm Luxembourgish yogurt with berries or oranges sometimes skips meals, shakes Exercise routine includes: not supposed to exercise currently per cardiology due to heart issues [facility] Medical History Allergic reaction caused by a drug Anxiety Arthritis Asthma BMI 39.0-39.9,adult Body mass index (BMI) of 40.1 to 44.9 in adult Constipation Depression HIV (human immunodeficiency virus infection) HTN (hypertension) Insomnia Low back pain Morbid obesity Preoperative examination Sciatica Seasonal allergies Shortness of breath Sleep apnea Vertigo Vitamin B1 deficiency Surgical History History of sleeve gastrectomy History of elbow surgery History of appendectomy Family History Mother Hyperlipidemia Hypertension Arthritis Sciatica Diabetes Father No problems noted. Brother Hypertension Social History Household Members: None Housing: Apartment Are you a primary customer care manager to a significant other at home: No Do you presently have visiting nurse or other home services: Yes (HELP WITH HOUSEWORK ONCE A WEEK) Alcohol intake: never Patient Tobacco Use Status: Former Tobacco user Tobacco use type: Cigarette e-Cigarette/Vaping Use: Never Used Second Hand Smoke Exposure: No service: No Current occupational status: unemployed Assessment & Plan Assessment & Plan (1) Status post sleeve gastrectomy: Code(s): Z90.3 - Acquired absence of stomach [part of] Category: Surgical (2) Obesity: Code(s): E66.9 - Obesity, unspecified Category: Medical Plan Pt doing well on GLP1. Her reflux has improved. She will maintain high protein meal plan. Will follow up with cardiology as scheduled. Gave [employer] tommy info per pt request. RTC 4mo.
[2025-04-23 10:51] VITALS: BP 104/60; PULSE 97; TEMP 36; O2SAT 100; BMI 32.5
== END 2025-04-23 10:56 | disposition home or self-care (01) ==
LOC: HO.HBS 10:02
PROVIDERS: PCP Internal Medicine; Visit Provider Physician Assistant Surgical
DX: E66.9 Obesity, unspecified (principal); Z68.32 Body mass index [BMI] 32.0-32.9, adult; Z90.3 Acquired absence of stomach [part of]; Z98.84 Bariatric surgery status
CPT/HCPCS: 99213; G2211

== ENCOUNTER → 2025-04-23 10:01 | Outpatient (BNVA) | payer OTHER, SELFPAY | PROVIDERS: PCP Internal Medicine; Visit Provider Physician Assistant Surgical | DX: E66.9 Obesity, unspecified (principal); Z68.32 Body mass index [BMI] 32.0-32.9, adult; Z90.3 Acquired absence of stomach [part of] | CPT/HCPCS: 99212 ==

== ENCOUNTER 2025-06-21 08:51 | Outpatient (AMB) | payer OTHER, SELFPAY ==
--- NOTE | 2025-06-21 08:57 | A.OFFVIS_ITS ---
Vital Signs 06/21/25 09:00 Height 5 ft 5.5 in Weight 201 lb 4 oz BMI 33.0 BP 142/67 H Blood Pressure Location Rt brachial Position Sitting Pulse 99 Pulse Source Pulse Oximeter Pulse Oximetry (%) 96 Oxygen Delivery Method Room Air Intake Visit Reasons: OSTEOARTHRITIS OF SPINE W/RADICULOPATHY Allergies prednisone (PREDNISONE) Allergy (Severe, Verified 06/21/25 09:00) DIFFICULTY BREATHING, anaphylaxis shrimp Allergy (Unknown, Verified 06/23/25 21:02) Unknown eggs Allergy (Intermediate, Uncoded 11/22/24 18:29) Hives HPI Comments Details: The patient is a 50-year-old female with complex medical and significant cardiac medical history (chronic compensated HFrEF) presenting with low back pain with right sided radiculopathy. The pain has been present since 2004 and is described as a stabbing tightness that worsens with standing, walking, and prolonged sitting. She reports that the pain radiates to the buttock and both sides of the leg, with more significant symptoms on the right side. Denies any recent trauma, injury or falls. Pain is most severe mid day, with intensity at 6-8/10. The patient has a history of osteoarthritis of the lower back and severe degenerative disc disease of the lumbar spine, with foraminal stenosis noted at L4-L5 and L5-S1. She completed physical therapy three years ago without im provement and reports that nothing alleviates her pain. She has been using Tylenol for pain management. The patient has a history of morbid obesity, anxiety and depression, RAVIN with noncompliant CPAP therapy, status post gastric sleeve surgery, and is currently unemployed, receiving [employer] services for housework once a week and [facility] services for medication management. - Onset: Pain has been present since 2004 - Quality: Described as stabbing, tightness, throbbing, cramping, sore, hurting, heavy, aching - Location: Radiates to the buttock and both sides of the leg, more significant on the right - Exacerbating factors: Worsens with standing, walking, and prolonged sitting - Relieving factors: Reports nothing helps - Affect: Pain impacts daily activities and employment status, requiring [employer] se rvices - Analgesia: Currently using Tylenol, avoids NSAIDs due to h/o gastric sleeve; pain persists despite medication - Adverse Effects: None reported from current pain management - Activities of Daily Living: Pain limits ability to stand, walk, and perform household tasks - Aberrant Drug Related Behaviors: None reported [facility] Medical History (Updated 06/21/25 @ 09:27 by LASHAWN Sun) Osteoarthritis of lower back Fatty liver Obstructive sleep apnea Eczema Allergic conjunctivitis Low grade squamous intraepith lesion on cytologic smear anus (lgsil) Adrenal nodule Mixed incontinence Pre-diabetes Major depressive disorder 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 Coronary artery disease involving [place] heart without angina pectoris Allergic reaction caused by a drug Vitamin B1 deficiency BMI 39.0-39.9,adult Shortness of breath Preoperative examination Sleep apnea Anxiety Depression Low back pain Constipation Vertigo Asthma HTN (hypertension) Body mass index (BMI) of 40.1 to 44.9 in adult Insomnia HIV (human immunodeficiency virus infection) Seasonal allergies Sciatica Arthritis Morbid obesity Surgical History History of sleeve gastrectomy History of elbow surgery History of appendectomy Family History Mother Hyperlipidemia Hypertension Arthritis Sciatica Diabetes Father No problems noted. Brother Hypertension Social History Household Members: None Housing: Apartment Are you a primary cardiac care nurse to a significant other at home: No Do you presently have visiting nurse or other home services: Yes (HELP WITH HOUSEWORK ONCE A WEEK) Alcohol intake: never Patient Tobacco Use Status: Former Tobacco user Tobacco use type: Cigarette e-Cigarette/Vaping Use: Never Used Second Hand Smoke Exposure: No service: No Current occupational status: unemployed Review of Systems Const Details: - Musculoskeletal: Reports low back pain with radiculopathy, radiating to buttock and legs - Neurological: Reports numbness and tingling in the right leg - Respiratory: Denies dyspnea, reports asthma - Gastrointestinal: Reports constipation - Psychological: Reports anxiety and depression - Sleep: Reports noncompliance with CPAP therapy for obstructive sleep apnea All systems reviewed & are unremarkable except as noted in HPI and below Physical Exam Vital Signs: Last Vital Signs Pulse 99 06/21/25 09:00 BP 142/67 H 06/21/25 09:00 Pulse Ox 96 06/21/25 09:00 Oxygen Delivery Method Room Air 06/21/25 09:00 BMI result Body Mass Index 33.0 General: Appears afebrile. Alert and oriented. Mood and affect appropriate. Follows and participates in conversation appropriately. Respiratory effort is unlabored. No cough. Able to transition from sit to stand unassisted. Ambulates with bilaterally normal heel strike and toe off, reports back and leg pain with toe standing on the right. General: Yes no CVA tenderness Back/Spine/Pelvis Other: Limited lumbar ROM due to pain. Lumbar bending, flexion and extension reproduce moderate to severe pain. Demonstrates 5/5 left and 4/5 right strength of quadriceps bilaterally as well as flexion/dorsiflexion of bilateral feet against resistance. 2+ pedal pulses bilaterally. Straight leg rise with dorsiflexion positive on the right. +1 patellar and achilles reflexes bilaterally. Facet loading test positive bilaterally. Kristina sign, Akbar?s, Pelvic compression and Stinchfield tests are positive on right. No groin pain with I/E hip rotations. Valsalva maneuver negative. Back: no CVA tenderness Cervical Spine: cervical ROM normal, cervical muscular tenderness and No Cervical spine tenderness Thoracic/Lumbar Spine: thoracic and lumbar spine normal to inspection, No Thoracic/lumbar spine scar(s), Lasegue's sign positive on the right and localized, No thoracic spinal tenderness and lumbar spinal tenderness (L4-S1) Sacroiliac joints: on the right tender to palpation and on the left nontender Extrem General: Yes capillary refill normal, Yes no clubbing, cyanosis or edema and Yes no calf tenderness Results Reviewed Results Reviewed: MR LUMBAR SPINE WITHOUT AND WITH CONTRAST 07/15/24 CLINICAL INFORMATION: Elevated ESR, evaluate for abscess COMPARISON: None available. TECHNIQUE: MRI of the lumbar spine was obtained using routine sequences with and without contrast. Intravenous contrast: Gadavist 10 mL mL FINDINGS: Alignment is maintained. Vertebral body heights are preserved. Bone marrow is unremarkable in signal aside from a Schmorl's node along the inferior endplate of L1.. The conus medullaris is normal in signal and terminates at the L1 level. Prevertebral and paraspinal soft tissues are unremarkable. SIGNIFICANT FINDINGS BY LEVEL: T12-L1: No disc bulge or herniation. No significant spinal canal or foraminal stenosis. L1-L2: Mild disc bulge. No significant spinal canal or foraminal stenosis. L2-L3: No disc bulge or herniation. No significant spinal canal or foraminal stenosis. L3-L4: Broad-based disc bulge resulting in mild spinal canal stenosis and mild bilateral foraminal stenosis. L4-L5: Broad-based disc bulge and ligamentum hypertrophy resulting in mild-moderate canal stenosis, moderate right foraminal stenosis and severe left foraminal stenosis. L5-S1: Broad-based disc bulge and mild right facet arthropathy resulting in severe bilateral foraminal stenosis. IMPRESSION: 1. No evidence of abscess or infection. 2. Multilevel degenerative disease of the lumbar spine, most prominent at L4-L5 and L5-S1 where there is severe left foraminal stenosis at L4-L5 and severe bilateral foraminal stenosis at L5-S1. XR lumbar spine 2-3V 07/15/24 EXAMINATION: Right foot and lumbar spine. CLINICAL INDICATION: Toe pain. COMPARISON: None. TECHNIQUE: A views right foot and 3 views lumbar spine. FINDINGS: Right foot: Visualized bones and joints are normal. No bony erosive changes. Fracture, dislocation or soft tissue swelling. A moderate size calcaneal heel and a small retrocalcaneal spurs are seen. Ankle mortise and subtalar joints are normal. Lumbar spine: There is normal lumbar lordosis. The vertebral heights and alignment is normal. There is loss of all disc heights with moderate ventral spondylosis at L3-4, L4-5 and L5-S1 disc levels. No visible acute fracture, dislocation or subluxation seen. IMPRESSION: 1. Moderate size calcaneal heel and small retrocalcaneal spurs. No visible acute fracture or dislocation seen. 2. Degenerative disc changes L4-5 and L5-S1 disc levels with moderate ventral spondylosis L3-4, L4-5 and L5-S1 disc levels. No visible acute fracture, dislocation or subluxation seen. Assessment & Plan Assessment & Plan (1) Lumbar radiculopathy: Code(s): M54.16 - Radiculopathy, lumbar region Category: Medical (2) Lumbosacral spondylosis: Code(s): M47.817 - Spondylosis without myelopathy or radiculopathy, lumbosacral region Category: Medical (3) Lumbar spinal stenosis: Code(s): M48.061 - Spinal stenosis, lumbar region without neurogenic claudication Category: Medical (4) Lumbosacral spondylosis: Code(s): M47.817 - Spondylosis without myelopathy or radiculopathy, lumbosacral region Category: Medical (5) Drug allergy: Code(s): Z88.9 - Allergy status to unspecified drugs, medicaments and biological substances Category: Medical Plan The patient has pending Neurosurgery referral for further evaluation spinal sten osis and radicular symtpoms. In the interim, diagnostic lumbar medial branch block injections for axial, facet mediated pain will be considered. Physical therapy will be initiated to improve core strength and potentially alleviate symptoms. The patient will also be referred for allergy testing to confirm or rule out a prednisone allergy, which could impact future treatment options. Pain management will continue with current medications, and the patient is advised to follow up with Neurosurgery and physical therapy appointments. All questions and concerns have been answered and patient agreed with the treatment plan. Follow up after PT/Neurosurgery evaluation and sooner as needed. Patient was informed and verbally consented to the use of an ambient scribe for clinic note documentation during this visit. Orders: Orders PT Evaluation and Treatment 06/21/25 M47.817 - Spondylosis without myelopathy or radiculopathy, lumbosacral region, M48.061 - Spinal stenosis, lumbar region without neurogenic claudication, M54.16 - Radiculopathy, lumbar region Referrals Allergy & Immunology Referral Z88.9 - Allergy status to unspecified drugs, medicaments and biological substances Coding Level of Care Code New Pt Level 4 (40865) Diagnoses Lumbar radiculopathy M54.16 Lumbosacral spondylosis M47.817 Lumbar spinal stenosis M48.061 Drug allergy Z88.9
[2025-06-21 09:00] VITALS: BP 142/67; PULSE 99; O2SAT 96; BMI 33.0
== END 2025-06-21 09:29 | disposition home or self-care (01) ==
LOC: HO.PMC 08:51
PROVIDERS: PCP Internal Medicine; Visit Provider Nurse Practitioner Family
DX: M54.16 Radiculopathy, lumbar region (principal); M47.817 Spondylosis without myelopathy or radiculopathy, lumbosacral region; M48.061 Spinal stenosis, lumbar region without neurogenic claudication; Z88.9 Allergy status to unspecified drugs, medicaments and biological substances
CPT/HCPCS: 99204

== ENCOUNTER → 2025-06-21 08:51 | Outpatient (BNVA) | payer OTHER, SELFPAY | PROVIDERS: PCP Internal Medicine; Visit Provider Nurse Practitioner Family | DX: M48.061 Spinal stenosis, lumbar region without neurogenic claudication (principal); M54.16 Radiculopathy, lumbar region; M47.817 Spondylosis without myelopathy or radiculopathy, lumbosacral region; Z88.9 Allergy status to unspecified drugs, medicaments and biological substances | CPT/HCPCS: 99202 ==

== ENCOUNTER 2025-08-21 09:31 | Outpatient (AMB) | payer OTHER, SELFPAY ==
--- NOTE | 2025-08-21 09:46 | A.OFFVIS_ITS ---
VS Expanded 08/21/25 10:16 BP 113/72 Blood Pressure Location Rt brachial Blood Pressure Position Sitting Pulse 97 Pulse Source Pulse Oximeter Temp 96.7 F L Temperature Source Temporal Artery Scan Pulse Oximetry 100 Oxygen Delivery Method Room Air Height 5 ft 5.5 in Weight 189 lb 9.8 oz BMI 31.1 Body Fat % 39.1 Body Fat Mass 74.0 Fat Free Mass 115.6 Visceral Fat Rating 9.0 Body Water % 43.4 Body Water Mass 82.2 Muscle Mass/Score 109.6 Basal Metabolic Rate/Score 1,587 Intake Visit Reasons: OV PO LSG 11/26/20 Allergies prednisone (PREDNISONE) Allergy (Severe, Verified 08/21/25 10:12) DIFFICULTY BREATHING, anaphylaxis shrimp Allergy (Unknown, Verified 08/21/25 10:12) Unknown eggs Allergy (Intermediate, Uncoded 11/22/24 18:29) Hives Medication List - Last Reconciled 08/21/25 by KEIRA Wing qdulijhb-[id number]-[id number] 600-50-300 mg (Triumeq) 1 tab PO DAILY acetaminophen 650 mg PO Q6H PRN albuterol sulfate 2.5 mg inhalation Q6H PRN allopurinol 100 mg PO BID ammonium lactate 12% 1 appl topical .prn aspirin 81 mg PO DAILY atorvastatin (Lipitor) 80 mg PO BEDTIME azelastine 1 spray intranasal DAILY cholecalciferol (vitamin D3) 25 mcg PO DAILY clonazepam (Klonopin) 0.5 mg PO BEDTIME colchicine 0.6 mg PO BID 3 days cyanocobalamin (vitamin B-12) 1,000 mcg PO DAILY dapagliflozin propanediol (Farxiga) 10 mg PO DAILY diclofenac sodium 1% 2 grams topical QID doxepin 10 mg PO BEDTIME duloxetine 20 mg PO BID epinephrine (EpiPen) 0.3 mg IM Q10M PRN fluticasone propionate 50 mcg/actuation 2 sprays intranasal DAILY linaclotide (Linzess) 1 cap PO DAILY lisinopril-hydrochlorothiazide 20-12.5 mg 1 tab PO DAILY metoprolol succinate ER 50 mg PO DAILY montelukast 1 tab PO DAILY ropinirole mg PO sacubitril-valsartan 97-103 mg (Entresto) 1 tab PO BID sennosides (Black-Draught Lax-Senna) 8.6 mg PO BEDTIME spironolactone 25 mg PO DAILY tirzepatide (weight loss) (Zepbound) 15 mg (0.5 mL) subcut QWEEK torsemide 20 mg PO DAILY HPI Comments Details: This is a 49 yo F who is s/p LSG 11/26/2020. Weight loss of 8.8lbs since last OV 3mo ago. Continues on Zepbound, tolerating well. Believes she is approved until November. Having another echo by cardiology, had one in June. Difficulty with sleeping still. Has an appt for her sleep apnea but not until next year. Reflux has improved, still taking meds for this. Present meal plan includes: Goal weight was 219-220lbs to be a candidate for revision surgery 10am-12pm Premier protein shake, premade or Pure protein shake, 1 scoop powder in 8oz 1% milk 2-4pm same shake 5:30pm dinner- 3oz protein, 3oz veg 9pm English yogurt with berries or oranges sometimes skips meals, shakes; sometimes will have scrambled eggs instead, or toast or oatmeal Exercise routine includes: not supposed to exercise currently per cardiology due to heart issues also still has sciatica which has not improved much; not much helps this but does follow with pain medication [facility] Medical History (Updated 06/21/25 @ 09:27 by LASHAWN Sun) Osteoarthritis of lower back Fatty liver Obstructive sleep apnea Eczema Allergic conjunctivitis Low grade squamous intraepith lesion on cytologic smear anus (lgsil) Adrenal nodule Mixed incontinence Pre-diabetes Major depressive disorder 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 Coronary artery disease involving [place] heart without angina pectoris Allergic reaction caused by a drug Vitamin B1 deficiency BMI 39.0-39.9,adult Shortness of breath Preoperative examination Sleep apnea Anxiety Depression Low back pain Constipation Vertigo Asthma HTN (hypertension) Body mass index (BMI) of 40.1 to 44.9 in adult Insomnia HIV (human immunodeficiency virus infection) Seasonal allergies Sciatica Arthritis Morbid obesity Surgical History History of sleeve gastrectomy History of elbow surgery History of appendectomy Family History Mother Hyperlipidemia Hypertension Arthritis Sciatica Diabetes Father No problems noted. Brother Hypertension Social History Household Members: None Housing: Apartment Are you a primary toddler caregiver to a significant other at home: No Do you presently have visiting nurse or other home services: Yes (HELP WITH HOUSEWORK ONCE A WEEK) Alcohol intake: never Patient Tobacco Use Status: Former Tobacco user Tobacco use type: Cigarette e-Cigarette/Vaping Use: Never Used Second Hand Smoke Exposure: No service: No Current occupational status: unemployed Physical Exam Vital Signs: Last Vital Signs Temp 96.7 F L 08/21/25 10:16 Pulse 97 08/21/25 10:16 BP 113/72 08/21/25 10:16 Pulse Ox 100 08/21/25 10:16 Oxygen Delivery Method Room Air 08/21/25 10:16 BMI result Body Mass Index 31.1 Assessment & Plan Assessment & Plan (1) Obesity: Code(s): E66.9 - Obesity, unspecified Category: Medical (2) Status post sleeve gastrectomy: Code(s): Z90.3 - Acquired absence of stomach [part of] Category: Surgical Plan I discussed with her the importance of adequate nutrition and protein intake even while on Zepbound. She is likely not getting enough protein if she is skipping meals and eating what she currently is. We discussed the risk of bone loss and muscle loss with inadequate nutrition. Pt is following up with cardiology as scheduled. RTC 4mo.
[2025-08-21 10:16] VITALS: BP 113/72; PULSE 97; TEMP 35.9; O2SAT 100; BMI 31.1
== END 2025-08-21 10:51 | disposition home or self-care (01) ==
LOC: HO.HBS 09:32
PROVIDERS: PCP Internal Medicine; Visit Provider Physician Assistant Surgical
DX: E66.9 Obesity, unspecified (principal); Z90.3 Acquired absence of stomach [part of]
CPT/HCPCS: 99214; G2211

== ENCOUNTER → 2025-08-21 09:31 | Outpatient (BNVA) | payer OTHER, SELFPAY | PROVIDERS: PCP Internal Medicine; Visit Provider Physician Assistant Surgical | DX: E66.9 Obesity, unspecified (principal); Z90.3 Acquired absence of stomach [part of]; Z68.31 Body mass index [BMI] 31.0-31.9, adult; Z71.3 Dietary counseling and surveillance | CPT/HCPCS: 99212 ==